=== PATIENT | male | born 1930 | race African-American/Black ===

== ENCOUNTER 2016-12-10 14:11 | Observation (INO) | payer MEDICARE, OTHER ==
[~2016-12-10] VITALS: Ht 172.7 cm; Wt 76.0 kg
[~2016-12-10 14:11] MED LIST: AMLO5TAB2 PO; APIX2.5T PO; CALC0.25 PO; CARV25TA PO; CLON0.1T PO; DIAL800T3 PO; LOSA50TA PO; NOVOINJ2 SQ; SIMV20TA PO; WALKER/ADULT/FO1 MIS
[2016-12-10 14:12] VITALS: BP 140/66; PULSE 70; RESP 18; TEMP 97.9; O2SAT 92
--- NOTE | 2016-12-10 15:03 | PD ---
HPI Chief Complaint: General Weakness Time Seen by Provider: 15:03 Travel History International Travel<30 days: No Contact w/Intl Traveler<30days: No Traveled to known affect area: No History of Present Illness HPI 86-year-old male with history of hypertension, diabetes, end-stage renal disease on peritoneal dialysis nightly presents to emergency department for evaluation of abdominal pain with associated chills and dizziness. Patient's accompanied by his grandson who reports the patient felt this way to days ago but felt better yesterday so they did not bring him to the emergency department. When patient began having symptoms again states he decided to bring him in. Patient denies any chest pain or tightness. He has not been recently ill with fever. Grandson reports that the patient is complaining of epigastric pain with associated dizziness. He also tells me that one week ago he had an episode of black tarry stool. He had had a colonoscopy a month and a half prior to then without anything concerning. Patient has not been nauseous or vomiting. No diarrhea. No other symptoms to report. PFSH Past Medical History Cardiovascular Problems: Yes (HTN) Diabetes: Yes Social History Alcohol Use: No Tobacco Use: No Substance Use: No Allergies-Medications (Allergen,Severity, Reaction): Coded Allergies: No Known Allergies (Unverified , 11/28/16) Reported Meds & Prescriptions Reported Meds & Active Scripts Active Walker/Adult/Folding (Device) 1 Mis Mis 1 Ea .ROUTE DIRECTED Novolog Mix 70-30 FlexPen Inj (Insulin Aspart Protam-Asp 70-30 Inj) 300 Unit/3 Ml Pen 10 Units SQ BIDPC Take within 15 minutes after eating meal twice a day. Preferably, eat two large meals a day. Losartan (Losartan Potassium) 50 Mg Tab 50 Mg PO DAILY Carvedilol 25 Mg Tab 25 Mg PO BID Simvastatin 20 Mg Tab 20 Mg PO DAILY Calcitriol 0.25 Mcg Cap 0.25 Mcg PO DAILY Clonidine (Clonidine HCl) 0.1 Mg Tab 0.1 Mg PO BID Reported Amlodipine (Amlodipine Besylate) 5 Mg Tab 5 Mg PO DAILY Eliquis (Apixaban) 2.5 Mg Tab 2.5 Mg PO BID Dialyvite 800 (B-Complex W/ C & Folic Acid) 1 Tab Review of Systems Except as stated in HPI: all other systems reviewed are Neg Physical Exam Narrative GENERAL: Well-nourished male patient, in no acute distress SKIN: Warm and dry. HEAD: Atraumatic. Normocephalic. EYES: Pupils equal and round. No scleral icterus. No injection or drainage. ENT: No nasal bleeding or discharge. Mucous membranes pink and moist. NECK: Trachea midline. No JVD. CARDIOVASCULAR: Regular rate and rhythm. No murmur appreciated. RESPIRATORY: No accessory muscle use. Clear to auscultation. Breath sounds equal bilaterally. GASTROINTESTINAL: Abdomen soft, non-tender, nondistended. No significant tenderness to palpation. No peritoneal signs. Lower quadrant peritoneal dialysis site. No erythema or edema. Hepatic and splenic margins not palpable. MUSCULOSKELETAL: No obvious deformities. No clubbing. No cyanosis. No edema. NEUROLOGICAL: Awake and alert. No obvious cranial nerve deficits. Motor grossly within normal limits. Normal speech. PSYCHIATRIC: Appropriate mood and affect; insight and judgment normal. Data Data Last Documented VS Vital Signs Date Time Temp Pulse Resp B/P Pulse Ox O2 Delivery O2 Flow Rate FiO2 12/10/16 17:29 63 99 Room Air 12/10/16 17:29 21 162/72 12/10/16 14:12 97.9 Orders Complete Blood Count With Diff (12/10/16 14:51) Comprehensive Metabolic Panel (12/10/16 14:51) Lipase (12/10/16 14:51) Prothrombin Time / Inr (Pt) (12/10/16 14:51) Act Partial Throm Time (Ptt) (12/10/16 14:51) Urinalysis - C+S If Indicated (12/10/16 14:51) Electrocardiogram (12/10/16 14:51) Chest, Single Ap (12/10/16 ) B-Type Natriuretic Peptide (12/10/16 14:52) Ckmb (Isoenzyme) Profile (12/10/16 14:52) Troponin I (12/10/16 14:52) CKMB (12/10/16 15:28) CKMB% (12/10/16 15:28) Blood Culture (12/10/16 17:20) Fluid Culture And Gram Stain (12/10/16 17:20) Lactic Acid (12/10/16 17:22) Vancomycin Inj (Vancomycin Inj) (12/10/16 17:30) Cefazolin Inj (Ancef Inj) (12/10/16 17:30) Labs Laboratory Tests Test 12/10/16 12/10/16 15:20 15:28 Urine Color YELLOW Urine Turbidity CLEAR Urine pH 6.5 Urine Specific [place] 1.013 Urine Protein 100 mg/dL Urine Glucose (UA) NEG mg/dL Urine Ketones NEG mg/dL Urine Occult Blood TRACE Urine Nitrite NEG Urine Bilirubin NEG Urine Urobilinogen LESS THAN 2.0 MG/DL Urine Leukocyte Esterase NEG Urine WBC LESS THAN 1 /hpf Microscopic Urinalysis Comment CULT NOT INDICATED White Blood Count 9.6 TH/MM3 Red Blood Count 2.90 MIL/MM3 Hemoglobin 9.5 GM/DL Hematocrit 28.0 % Mean Corpuscular Volume 96.8 FL Mean Corpuscular Hemoglobin 32.8 PG Mean Corpuscular Hemoglobin 33.8 % Concent Red Cell Distribution Width 15.3 % Platelet Count 208 TH/MM3 Mean Platelet Volume 8.4 FL Neutrophils (%) (Auto) 64.8 % Lymphocytes (%) (Auto) 23.2 % Monocytes (%) (Auto) 8.5 % Eosinophils (%) (Auto) 2.7 % Basophils (%) (Auto) 0.8 % Neutrophils # (Auto) 6.2 TH/MM3 Lymphocytes # (Auto) 2.2 TH/MM3 Monocytes # (Auto) 0.8 TH/MM3 Eosinophils # (Auto) 0.3 TH/MM3 Basophils # (Auto) 0.1 TH/MM3 CBC Comment AUTO DIFF Differential Total Cells 100 Counted Neutrophils % (Manual) 72 % Lymphocytes % 21 % Monocytes % 1 % Eosinophils % 2 % Basophils % 2 % Neutrophils # (Manual) 7.1 TH/MM3 Metamyelocytes 1 % Myelocytes 1 % Differential Comment FINAL DIFF MANUAL Platelet Estimate NORMAL Platelet Morphology Comment NORMAL Tear Drop Cells 1+ Prothrombin Time 12.1 SEC Prothromb Time International 1.1 RATIO Ratio Activated Partial 28.9 SEC Thromboplast Time Sodium Level 136 MEQ/L Potassium Level 5.5 MEQ/L Chloride Level 100 MEQ/L Carbon Dioxide Level 25.1 MEQ/L Anion Gap 11 MEQ/L Blood Urea Nitrogen 96 MG/DL Creatinine 10.59 MG/DL Estimat Glomerular Filtration 6 ML/MIN Rate Random Glucose 172 MG/DL Calcium Level 7.8 MG/DL Total Bilirubin 0.4 MG/DL Aspartate Amino Transf 13 U/L (AST/SGOT) Alanine Aminotransferase 12 U/L (ALT/SGPT) Alkaline Phosphatase 101 U/L Total Creatine Kinase 102 U/L Creatine Kinase MB 1.4 NG/ML Troponin I 0.03 NG/ML B-Type Natriuretic Peptide 351 PG/ML Total Protein 6.5 GM/DL Albumin 2.7 GM/DL Lipase 279 U/L MDM Medical Decision Making Medical Screen Exam Complete: Yes Emergency Medical Condition: Yes Medical Record Reviewed: Yes Differential Diagnosis Gastritis versus indigestion versus ACS versus Peritonitis versus sepsis Narrative Course 86-year-old male presents to emergency department. Workup was initiated in triage. Once a medical bed becomes available, patient will be transferred and care assumed by that provider. Condition: Stable Renetta Monahan Dec 10, 2016 15:03
--- NOTE | 2016-12-10 15:40 | RADRPT ---
EXAM DATE/TIME: 12/10/2016 15:28 [facility] COMPARISON: No previous studies available for comparison. INDICATIONS : Dizziness and short of breath. MEDICAL HISTORY : Hypertension. Diabetes. SURGICAL HISTORY : None. ENCOUNTER: Initial ACUITY: 2 days PAIN SCORE: 0/10 LOCATION: Bilateral chest FINDINGS: A single view of the chest demonstrates bibasilar atelectasis. Heart normal in size. Diminished lung volumes The cardiomediastinal contours are unremarkable. Osseous structures are intact. CONCLUSION: Bibasilar atelectasis. Benedicto José MD on December 10, 2016 at 15:38 Board Certified Radiologist. This report was verified electronically.
[2016-12-10 15:45] LABS: AUTOMATED NEUTROPHIL # 6.2 TH/MM3 (1.8-7.7); BASOPHIL # 0.1 TH/MM3 (0-0.2); BASOPHIL % 0.8 % (0.0-2.0); EOSINOPHIL # 0.3 TH/MM3 (0-0.4); EOSINOPHIL % 2.7 % (0.0-4.0); LYMPH % 23.2 % (9.0-44.0); LYMPHOCYTE # 2.2 TH/MM3 (1.0-4.8); MEAN CELL VOLUME 96.8 FL (80.0-100.0); MEAN CORPUSCULAR HEMOGLOBIN 32.8 PG (27.0-34.0); MEAN CORPUSCULAR HGB CONC 33.8 % (32.0-36.0); MONO % 8.5 % (0.0-8.0); NEUT % 64.8 % (16.0-70.0); PLATELET COUNT 208 TH/MM3 (150-450); RED CELL DISTRIBUTION WIDTH 15.3 % (11.6-17.2); WHITE BLOOD COUNT 9.6 TH/MM3 (4.0-11.0)
[2016-12-10 15:53] LABS: BLOOD, URINE TRACE (NEG); GLUCOSE,URINE NEG (NEG); KETONE, URINE NEG (NEG); NITRITE,URINE NEG (NEG); PH, URINE 6.5 (5.0-8.5); URINE COLOR YELLOW (YELLW/STRAW)
[2016-12-10 15:54] LABS: APTT (PATIENT) 28.9 SEC (24.3-30.1); INTERNATIONAL NORMALIZED RATIO 1.1 RATIO; PROTHROMBIN TIME - PATIENT 12.1 SEC (9.8-11.6)
[2016-12-10 15:55] LABS: HEMO FLAGS AUTO DIFF
[2016-12-10 16:06] LABS: COMMENT (UR) CULT NOT INDICATED; CULTURE IF INDICATED CULT NOT INDICATED
[2016-12-10 16:14] LABS: ANION GAP 11 MEQ/L (5-15); AST (GOT) 13 U/L (15-37); BICARBONATE 25.1 MEQ/L (21.0-32.0); BLOOD UREA NITROGEN 96 MG/DL (7-18); CHLORIDE 100 MEQ/L (98-107); GLOMERULAR FILTRATION RATE 6 ML/MIN (>89); POTASSIUM 5.5 MEQ/L (3.5-5.1); SODIUM (NA) 136 MEQ/L (136-145)
[2016-12-10 16:17] LABS: ALKALINE PHOSPHATASE 101 U/L (45-117); ALT (GPT) 12 U/L (12-78); TOTAL BILIRUBIN ADULT 0.4 MG/DL (0.2-1.0)
[2016-12-10 16:19] LABS: CREATINE KINASE 102 U/L (39-308)
[2016-12-10 16:31] LABS: CKMB 1.4 NG/ML (0.5-3.6)
[2016-12-10 16:33] LABS: BASOPHILS 2 % (0-2); EOSINOPHILS 2 % (0-4); METAMYELOCYTES 1 % (0-1); MYELOCYTES 1 % (0-0); NEUTROPHIL # MANUAL DIFF 7.1 TH/MM3 (1.8-7.7); POLYS (SEG NEUTROPHILS) 72 % (16-70); WBC DIFF SAMPLE 100
[2016-12-10 16:35] LABS: PLATELET ESTIMATE SMEAR NORMAL (NORMAL); PLATELET MORPHOLOGY NORMAL (NORMAL); SCAN/DIFF FINAL DIFF MANUAL; TEARDROP RBCS 1+ (NORMAL)
[2016-12-10 17:29] VITALS: BP 162/72; PULSE 59; RESP 21; O2SAT 99
[2016-12-10] MEDS ORDERED: VANCOMYCIN INJ 1,000 MG in SODIUM CHLOR 0.9% 250 ML INJ 250 ML IV ONE (17:30)
[2016-12-10 18:00] VITALS: BP 183/73; PULSE 59; RESP 17; O2SAT 100
--- NOTE | 2016-12-10 18:08 | PD ---
Physical Exam Date Seen by Provider: Dec 10, 2016 Time Seen by Provider: 17:15 Narrative This patient presented to the A pod from triage where he had been initially evaluated by one of the PAs. He is an end-stage renal disease patient on chronic ambulatory peritoneal dialysis who presented with pain associated with weakness and dizziness and poor appetite. Onset was about 4 days. No known fever. GENERAL: This is a speaking only patient who does not appear to be in any acute distress. His history was assisted by his grandson who speaks fluent Irish and Czech. SKIN: Warm and dry. HEAD: Atraumatic. Normocephalic. EYES: Pupils equal and round. Extraocular movements are intact. ENT: No nasal bleeding or discharge. Mucous membranes pink and moist. NECK: Trachea midline. Neck is supple. CARDIOVASCULAR: Regular rate and rhythm. Heart sounds are normal. RESPIRATORY: No accessory muscle use. Lungs sound clear with full air movement throughout. GASTROINTESTINAL: Abdomen soft, non-tender, nondistended. There is a peritoneal dialysis catheter in place. MUSCULOSKELETAL: No obvious deformities. No edema. NEUROLOGICAL: Awake and alert. No obvious cranial nerve deficits. Motor grossly within normal limits. Normal speech. PSYCHIATRIC: Appropriate mood and affect; insight and judgment normal. Data Data Last Documented VS Vital Signs Date Time Temp Pulse Resp B/P Pulse Ox O2 Delivery O2 Flow Rate FiO2 12/10/16 18:00 59 17 183/73 100 Room Air 12/10/16 14:12 97.9 Orders Complete Blood Count With Diff (12/10/16 14:51) Comprehensive Metabolic Panel (12/10/16 14:51) Lipase (12/10/16 14:51) Prothrombin Time / Inr (Pt) (12/10/16 14:51) Act Partial Throm Time (Ptt) (12/10/16 14:51) Urinalysis - C+S If Indicated (12/10/16 14:51) Electrocardiogram (12/10/16 14:51) Chest, Single Ap (12/10/16 ) B-Type Natriuretic Peptide (12/10/16 14:52) Ckmb (Isoenzyme) Profile (12/10/16 14:52) Troponin I (12/10/16 14:52) CKMB (12/10/16 15:28) CKMB% (12/10/16 15:28) Blood Culture (12/10/16 17:20) Fluid Culture And Gram Stain (12/10/16 17:20) Lactic Acid (12/10/16 17:22) Vancomycin Inj (Vancomycin Inj) (12/10/16 17:30) Cefazolin Inj (Ancef Inj) (12/10/16 17:30) Ct Abd/Pel W/O Iv Contrast (12/10/16 19:26) Admit Order (Ed Use Only) (12/10/16 19:26) Labs Laboratory Tests Test 12/10/16 12/10/16 12/10/16 15:20 15:28 17:50 Urine Color YELLOW Urine Turbidity CLEAR Urine pH 6.5 Urine Specific [place] 1.013 Urine Protein 100 mg/dL Urine Glucose (UA) NEG mg/dL Urine Ketones NEG mg/dL Urine Occult Blood TRACE Urine Nitrite NEG Urine Bilirubin NEG Urine Urobilinogen LESS THAN 2.0 MG/DL Urine Leukocyte Esterase NEG Urine WBC LESS THAN 1 /hpf Microscopic Urinalysis Comment CULT NOT INDICATED White Blood Count 9.6 TH/MM3 Red Blood Count 2.90 MIL/MM3 Hemoglobin 9.5 GM/DL Hematocrit 28.0 % Mean Corpuscular Volume 96.8 FL Mean Corpuscular Hemoglobin 32.8 PG Mean Corpuscular Hemoglobin 33.8 % Concent Red Cell Distribution Width 15.3 % Platelet Count 208 TH/MM3 Mean Platelet Volume 8.4 FL Neutrophils (%) (Auto) 64.8 % Lymphocytes (%) (Auto) 23.2 % Monocytes (%) (Auto) 8.5 % Eosinophils (%) (Auto) 2.7 % Basophils (%) (Auto) 0.8 % Neutrophils # (Auto) 6.2 TH/MM3 Lymphocytes # (Auto) 2.2 TH/MM3 Monocytes # (Auto) 0.8 TH/MM3 Eosinophils # (Auto) 0.3 TH/MM3 Basophils # (Auto) 0.1 TH/MM3 CBC Comment AUTO DIFF Differential Total Cells 100 Counted Neutrophils % (Manual) 72 % Lymphocytes % 21 % Monocytes % 1 % Eosinophils % 2 % Basophils % 2 % Neutrophils # (Manual) 7.1 TH/MM3 Metamyelocytes 1 % Myelocytes 1 % Differential Comment FINAL DIFF MANUAL Platelet Estimate NORMAL Platelet Morphology Comment NORMAL Tear Drop Cells 1+ Prothrombin Time 12.1 SEC Prothromb Time International 1.1 RATIO Ratio Activated Partial 28.9 SEC Thromboplast Time Sodium Level 136 MEQ/L Potassium Level 5.5 MEQ/L Chloride Level 100 MEQ/L Carbon Dioxide Level 25.1 MEQ/L Anion Gap 11 MEQ/L Blood Urea Nitrogen 96 MG/DL Creatinine 10.59 MG/DL Estimat Glomerular Filtration 6 ML/MIN Rate Random Glucose 172 MG/DL Calcium Level 7.8 MG/DL Total Bilirubin 0.4 MG/DL Aspartate Amino Transf 13 U/L (AST/SGOT) Alanine Aminotransferase 12 U/L (ALT/SGPT) Alkaline Phosphatase 101 U/L Total Creatine Kinase 102 U/L Creatine Kinase MB 1.4 NG/ML Troponin I 0.03 NG/ML B-Type Natriuretic Peptide 351 PG/ML Total Protein 6.5 GM/DL Albumin 2.7 GM/DL Lipase 279 U/L Lactic Acid Level 1.2 mmol/L MDM Supervised Visit with ANA: Yes Interpretation(s) EKG shows a sinus bradycardia with a rate of 58. No ST segment elevation or depression. He does have Q waves in the inferior leads. He has no old EKGs for comparison. Differential Diagnosis Differential diagnosis of abdominal pain includes but is not limited to gastritis, pancreatitis, hepatitis, gastroenteritis, gallbladder disease, constipation, urinary retention, UTI, peptic ulcer disease, diverticulitis or appendicitis. Peritonitis also needs to be included in this patient who uses CAPD. Narrative Course CBC & BMP Diagram 12/10/16 15:28 This patient will need to be admitted for rule out peritonitis associated with CAPD. I have queried up-to-date for recommendations for empiric antibiotic coverage. UpToDate recommended vancomycin and cefazolin. I have added blood cultures, a lactic acid and dialysate culture. The hospitalists' service will be consult for admission. Physician Communication Physician Communication Dr. West will admit to OBS pending cultures, etc. Diagnosis Primary Impression: Abdominal pain Qualified Code: R10.13 - Epigastric pain Additional Impression: Peritoneal dialysis status Admitting Information Admitting Physician Requests: Observation Condition: Stable Gemini Whyte MD Dec 10, 2016 18:08
[2016-12-10] MEDS ORDERED: CALC0.25 PO (18:55)
[2016-12-10] MEDS ORDERED: NOVOINJ2 SQ (18:55)
[2016-12-10] MEDS ORDERED: LOSA50TA PO (18:57)
[2016-12-10] MEDS ORDERED: SIMV20TA PO (18:57)
[2016-12-10] MEDS ORDERED: NALOXONE HCL 0.4 MG/ML AMP IV PRN (20:30)
[2016-12-10] MEDS ORDERED: SODIUM CHLORIDE 0.9% FLUSH 5 ML FLUSH FLUSH PRN ×2 (20:30→21:15)
--- NOTE | 2016-12-10 20:38 | RADRPT ---
EXAM DATE/TIME: 12/10/2016 19:48 [facility] COMPARISON: No previous studies available for comparison. INDICATIONS : Epigastric pain with rectal bleeding. ORAL CONTRAST: No oral contrast ingested. RADIATION DOSE: 9.96 CTDIvol (mGy) MEDICAL HISTORY : Cardiovascular disease. Hypertension. Inflammatory bowel disease.Dialysis SURGICAL HISTORY : None. ENCOUNTER: Initial ACUITY: 1 week PAIN SCALE: 6/10 LOCATION: upper abdomen TECHNIQUE: Volumetric scanning of the abdomen and pelvis was performed. Using automated exposure control and ad justment of the mA and/or kV according to patient size, radiation dose was kept as low as reasonably achievable to obtain optimal diagnostic quality images. FINDINGS: LOWER LUNGS: The visualized lower lungs are clear. LIVER: Homogeneous density without lesion. There is no dilation of the biliary tree. No calcified gallston es. SPLEEN: Normal size without lesion. PANCREAS: Within normal limits. KIDNEYS: Kidneys are atrophic. Peritoneal dialysis catheter noted in place. ADRENAL GLANDS: Within normal limits. VASCULAR: There is no aortic aneurysm. BOWEL/MESENTERY: The stomach, small bowel, and colon demonstrate no acute abnormality. There is no free intraperitone al air or fluid. ABDOMINAL WALL: Within normal limits. RETROPERITONEUM: There is no lymphadenopathy. BLADDER: No wall thickening or mass. REPRODUCTIVE: Within normal limits. INGUINAL: There is no lymphadenopathy or hernia. MUSCULOSKELETAL: No acute changes. CONCLUSION: No acute disease. Atrophic kidneys. Peritoneal dialysis catheter in place. Berhane Dalye MD on December 10, 2016 at 20:33 Board Certified Radiologist. This report was verified electronically.
[2016-12-10] MEDS ORDERED: SODIUM CHLORIDE 0.9% FLUSH 5 ML FLUSH FLUSH SCH (21:00)
[2016-12-10] MEDS ORDERED: ONDANSETRON HCL 4 MG/2 ML VIAL IVP PRN (21:15)
[2016-12-10] MEDS ORDERED: ACETAMINOPHEN 325 MG TAB PO PRN (21:15)
[2016-12-10 21:23] VITALS: BP 158/68; PULSE 60; RESP 18; O2SAT 98
[2016-12-10] MEDS: SODIUM CHLORIDE 0.9% FLUSH 5 ML FLUSH FLUSH SCH (22:12)
[2016-12-10] MEDS ORDERED: LOSARTAN 50 MG TAB PO SCH (23:45)
[2016-12-10] MEDS: cloNIDine HCL 0.1 MG TAB PO SCH (23:45)
[2016-12-10] MEDS: CARVEDILOL 12.5 MG TAB PO SCH (23:45)
[2016-12-10] MEDS: PRAVASTATIN SOD 20 MG TAB PO SCH (23:45)
[2016-12-10] MEDS: amLODIPine BESYLATE 5 MG TAB PO SCH (23:45)
[2016-12-11] VITALS (8 sets, daily range): BP systolic 123–173; BP diastolic 54–77; PULSE 60–68; RESP 18–20; TEMP 97.5–98; O2SAT 96–98
--- NOTE | 2016-12-11 05:05 | HHI.HP ---
HPI Service Family Medicine Primary Care Physician No Primary Care Physician Admission Diagnosis ABD PAIN, PERITONEAL DIALYSIS Diagnoses: International Travel<30 Days: No Contact w/Intl Traveler<30days: No Known Affected Area: No History of Present Illness 86 year-old male with ESRD and nightly peritoneal dialysis presents to ED with epigastric pain 3 days. Pt Citizen Of [place]-speaking only. Bilingual grandson in room helps provide history. Reports nonradiating epigastric pain that began Thursday evening and persisted until today. It is reproducible with palpation and worse with inspiration. Also experiencing intermittent blurred vision and feeling the room spin around him, which is worse with movement. Due to these symptoms, missed the last two nights of peritoneal dialysis (last dialysis Thursday evening). Denies fevers/chills, nausea/vomiting, chest pain/ shortness of breath, or hematuria/dysuria. Does report isolated episode of black stool two weeks ago while on Eliquis. Eliquis was stopped at that time and tarry stool has not recurred. Last colonoscopy 2016 within normal limits. Does not have PCP, melon packer, or director multimedia at present. Was seen by Dr. Caraballo in family practice clinic for establishment visit in November, but requested Citizen [place]-speaking doctor and has not yet established elsewhere. (Twila Potter MD R1) Review of Systems ROS Limitations: Language Barrier Constitutional: DENIES: Fever, Chills Eyes: COMPLAINS OF: Blurred vision, DENIES: Eye pain, Double Vision Ears, nose, mouth, throat: COMPLAINS OF: Vertigo (endorses "Room spinning"), DENIES: Running Nose, Odynophagia Respiratory: DENIES: Cough, Wheezing, Shortness of breath Cardiovascular: DENIES: Chest pain, Palpitations Gastrointestinal: COMPLAINS OF: Abdominal pain, Black stools (x1 two weeks prior), DENIES: Constipation, Diarrhea, Nausea, Vomiting Genitourinary: DENIES: Urinary frequency, Urgency, Hematuria, Dysuria Musculoskeletal: DENIES: Joint pain, Muscle aches Neurologic: COMPLAINS OF: Headache (intermittent), DENIES: Seizures (Twila Potter MD R1) Past Family Social History Past Medical History Hypertension Hyperlipidemia ESRD + peritoneal dialysis (Sep 2015) "Palpitations" Unfamiliar with term "afib" Diabetes mellitus type 2 on insulin Past Surgical History Peritoneal dialysis catheter (Sep 2015) Reported Medications Reported Meds & Active Scripts Active Carvedilol 25 Mg Tab 25 Mg PO BID Clonidine (Clonidine HCl) 0.1 Mg Tab 0.1 Mg PO BID Reported Simvastatin 20 Mg Tab 20 Mg PO HS Losartan (Losartan Potassium) 50 Mg Tab 50 Mg PO HS Novolog Mix 70-30 FlexPen Inj (Insulin Aspart Protam-Asp 70-30 Inj) 300 Unit/3 Ml Pen 5-10 Units SQ BID Calcitriol 0.25 Mcg Cap 0.25 Mcg PO MOWEFR Amlodipine (Amlodipine Besylate) 5 Mg Tab 5 Mg PO HS Dialyvite 800 (B-Complex W/ C & Folic Acid) 1 Tab 1 Tab PO HS (Twila Potter MD R1) Allergies: Coded Allergies: No Known Allergies (Unverified , 11/28/16) Family History Father: , healthy Mother: , cancer Social History Denies tobacco, alcohol, recreational drugs. Originally from [facility], has lived in [place], moved here one month ago (Twila Potter MD R1) Physical Exam Vital Signs Vital Signs Date Time Temp Pulse Resp B/P Pulse Ox O2 Delivery O2 Flow Rate FiO2 12/11/16 04:09 98.0 62 20 123/54 98 12/11/16 03:54 60 12/11/16 00:12 98.0 63 20 173/70 97 12/10/16 21:23 60 18 158/68 98 Room Air 12/10/16 18:00 59 17 183/73 100 Room Air 12/10/16 17:29 63 99 Room Air 12/10/16 17:29 59 21 162/72 99 Room Air 12/10/16 14:12 97.9 70 18 140/66 92 Room Air Physical Exam GENERAL: Adult male in no acute distress. Smiles during exam. SKIN: Warm and dry. No rashes or ecchymoses. HEENT: PERRL. EOMI. No nystagmus. No injection or scleral icterus. Oropharynx non-erythematous and without tonsillary exudate or hypertrophy. NECK: No lymphadenopathy. CV: RRR. No murmurs or rubs. RESP: Lungs clear to auscultation. Breath sounds equal bilaterally. No wheezes or rales. GI: Abdomen soft, distended. Peritoneal dialysis catheter in LLQ. No discharge or erythema at site. No HSM or guarding. +BS. MSK: Without peripheral edema NEURO: Awake and alert. Cranial nerves II through XII intact. Motor and sensory grossly within normal limits. Upper and lower extremities with sensation intact to light touch and 5/5 strength. Normal speech. Laboratory Laboratory Tests Test 12/10/16 12/10/16 12/10/16 15:20 15:28 17:50 Urine Color YELLOW Urine Turbidity CLEAR Urine pH 6.5 Urine Specific [place] 1.013 Urine Protein 100 Urine Glucose (UA) NEG Urine Ketones NEG Urine Occult Blood TRACE Urine Nitrite NEG Urine Bilirubin NEG Urine Urobilinogen LESS THAN 2.0 Urine Leukocyte Esterase NEG Urine WBC LESS THAN 1 Microscopic Urinalysis Comment CULT NOT INDICATED White Blood Count 9.6 Red Blood Count 2.90 Hemoglobin 9.5 Hematocrit 28.0 Mean Corpuscular Volume 96.8 Mean Corpuscular Hemoglobin 32.8 Mean Corpuscular Hemoglobin 33.8 Concent Red Cell Distribution Width 15.3 Platelet Count 208 Mean Platelet Volume 8.4 Neutrophils (%) (Auto) 64.8 Lymphocytes (%) (Auto) 23.2 Monocytes (%) (Auto) 8.5 Eosinophils (%) (Auto) 2.7 Basophils (%) (Auto) 0.8 Neutrophils # (Auto) 6.2 Lymphocytes # (Auto) 2.2 Monocytes # (Auto) 0.8 Eosinophils # (Auto) 0.3 Basophils # (Auto) 0.1 CBC Comment AUTO DIFF Differential Total Cells 100 Counted Neutrophils % (Manual) 72 Lymphocytes % 21 Monocytes % 1 Eosinophils % 2 Basophils % 2 Neutrophils # (Manual) 7.1 Metamyelocytes 1 Myelocytes 1 Differential Comment FINAL DIFF MANUAL Platelet Estimate NORMAL Platelet Morphology Comment NORMAL Tear Drop Cells 1+ Prothrombin Time 12.1 Prothromb Time International 1.1 Ratio Activated Partial 28.9 Thromboplast Time Sodium Level 136 Potassium Level 5.5 Chloride Level 100 Carbon Dioxide Level 25.1 Anion Gap 11 Blood Urea Nitrogen 96 Creatinine 10.59 Estimat Glomerular Filtration 6 Rate Random Glucose 172 Calcium Level 7.8 Total Bilirubin 0.4 Aspartate Amino Transf 13 (AST/SGOT) Alanine Aminotransferase 12 (ALT/SGPT) Alkaline Phosphatase 101 Total Creatine Kinase 102 Creatine Kinase MB 1.4 Troponin I 0.03 B-Type Natriuretic Peptide 351 Total Protein 6.5 Albumin 2.7 Lipase 279 Lactic Acid Level 1.2 Date/Time Procedure Status Source Growth 12/10/16 17:55 Aerobic Blood Culture Received Blood Peripheral Pending 12/10/16 17:55 Anaerobic Blood Culture Received Blood Peripheral Pending (Twila Potter MD R1) Result Diagram: 12/10/16 1528 12/10/16 1528 Imaging Last Impressions Abdomen/Pelvis CT 12/10/16 1926 Signed Impressions: Service Date/Time: Saturday, December 10, 2016 19:48 - CONCLUSION: No acute disease. Atrophic kidneys. Peritoneal dialysis catheter in place. Berhane Daley MD Chest X-Ray 12/10/16 0000 Signed Impressions: Service Date/Time: Saturday, December 10, 2016 15:28 - CONCLUSION: Bibasilar atelectasis. Benedicto José MD (Twila Potter MD R1) Assessment and Plan Assessment and Plan 86-year-old male with ESRD and peritoneal dialysis admitted to observation for epigastric pain and spontaneous bacterial peritonitis rule out. Code Status Full Discussed Condition With SDW: Dr. Escobedo (Twila Potter MD R1) Attending Attestation Patient seen and examined. Case reviewed and discussed with the resident team. Agree with plan of care as discussed with me and documented in the resident note. he was seen in the ED the day of admission. appreciate help of Nephrology. unclear that he has peritonitis but he cannot delay dialysis of some type indefinitely. will stop losartan as that is an arb not a statin (Tara Lira MD) Problem List: (1) Abdominal pain Status: Acute Plan: Epigastric pain reproducible on palpation and worse with inspiration suggestive of GERD vs costochondritis vs rib fracture. However, due to history of ESRD on peritoneal dialysis, want to rule out possibility of spontaneous bacterial peritonitis vs AAA vs hepatitis vs pancreatitis vs cholecystitis vs other PCP Dr. Caraballo Imaging: -CT abdomen/pelvis: No acute disease. Atrophic kidneys. Peritoneal dialysis catheter in place -CXR: No acute disease Plan -Admit to observation under Dr. Lira/FPTS team -BUN/Cr on admission 96/10.5- acceptable in context has missed last two peritoneal dialysis treatments -Consult Nephrology -Appreciate recommendations regarding etiology pain and any necessary further workup -Rule out infection --Conservative coverage for SPB at present, will continue to monitor need for antibiotics. S/p vancomycin and cefazolin x1 in ED -Continue Cefoxitin 2g IV q8h daily (12/11- ) -Blood culture x2 (12/10) pending -Reassuring that no leukocytosis, lactic acid within normal limits -U/A with proteinuria (100) but not suggestive UTI -Rule out hematochezia secondary to hx black stool x1 -Hemoccult performed- negative -Continue hold home Eliquis- recommend outpatient follow up with director multimedia as pt unsure why on this medication -Supportive care Vitals q4h, oxygen supplementation to maintain saturations 89%+, OOB ad yanick -Repeat CBC, CMP, Lactic acid in AM (2) ESRD on peritoneal dialysis Status: Acute Plan: -see plan for abdominal pain (3) Blurry vision Status: Acute Plan: Differential: electrolyte imbalance secondary to fluid shifting from peritoneal dialysis vs orthostatic hypotension vs vertigo vs hypotension vs hypoglycemia Of note, pt on four different hypertensive medications including clonidine Uses home insulin, A1C and compliance unknown -Continue to monitor in context of workup (4) Hypertension Status: Acute Plan: -continue amlodipine 5mg HS -continue carvedilol 25mg PO BID -continue clonidine 0.1mg BID -continue losartan 50mg PO HS (5) DM (diabetes mellitus) Status: Acute Plan: -Hold home insulin -Accuchecks achs + LSSI (6) Hyperlipemia Status: Acute Plan: -Continue statin, convert home simvastatin to formulary Losartan 50mg HS (7) Fluid, Electrolytes, Nutrition, Prophylaxis Status: Acute Plan: Fluids: Per PO Electrolytes: Monitor and replete as needed. Borderline hyperkalemic on admission, missed last two dialysis procedures, will continue to monitor Nutrition: Regular diet (Aware diabetic and with history of renal disease- chosen secondary to reduced functional reserve in elderly during illness) DVT prophylaxis: SCDs GI prophylaxis: not indicated at present (Twila Potter MD R1) Problem Qualifiers (1) Abdominal pain: Qualified Code: R10.13 - Epigastric pain (2) DM (diabetes mellitus): Qualified Code: E11.22 - Type 2 diabetes mellitus with chronic kidney disease on chronic dialysis, with long-term current use of insulin Twila Potter MD R1 Dec 11, 2016 05:04 Tara Lira MD Dec 11, 2016 11:25
[2016-12-11 06:28] LABS: BASOPHIL # 0.1 TH/MM3 (0-0.2); EOSINOPHIL # 0.3 TH/MM3 (0-0.4); EOSINOPHIL % 2.9 % (0.0-4.0); HEMATOCRIT 27.1 % (39.0-51.0); LYMPH % 22.5 % (9.0-44.0); LYMPHOCYTE # 2.4 TH/MM3 (1.0-4.8); MEAN CELL VOLUME 95.7 FL (80.0-100.0); MEAN CORPUSCULAR HEMOGLOBIN 33.2 PG (27.0-34.0); MEAN CORPUSCULAR HGB CONC 34.7 % (32.0-36.0); MONO % 9.2 % (0.0-8.0); NEUT % 64.4 % (16.0-70.0); PLATELET COUNT 203 TH/MM3 (150-450); RED BLOOD COUNT 2.83 MIL/MM3 (4.50-5.90); RED CELL DISTRIBUTION WIDTH 15.1 % (11.6-17.2); WHITE BLOOD COUNT 10.8 TH/MM3 (4.0-11.0)
[2016-12-11 06:37] LABS: HEMO FLAGS AUTO DIFF
[2016-12-11 07:02] LABS: ALT (GPT) 10 U/L (12-78); ANION GAP 11 MEQ/L (5-15); AST (GOT) 9 U/L (15-37); BICARBONATE 22.6 MEQ/L (21.0-32.0); BLOOD UREA NITROGEN 95 MG/DL (7-18); CHLORIDE 103 MEQ/L (98-107); GLOMERULAR FILTRATION RATE 6 ML/MIN (>89); POTASSIUM 5.3 MEQ/L (3.5-5.1); SODIUM (NA) 137 MEQ/L (136-145)
[2016-12-11 07:05] LABS: ALKALINE PHOSPHATASE 84 U/L (45-117); TOTAL BILIRUBIN ADULT 0.5 MG/DL (0.2-1.0)
[2016-12-11] MEDS: cloNIDine HCL 0.1 MG TAB PO SCH ×2 (08:14→20:15)
[2016-12-11] MEDS: ceFOXitin INJ 2 GM in SODIUM CHLORIDE 0.9% INJ 100 ML IV SCH ×3 (08:14)
[2016-12-11] MEDS: CARVEDILOL 12.5 MG TAB PO SCH ×2 (08:14→20:16)
[2016-12-11] MEDS: SODIUM CHLORIDE 0.9% FLUSH 5 ML FLUSH FLUSH SCH ×2 (08:15→20:15)
[2016-12-11 09:06] LABS: SCAN/DIFF AUTO DIFF CONFIRMED
[2016-12-11] MEDS ORDERED: HEPARIN SODIUM - IV 10,000 UNITS/10 ML VIAL XX PRN ×2 (11:15)
[2016-12-11] MEDS ORDERED: SODIUM CHLORIDE 0.9% FLUSH 5 ML FLUSH IVF PRN ×2 (11:15)
--- NOTE | 2016-12-11 11:16 | PD.CONS ---
HPI Service Nephrology Consult Requested By Reason for Consult ESRD on PD Primary Care Physician No Primary Care Physician History of Present Illness This is an 86 y/o ESRD pt on PD who recently moved from [place]. Originally from the [facility], he developed progressive renal failure requiring dialysis in 2014. He was never on HD. He has a hx of DM and HTN, unknown etiology of renal failure. Normally does PD nightly, he does have supplies. Over the past few days he developed abdominal pain without fever or vomiting. He did not feel well enough to do PD, Thursday was his last treatment. The grandson is in the room and able to act as personnel specialist, does not known the dialysis regimen although can tell me there is no last fill. The pt is lying in bed, not in distress. Abdomen is not tender, PD catheter exit site benign although no dressing is currently in place. He has not been febrile. There was an episode of peritonitis at the time of catheter placement in Sep 2015, since then has had no issues. He still makes urine. We were consulted for management. ( Tara Cheng) Review of Systems Gastrointestinal: COMPLAINS OF: Abdominal pain, DENIES: Black stools, Bloody stools, Nausea, Vomiting (Tara Cheng) Past Family Social History Allergies: Coded Allergies: No Known Allergies (Unverified , 11/28/16) Past Medical History ESRD on PD since 2014 HTN DM II Hyperlipidemia Secondary Hyperparathyroidism Metabolic Bone Disease Hx peritonitis Past Surgical History PD catheter placement Reported Medications Simvastatin 20 Mg Tab 20 Mg PO HS Losartan (Losartan Potassium) 50 Mg Tab 50 Mg PO HS Novolog Mix 70-30 FlexPen Inj (Insulin Aspart Protam-Asp 70-30 Inj) 300 Unit/3 Ml Pen 5-10 Units SQ BID Calcitriol 0.25 Mcg Cap 0.25 Mcg PO MOWEFR Amlodipine (Amlodipine Besylate) 5 Mg Tab 5 Mg PO HS Dialyvite 800 (B-Complex W/ C & Folic Acid) 1 Tab 1 Tab PO HS Active Ordered Medications Current Medications Medications (Trade) Dose Ordered Sig/Mahi Route Start Time Stop Time Status Last Admin (Narcan Inj) 0.4 mg UNSCH PRN IV 12/10/16 20:30 (NS Flush) 2 ml UNSCH PRN FLUSH 12/10/16 21:15 (NS Flush) 2 ml BID FLUSH 12/10/16 21:15 3/2/17 08:15 (Tylenol) 650 mg Q4H PRN PO 12/10/16 21:15 (Zofran Inj) 4 mg Q6H PRN IVP 12/10/16 21:15 (Norvasc) 5 mg HS PO 12/10/16 23:45 12/10/16 23:45 (Coreg) 25 mg BID PO 12/10/16 23:45 12/11/16 08:14 (Catapres) 0.1 mg BID PO 12/10/16 23:45 12/11/16 08:14 (Cozaar) 50 mg HS PO 12/10/16 23:45 12/10/16 23:45 (Pravachol) 40 mg HS PO 12/10/16 23:45 12/10/16 23:45 (Rocaltrol) 0.25 mcg MoWeFr PO 12/12/16 11:00 UNV Family History No hx of renal failure or disorders Social History no smoking or ETOH denies drug use 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, 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[facility], moved with sister who lives locally intends to stay local full code [place] speaking (Tara Cheng) Physical Exam Vital Signs Vital Signs Date Time Temp Pulse Resp B/P Pulse Ox O2 Delivery O2 Flow Rate FiO2 12/11/16 07:54 98.0 65 18 148/68 96 12/11/16 04:09 98.0 62 20 123/54 98 12/11/16 03:54 60 12/11/16 00:12 98.0 63 20 173/70 97 12/10/16 21:23 60 18 158/68 98 Room Air 12/10/16 18:00 59 17 183/73 100 Room Air 12/10/16 17:29 63 99 Room Air 12/10/16 17:29 59 21 162/72 99 Room Air 12/10/16 14:12 97.9 70 18 140/66 92 Room Air Physical Exam elderly male, awake, denies pain currently he is afebrile no neuro deficit S1/S2, RRR no murmurs Lungs: clear Abd; soft, nontender, PD catheter exit site without drainage Ext: no edema Laboratory Laboratory Tests Test 12/10/16 12/10/16 12/10/16 12/11/16 15:20 15:28 17:50 06:00 Urine Color YELLOW Urine Turbidity CLEAR Urine pH 6.5 Urine Specific [place] 1.013 Urine Protein 100 Urine Glucose (UA) NEG Urine Ketones NEG Urine Occult Blood TRACE Urine Nitrite NEG Urine Bilirubin NEG Urine Urobilinogen LESS THAN 2.0 Urine Leukocyte Esterase NEG Urine WBC LESS THAN 1 Microscopic Urinalysis Comment CULT NOT INDICATED White Blood Count 9.6 10.8 Red Blood Count 2.90 2.83 Hemoglobin 9.5 9.4 Hematocrit 28.0 27.1 Mean Corpuscular Volume 96.8 95.7 Mean Corpuscular Hemoglobin 32.8 33.2 Mean Corpuscular Hemoglobin 33.8 34.7 Concent Red Cell Distribution Width 15.3 15.1 Platelet Count 208 203 Mean Platelet Volume 8.4 8.3 Neutrophils (%) (Auto) 64.8 64.4 Lymphocytes (%) (Auto) 23.2 22.5 Monocytes (%) (Auto) 8.5 9.2 Eosinophils (%) (Auto) 2.7 2.9 Basophils (%) (Auto) 0.8 1.0 Neutrophils # (Auto) 6.2 7.0 Lymphocytes # (Auto) 2.2 2.4 Monocytes # (Auto) 0.8 1.0 Eosinophils # (Auto) 0.3 0.3 Basophils # (Auto) 0.1 0.1 CBC Comment AUTO DIFF AUTO DIFF Differential Total Cells 100 Counted Neutrophils % (Manual) 72 Lymphocytes % 21 Monocytes % 1 Eosinophils % 2 Basophils % 2 Neutrophils # (Manual) 7.1 Metamyelocytes 1 Myelocytes 1 Differential Comment FINAL DIFF AUTO DIFF MANUAL CONFIRMED Platelet Estimate NORMAL Platelet Morphology Comment NORMAL Tear Drop Cells 1+ Prothrombin Time 12.1 Prothromb Time International 1.1 Ratio Activated Partial 28.9 Thromboplast Time Sodium Level 136 137 Potassium Level 5.5 5.3 Chloride Level 100 103 Carbon Dioxide Level 25.1 22.6 Anion Gap 11 11 Blood Urea Nitrogen 96 95 Creatinine 10.59 10.47 Estimat Glomerular Filtration 6 6 Rate Random Glucose 172 123 Calcium Level 7.8 7.5 Total Bilirubin 0.4 0.5 Aspartate Amino Transf 13 9 (AST/SGOT) Alanine Aminotransferase 12 10 (ALT/SGPT) Alkaline Phosphatase 101 84 Total Creatine Kinase 102 Creatine Kinase MB 1.4 Troponin I 0.03 B-Type Natriuretic Peptide 351 Total Protein 6.5 6.2 Albumin 2.7 2.6 Lipase 279 Lactic Acid Level 1.2 1.3 Phosphorus Level 6.7 Date/Time Procedure Status Source Growth 12/10/16 17:55 Aerobic Blood Culture Received Blood Peripheral Pending 12/10/16 17:55 Anaerobic Blood Culture Received Blood Peripheral Pending (Tara Cheng) Result Diagram: 12/11/16 0600 12/11/16 0600 Imaging Last 72 hours Impressions Abdomen/Pelvis CT 12/10/16 1926 Signed Impressions: Service Date/Time: Saturday, December 10, 2016 19:48 - CONCLUSION: No acute disease. Atrophic kidneys. Peritoneal dialysis catheter in place. Berhane Daley MD Chest X-Ray 12/10/16 0000 Signed Impressions: Service Date/Time: Saturday, December 10, 2016 15:28 - CONCLUSION: Bibasilar atelectasis. Benedicto José MD (Tara Cheng) Assessment and Plan Problem List: (1) ESRD on peritoneal dialysis Plan: on PD since 2014, has missed 3 treatments we will resume PD tonight K 5.3, monitor for now not fluid overloaded recheck electrolyte panel in am avoid IVF, avoid nephrotoxins begin renvela for metabolic bone disorder (2) Abdominal pain Plan: CT negative for acute issues unlikely peritonitis, abdomen is not tender, no fever, WBC normal we will obtain fluid culture and cell ct given vancomycin, cefazolin, and cefoxitin (3) DM (diabetes mellitus) Plan: BG acceptable continue insulin as needed (4) Hypertension Plan: BP stable continue current medications (5) Anemia Plan: will give a dose of epogen monitor hemoglobin (Tara Cheng) Assessment and Plan patient was seen and examined. Discussed with patient and his grandson who provided translation. We will resume PD. Possible discharge in 1-2 days. We will arrange [facility] Agree with above assessment and plan. (Edson Billings MD) Problem Qualifiers (1) Abdominal pain: Qualified Code: R10.13 - Epigastric pain (2) DM (diabetes mellitus): Qualified Code: E11.22 - Type 2 diabetes mellitus with chronic kidney disease on chronic dialysis, with long-term current use of insulin Tara Cheng Dec 11, 2016 11:16 Edson Billings MD Dec 11, 2016 15:31
[2016-12-11] MEDS ORDERED: EPOETIN ALFA 20,000 UNITS/ML VIAL SQ ONE (11:30)
[2016-12-11] MEDS: SEVELAMER CARBONATE 800 MG TAB PO SCH ×2 (14:04→16:58)
[2016-12-11] MEDS ORDERED: GLUCAGON 1 MG/ML VIAL OTHER PRN (15:30)
[2016-12-11] MEDS ORDERED: DEXTROSE 50% IN WATER 50 ML VIAL(D50) IV PUSH PRN (15:30)
[2016-12-11] MEDS: INSULIN ASPART SUPPLEMENTAL SCALE SQ SCH ×2 (16:58→20:16)
[2016-12-11] MEDS: PRAVASTATIN SOD 20 MG TAB PO SCH (20:15)
[2016-12-11] MEDS: amLODIPine BESYLATE 5 MG TAB PO SCH (20:16)
--- NOTE | 2016-12-11 23:55 | EKG ---
Date Performed: 12/10/2016 Time Performed: 17:21:50 PTAGE: 86 years EKG: SINUS BRADYCARDIA INFERIOR MYOCARDIAL INFARCTION ABNORMAL ECG NO PREVIOUS TRACING DOCTOR: Bright Spencer Interpretating Date/Time 12/11/2016 23:54:03
[2016-12-12] VITALS (8 sets, daily range): BP systolic 135–180; BP diastolic 62–88; PULSE 65–74; RESP 18–19; TEMP 97.4–98.2; O2SAT 96–97
[2016-12-12] MEDS: INSULIN ASPART SUPPLEMENTAL SCALE SQ SCH ×4 (05:29→20:54)
[2016-12-12 07:39] LABS: AUTOMATED NEUTROPHIL # 6.8 TH/MM3 (1.8-7.7); BASOPHIL # 0.1 TH/MM3 (0-0.2); BASOPHIL % 0.9 % (0.0-2.0); EOSINOPHIL # 0.3 TH/MM3 (0-0.4); HEMATOCRIT 29.1 % (39.0-51.0); LYMPH % 21.4 % (9.0-44.0); LYMPHOCYTE # 2.3 TH/MM3 (1.0-4.8); MEAN CELL VOLUME 95.8 FL (80.0-100.0); MEAN CORPUSCULAR HEMOGLOBIN 32.7 PG (27.0-34.0); MEAN CORPUSCULAR HGB CONC 34.1 % (32.0-36.0); MONO % 10.2 % (0.0-8.0); NEUT % 64.5 % (16.0-70.0); PLATELET COUNT 211 TH/MM3 (150-450); RED BLOOD COUNT 3.04 MIL/MM3 (4.50-5.90); RED CELL DISTRIBUTION WIDTH 15.1 % (11.6-17.2); WHITE BLOOD COUNT 10.6 TH/MM3 (4.0-11.0)
[2016-12-12 07:42] LABS: HEMO FLAGS AUTO DIFF
[2016-12-12 08:00] LABS: ANION GAP 12 MEQ/L (5-15); BICARBONATE 23.8 MEQ/L (21.0-32.0); BLOOD UREA NITROGEN 87 MG/DL (7-18); CHLORIDE 101 MEQ/L (98-107); GLOMERULAR FILTRATION RATE 6 ML/MIN (>89); POTASSIUM 4.6 MEQ/L (3.5-5.1); SODIUM (NA) 137 MEQ/L (136-145)
[2016-12-12] MEDS: SODIUM CHLORIDE 0.9% FLUSH 5 ML FLUSH FLUSH SCH ×2 (08:36→20:53)
[2016-12-12] MEDS: cloNIDine HCL 0.1 MG TAB PO SCH ×2 (08:36→20:53)
[2016-12-12] MEDS: CARVEDILOL 12.5 MG TAB PO SCH ×2 (08:36→20:53)
[2016-12-12] MEDS: SEVELAMER CARBONATE 800 MG TAB PO SCH ×3 (08:36→18:14)
[2016-12-12 08:40] LABS: PERITONEAL HISTIOCYTES 52 %; PERITONEAL LYMPHS 20 %; PERITONEAL MESOTHELIAL 2 %; PERITONEAL MONOS 8 %; PERITONEAL POLYS(SEGS) 18 %; PERITONEAL WBC 25 /MM3 (0-10)
[2016-12-12 08:47] LABS: SCAN/DIFF AUTO DIFF CONFIRMED
--- NOTE | 2016-12-12 09:48 | HHI.HP ---
HPI Service Family Medicine Primary Care Physician No Primary Care Physician Admission Diagnosis ABD PAIN, PERITONEAL DIALYSIS Diagnoses: (1) Abdominal pain (2) ESRD on peritoneal dialysis (3) Blurry vision (4) Hypertension (5) DM (diabetes mellitus) (6) Hyperlipemia (7) Fluid, Electrolytes, Nutrition, Prophylaxis International Travel<30 Days: No Contact w/Intl Traveler<30days: No Known Affected Area: No History of Present Illness Mr Bailey is an 86 year-old male with ESRD and nightly peritoneal dialysis who presented to the ED with epigastric pain 3 days. Pt Libyan- speaking only. Bilingual grandson(s) in room helps provide history. Reports nonradiating epigastric pain that began Thursday evening and persisted until yesterday. It is reproducible with palpation and worse with inspiration. Also experiencing intermittent blurred vision and feeling the room spin around him, which is worse with movement though he's better today. Due to these symptoms, missed two nights of peritoneal dialysis (last dialysis Thursday evening prior to last night during this hospitalization). Denies fevers/chills, nausea/ vomiting, chest pain/shortness of breath, or hematuria/dysuria. Does report isolated episode of black stool two weeks ago while on Eliquis. Eliquis was stopped at that time and tarry stool has not recurred. Last colonoscopy 2016 within normal limits. Does not have PCP, elementary substitute teacher, or substance abuse technician at present as he was living in [place]. Was seen by Dr. Caraballo in family practice clinic for establishment visit in November, but requested Libyan-speaking doctor and has not yet established elsewhere. He is improved with his abdominal pain and wishes to go home when he can. His grandsons were asking about HHC as they live 4-5 hours away and Mr Bailey lives with a daughter who is sick and unable to help her father much at all. He was seen by Nephrology and the peritoneal fluid is being checked. Fortunately, the original problems he came in with are improved. He probably does not have a peritonitis but the final results are pending. Review of Systems Other ROS Limitations: Language Barrier, history mainly obtained through his grandsons Constitutional: DENIES: Fever, Chills Eyes: COMPLAINS OF: Blurred vision, DENIES: Eye pain, Double Vision Ears, nose, mouth, throat: COMPLAINS OF: Vertigo (endorses "Room spinning"), DENIES: Running Nose, Odynophagia Respiratory: DENIES: Cough, Wheezing, Shortness of breath Cardiovascular: DENIES: Chest pain, Palpitations Gastrointestinal: COMPLAINS OF: Abdominal pain, Black stools (x1 two weeks prior), DENIES: Constipation, Diarrhea, Nausea, Vomiting Genitourinary: DENIES: Urinary frequency, Urgency, Hematuria, Dysuria Musculoskeletal: DENIES: Joint pain, Muscle aches Neurologic: COMPLAINS OF: Headache (intermittent), DENIES: Seizures Past Family Social History Past Medical History Hypertension Hyperlipidemia ESRD + peritoneal dialysis (Sep 2015) "Palpitations" Unfamiliar with term "afib" Diabetes mellitus type 2 on insulin Past Surgical History Peritoneal dialysis catheter (Sep 2015) Allergies: Coded Allergies: No Known Allergies (Unverified , 11/28/16) Family History Father: , healthy prior to Mother: , cancer Social History Denies tobacco, alcohol, recreational drugs. Originally from [facility], has lived in [place], moved here one month ago living with his daughter who is disabled Physical Exam Vital Signs Vital Signs Date Time Temp Pulse Resp B/P Pulse Ox O2 Delivery O2 Flow Rate FiO2 12/12/16 07:51 98.0 74 18 163/67 96 12/12/16 04:16 98.2 69 19 135/62 97 12/12/16 01:00 98.0 65 19 157/77 97 12/11/16 23:17 65 12/11/16 19:23 98.0 68 19 166/77 97 12/11/16 16:49 97.7 64 18 157/71 96 12/11/16 12:00 97.5 61 18 136/63 97 Physical Exam GENERAL: Adult male in no acute distress. Smiles during exam. Two grandsons in the room this am SKIN: Warm and dry. No rashes or ecchymoses. HEENT: PERRL. EOMI. No nystagmus. No injection or scleral icterus. Oropharynx non-erythematous and without tonsillary exudate or hypertrophy. NECK: No lymphadenopathy. CV: RRR. No murmurs or rubs. RESP: Lungs clear to auscultation. Breath sounds equal bilaterally. No wheezes or rales. GI: Abdomen soft, distended. Peritoneal dialysis catheter in LLQ. No discharge or erythema at site. No HSM or guarding. +BS. MSK: Without peripheral edema NEURO: Awake and alert. Cranial nerves II through XII intact. Motor and sensory grossly within normal limits. Upper and lower extremities with sensation intact to light touch and 5/5 strength. Normal speech. Laboratory Laboratory Tests Test 12/12/16 12/12/16 06:10 07:00 White Blood Count 10.6 Red Blood Count 3.04 Hemoglobin 9.9 Hematocrit 29.1 Mean Corpuscular Volume 95.8 Mean Corpuscular Hemoglobin 32.7 Mean Corpuscular Hemoglobin 34.1 Concent Red Cell Distribution Width 15.1 Platelet Count 211 Mean Platelet Volume 8.9 Neutrophils (%) (Auto) 64.5 Lymphocytes (%) (Auto) 21.4 Monocytes (%) (Auto) 10.2 Eosinophils (%) (Auto) 3.0 Basophils (%) (Auto) 0.9 Neutrophils # (Auto) 6.8 Lymphocytes # (Auto) 2.3 Monocytes # (Auto) 1.1 Eosinophils # (Auto) 0.3 Basophils # (Auto) 0.1 CBC Comment AUTO DIFF Differential Comment AUTO DIFF CONFIRMED Sodium Level 137 Potassium Level 4.6 Chloride Level 101 Carbon Dioxide Level 23.8 Anion Gap 12 Blood Urea Nitrogen 87 Creatinine 10.83 Estimat Glomerular Filtration 6 Rate Random Glucose 145 Calcium Level 7.8 Phosphorus Level 6.1 Peritoneal Fluid WBC 25 Peritoneal Fluid RBC 0 Peritoneal Fluid Neutrophils 18 Peritoneal Fluid Lymphocytes 20 Peritoneal Fluid Monocytes 8 Peritoneal Fluid Mesothelial 2 Cells Peritoneal Fluid Histiocytes 52 Date/Time Procedure Status Source Growth 12/12/16 04:42 Gram Stain Received Fluid Peritoneal Fluid Pending 12/12/16 04:42 Body Fluid Culture Received Fluid Peritoneal Fluid Pending 12/10/16 17:55 Aerobic Blood Culture - Preliminary Resulted Blood Peripheral NO GROWTH IN 1 DAY 12/10/16 17:55 Anaerobic Blood Culture - Preliminary Resulted Blood Peripheral NO GROWTH IN 1 DAY Result Diagram: 12/12/16 0610 12/12/16 0610 Imaging Last Impressions Abdomen/Pelvis CT 12/10/16 1926 Signed Impressions: Service Date/Time: Saturday, December 10, 2016 19:48 - CONCLUSION: No acute disease. Atrophic kidneys. Peritoneal dialysis catheter in place. Berhane Daley MD Chest X-Ray 12/10/16 0000 Signed Impressions: Service Date/Time: Saturday, December 10, 2016 15:28 - CONCLUSION: Bibasilar atelectasis. Benedicto José MD Assessment and Plan Assessment and Plan 86-year-old male with ESRD and peritoneal dialysis admitted to observation for epigastric pain and spontaneous bacterial peritonitis rule out. he may be able to go home tomorrow depending on peritoneal fluid and cultures. WBC was a bit high in that fluid Problem List: (1) Abdominal pain Status: Acute Plan: Epigastric pain reproducible on palpation and worse with inspiration suggestive of GERD vs costochondritis vs rib fracture. However, due to history of ESRD on peritoneal dialysis, want to rule out possibility of spontaneous bacterial peritonitis vs AAA vs hepatitis vs pancreatitis vs cholecystitis vs other PCP Dr. Caraballo Imaging: -CT abdomen/pelvis: No acute disease. Atrophic kidneys. Peritoneal dialysis catheter in place -CXR: No acute disease Plan -Admitted to observation under Dr. Lira/ITS team -BUN/Cr on admission 96/10.5- acceptable in context has missed last two peritoneal dialysis treatments -Consult Nephrology -Appreciate recommendations regarding etiology pain and any necessary further workup -Rule out infection --Conservative coverage for SPB at present, will continue to monitor need for antibiotics. S/p vancomycin and cefazolin x1 in ED. should not need any more vancomycin for quite awhile with his renal fxn -Continue Cefoxitin 2g IV q8h daily (12/11- ). holding now awaiting culture results -Blood culture x2 (12/10) pending -Reassuring that no leukocytosis, lactic acid within normal limits -U/A with proteinuria (100) but not suggestive UTI -Rule out hematochezia secondary to hx black stool x1 -Hemoccult performed- negative -Continue hold home Eliquis- recommend outpatient follow up with substance abuse technician as pt unsure why on this medication -Supportive care Vitals q4h, oxygen supplementation to maintain saturations 89%+, OOB ad yanick -Repeated CBC, CMP, Lactic acid (2) ESRD on peritoneal dialysis Status: Acute Plan: -see plan for abdominal pain getting dialysis here and will have a center set up to help him as an outpt as needed (3) Hypertension Status: Acute Plan: -continue amlodipine 5mg HS -continue carvedilol 25mg PO BID -continue clonidine 0.1mg BID -continue losartan 50mg PO HS (4) DM (diabetes mellitus) Status: Acute Plan: -Hold home insulin -Accuchecks achs + LSSI (5) Hyperlipemia Status: Acute Plan: -Continue statin, convert home simvastatin to formulary statin (6) Fluid, Electrolytes, Nutrition, Prophylaxis Status: Acute Plan: Fluids: Per PO Electrolytes: Monitor and replete as needed. Borderline hyperkalemic on admission, missed last two dialysis procedures, will continue to monitor Nutrition: Regular diet (Aware diabetic and with history of renal disease- chosen secondary to reduced functional reserve in elderly during illness) DVT prophylaxis: SCDs GI prophylaxis: not indicated at present (7) Blurry vision Status: Acute Plan: Differential: electrolyte imbalance secondary to fluid shifting from peritoneal dialysis vs orthostatic hypotension vs vertigo vs hypotension vs hypoglycemia Of note, pt on four different hypertensive medications including clonidine Uses home insulin, A1C and compliance unknown -Continue to monitor in context of workup Physician Certification 2 Midnight Certification Type: Admission for Inpatient Services Order for Inpatient Services The services are ordered in accordance with Medicare regulations or non- Medicare payer requirements, as applicable. In the case of services not specified as inpatient-only, they are appropriately provided as inpatient services in accordance with the 2-midnight benchmark. Estimated LOS (days): 2 3 days is the estimated time the patient will need to remain in the hospital, assuming treatment plan goals are met and no additional complications. Post-Hospital Plan: Home Problem Qualifiers (1) Abdominal pain: Qualified Code: R10.13 - Epigastric pain (2) Hypertension: Qualified Code: I15.0 - Renovascular hypertension (3) DM (diabetes mellitus): Qualified Code: E11.22 - Type 2 diabetes mellitus with chronic kidney disease on chronic dialysis, with long-term current use of insulin Tara Lira MD Dec 12, 2016 09:48
[2016-12-12 10:30] LABS: HEMOGLOBIN A1a 1.3 %; HEMOGLOBIN A1b 1.4 %; HEMOGLOBIN Ao 79.1 %; HEMOGLOBIN F 1.9 %; HEMOGLOBIN LA1C 2.9 %
[2016-12-12] MEDS ORDERED: CALCITRIOL 0.25 MCG CAP PO SCH (11:00)
--- NOTE | 2016-12-12 11:56 | HHI.NPPN ---
Subjective General Problems: Anemia Renal Failure: Chronic, End Stage Renal Disease Interval History Good UF with PD. Fluid clear per dialysis nurses. Having some constipation. ( Tara Cheng) Review of Systems Gastrointestinal Gastrointestinal: Abdominal Pain (Tara Cheng) Objective Data Data 12/11/16 12/12/16 19:00 07:00 Intake Total 750 ml Balance 750 ml Intake Oral 750 ml Vital Signs Date Time Temp Pulse Resp B/P Pulse Ox O2 Delivery O2 Flow Rate FiO2 12/12/16 07:51 98.0 74 18 163/67 96 12/12/16 04:16 98.2 69 19 135/62 97 12/12/16 01:00 98.0 65 19 157/77 97 12/11/16 23:17 65 12/11/16 19:23 98.0 68 19 166/77 97 12/11/16 16:49 97.7 64 18 157/71 96 12/11/16 12:00 97.5 61 18 136/63 97 (Tara Cheng) -: 12/12/16 0610 12/12/16 0610 Microbiology 12/12/16 Gram Stain, Received Pending 12/12/16 Body Fluid Culture, Received Pending Tubes & Lines: Tenckhoff Catheter (Tara Cheng) Physical Exam General Appearance: Well Developed, Well Nourished, No Acute Distress (Tara Cheng) Neck Neck Exam: Neck Supple (Tara Cheng) Pulmonary Resp Exam: Clear Bilaterally, Breath Sounds Equal (Tara Cheng) Cardiology CV Exam: Regular, Good Perfusion (Tara Cheng) Gastrointestinal/Abdomen GI Exam: Soft, Bowel Sounds Present GI Remarks slightly tender (Tara Cheng) Musculoskeletal MS Exam: Joints Intact, Good Strength (Tara Cheng) Integumentary Skin Exam: Warm, Dry (Tara Cheng) Extremeties Extremities Exam: No Edema, Pedal Pulses Palpable (Tara Cheng) Neurologic Neuro Exam: Alert, Awake, Oriented, Speech Clear, Moving All Extremities ( Tara Cheng) Psychiatric Psych Exam: Appropriate Responses (Tara Cheng) Assessment/Plan Discussed Condition With: Patient Problem List: (1) ESRD on peritoneal dialysis Plan: on PD since 2014, missed a few treatments but it was resumed overnight K has normalized not fluid overloaded follow electrolytes avoid IVF, avoid nephrotoxins on Renvela for metabolic bone disorder he does still make some urine he will be transferred to [facility] PD clinic; they are aware (2) Abdominal pain Plan: CT negative for acute issues WBC in PD fluid, culture in process given vancomycin, cefazolin, and cefoxitin x 1 (3) DM (diabetes mellitus) Plan: BG acceptable continue insulin as needed (4) Hypertension Plan: BP stable continue current medications (5) Anemia Plan: given epogen monitor hemoglobin (Tara Cheng) Plan patient was seen and examined. He does not have peritonitis. He does not need antibiotics. He can be discharged from renal standpoint. (Edson Billings MD) Problem Qualifiers (1) Abdominal pain: Qualified Code: R10.13 - Epigastric pain (2) DM (diabetes mellitus): Qualified Code: E11.22 - Type 2 diabetes mellitus with chronic kidney disease on chronic dialysis, with long-term current use of insulin (3) Hypertension: Qualified Code: I15.0 - Renovascular hypertension Traa Cheng Dec 12, 2016 11:55 Edson Billings MD Dec 12, 2016 15:03
--- NOTE | 2016-12-12 14:27 | HHI.FF ---
Face to Face Verification Diagnosis: (1) End stage renal disease (2) Hypertension (3) DM (diabetes mellitus) (4) Weakness (5) Anemia Physical Therapy Order: Evaluate and Treat, Improve ambulation, Strength and gait training Home Health Nursing Order: Signs/symptoms of disease process Nursing assessment with vital signs I have seen patient Rohan Bailey on 12/12/16. My clinical findings support the need for the requested home health care services because: Deconditioned w/ increased weakness High risk of falls I certify that my clinical findings support that this patient is homebound because: Unsteady gait/balance Cynthia Huffman MD Dec 12, 2016 14:27
[2016-12-12] MEDS: PRAVASTATIN SOD 20 MG TAB PO SCH (20:53)
[2016-12-12] MEDS: amLODIPine BESYLATE 5 MG TAB PO SCH (20:53)
[2016-12-13] VITALS (8 sets, daily range): BP systolic 135–179; BP diastolic 58–81; PULSE 68–78; RESP 18–20; TEMP 97.3–98.2; O2SAT 94–97
[2016-12-13 07:19] LABS: AUTOMATED NEUTROPHIL # 6.6 TH/MM3 (1.8-7.7); BASOPHIL # 0.1 TH/MM3 (0-0.2); BASOPHIL % 0.9 % (0.0-2.0); EOSINOPHIL # 0.3 TH/MM3 (0-0.4); LYMPH % 21.1 % (9.0-44.0); LYMPHOCYTE # 2.2 TH/MM3 (1.0-4.8); MEAN CELL VOLUME 95.7 FL (80.0-100.0); MEAN CORPUSCULAR HGB CONC 34.5 % (32.0-36.0); PLATELET COUNT 223 TH/MM3 (150-450); RED BLOOD COUNT 3.24 MIL/MM3 (4.50-5.90); RED CELL DISTRIBUTION WIDTH 15.3 % (11.6-17.2); WHITE BLOOD COUNT 10.3 TH/MM3 (4.0-11.0)
[2016-12-13] MEDS: INSULIN ASPART SUPPLEMENTAL SCALE SQ SCH ×4 (07:28→21:33)
[2016-12-13 07:30] LABS: HEMO FLAGS AUTO DIFF
--- NOTE | 2016-12-13 07:30 | HHI.FPPN ---
Subjective Remarks Pt seen and examined this morning. AFVSS. No acute events overnight. Two Japanese -speaking grandsons in the room. No complaints this morning. Denies CP, SOB, or abdominal pain. Endorses decreased appetite. If cleared by nephrology feels ready to go home. (Cynthia Huffman MD) Objective Vitals Vital Signs Date Time Temp Pulse Resp B/P Pulse Ox O2 Delivery O2 Flow Rate FiO2 12/13/16 04:38 78 18 135/79 97 12/13/16 00:54 70 12/13/16 00:51 78 18 138/58 97 12/12/16 19:28 97.4 72 18 180/88 96 12/12/16 16:17 97.6 74 18 163/72 96 12/12/16 13:21 97.6 72 18 137/65 97 12/12/16 13:20 97.6 72 12/12/16 08:20 71 12/12/16 07:51 98.0 74 18 163/67 96 I/O 12/12/16 12/12/16 12/12/16 12/13/16 12/13/16 12/13/16 07:00 15:00 23:00 07:00 15:00 23:00 Intake Total 480 ml Output Total 861 ml Balance -861 ml 480 ml Intake Oral 480 ml Peritoneal Fluid 861 ml (Cynthia Huffman MD) Result Diagram: 12/12/16 0610 12/12/16 0610 Objective Remarks GENERAL: WN, WD male laying comfortably in bed in no acute distress, smiling and pleasant. SKIN: Warm and dry. HEENT: Pupils equal and round. No scleral icterus. No nasal drainage. MMM. HEART: RRR no m/r/g. LUNGS: CTAB without wheezes or crackles. ABDOMEN: Soft, NT, ND. Peritoneal dialysis catheter in LLQ with dressing place. EXTREMITIES: No LE edema. NEURO: Awake and alert. (Cynthia Huffman MD) A/P Assessment and Plan 86-year-old male with ESRD and peritoneal dialysis admitted to observation on 12/10/16 for epigastric pain and having missed a few nights of home PD. Nephrology consulted; patient resumed PD in the hospital. Because of abdominal pain, peritonitis is being ruled out. Peritoneal fluid with elevated WBCs but patient without fever or leukocytosis and abdominal pain has resolved. Peritoneal fluid cultures pending. Discharge Planning Possibly D/C today if cleared by nephrology. Case management assisting with home health care needs. (Cynthia Huffman MD) Attending Attestation Patient seen and examined. Case reviewed and discussed with the resident team. Agree with plan of care as discussed with me and documented in the resident note. (Tara Lira MD) Problem List: (1) ESRD on peritoneal dialysis Status: Chronic Plan: Patient had skipped a few nights of peritoneal dialysis. Creatinine >10. Nephrology assisting with case; appreciate their expertise. - Outpatient arrangements with [facility] - Potassium within normal limits - Calcium low, phosphorous elevated - Started on Sevelamer (2) Abdominal pain Status: Resolved Plan: Patient initially presented with epigastric abdominal pain. Has had peritonitis in the past. Received vancomycin and cefazolin in the ED. - Afebrile, no leukocytosis - Abdominal pain has resolved - CT with no acute findings - Peritoneal fluid showing 25 WBC. Awaiting fluid cultures (3) Hypertension Status: Chronic Plan: BP fluctuates. - Continue home meds: * Amlodipine 5 mg PO daily * Carvedilol 25 mg PO BID * Clonidine 0.1 mg PO BID * Losartan 50 mg PO daily (4) DM (diabetes mellitus) Status: Chronic Plan: A1c elevated to 7.5. On 70/30 at home which is held in the hospital while patient is on sliding scale insulin per protocol. (5) Fluid, Electrolytes, Nutrition, Prophylaxis Status: Acute Plan: - Fluids: Tolerating PO. Avoid IVF - Electrolytes: Monitor - Nutrition: Renal diet - DVT prophylaxis: Heparin [address] Lira (Cynthia Huffman MD) Problem Qualifiers (1) Abdominal pain: Qualified Code: R10.13 - Epigastric pain (2) Hypertension: Qualified Code: I15.0 - Renovascular hypertension (3) DM (diabetes mellitus): Qualified Code: E11.22 - Type 2 diabetes mellitus with chronic kidney disease on chronic dialysis, with long-term current use of insulin Cynthia Huffman MD Dec 13, 2016 07:30 Tara Lira MD Dec 18, 2016 16:28 - Electrolytes: Monitor - Nutrition: Renal diet - DVT prophylaxis: Heparin [address] Lira Problem Qualifiers (1) Abdominal pain: Qualified Code: R10.13 - Epigastric pain (2) Hypertension: Qualified Code: I15.0 - Renovascular hypertension (3) DM (diabetes mellitus): Qualified Code: E11.22 - Type 2 diabetes mellitus with chronic kidney disease on chronic dialysis, with long-term current use of insulin Cynthia Huffman MD Dec 13, 2016 07:30
[2016-12-13 07:33] LABS: POTASSIUM 4.3 MEQ/L (3.5-5.1)
[2016-12-13] MEDS: SEVELAMER CARBONATE 800 MG TAB PO SCH ×3 (08:29→18:06)
[2016-12-13] MEDS: CARVEDILOL 12.5 MG TAB PO SCH ×2 (08:30→21:33)
[2016-12-13] MEDS: cloNIDine HCL 0.1 MG TAB PO SCH ×2 (08:30→21:33)
[2016-12-13] MEDS: SODIUM CHLORIDE 0.9% FLUSH 5 ML FLUSH FLUSH SCH ×2 (08:30→21:32)
[2016-12-13] MEDS: HEPARIN SODIUM - SQ 10,000 UNITS/ML VIAL SQ SCH ×2 (08:31→18:05)
[2016-12-13 09:19] LABS: BANDS 2 % (0-6); BASOPHILS 1 % (0-2); EOSINOPHILS 2 % (0-4); METAMYELOCYTES 1 % (0-1); MYELOCYTES 1 % (0-0); NEUTROPHIL # MANUAL DIFF 7.9 TH/MM3 (1.8-7.7); POLYS (SEG NEUTROPHILS) 73 % (16-70); WBC DIFF SAMPLE 100
[2016-12-13 09:20] LABS: PLATELET ESTIMATE SMEAR NORMAL (NORMAL); PLATELET MORPHOLOGY ENLARGED (NORMAL); SCAN/DIFF FINAL DIFF MANUAL
[2016-12-13] MEDS ORDERED: SEVEL800 PO (10:16)
--- NOTE | 2016-12-13 18:38 | HHI.NPPN ---
Subjective General Problems: Anemia Renal Failure: Chronic, End Stage Renal Disease Review of Systems Gastrointestinal Gastrointestinal: Abdominal Pain Objective Data Data 12/12/16 12/13/16 19:00 07:00 Intake Total 480 ml Output Total 861 ml Balance -861 ml 480 ml Intake Oral 480 ml Peritoneal Fluid 861 ml Vital Signs Date Time Temp Pulse Resp B/P Pulse Ox O2 Delivery O2 Flow Rate FiO2 12/13/16 15:51 70 158/73 12/13/16 09:27 75 140/66 12/13/16 07:31 97.3 68 20 179/81 97 12/13/16 04:38 78 18 135/79 97 12/13/16 00:54 70 12/13/16 00:51 78 18 138/58 97 12/12/16 19:28 97.4 72 18 180/88 96 -: 12/13/16 0603 12/13/16 0603 Tubes & Lines: Tenckhoff Catheter Physical Exam General Appearance: Well Developed, Well Nourished, No Acute Distress Neck Neck Exam: Neck Supple Pulmonary Resp Exam: Clear Bilaterally, Breath Sounds Equal Cardiology CV Exam: Regular, Good Perfusion Gastrointestinal/Abdomen GI Exam: Soft, Bowel Sounds Present Musculoskeletal MS Exam: Joints Intact, Good Strength Integumentary Skin Exam: Warm, Dry Extremeties Extremities Exam: No Edema, Pedal Pulses Palpable Neurologic Neuro Exam: Alert, Awake, Oriented, Speech Clear, Moving All Extremities Psychiatric Psych Exam: Appropriate Responses Assessment/Plan Discussed Condition With: Patient Problem List: (1) ESRD on peritoneal dialysis Plan: on PD since 2014, K has normalized PD 861 ML UF he will be transferred to [facility] PD clinic; they are aware (2) Abdominal pain Plan: CT negative for acute issues WBC in PD fluid, culture NEGATIVE given vancomycin, cefazolin, and cefoxitin x 1 (3) DM (diabetes mellitus) Plan: BG acceptable continue insulin as needed (4) Hypertension Plan: BP stable continue current medications (5) Anemia Plan: given epogen monitor hemoglobin Plan patient was seen and examined. He does not have peritonitis. He does not need antibiotics. He can be discharged from renal standpoint. Problem Qualifiers (1) Abdominal pain: Qualified Code: R10.13 - Epigastric pain Diana Bartlett MD Dec 13, 2016 18:38
[2016-12-13] MEDS: amLODIPine BESYLATE 5 MG TAB PO SCH (21:33)
[2016-12-13] MEDS: PRAVASTATIN SOD 20 MG TAB PO SCH (21:33)
[2016-12-14] MEDS: HEPARIN SODIUM - SQ 10,000 UNITS/ML VIAL SQ SCH ×2 (00:45→08:00)
[2016-12-14 01:54] VITALS: PULSE 69
[2016-12-14 03:31] VITALS: BP 150/67; PULSE 77; RESP 19; TEMP 98.2; O2SAT 98
[2016-12-14] MEDS: INSULIN ASPART SUPPLEMENTAL SCALE SQ SCH (06:35)
[2016-12-14 08:00] VITALS: PULSE 69
--- NOTE | 2016-12-14 08:03 | HHI.FPPN ---
Subjective Remarks Pt seen and examined this morning. AFVSS. No acute events overnight. Denies any complaints. No abdominal pain, CP, SOB, N/V. Was clear for D/C yesterday evening but was already hooked up to PD; this AM feeling ready to go. (Cynthia Huffman MD) Objective Vitals Vital Signs Date Time Temp Pulse Resp B/P Pulse Ox O2 Delivery O2 Flow Rate FiO2 12/14/16 03:31 98.2 77 19 150/67 98 12/14/16 01:54 69 12/13/16 20:41 98.2 73 19 160/76 94 12/13/16 15:51 70 158/73 12/13/16 09:27 75 140/66 12/13/16 08:19 69 (Cynthia Huffman MD) Result Diagram: 12/13/16 0603 12/13/16 0603 Objective Remarks GENERAL: WN, WD male laying comfortably in bed in no acute distress. SKIN: Warm and dry. HEENT: Pupils equal and round. No scleral icterus. No nasal drainage. MMM. HEART: RRR no m/r/g. LUNGS: CTAB without wheezes or crackles. ABDOMEN: Soft, NT, ND. Peritoneal dialysis catheter in LLQ with dressing place. EXTREMITIES: No LE edema. NEURO: Awake and alert. (Cynthia Huffman MD) A/P Assessment and Plan 86-year-old male with ESRD and peritoneal dialysis admitted to observation on 12/10/16 for epigastric pain and having missed a few nights of home PD. Nephrology consulted; patient resumed PD in the hospital. Because of abdominal pain, peritonitis was ruled out. Even though the peritoneal fluid had elevated WBCs there was no growth on culture, and the patient was without fever or leukocytosis. His abdominal pain had completely resolved. He has been cleared by nephrology for discharge with arrangements to follow-up at [facility]. Discharge Planning D/C home. Case management assisting with home health care needs. (Cynthia Huffman MD) Attending Attestation Patient seen and examined. Case reviewed and discussed with the resident team. Agree with plan of care as discussed with me and documented in the resident note. (Tara Lira MD) Problem List: (1) ESRD on peritoneal dialysis Status: Chronic Plan: Patient had skipped a few nights of peritoneal dialysis secondary to abdominal discomfort. Creatinine >10. Nephrology consulted and patient was resumed on PD. Arrangements were made for follow-up in [facility] PD Clinic. - Potassium within normal limits - Calcium low, phosphorous elevated - Started on Sevelamer (2) Abdominal pain Status: Resolved Plan: Patient initially presented with epigastric abdominal pain. Has had peritonitis in the past. Received vancomycin and cefazolin in the ED. - Afebrile, no leukocytosis - Abdominal pain has resolved - CT with no acute findings - Peritoneal fluid showing 25 WBC with negative cultures (3) Hypertension Status: Chronic Plan: BP fluctuates. - Continue home meds: * Amlodipine 5 mg PO daily * Carvedilol 25 mg PO BID * Clonidine 0.1 mg PO BID * Losartan 50 mg PO daily (4) DM (diabetes mellitus) Status: Chronic Plan: A1c elevated to 7.5. On 70/30 at home which is held in the hospital while patient is on sliding scale insulin per protocol. (5) Fluid, Electrolytes, Nutrition, Prophylaxis Status: Acute Plan: - Fluids: Tolerating PO. Avoid IVF - Electrolytes: Monitor - Nutrition: Renal diet dw Dr. Lira (Cynthia Huffman MD) Problem Qualifiers (1) Abdominal pain: Qualified Code: R10.13 - Epigastric pain Cynthia Huffman MD Dec 14, 2016 08:03 Tara Lira MD Dec 18, 2016 16:29
[2016-12-14] MEDS: CARVEDILOL 12.5 MG TAB PO SCH (09:27)
[2016-12-14] MEDS: cloNIDine HCL 0.1 MG TAB PO SCH (09:27)
[2016-12-14] MEDS: SEVELAMER CARBONATE 800 MG TAB PO SCH (09:28)
[2016-12-14] MEDS: SODIUM CHLORIDE 0.9% FLUSH 5 ML FLUSH FLUSH SCH (09:29)
--- NOTE | 2016-12-15 10:31 | HHI.DS ---
Discharge Summary Admission Date Dec 10, 2016 at 19:28 Discharge Date: Dec 14, 2016 Admitting Diagnosis ABD PAIN, PERITONEAL DIALYSIS (1) ESRD on peritoneal dialysis Plan: Patient had skipped a few nights of peritoneal dialysis secondary to abdominal discomfort. Creatinine >10. Nephrology consulted and patient was resumed on PD. Arrangements were made for follow-up in [facility]. - Potassium within normal limits - Calcium low, phosphorous elevated - Started on Sevelamer (2) Abdominal pain Plan: Patient initially presented with epigastric abdominal pain. Has had peritonitis in the past. Received vancomycin and cefazolin in the ED. - Afebrile, no leukocytosis - Abdominal pain has resolved - CT with no acute findings - Peritoneal fluid showing 25 WBC with negative cultures (3) Hypertension Plan: BP fluctuates. - Continue home meds: * Amlodipine 5 mg PO daily * Carvedilol 25 mg PO BID * Clonidine 0.1 mg PO BID * Losartan 50 mg PO daily (4) DM (diabetes mellitus) Plan: A1c elevated to 7.5. On 70/30 at home which is held in the hospital while patient is on sliding scale insulin per protocol. Consultants Nephrology Brief History Mr Bailey is an 86 year-old male with ESRD and nightly peritoneal dialysis who presented to the ED with epigastric pain 3 days. Pt South African- speaking only. Bilingual grandson(s) in room helps provide history. Reports nonradiating epigastric pain that began Thursday evening and persisted until yesterday. It is reproducible with palpation and worse with inspiration. Also experiencing intermittent blurred vision and feeling the room spin around him, which is worse with movement though he's better today. Due to these symptoms, missed two nights of peritoneal dialysis (last dialysis Thursday evening prior to last night during this hospitalization). Denies fevers/chills, nausea/ vomiting, chest pain/shortness of breath, or hematuria/dysuria. Does report isolated episode of black stool two weeks ago while on Eliquis. Eliquis was stopped at that time and tarry stool has not recurred. Last colonoscopy 2016 within normal limits. Does not have PCP, supervisor lime, or internal control analyst at present as he was living in [place]. Was seen by Dr. Caraballo in family practice clinic for establishment visit in November, but requested South African-speaking doctor and has not yet established elsewhere. He is improved with his abdominal pain and wishes to go home when he can. His grandsons were asking about HHC as they live 4-5 hours away and Mr Leo lives with a daughter who is sick and unable to help her father much at all. He was seen by Nephrology and the peritoneal fluid is being checked. Fortunately, the original problems he came in with are improved. He probably does not have a peritonitis but the final results are pending. CBC/BMP: 12/13/16 0603 12/13/16 0603 Significant Findings Laboratory Tests Test 12/13/16 06:03 Red Blood Count 3.24 MIL/MM3 (4.50-5.90) Hemoglobin 10.7 GM/DL (13.0-17.0) Hematocrit 31.0 % (39.0-51.0) Monocytes (%) (Auto) 11.0 % (0.0-8.0) Monocytes # (Auto) 1.1 TH/MM3 (0-0.9) Neutrophils % (Manual) 73 % (16-70) Neutrophils # (Manual) 7.9 TH/MM3 (1.8-7.7) Myelocytes 1 % (0-0) Platelet Morphology Comment ENLARGED (NORMAL) Blood Urea Nitrogen 73 MG/DL (7-18) Creatinine 10.25 MG/DL (0.60-1.30) Estimat Glomerular Filtration 6 ML/MIN (>89) Rate Random Glucose 171 MG/DL (74-106) Calcium Level 7.6 MG/DL (8.5-10.1) Phosphorus Level 6.4 MG/DL (2.5-4.9) PE at Discharge GENERAL: WN, WD male laying comfortably in bed in no acute distress. SKIN: Warm and dry. HEENT: Pupils equal and round. No scleral icterus. No nasal drainage. MMM. HEART: RRR no m/r/g. LUNGS: CTAB without wheezes or crackles. ABDOMEN: Soft, NT, ND. Peritoneal dialysis catheter in LLQ with dressing place. EXTREMITIES: No LE edema. NEURO: Awake and alert. Hospital Course 86-year-old male with ESRD and peritoneal dialysis admitted to observation on 12/10/16 for epigastric pain and having missed a few nights of home PD. Nephrology consulted; patient resumed PD in the hospital. Because of abdominal pain, peritonitis was ruled out. Even though the peritoneal fluid had elevated WBCs there was no growth on culture, and the patient was without fever or leukocytosis. His abdominal pain completely resolved, and he was discharged in stable condition on 12/14 with arrangements to follow-up at [facility]. Pt Condition on Discharge: Stable Discharge Disposition: Disch w/ Home Health Serv Discharge Instructions DIET: Follow Instructions for: Renal Failure Diet Activities you can perform: Regular-No Restrictions Follow up Referrals: Nephrology - 1 Week with Edson Billings MD Physician - 1 Week New Medications: Sevelamer Carbonate (Renvela) 800 Mg Tab 1600 MG PO TIDAC #90 Ref 0 TAB Continued Medications: Amlodipine (Amlodipine) 5 Mg Tab 5 MG PO HS Blood Pressure Management #93 Ref 1 TAB B-Complex W/ C & Folic Acid (Dialyvite 800) 1 Tab 1 TAB PO HS Calcitriol (Calcitriol) 0.25 Mcg Cap 0.25 MCG PO MoWeFr Calcium Supplement #30 Ref 0 CAP Carvedilol (Carvedilol) 25 Mg Tab 25 MG PO BID #180 Ref 3 TAB Clonidine (Clonidine) 0.1 Mg Tab 0.1 MG PO BID Blood Pressure Management #60 Ref 3 TAB Insulin Aspart Protam-Asp 70-30 Inj (Novolog Mix 70-30 FlexPen Inj) 300 Unit/3 Ml Pen 5-10 UNITS SQ BID Blood Sugar Management #1 Ref 0 PEN Losartan (Losartan) 50 Mg Tab 50 MG PO HS Blood Pressure Management #30 Ref 0 TAB Simvastatin (Simvastatin) 20 Mg Tab 20 MG PO HS Cholesterol Management #30 Ref 0 TAB Cynthia Huffman MD Dec 15, 2016 10:31
[2016-12-18] MEDS ORDERED: APIX2.5T PO (17:16)
[2016-12-18] MEDS ORDERED: MIRTA15 PO (17:16)
[2016-12-25] MEDS ORDERED: WALKER/ADULT/FO1 MIS (10:31)
[2016-12-25] MEDS ORDERED: SERT25TA83 PO (10:31)
[2017-02-19] MEDS ORDERED: WALKER/ADULT/FO1 MIS (14:25)
== END 2016-12-14 11:02 | disposition home or self-care (01) ==
LOC: NETRI 14:11 → NEDA 19:28 → NEPGCP 23:59
PROVIDERS: ADMIT Family Medicine; ATTEND Family Medicine
DX: I12.0 Hypertensive chronic kidney disease with stage 5 chronic kidney disease or end stage renal disease (principal); N18.6 End stage renal disease; R10.13 Epigastric pain; E11.22 Type 2 diabetes mellitus with diabetic chronic kidney disease; H53.8 Other visual disturbances; E78.5 Hyperlipidemia, unspecified; D64.9 Anemia, unspecified; Z99.2 Dependence on renal dialysis
CPT/HCPCS: 71010; 74176; 80048; 80053; 81001; 82550; 82552; 82948; 83036; 83605; 83690; 83880; 84100; 84484; 85007; 85025; 85027; 85610; 85730; 87040; 87070; 87205; 89051; 90935; 93005; 96365; 96368; 97163; 99285; G0378; G8987; G8988; J0690; J0694; J1644; J1815; J3370; J7050; Q4081; 90945; G0257

== ENCOUNTER 2017-02-03 11:33 | Observation (INO) | payer MEDICARE, OTHER ==
[~2017-02-03 11:33] MED LIST changes: -AMLO5TAB2 PO; +SERT25TA83 PO; +SEVEL800 PO
[2017-02-03 11:36] VITALS: BP 162/76; PULSE 82; RESP 18; TEMP 97.6; O2SAT 96
--- NOTE | 2017-02-03 11:44 | PD ---
Physical Exam Date Seen by Provider: Feb 03, 2017 Time Seen by Provider: 11:37 Narrative Pt is an 86 year old male presenting to the ED for evaluation of abdominal pain and pain at peritoneal dialysis catheter site. He's had a 25 lb weight gain in less than 6 weeks, his abdomen gets bloated. He was sent by Dr. Leland Lutz for evaluation of PD catheter placement. Family states he fainted last night, BP was elevated, and he was hyperglycemic. Pt is Nigerian speaking, family requests formal interpretation. Family reports sweats, uncertain if fevers as they have no thermometer. Pt is somewhat depressed per family. Dr. Lutz would like report faxed to [phone] when work-up is completed. VSS, awaiting bed placement. Data Data Last Documented VS Vital Signs Date Time Temp Pulse Resp B/P Pulse Ox O2 Delivery O2 Flow Rate FiO2 02/03/17 11:36 97.6 82 18 162/76 96 MDM Supervised Visit with ANA: Shahrzad Snyder Feb 03, 2017 11:44
[2017-02-03] MEDS ORDERED: SODIUM CHLORIDE 0.9% FLUSH 10 ML FLUSH IV FLUSH PRN ×3 (12:15→17:30)
--- NOTE | 2017-02-03 12:15 | PD ---
HPI Chief Complaint: Abdominal Pain Time Seen by Provider: 12:08 Travel History International Travel<30 days: No Contact w/Intl Traveler<30days: No Traveled to known affect area: No History of Present Illness HPI 86-year-old male presents to the emergency department for evaluation of multiple complaints. Patient states that he had a syncopal episode last night around 9 PM. He states that he got up from sleeping and felt very dizzy, nauseous, diaphoretic and had a syncopal episode. He states he had a left- sided headache at the time, but the headache has resolved. He also reports feeling fatigued and had a 25 pound weight gain recently. He has history of hypertension, diabetes, end-stage renal disease on peritoneal dialysis. He has a prescription from Dr. Billings for evaluation of peritoneal catheter for position of tip to determine placement. He denies any fevers. He denies any chest pain, but states he feels like it is hard to breathe. He states he has diffuse abdominal pain. He states he does peritoneal dialysis every night and did perform it last night. [place]. His primary care physician is Dr. Ruiz. Patient is [place]-speaking and translation was done through official land developer. Caregiver does state that fluid from peritoneal catheter is brown and discolored. PFSH Past Medical History Cardiovascular Problems: Yes (AFIB) Diabetes: Yes Hypertension: Yes Past Surgical History Abdominal Surgery: Yes (PERITONEAL DIALYSIS PORT PLACEMENT AB) Social History Alcohol Use: No Tobacco Use: No Substance Use: No Allergies-Medications (Allergen,Severity, Reaction): Coded Allergies: No Known Allergies (Unverified , 12/25/16) Reported Meds & Prescriptions Reported Meds & Active Scripts Active Sertraline (Sertraline HCl) 25 Mg Tab 25 Mg PO DAILY Renvela (Sevelamer Carbonate) 800 Mg Tab 1,600 Mg PO TIDAC Carvedilol 25 Mg Tab 25 Mg PO BID Reported Amlodipine (Amlodipine Besylate) 5 Mg Tab 5 Mg PO DAILY IN THE PM PRN Eliquis (Apixaban) 2.5 Mg Tab 2.5 Mg PO BID Simvastatin 20 Mg Tab 20 Mg PO HS Losartan (Losartan Potassium) 50 Mg Tab 50 Mg PO HS Novolog Mix 70-30 FlexPen Inj (Insulin Aspart Protam-Asp 70-30 Inj) 300 Unit/3 Ml Pen 5-10 Units SQ BID Calcitriol 0.25 Mcg Cap 0.25 Mcg PO MOWEFR Take 1 tablet (0.25mcg) on Thursday,Thursday and Thursday Dialyvite 800 (B-Complex W/ C & Folic Acid) 1 Tab 1 Tab PO HS Review of Systems Except as stated in HPI: all other systems reviewed are Neg Physical Exam Narrative GENERAL: Well-nourished, well-developed elderly male patient, afebrile. SKIN: Focused skin assessment warm/dry. HEAD: Normocephalic. Atraumatic. EYES: No scleral icterus. No injection or drainage. NECK: Supple, trachea midline. No JVD or lymphadenopathy. CARDIOVASCULAR: Regular rate and rhythm without murmurs, gallops, or rubs. RESPIRATORY: Breath sounds equal bilaterally. No accessory muscle use. Lungs sounds diminished throughout. GASTROINTESTINAL: Abdomen soft, diffuse tenderness. MUSCULOSKELETAL: No cyanosis, or edema. BACK: Nontender without obvious deformity. No CVA tenderness. Data Data Last Documented VS Vital Signs Date Time Temp Pulse Resp B/P Pulse Ox O2 Delivery O2 Flow Rate FiO2 02/03/17 12:31 97 Room Air 02/03/17 11:36 97.6 82 18 162/76 Orders Complete Blood Count With Diff (02/03/17 12:03) Comprehensive Metabolic Panel (02/03/17 12:03) Lipase (02/03/17 12:03) Prothrombin Time / Inr (Pt) (02/03/17 12:03) Act Partial Throm Time (Ptt) (02/03/17 12:03) Iv Access Insert/Monitor (02/03/17 12:03) Ecg Monitoring (02/03/17 12:03) Oximetry (02/03/17 12:03) Sodium Chloride 0.9% Flush (Ns Flush) (02/03/17 12:15) Electrocardiogram (02/03/17 12:03) Blood Culture (02/03/17 12:03) Lactic Acid Sepsis Protocol (02/03/17 12:03) Chest, Single Ap (02/03/17 ) Creatine Kinase (Cpk) (02/03/17 12:03) Troponin I (02/03/17 12:03) Ct Abd/Pel W/O Iv Contrast (02/03/17 ) Ct Brain W/O Iv Contrast(Rout) (02/03/17 ) Labs Laboratory Tests Test 02/03/17 02/03/17 12:00 12:08 Lactic Acid Level 1.7 mmol/L White Blood Count 10.1 TH/MM3 Red Blood Count 3.54 MIL/MM3 Hemoglobin 12.0 GM/DL Hematocrit 36.0 % Mean Corpuscular Volume 101.8 FL Mean Corpuscular Hemoglobin 34.0 PG Mean Corpuscular Hemoglobin 33.4 % Concent Red Cell Distribution Width 17.9 % Platelet Count 295 TH/MM3 Mean Platelet Volume 9.1 FL Neutrophils (%) (Auto) 71.6 % Lymphocytes (%) (Auto) 16.9 % Monocytes (%) (Auto) 8.3 % Eosinophils (%) (Auto) 2.0 % Basophils (%) (Auto) 1.2 % Neutrophils # (Auto) 7.3 TH/MM3 Lymphocytes # (Auto) 1.7 TH/MM3 Monocytes # (Auto) 0.8 TH/MM3 Eosinophils # (Auto) 0.2 TH/MM3 Basophils # (Auto) 0.1 TH/MM3 CBC Comment DIFF FINAL Differential Comment Prothrombin Time 13.2 SEC Prothromb Time International 1.2 RATIO Ratio Activated Partial 31.9 SEC Thromboplast Time Sodium Level 137 MEQ/L Potassium Level 4.9 MEQ/L Chloride Level 102 MEQ/L Carbon Dioxide Level 22.7 MEQ/L Anion Gap 12 MEQ/L Blood Urea Nitrogen 83 MG/DL Creatinine 10.34 MG/DL Estimat Glomerular Filtration 6 ML/MIN Rate Random Glucose 223 MG/DL Calcium Level 8.4 MG/DL Total Bilirubin 0.5 MG/DL Aspartate Amino Transf 23 U/L (AST/SGOT) Alanine Aminotransferase 25 U/L (ALT/SGPT) Alkaline Phosphatase 73 U/L Total Creatine Kinase 116 U/L Troponin I 0.06 NG/ML Total Protein 7.0 GM/DL Albumin 2.6 GM/DL Lipase 277 U/L [facility] Medical Decision Making Medical Screen Exam Complete: Yes Emergency Medical Condition: Yes Medical Record Reviewed: Yes Interpretation(s) chest x-ray - CONCLUSION: Mild hazy opacity now noted in the right midlung. This could represent early infiltrate or pneumonia. CT brain - CONCLUSION: Mild atrophy and chronic small vessel ischemic change. CT abdomen/pelvis - CONCLUSION: 1. The peritoneal dialysis catheter is unremarkable in appearance with no abnormal fluid collection or definite surrounding inflammatory change. 2. Small amount of ascitic fluid upper abdomen. 3. Small amount of pericardial fluid present. 4. Minimal pleural effusions. Differential Diagnosis Peritoneal catheter displacement versus peritonitis versus fluid overload versus electrolyte abnormality versus ACS Narrative Course 86-year-old male presents to the emergency department for evaluation of syncopal episode, dizziness, vomiting, shortness of breath, diffuse abdominal pain. EKG, CBC, CMP, Lipase, PTT, PT/INR, blood cultures x2, lactic acid, CK, troponin , chest x-ray are ordered and pending. Dr. Leland Lutz is paged. Dr. Billings is resource conservationist who states abdominal x-ray or ct is adequate for placement. CT of the abdomen/pelvis and Ct of the brain (due to syncope) are ordered and pending. EKG shows SR, no acute ST changes. CBC shows normal WBC of 10.1, hemoglobin 12.0, hematocrit 36.0. CMP shows BUNs 83, creatinine 10.34, glucose 223. Lipase is 277. PTT is 31.9, PT 13.2, INR 1.2. Lactic acid is 1.7. CK is 116. Troponin is 0.06. Troponin slightly elevated, most likely due to kidney disease. Chest x-ray shows mild hazy opacity now noted in the right midlung. This could represent early infiltrate or pneumonia. CT of the brain shows mild atrophy and chronic small vessel ischemic change. CT abdomen/pelvis shows the peritoneal dialysis catheter is unremarkable in appearance with no abnormal fluid collection or definite surrounding inflammatory change, small amount of ascitic fluid upper abdomen; small amount of pericardial fluid present; minimal pleural effusions. I discussed CT results with tieing machine operator, Dr. Billings, who recommends observation in the dialysis unit and peritoneal fluid can be obtained in the dialysis unit to rule out peritonitis. Dr. Luna accepted admission. Family practice residents are paged for admission. Diagnosis Primary Impression: Abdominal pain Qualified Code: R10.84 - Generalized abdominal pain Additional Impressions: Syncope Qualified Code: R55 - Syncope, unspecified syncope type ESRD on peritoneal dialysis Admitting Information Admitting Physician Requests: Observation Paula Mason Feb 03, 2017 12:15
[2017-02-03 12:31] VITALS: O2SAT 97
[2017-02-03 12:36] LABS: AUTOMATED NEUTROPHIL # 7.3 TH/MM3 (1.8-7.7); BASOPHIL # 0.1 TH/MM3 (0-0.2); BASOPHIL % 1.2 % (0.0-2.0); EOSINOPHIL # 0.2 TH/MM3 (0-0.4); HEMO FLAGS DIFF FINAL; LYMPH % 16.9 % (9.0-44.0); LYMPHOCYTE # 1.7 TH/MM3 (1.0-4.8); MEAN CELL VOLUME 101.8 FL (80.0-100.0); MEAN CORPUSCULAR HGB CONC 33.4 % (32.0-36.0); MONO % 8.3 % (0.0-8.0); NEUT % 71.6 % (16.0-70.0); PLATELET COUNT 295 TH/MM3 (150-450); RED BLOOD COUNT 3.54 MIL/MM3 (4.50-5.90); RED CELL DISTRIBUTION WIDTH 17.9 % (11.6-17.2); WHITE BLOOD COUNT 10.1 TH/MM3 (4.0-11.0)
--- NOTE | 2017-02-03 12:39 | RADRPT ---
EXAM DATE/TIME: 02/03/2017 12:05 [facility] COMPARISON: CHEST SINGLE AP, December 10, 2016, 15:28. INDICATIONS : Shortness of breath. MEDICAL HISTORY : Hypertension. SURGICAL HISTORY : None. ENCOUNTER: Initial ACUITY: 1 day PAIN SCORE: 0/10 LOCATION: Bilateral chest FINDINGS: A single view of the chest demonstrates the lungs to be symmetrically aerated without evidence of mas s, confluent infiltrate or effusion. There is mild hazy opacity now noted in the right midlung. There are electrocardiogram leads. Mild atherosclerotic calcifications are present in the aorta. The cardi omediastinal contours are unremarkable. Osseous structures are intact. CONCLUSION: Mild hazy opacity now noted in the right midlung. This could represent early infiltrate or pneumonia. Donald Singleton MD on February 03, 2017 at 12:36 Board Certified Radiologist. This report was verified electronically.
[2017-02-03 12:49] LABS: APTT (PATIENT) 31.9 SEC (24.3-30.1); INTERNATIONAL NORMALIZED RATIO 1.2 RATIO; PROTHROMBIN TIME - PATIENT 13.2 SEC (9.8-11.6)
[2017-02-03 12:52] LABS: ANION GAP 12 MEQ/L (5-15)
[2017-02-03 12:57] LABS: ALKALINE PHOSPHATASE 73 U/L (45-117); ALT (GPT) 25 U/L (12-78); AST (GOT) 23 U/L (15-37); BICARBONATE 22.7 MEQ/L (21.0-32.0); BLOOD UREA NITROGEN 83 MG/DL (7-18); CHLORIDE 102 MEQ/L (98-107); CREATINE KINASE 116 U/L (39-308); GLOMERULAR FILTRATION RATE 6 ML/MIN (>89); POTASSIUM 4.9 MEQ/L (3.5-5.1); SODIUM (NA) 137 MEQ/L (136-145); TOTAL BILIRUBIN ADULT 0.5 MG/DL (0.2-1.0)
--- NOTE | 2017-02-03 13:26 | RADRPT ---
EXAM DATE/TIME: 02/03/2017 13:05 1 [facility] COMPARISON: No previous studies available for comparison. INDICATIONS : Patient states he had a syncope episode last night with nausea. RADIATION DOSE: 66.71 CTDIvol (mGy) MEDICAL HISTORY : Cardiovascular disease. Hypertension. Diabetes mellitus type 1. SURGICAL HISTORY : None. ENCOUNTER: Initial ACUITY: 1 day PAIN SCALE: 0/10 LOCATION: TECHNIQUE: Multiple contiguous axial images were obtained of the head. Using automated exposure control and adj ustment of the mA and/or kV according to patient size, radiation dose was kept as low as reasonably a chievable to obtain optimal diagnostic quality images. FINDINGS: CEREBRUM: There is mild atrophic change with sulcal and ventricular prominence. Periventricular white matter bull cencies are noted consistent with chronic small vessel ischemic change. There is mild motion artifact . No evidence of midline shift, mass lesion, hemorrhage or acute infarction. No extra-axial fluid co llections are seen. POSTERIOR FOSSA: The cerebellum and brainstem are intact. The 4th ventricle is midline. The cerebellopontine angle i s unremarkable. EXTRACRANIAL: The visualized portion of the orbits is intact. SKULL: The calvaria is intact. No evidence of skull fracture. CONCLUSION: Mild atrophy and chronic small vessel ischemic change. Donald Singleton MD on February 03, 2017 at 13:24 Board Certified Radiologist. This report was verified electronically.
--- NOTE | 2017-02-03 13:51 | RADRPT ---
EXAM DATE/TIME: 02/03/2017 13:10 [facility] COMPARISON: CT ABDOMEN & PELVIS W/O CONTRAST, December 10, 2016, 19:48. INDICATIONS : Patient complains of pain around site of peritoneal dialysis catheter. ORAL CONTRAST: No oral contrast ingested. RADIATION DOSE: 7.36 CTDIvol (mGy) MEDICAL HISTORY : Cardiovascular disease. Hypertension. Diabetes mellitus type 1. SURGICAL HISTORY : None. ENCOUNTER: Initial ACUITY: 1 day PAIN SCALE: 5/10 LOCATION: Bilateral lower quadrant TECHNIQUE: Volumetric scanning of the abdomen and pelvis was performed. Using automated exposure control and ad justment of the mA and/or kV according to patient size, radiation dose was kept as low as reasonably achievable to obtain optimal diagnostic quality images. FINDINGS: LOWER LUNGS: The visualized lower lungs are clear. There are minimal bilateral effusions. A small amount of perica rdial fluid is present. LIVER: Homogeneous density without lesion. There is a small amount of ascitic fluid now noted along the uppe r lateral anterior liver. There is no dilation of the biliary tree. No calcified gallstones. SPLEEN: Normal size without lesion. PANCREAS: Within normal limits. KIDNEYS: Normal in size and shape. There is no mass, stone, or hydronephrosis. ADRENAL GLANDS: Within normal limits. VASCULAR: There is no aortic aneurysm. BOWEL/MESENTERY: There is a peritoneal dialysis catheter in place extending through the anterior abdominal wall just t o the left of midline. This is unremarkable in appearance with no definite inflammatory change or flu id collection. The tip of the catheter is in the pelvis. The stomach, small bowel, and colon demonstr ate no acute abnormality. There is no free intraperitoneal air or fluid. ABDOM bilateral pleural effusions. INAL WALL: Within normal limits. RETROPERITONEUM: There is no lymphadenopathy. BLADDER: No wall thickening or mass. REPRODUCTIVE: Within normal limits. INGUINAL: There is no lymphadenopathy or hernia. MUSCULOSKELETAL: Within normal limits for patient age. CONCLUSION: 1. The peritoneal dialysis catheter is unremarkable in appearance with no abnormal fluid collection o r definite surrounding inflammatory change. 2. Small amount of ascitic fluid upper abdomen. 3. Small amount of pericardial fluid present. 4. Minimal pleural effusions. Donald Singleton MD on February 03, 2017 at 13:44 Board Certified Radiologist. This report was verified electronically.
[2017-02-03] MEDS ORDERED: AMLO5TAB2 PO (13:54)
[2017-02-03 14:41] VITALS: BP 195/91; PULSE 81; RESP 16; TEMP 97.9; O2SAT 97
--- NOTE | 2017-02-03 15:45 | HHI.HP ---
HPI Service Family Medicine Primary Care Physician Non-Staff Admission Diagnosis abdominal pain,ESRD on peritoneal dialysis, r/o peritonitis Diagnoses: International Travel<30 Days: No Contact w/Intl Traveler<30days: No Known Affected Area: No History of Present Illness Mr. Longo is a 86 yo M patient of Dr. Ruiz with PMH ESRD, T2DM, HTN, HLD , (AFib?) who presents in the company of his daughter and a neighbor for recent vomiting, abdominal pain, and syncopal episode last night. Per EMR in documentation in ED, patient sent for evaluation by his aquatics group fitness instructor Dr. Lutz due to concerns regarding peritoneal dialysis catheter and recent abdominal pain/drainage/weight gain. Per notes provided by patient's daughter, patient is had significant increasing left abdominal pain near catheter, 25 pound weight gain in less than 6 weeks, "pain on side of head radiating to eye," unstable blood pressure, unstable blood glucose levels, and "deteriorating fast." Per interview with patient using video librarian head services, patient states that he had significant diaphoresis, vomiting, chest pain, dizziness, and heart palpitations last night in association with syncopal episode. Patient denies sustaining any injuries from his fall and specifically denies injury to head or body. Patient states she he has had prior dizziness but has never lost consciousness. Patient states that the symptoms resolved overnight, and that he currently does not have significant complaints today. Patient denies abdominal pain, chest pain, shortness of breath, or dysuria. Patient reports receiving nightly peritoneal dialysis for approximately 9 PM8 AM. Patient's daughter, also present when using video librarian head, supplemented the patient has recently been coughing and has increased chest congestion for unspecified duration. No known fevers. (Armando Luna MD R2) Review of Systems Constitutional: DENIES: Fever, Chills Eyes: DENIES: Blurred vision Respiratory: DENIES: Cough, Shortness of breath Cardiovascular: DENIES: Chest pain Gastrointestinal: DENIES: Abdominal pain Genitourinary: DENIES: Urgency, Dysuria Neurologic: DENIES: Headache Psychiatric: DENIES: Anxiety (Armando Luna MD R2) Past Family Social History Past Medical History Per patient Diabetes Hypertension Need for Dialysis Per EMR HTN -HLD -DM2 -ESRD on HD -Hx of LE DVT Past Surgical History Peritoneal dialysis catheter placement Lasix in bilateral eyes Reported Medications Per records provided by daughter, patient takes Omeprazole and does not take Renvela Reported Meds & Active Scripts Active Sertraline (Sertraline HCl) 25 Mg Tab 25 Mg PO DAILY Renvela (Sevelamer Carbonate) 800 Mg Tab 1,600 Mg PO TIDAC Carvedilol 25 Mg Tab 25 Mg PO BID Reported Amlodipine (Amlodipine Besylate) 5 Mg Tab 5 Mg PO DAILY IN THE PM PRN Eliquis (Apixaban) 2.5 Mg Tab 2.5 Mg PO BID Simvastatin 20 Mg Tab 20 Mg PO HS Losartan (Losartan Potassium) 50 Mg Tab 50 Mg PO HS Novolog Mix 70-30 FlexPen Inj (Insulin Aspart Protam-Asp 70-30 Inj) 300 Unit/3 Ml Pen 5-10 Units SQ BID Calcitriol 0.25 Mcg Cap 0.25 Mcg PO MOWEFR Take 1 tablet (0.25mcg) on Thursday,Thursday and Thursday Dialyvite 800 (B-Complex W/ C & Folic Acid) 1 Tab 1 Tab PO HS (Armando Luna MD R2) Allergies: Coded Allergies: No Known Allergies (Unverified , 12/25/16) Family History Per Patient: unspecified cancer Per EMR Father: Old age Mother: Cancer Social History No tobacco, alcohol, or illicit drug use Patient lives with his daughter and (Armando Luna MD R2) Physical Exam Vital Signs Vital Signs Date Time Temp Pulse Resp B/P Pulse Ox O2 Delivery O2 Flow Rate FiO2 02/03/17 14:41 97.9 81 16 195/91 97 Room Air 02/03/17 12:31 97 Room Air 02/03/17 11:36 97.6 82 18 162/76 96 Physical Exam GENERAL: Patient appears comfortable, in no acute distress. SKIN: Warm and dry, no rashes appreciated. Peritoneal catheter present, otherwise normal EYES: No scleral icterus, injection, or drainage. HENT: Head: Normocephalic. Mouth: No lesions appreciated. Pharynx: Benign exam without erythema or exudate. NECK: No appreciated lymphadenopathy CARDIOVASCULAR: Regular rate and rhythm without murmurs. Normal peripheral perfusion in lower extremities. RESPIRATORY: Normal respiratory rate. Lungs clear to auscultation bilaterally vs mild R congestion. Decreased breath sounds GASTROINTESTINAL: Abdomen soft, mild distension, no tenderness to palpation. Bowel sounds normal. Peritoneal catheter present. MUSCULOSKELETAL: No lower extremity swelling. No appreciated calf asymmetry. Bilateral 4/5 strength in upper and lower extremities NEURO/PSYCH: Awake, alert, and oriented. Cranial nerves intact. Grossly normal motor and sensory function with exception of symmetric extremity weakness which seems to be MSK rather than neurological in nature. Laboratory Laboratory Tests Test 02/03/17 02/03/17 12:00 12:08 Lactic Acid Level 1.7 White Blood Count 10.1 Red Blood Count 3.54 Hemoglobin 12.0 Hematocrit 36.0 Mean Corpuscular Volume 101.8 Mean Corpuscular Hemoglobin 34.0 Mean Corpuscular Hemoglobin 33.4 Concent Red Cell Distribution Width 17.9 Platelet Count 295 Mean Platelet Volume 9.1 Neutrophils (%) (Auto) 71.6 Lymphocytes (%) (Auto) 16.9 Monocytes (%) (Auto) 8.3 Eosinophils (%) (Auto) 2.0 Basophils (%) (Auto) 1.2 Neutrophils # (Auto) 7.3 Lymphocytes # (Auto) 1.7 Monocytes # (Auto) 0.8 Eosinophils # (Auto) 0.2 Basophils # (Auto) 0.1 CBC Comment DIFF FINAL Differential Comment Prothrombin Time 13.2 Prothromb Time International 1.2 Ratio Activated Partial 31.9 Thromboplast Time Sodium Level 137 Potassium Level 4.9 Chloride Level 102 Carbon Dioxide Level 22.7 Anion Gap 12 Blood Urea Nitrogen 83 Creatinine 10.34 Estimat Glomerular Filtration 6 Rate Random Glucose 223 Calcium Level 8.4 Total Bilirubin 0.5 Aspartate Amino Transf 23 (AST/SGOT) Alanine Aminotransferase 25 (ALT/SGPT) Alkaline Phosphatase 73 Total Creatine Kinase 116 Troponin I 0.06 Total Protein 7.0 Albumin 2.6 Lipase 277 Date/Time Procedure Status Source Growth 02/03/17 12:15 Aerobic Blood Culture Received Blood Peripheral Pending 02/03/17 12:15 Anaerobic Blood Culture Received Blood Peripheral Pending (Armando Luna MD R2) Result Diagram: 02/03/17 1208 02/03/17 1208 Imaging Last Impressions Head CT 02/03/17 0000 Signed Impressions: Service Date/Time: Friday, February 03, 2017 13:05 - CONCLUSION: Mild atrophy and chronic small vessel ischemic change. Donald Singleton MD Chest X-Ray 02/03/17 0000 Signed Impressions: Service Date/Time: Friday, February 03, 2017 12:05 - CONCLUSION: Mild hazy opacity now noted in the right midlung. This could represent early infiltrate or pneumonia. Donald Singleton MD Abdomen/Pelvis CT 02/03/17 0000 Signed Impressions: Service Date/Time: Friday, February 03, 2017 13:10 - CONCLUSION: 1. The peritoneal dialysis catheter is unremarkable in appearance with no abnormal fluid collection or definite surrounding inflammatory change. 2. Small amount of ascitic fluid upper abdomen. 3. Small amount of pericardial fluid present. 4. Minimal pleural effusions. Donald Singleton MD (Armando Luna MD R2) Assessment and Plan Assessment and Plan Mr. Longo is an 86 yo M with: Code Status Full code (Armando Luna MD R2) Problem List: (1) ESRD on peritoneal dialysis Status: Chronic Plan: Impression: Patient with chronic renal failure; receiving nightly peritoneal dialysis. Concern reported regarding functioning of peritoneal catheter, however physical exam reassuring Cr 10.34, electrolytes wnl CT abdomen/pelvis: Peritoneal dialysis catheter unremarkable without abnormal fluid collection or inflammatory changes. Small amount of ascites. Small amount of pericardial fluid present. Minimal pleural effusions Nephrology consulted Will order peritoneal culture and lab studies to assess for bacterial peritonitis, although suspicion low (2) DM (diabetes mellitus) Status: Chronic Plan: Impression: Patient with recently labile blood sugars per patient's daughter; on chronic Levemir 10 mg twice a day per EMR. A1c 7.5 as of 12/2016 -Placed patient on low-dose sliding scale NovoLog while inpatient -We'll plan to add basal insulin based on blood sugars during hospitalization (3) Hypertension Status: Chronic Plan: Impression: Patient hypertensive on admission; SBP [id number]. Per EMR, patient recently hypotensive at home in 12/2016 so Amlodipine discontinued -Continue home Carvedilol 25mg BID -Continue home Losartan 50mg daily -Will restart Amlodipine 5mg daily as PRN for SBP >180 (4) Syncope Status: Acute Plan: Impression: Syncopal episode reported last night per patient and daughter. History of event somewhat in question, however patient reported palpitations, chest pain, diaphoresis in association with syncope. Patient with ESRD, HTN, and DM, increasing possibility of cardiogenic cause EKG on admission in sinus rhythm, LAF block, T wave abnormalities in anterolateral leads which appear largely unchanged from prior in 12/2016 Troponin x1 0.06 -Will trend EKG and cardiac enzymes -Continue Telemetry -Will check echocardiogram (5) Anemia Status: Chronic Plan: Impression: Hgb 12 on admission; prior anemia per EMR. MCV 101.8. Suspect renal disease is component (6) Pulmonary infiltrate on chest x-ray Status: Acute Plan: Impression: Increased cough and audible congestion per patient's daughter. Vomiting overnight in association with syncope CXRmild hazy opacity in right midlung; could represent early infiltrate or pneumonia -Will empirically treat for pneumonia: -Ceftriaxone 1 gm daily -Azithromycin 500mg daily -Will add Flagyl 500mg q8hrs (no dosage adjustment on peritoneal dialysis) -blood cultures pending -Will add sputum cultures -Will add urinary Legionella and Strep pneumo testing (7) Weakness Status: Acute Plan: Impression: Bilateral upper and lower extremity weakness on exam. Increased ability per patient's daughter We'll consult physical therapy We'll check vitamin D level for possible augmentation/reduction of fall risk (8) Chronic anticoagulation Status: Chronic Plan: Impression: Patient on chronic Eliquis 2.5 mg twice a day. Her EMR, indication for this unclear what suspected to possibly secondary to remote DVT. Per patient's daughter's documentation, atrial fibrillation seems likely possibility. -Continue Eliquis 2.5mg BID while inpatient (9) Fluid, Electrolytes, Nutrition, Prophylaxis Status: Acute Plan: Fluids: Initially placed on 100ml/hr; will discontinue Diet: Diabetic diet Electrolytes: wnl, LFT's wnl -Will continue to monitor (10) Prophylaxis Status: Acute Plan: DVT PPX- Continue Eliquis 2.5mg BID -Continue SCD's GI PPX- patient on chronic Omeprazole 40mg daily, will continue (Armando Luna MD R2) Physician Certification 2 Midnight Certification Type: Admission for Inpatient Services Order for Inpatient Services The services are ordered in accordance with Medicare regulations or non- Medicare payer requirements, as applicable. In the case of services not specified as inpatient-only, they are appropriately provided as inpatient services in accordance with the 2-midnight benchmark. Estimated LOS (days): 3 days is the estimated time the patient will need to remain in the hospital, assuming treatment plan goals are met and no additional complications. Post-Hospital Plan: Home (Armando Luna MD R2) Problem Qualifiers (1) DM (diabetes mellitus): Qualified Code: E11.22 - Type 2 diabetes mellitus with chronic kidney disease on chronic dialysis, unspecified ocean transportation intermediary insulin use status (2) Syncope: Qualified Code: R55 - Syncope, unspecified syncope type (3) Anemia: Armando Luna MD R2 Feb 03, 2017 15:45 Gemini Kellogg MD Feb 04, 2017 21:53
[2017-02-03] MEDS ORDERED: SODIUM CHLOR 0.9% 1000 ML INJ 1,000 ML IV SCH (15:51)
[2017-02-03] MEDS ORDERED: NALOXONE HCL 0.4 MG/ML AMP IV PRN (16:00)
[2017-02-03] MEDS ORDERED: ACETAMINOPHEN 325 MG TAB PO PRN (16:00)
[2017-02-03] MEDS ORDERED: ONDANSETRON HCL 4 MG/2 ML VIAL IVP PRN (16:00)
[2017-02-03] MEDS ORDERED: CARVEDILOL 12.5 MG TAB PO ONE (16:00)
[2017-02-03] MEDS ORDERED: PILL SPLITTER OTHER PRN (16:15)
[2017-02-03] MEDS ORDERED: amLODIPine BESYLATE 5 MG TAB PO PRN (16:15)
[2017-02-03] MEDS ORDERED: GLUCAGON 1 MG/ML VIAL OTHER PRN (16:30)
[2017-02-03] MEDS ORDERED: DEXTROSE 50% IN WATER 50 ML VIAL(D50) IV PUSH PRN (16:30)
[2017-02-03] MEDS: cefTRIAXone INJ 1,000 MG in SODIUM CHLORIDE 0.9% INJ 100 ML IV SCH (17:00)
--- NOTE | 2017-02-03 17:26 | PD.CONS ---
HPI Service Nephrology Consult Requested By Reason for Consult ESRD Primary Care Physician Non-Staff History of Present Illness Mr. Longo is an 86 year old Luxembourger speaking male who presented to the ER with complaints of fainting spell yesterday, high blood sugar and hypertension. He also complained of abdominal pain initially, but to me he denied pain. Apparently, ultrafiltration with PD has been low, and so, he had been advised to get abdominal CXR to verify the correct positioning of PD catheter. Instead of going to radiology, he presented to the ER. He was subsequently admitted. Currently, his BP appears to be high. He denies any pain. Review of Systems Constitutional: COMPLAINS OF: Fatigue, Dizziness, DENIES: Fever, Weight gain, Weight loss, Chills Ears, nose, mouth, throat: COMPLAINS OF: Vertigo, DENIES: Hearing loss Cardiovascular: DENIES: Chest pain, Palpitations Gastrointestinal: COMPLAINS OF: Abdominal pain, DENIES: Bloody stools, Diarrhea, Nausea, Vomiting Psychiatric: DENIES: Confusion, Mood changes, Depression Past Family Social History Allergies: Coded Allergies: No Known Allergies (Unverified , 12/25/16) Past Medical History hypertension Type 2 diabetes mellitus ESRD Anemia History of DVT Secondary hyperparathyroidism. Reported Medications Per records provided by daughter, patient takes Omeprazole and does not take Renvela Reported Meds & Active Scripts Active Sertraline (Sertraline HCl) 25 Mg Tab 25 Mg PO DAILY Renvela (Sevelamer Carbonate) 800 Mg Tab 1,600 Mg PO TIDAC Carvedilol 25 Mg Tab 25 Mg PO BID Reported Amlodipine (Amlodipine Besylate) 5 Mg Tab 5 Mg PO DAILY IN THE PM PRN Eliquis (Apixaban) 2.5 Mg Tab 2.5 Mg PO BID Simvastatin 20 Mg Tab 20 Mg PO HS Losartan (Losartan Potassium) 50 Mg Tab 50 Mg PO HS Novolog Mix 70-30 FlexPen Inj (Insulin Aspart Protam-Asp 70-30 Inj) 300 Unit/3 Ml Pen 5-10 Units SQ BID Calcitriol 0.25 Mcg Cap 0.25 Mcg PO MOWEFR Take 1 tablet (0.25mcg) on Thursday,Thursday and Thursday Dialyvite 800 (B-Complex W/ C & Folic Acid) 1 Tab 1 Tab PO HS Allergies: Active Ordered Medications Current Medications Medications (Trade) Dose Ordered Sig/Mahi Route Start Time Stop Time Status Last Admin (NS 1000 ml Inj) 1,000 ml @ 100 mls/hr Q10H IV 02/03/17 15:51 02/03/17 16:13 (NS Flush) 2 ml UNSCH PRN IV FLUSH 02/03/17 16:00 (NS Flush) 2 ml BID IV FLUSH 02/03/17 21:00 (Tylenol) 650 mg Q4H PRN PO 02/03/17 16:00 (Zofran Inj) 4 mg Q6H PRN IVP 02/03/17 16:00 (Narcan Inj) 0.4 mg UNSCH PRN IV 02/03/17 16:00 (Eliquis) 2.5 mg BID PO 02/03/17 21:00 (Rocaltrol) 0.25 mcg MoWeFr@09 PO 02/04/17 09:00 (Cozaar) 50 mg HS PO 02/03/17 21:00 (Renvela) 1,600 mg TIDAC PO 02/03/17 17:00 (Zoloft) 25 mg DAILY PO 02/04/17 09:00 (Pravachol) 40 mg HS PO 02/03/17 21:00 (Coreg) 25 mg BID PO 02/04/17 09:00 (Norvasc) 5 mg DAILY PRN PO 02/03/17 16:15 Miscellaneous 1 ea 1 ea UNSCH PRN OTHER 02/03/17 16:15 Azithromycin 500 mg/Sodium Chloride 250 ml @ 250 mls/hr Q24H IV 02/03/17 18:00 (Rocephin Inj/NS Inj) 100 ml @ 200 mls/hr Q24H IV 02/03/17 17:00 (Miralax) 17 gm DAILY PRN PO 02/03/17 16:30 (D50w (Vial) Inj) 25 ml UNSCH PRN IV PUSH 02/03/17 16:30 (Glucagon Inj) 1 mg UNSCH PRN OTHER 02/03/17 16:30 (Protonix Inj) 40 mg DAILY IV PUSH 02/04/17 09:00 Family History non contributory, reviewed. Mother had cancer. Social History no tobacco or ETOH Physical Exam Vital Signs Vital Signs Date Time Temp Pulse Resp B/P Pulse Ox O2 Delivery O2 Flow Rate FiO2 02/03/17 14:41 97.9 81 16 195/91 97 Room Air 02/03/17 12:31 97 Room Air 02/03/17 11:36 97.6 82 18 162/76 96 Physical Exam GENERAL: he is awake, alert. No distress. SKIN: Warm and dry. HEAD: Normocephalic. EYES: No scleral icterus. No injection or drainage. NECK: Supple, trachea midline. No JVD or lymphadenopathy. CARDIOVASCULAR: Regular rate and rhythm without murmurs, gallops, or rubs. RESPIRATORY: Breath sounds equal bilaterally. No accessory muscle use. GASTROINTESTINAL: Abdomen soft, non-tender, nondistended. PD catheter is in place. MUSCULOSKELETAL: No cyanosis, or edema. BACK: Nontender without obvious deformity. No CVA tenderness. Laboratory Laboratory Tests Test 02/03/17 02/03/17 12:00 12:08 Lactic Acid Level 1.7 White Blood Count 10.1 Red Blood Count 3.54 Hemoglobin 12.0 Hematocrit 36.0 Mean Corpuscular Volume 101.8 Mean Corpuscular Hemoglobin 34.0 Mean Corpuscular Hemoglobin 33.4 Concent Red Cell Distribution Width 17.9 Platelet Count 295 Mean Platelet Volume 9.1 Neutrophils (%) (Auto) 71.6 Lymphocytes (%) (Auto) 16.9 Monocytes (%) (Auto) 8.3 Eosinophils (%) (Auto) 2.0 Basophils (%) (Auto) 1.2 Neutrophils # (Auto) 7.3 Lymphocytes # (Auto) 1.7 Monocytes # (Auto) 0.8 Eosinophils # (Auto) 0.2 Basophils # (Auto) 0.1 CBC Comment DIFF FINAL Differential Comment Prothrombin Time 13.2 Prothromb Time International 1.2 Ratio Activated Partial 31.9 Thromboplast Time Sodium Level 137 Potassium Level 4.9 Chloride Level 102 Carbon Dioxide Level 22.7 Anion Gap 12 Blood Urea Nitrogen 83 Creatinine 10.34 Estimat Glomerular Filtration 6 Rate Random Glucose 223 Calcium Level 8.4 Total Bilirubin 0.5 Aspartate Amino Transf 23 (AST/SGOT) Alanine Aminotransferase 25 (ALT/SGPT) Alkaline Phosphatase 73 Total Creatine Kinase 116 Troponin I 0.06 Total Protein 7.0 Albumin 2.6 Lipase 277 Date/Time Procedure Status Source Growth 02/03/17 12:15 Aerobic Blood Culture Received Blood Peripheral Pending 02/03/17 12:15 Anaerobic Blood Culture Received Blood Peripheral Pending Result Diagram: 02/03/17 1208 02/03/17 1208 Assessment and Plan Problem List: (1) ESRD on peritoneal dialysis Plan: PD to be continued. 2200ml fill volume, 4 cycles, 10 hours. Dialysis orders given. Monitor fluid and electrolytes. (2) Abdominal pain Plan: CT is unremarkable. Obtain dialysate fluid for cell count, gram stain and culture. (3) DM (diabetes mellitus) Plan: continue insulin coverage. His regimen needs to be adjusted. (4) Hypertension Plan: Restart Losartan and Amlodipine. Monitor. (5) Anemia Plan: hemoglobin is acceptable, no need for Epogen. Assessment and Plan Thanks for the consult. I will follow. Problem Qualifiers (1) Abdominal pain: Qualified Code: R10.84 - Generalized abdominal pain Edson Billings MD Feb 03, 2017 17:26
[2017-02-03] MEDS ORDERED: HEPARIN SODIUM - IV 10,000 UNITS/10 ML VIAL XX PRN (17:30)
--- NOTE | 2017-02-03 17:31 | RADRPT ---
EXAM DATE/TIME: 02/03/2017 16:44 [facility] COMPARISON: CT ABDOMEN & PELVIS W/O CONTRAST, February 03, 2017, 13:10. INDICATIONS : Ascties. MEDICAL HISTORY : Hypertension. Renal disease, end stage. Peritoneal dialysis. Diabetes. Syncope. SURGICAL HISTORY : Peritoneal dialysis port placement. ENCOUNTER: Initial ACUITY: 1 day PAIN SCORE: 1/10 LOCATION: Abdomen. AREA EVALUATED: Abdominal quadrants. FINDINGS: Imaging of the abdomen and pelvis was performed to evaluate for ascites for possible paracentesis. Th ere is trace ascitic fluid present with no moderate or large collections. CONCLUSION: Only trace ascitic fluid present. Donald Singleton MD on February 03, 2017 at 17:28 Board Certified Radiologist. This report was verified electronically.
--- NOTE | 2017-02-03 19:00 | EC ---
Study Study Date:02/03/2017 STUDY CONCLUSIONS SUMMARY - Left ventricle: The cavity size was normal. Wall thickness was increased in a pattern of moderate LVH. Systolic function was normal. The estimated ejection fraction was in the range of 60% to 65%. Wall motion was normal; there were no regional wall motion abnormalities. - Aortic valve: Valve area: 2.06cm^2 (Vmax). - Mitral valve: Mildly calcified annulus. - Pericardium, extracardiac: A small pericardial effusion was identified. There was no evidence of hemodynamic compromise. There was no chamber collapse. If LV function is below 40, please consider prescribing an ACEI or ARB or document rationale for non-use. PROCEDURE DATA STUDY STATUS: Elective. Procedure: Transthoracic echocardiography. Image quality was good. Scanning was performed from the parasternal, apical, and subcostal acoustic windows. Study completion: The patient tolerated the procedure well. Transthoracic echocardiography. M-mode, complete 2D, complete spectral Doppler, and color Doppler. Height: Height: 69in. Weight: Weight: 186.6lb. Body mass index: BMI: 27.6kg/m^2. Body surface area: BSA: 2.01m^2. Patient status: Inpatient. CARDIAC ANATOMY LEFT VENTRICLE: The cavity size was normal. Wall thickness was increased in a pattern of moderate LVH. Systolic function was normal. The estimated ejection fraction was in the range of 60% to 65%. Wall motion was normal; there were no regional wall motion abnormalities. AORTIC VALVE: Trileaflet; normal thickness leaflets. Doppler: Transvalvular velocity was within the normal range. There was no stenosis. Trace to mild regurgitation. Valve area: 2.06cm^2 (Vmax). Indexed valve area: 1.02cm^2/m^2 (Vmax). AORTA: Aortic root: The aortic root was normal in size. MITRAL VALVE: Mildly calcified annulus. Doppler: Transvalvular velocity was within the normal range. There was no evidence for stenosis. Trace to mild regurgitation. Valve area by pressure half-time: 4.78cm^2. Indexed valve area by pressure half-time: 2.38cm^2/m^2. LEFT ATRIUM: The atrium was at the upper limits of normal in size. RIGHT VENTRICLE: The cavity size was normal. Wall thickness was normal. PULMONIC VALVE: Doppler: Transvalvular velocity was within the normal range. There was no evidence for stenosis. No regurgitation. TRICUSPID VALVE: Structurally normal valve. Doppler: Transvalvular velocity was within the normal range. No regurgitation. Peak gradient: 7mm Hg (D). PULMONARY ARTERY: The main pulmonary artery was normal-sized. Systolic pressure was within the normal range. RIGHT ATRIUM: The atrium was normal in size. PERICARDIUM: A small pericardial effusion was identified. There was no evidence of hemodynamic compromise. Doppler: There was no chamber collapse. SYSTEMIC VEINS: Inferior vena cava: The vessel was normal in size. Patient weight: 186.6lb _Ejection fraction:_ 65-75% _Fractional shortening:_ 32% up to 5Kg 5-11.5Kg 11.6-22.9Kg 23-45Kg 45-57Kg Aortic Root 7-13 <17 13-22 17-27 17-27 LA diam 6-13 <23 24-38 33-47 37-40 RVID 10-17 7-15 7-15 7-18 8-17 LVIDd 12-22 <32 24-38 33-47 37-40 LVPW 2-4 3-6 5-7 6-8 7-8 IVS 2-4 3-6 5-7 6-8 7-8 BASIC MEASUREMENTS ADULT NORMAL Left ventricle LV internal dimension, ED, chordal *42.3 mm 43-52 level, PLAX LV internal dimension, ES, chordal 25.8 mm 23-38 level, PLAX Fractional shortening, chordal level, 39 % >29 PLAX LV posterior wall thickness, ED 15.4 mm IVS/LVPW ratio, ED 1.01 <1.3 Ventricular septum Septal thickness, ED 15.5 mm Aortic valve Leaflet separation 16 mm 15-26 Left atrium Anterior-posterior dimension 40 mm Anterior-posterior dimension index 1.99 cm/m^2 <2.2 Right ventricle RV internal dimension, ED, PLAX 26.1 mm 19-38 BASIC MEASUREMENTS ADULT NORMAL Aortic valve Leaflet separation 16 mm 15-26 Aorta Root diameter, ED 27 mm 20-37 DOPPLER MEASUREMENTS ADULT NORMAL Aortic valve Peak velocity, S 127 cm/s Valve area, Vmax 2.06 cm^2 Valve area index, Vmax 1.02 cm^2/m^2 Regurgitant velocity, ED 314 cm/s Regurgitant deceleration 1090 cm/s^2 Regurgitant pressure half-time 845 ms Regurgitant gradient, ED 39 mm Hg Mitral valve Peak E-wave velocity 50.8 cm/s Peak A-wave velocity 107 cm/s Pressure half-time 46 ms Peak E/A ratio 0.5 Valve area, pressure half-time 4.78 cm^2 Valve area index, pressure half-time 2.38 cm^2/m^2 Tricuspid valve Peak gradient, D 7 mm Hg Maximal inflow velocity 129 cm/s Pulmonic valve Peak velocity, S 133 cm/s LEGEND: Mean values are shown as u=mean value. Asterisk (*) alvarez values outside specified normal range. Prepared and signed by Deneen Gruber [id number]
[2017-02-03 19:45] VITALS: BP 179/94; PULSE 89; RESP 16; O2SAT 97
[2017-02-03 19:45] LABS: PERITONEAL WBC 25 /MM3 (0-10)
[2017-02-03 19:46] LABS: PERITONEAL HISTIOCYTES 15 %; PERITONEAL LYMPHS 72 %; PERITONEAL MESOTHELIAL 5 %; PERITONEAL POLYS(SEGS) 8 %
[2017-02-03] MEDS ORDERED: LOSARTAN 50 MG TAB PO SCH (21:00)
[2017-02-03] MEDS ORDERED: hydrALAZINE HCL 10 MG TAB PO PRN (21:00)
[2017-02-03] MEDS ORDERED: CARVEDILOL 12.5 MG TAB PO SCH (21:00)
[2017-02-03 21:11] VITALS: BP 194/89; PULSE 70; RESP 18; TEMP 98.6; O2SAT 96
[2017-02-03 21:41] VITALS: PULSE 66
[2017-02-03] MEDS: SEVELAMER CARBONATE 800 MG TAB PO SCH (21:59)
[2017-02-03] MEDS: AZITHROMYCIN INJ 500 MG in SODIUM CHLOR 0.9% 250 ML INJ 250 ML IV SCH (22:00)
[2017-02-03] MEDS: SODIUM CHLORIDE 0.9% FLUSH 10 ML FLUSH IV FLUSH SCH (22:00)
[2017-02-03] MEDS: metroNIDAZOLE 500 MG INJ 100 ML IV SCH (22:00)
[2017-02-03] MEDS: PRAVASTATIN SOD 40 MG TAB PO SCH (22:01)
[2017-02-03] MEDS: APIXABAN 2.5 MG TABLET PO SCH (22:01)
[2017-02-03] MEDS: INSULIN ASPART SUPPLEMENTAL SCALE SQ SCH (22:18)
[2017-02-04 00:14] VITALS: BP 188/82; PULSE 71; RESP 20; TEMP 98.2; O2SAT 97
[2017-02-04 04:08] LABS: AUTOMATED NEUTROPHIL # 6.3 TH/MM3 (1.8-7.7); BASOPHIL # 0.1 TH/MM3 (0-0.2); BASOPHIL % 1.4 % (0.0-2.0); EOSINOPHIL # 0.2 TH/MM3 (0-0.4); EOSINOPHIL % 1.9 % (0.0-4.0); HEMATOCRIT 34.2 % (39.0-51.0); HEMO FLAGS DIFF FINAL; LYMPH % 22.5 % (9.0-44.0); LYMPHOCYTE # 2.2 TH/MM3 (1.0-4.8); MEAN CELL VOLUME 100.7 FL (80.0-100.0); MEAN CORPUSCULAR HEMOGLOBIN 34.9 PG (27.0-34.0); MEAN CORPUSCULAR HGB CONC 34.7 % (32.0-36.0); MONO % 8.5 % (0.0-8.0); NEUT % 65.7 % (16.0-70.0); PLATELET COUNT 267 TH/MM3 (150-450); WHITE BLOOD COUNT 9.6 TH/MM3 (4.0-11.0)
[2017-02-04 04:29] VITALS: BP 201/91; PULSE 74; RESP 20; O2SAT 95
[2017-02-04] MEDS: metroNIDAZOLE 500 MG INJ 100 ML IV SCH ×3 (04:38→20:29)
[2017-02-04 05:05] LABS: ALKALINE PHOSPHATASE 68 U/L (45-117); ALT (GPT) 21 U/L (12-78); ANION GAP 12 MEQ/L (5-15); AST (GOT) 22 U/L (15-37); BICARBONATE 26.3 MEQ/L (21.0-32.0); BLOOD UREA NITROGEN 80 MG/DL (7-18); CHLORIDE 103 MEQ/L (98-107); GLOMERULAR FILTRATION RATE 6 ML/MIN (>89); POTASSIUM 4.8 MEQ/L (3.5-5.1); SODIUM (NA) 141 MEQ/L (136-145); TOTAL BILIRUBIN ADULT 0.4 MG/DL (0.2-1.0)
[2017-02-04 05:09] LABS: CREATINE KINASE 100 U/L (39-308)
[2017-02-04 05:25] VITALS: BP 193/86; PULSE 73; RESP 16
[2017-02-04] MEDS: INSULIN ASPART SUPPLEMENTAL SCALE SQ SCH ×4 (07:00→20:30)
[2017-02-04] MEDS: SEVELAMER CARBONATE 800 MG TAB PO SCH ×3 (08:34→17:00)
[2017-02-04] MEDS: CALCITRIOL 0.25 MCG CAP PO SCH (08:34)
[2017-02-04] MEDS: PANTOPRAZOLE SODIUM 40 MG VIAL IV PUSH SCH (08:34)
[2017-02-04] MEDS: APIXABAN 2.5 MG TABLET PO SCH ×2 (08:34→20:30)
[2017-02-04] MEDS: SERTRALINE HCL 50 MG TAB PO SCH (08:35)
[2017-02-04] MEDS: CARVEDILOL 12.5 MG TAB PO SCH ×2 (08:35→20:30)
--- NOTE | 2017-02-04 09:00 | RADRPT ---
EXAM DATE/TIME: 02/04/2017 07:39 [facility] COMPARISON: CHEST SINGLE AP, February 03, 2017, 12:05. INDICATIONS : Follow up opacity. Pt. c/o abdominal bloating. MEDICAL HISTORY : Cardiovascular disease. Hypertension. Diabetes mellitus type 1. SURGICAL HISTORY : None. ENCOUNTER: Subsequent ACUITY: 2 days PAIN SCORE: 0/10 LOCATION: Bilateral chest FINDINGS: Linear area of parenchymal opacity seen laterally in the right lung. There are increasing parenchyma l changes in the left base. Heart and pulmonary vascularity are normal. Portion of bony skeleton vi sualized unremarkable. CONCLUSION: 1. Parenchymal changes left base. Stable changes on the right. Dudley Caceres MD FACR on February 04, 2017 at 8:54 Board Certified Radiologist. This report was verified electronically.
--- NOTE | 2017-02-04 11:02 | EKG ---
Date Performed: 02/03/2017 Time Performed: 12:25:59 PTAGE: 86 years EKG: Sinus rhythm PATTERN CONSISTENT WITH PULMONARY DISEASE LEFT ANTERIOR FASCICULAR BLOCK MODERATE T-WAVE ABNORMALITY , CONSIDER LATERAL ISCHEMIA ABNORMAL ECG Compared to prior tracing no significant change DOCTOR: Deneen Gruber Interpretating Date/Time 02/04/2017 11:00:42
[2017-02-04] MEDS: LOSARTAN 50 MG TAB PO SCH ×2 (11:30→20:30)
[2017-02-04] MEDS: SODIUM CHLORIDE 0.9% FLUSH 10 ML FLUSH IV FLUSH SCH ×2 (11:31→20:29)
[2017-02-04 12:22] VITALS: BP 197/88; PULSE 77; RESP 20; TEMP 97.4; O2SAT 97
--- NOTE | 2017-02-04 13:00 | HHI.NPPN ---
Subjective Complaints: Obesity General Problems: Anemia Renal Failure: Chronic, End Stage Renal Disease Interval History Pt was seen this morning. Family was at the bedside at the time. They report the pt feels bad, some generalized discomfort, has not been eating. We had him go to IR for catheterogram. We later got a call that he was vomiting, was unable to tolerate the procedure. A vascath was placed in the interim. ( Tara Cheng) Review of Systems General Constitutional: Fatigue (Tara Cheng) Musculoskeletal MS: Pain/Stiffness MS Remarks generalized discomfort (Tara Cheng) Objective Data Data 02/03/17 02/04/17 19:00 07:00 Intake Total 300 ml Balance 300 ml Intake Oral 50 ml IV Total 250 ml Vital Signs Date Time Temp Pulse Resp B/P Pulse Ox O2 Delivery O2 Flow Rate FiO2 02/04/17 12:22 97.4 77 20 197/88 97 02/04/17 05:25 73 16 193/86 02/04/17 04:29 74 20 201/91 95 02/04/17 00:14 98.2 71 20 188/82 97 02/03/17 21:41 66 02/03/17 21:11 98.6 70 18 194/89 96 02/03/17 19:45 89 16 179/94 97 Room Air 02/03/17 14:41 97.9 81 16 195/91 97 Room Air (Tara Cheng) -: 02/04/17 0328 02/04/17 0328 Microbiology 02/03/17 Gram Stain - Final, Resulted 02/03/17 Body Fluid Culture, Resulted Pending Imaging Last [address] 02/03/17 0000 Signed Impressions: Service Date/Time: Friday, February 03, 2017 13:05 - CONCLUSION: Mild atrophy and chronic small vessel ischemic change. Donald Singleton MD Chest X-Ray 02/03/17 0000 Signed Impressions: Service Date/Time: Friday, February 03, 2017 12:05 - CONCLUSION: Mild hazy opacity now noted in the right midlung. This could represent early infiltrate or pneumonia. Donald Singleton MD Abdomen/Pelvis CT 02/03/17 0000 Signed Impressions: Service Date/Time: Friday, February 03, 2017 13:10 - CONCLUSION: 1. The peritoneal dialysis catheter is unremarkable in appearance with no abnormal fluid collection or definite surrounding inflammatory change. 2. Small amount of ascitic fluid upper abdomen. 3. Small amount of pericardial fluid present. 4. Minimal pleural effusions. Donald Singleton MD Abdomen Ultrasound 02/03/17 0000 Signed Impressions: Service Date/Time: Friday, February 03, 2017 16:44 - CONCLUSION: Only trace ascitic fluid present. Donald Singleton MD Tubes & Lines: Vas-Cath, Tenckhoff Catheter (Tara Cheng) Physical Exam General Appearance: Well Developed, Well Nourished, No Acute Distress (Tara Cheng SLOT MACHINE MECHANIC) Throat Throat Exam: Oral Mucosa Matheson & Moist (Tara Cheng B. SLOT MACHINE MECHANIC) Neck Neck Exam: Neck Supple (Tara Cheng B. SLOT MACHINE MECHANIC) Pulmonary Resp Exam: Clear Bilaterally, Breath Sounds Equal (Tara Cheng SLOT MACHINE MECHANIC) Cardiology CV Exam: Regular, Normal Sinus Rhythm, Good Perfusion (Tara Cheng BLara SLOT MACHINE MECHANIC) Gastrointestinal/Abdomen GI Exam: Soft, Non-Tender GI Remarks PD catheter site benign, abdomen non tender, (Tara Cheng BLara SLOT MACHINE MECHANIC) Musculoskeletal MS Exam: Joints Intact, Normal Tone (Tara Cheng B. SLOT MACHINE MECHANIC) Integumentary Skin Exam: Clear, Warm, Dry, Intact (Tara Cheng B. SLOT MACHINE MECHANIC) Extremeties Extremities Exam: No Edema, Pedal Pulses Palpable (Tara Cheng B. SLOT MACHINE MECHANIC) Neurologic Neuro Exam: Alert, Awake, Oriented, Speech Clear, Moving All Extremities Neuro Remarks bulgarian speaking (Tara Cheng BLara SLOT MACHINE MECHANIC) Psychiatric Psych Exam: Appropriate Responses (Tara ChengP) Assessment/Plan Discussed Condition With: Patient Assessment Summary: Anemia of CKD, Diabetes Mellitus, End Stage Renal Disease Problem List: (1) ESRD on peritoneal dialysis Plan: his regimen consists of 2200ml fill volume, 4 cycles, 10 hours. he has no electrolyte disorder; the nurses report that the effluent this morning was clear The pt would not tolerate catheterogram earlier in IR; procedure is postponed until later date, possibly tomorrow in the interim, a vascath was placed and he was transitioned to hemodialysis seen during dialysis on a 2K, 350 BFR, goal 2500 await PD catheter manipulation and transition back to PD as soon as possible HD thursday if catheter still not functioning continue Renvela for metabolic bone disorder avoid IVF renal panel in am (2) Abdominal pain Plan: may be related to catheter malfunction and PD fluid retention CT reviewed AST and ALT are normal dialysate fluid not infected, fluid culture is in progress (3) DM (diabetes mellitus) Plan: continue insulin coverage. blood sugar has improved (4) Hypertension Plan: BP elevated this morning increase losartan to BID, 50 mg continue amlodipine 10 mg daily, I stopped the PRN amlodipine order also on coreg monitor vital signs and titrate as needed (5) Anemia Plan: hemoglobin is acceptable, no need for Epogen. (6) Vitamin D deficiency Plan: continue calcitriol (7) Pulmonary infiltrate on chest x-ray Plan: he is on flagyl, zithromax and rocephin monitor clinically, he is afebrile without leukocytosis (Tara Cheng) Plan patient was seen and examined. He had nausea, GI symptoms, PD catheter was not studied. Had a VasCath placed, HD performed today. If he is more cooperative plan is to investigate the cause of PD catheter malfunction. 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
[2017-02-04] MEDS ORDERED: MIRA33504 PO (14:53)
[2017-02-04] MEDS ORDERED: SODIUM CHLOR 0.9% 1000 ML INJ 1,000 ML IV PRN ×3 (16:12)
[2017-02-04] MEDS ORDERED: ONDANSETRON HCL 4 MG/2 ML VIAL IV PRN (16:15)
[2017-02-04] MEDS ORDERED: ACETAMINOPHEN 325 MG TAB PO PRN (16:15)
[2017-02-04] MEDS ORDERED: NITROGLYCERIN 0.4 MG SL 25 TABS/BTL SL PRN (16:15)
[2017-02-04] MEDS ORDERED: MANNITOL 12.5 GM/50 ML VIAL IV PRN (16:15)
[2017-02-04] MEDS ORDERED: diphenhydrAMINE HCL 25 MG CAP PO PRN (16:15)
[2017-02-04] MEDS ORDERED: cloNIDine HCL 0.1 MG TAB PO PRN (16:15)
[2017-02-04] MEDS ORDERED: ALBUMIN HUMAN 25% 25 GM/100 ML BAGP IV PRN (16:15)
[2017-02-04] MEDS ORDERED: SODIUM CHLORIDE 0.9% FLUSH 10 ML FLUSH IV FLUSH PRN (16:15)
[2017-02-04] MEDS ORDERED: GENTAMICIN SULFATE (DIALYSIS USE ONLY) 20 MG/2 ML VIAL IV PRN (16:15)
[2017-02-04] MEDS ORDERED: HEPARIN SODIUM - IV 10,000 UNITS/10 ML VIAL PRN (16:15)
[2017-02-04] MEDS ORDERED: HEPARIN SODIUM - IV 10,000 UNITS/10 ML VIAL IVF PRN (16:15)
[2017-02-04] MEDS ORDERED: GELATIN 12 MM/7 MM FOAM TOP PRN (16:15)
--- NOTE | 2017-02-04 16:22 | RADRPT ---
EXAM DATE/TIME: 02/04/2017 14:33 [facility] COMPARISON: No previous studies available for comparison. INDICATIONS : Patient with end stage renal disease in need of dialysis catheter placement. MEDICAL HISTORY : HTN, A-Fib, Diabetes, Dialysis, Anemia, DVT SURGICAL HISTORY : PD dialysis catheter placement ENCOUNTER: Initial ACUITY: 1 day PAIN SCORE: 0/10 FLUORO TIME: 0.3 minutes IMAGE SERIES: 1 ACCESS: Right internal jugular vein DEVICE(S): 1.) 14 Palestinian dual lumen 15 cm Schon catheter PROCEDURE : 1. Ultrasound guided venipuncture. 2. Fluoroscopic guidance. 3. Central line placement. The risks, benefits and alternatives to the procedure were explained and verbal and written consent w as obtained. The site was prepped in sterile fashion. Full sterile technique was used, including ca p, mask, sterile gloves and gown and a large sterile sheet. Hand hygiene and 2% chlorhexidine prep w as utilized per protocol for cutaneous antisepsis with appropriate dry time for site. The skin and subcutaneous tissues were infiltrated with local anesthetic solution. A suitable site a bird the vein was selected with ultrasound and fluoroscopic guidance. A small incision was made. Th e vein was accessed under direct ultrasound visualization using the micropuncture technique. The harriett ropuncture set was exchanged for a 0.035 wire. The tract was dilated. The catheter was advanced int o position under direct fluoroscopic visualization. The catheter was fixed in place with suture and a sterile dressing was applied. The patient tolerated the procedure well and there were no complications. CONCLUSION: Uncomplicated line placement as above. Augusto Madison MD on February 04, 2017 at 16:20 Board Certified Radiologist. This report was verified electronically.
--- NOTE | 2017-02-04 16:36 | PD.RAD ---
Post Procedure Progress Note Pre Procedure Diagnosis: (1) End stage renal disease Post Procedure Diagnosis: (1) End stage renal disease Procedure Date: Feb 04, 2017 Supervising Radiologist: Augusto Madison Proceduralist/Assist: RT Fransico(R) Anesthesia: Local Plan of Activity Patient to Unit: Nursing Unit Patient Condition: Fair See PACS Report for procedural detail/treatment Central Venous Access Device Procedure 1 Right Internal Jugular Hemodialysis Catheter Non-Tunneled Placement dual lumen Augusto Madison MD Feb 04, 2017 16:36
[2017-02-04] MEDS ORDERED: HEPARIN SODIUM - IV 2,000 UNITS/2 ML VIAL IV FLUSH PRN (16:45)
[2017-02-04] MEDS ORDERED: SODIUM CHLORIDE 0.9% FLUSH 10 ML FLUSH IVF PRN (16:45)
[2017-02-04] MEDS: cefTRIAXone INJ 1,000 MG in SODIUM CHLORIDE 0.9% INJ 100 ML IV SCH (17:00)
[2017-02-04] MEDS: AZITHROMYCIN INJ 500 MG in SODIUM CHLOR 0.9% 250 ML INJ 250 ML IV SCH (18:00)
--- NOTE | 2017-02-04 18:27 | HHI.FPPN ---
Subjective Remarks Patient seen and examined this am. Family at the bedside and patient visit assisted with use of geographic information scientist via computer. Patient informs medical team of somewhat improved appetite this morning. He still complains of fatigue. Abd pain persists, mostly on LLQ to L lower back No fevers Objective Vitals Vital Signs Date Time Temp Pulse Resp B/P Pulse Ox O2 Delivery O2 Flow Rate FiO2 02/04/17 12:22 97.4 77 20 197/88 97 02/04/17 05:25 73 16 193/86 02/04/17 04:29 74 20 201/91 95 02/04/17 00:14 98.2 71 20 188/82 97 02/03/17 21:41 66 02/03/17 21:11 98.6 70 18 194/89 96 02/03/17 19:45 89 16 179/94 97 Room Air I/O 02/03/17 02/03/17 02/03/17 02/04/17 02/04/17 02/04/17 07:00 15:00 23:00 07:00 15:00 23:00 Intake Total 300 ml Balance 300 ml Intake Oral 50 ml IV Total 250 ml Result Diagram: 02/04/17 0328 02/04/17 0328 Imaging Last Impressions Chest X-Ray 02/04/17 0600 Signed Impressions: Service Date/Time: Saturday, February 04, 2017 07:39 - CONCLUSION: 1. Parenchymal changes left base. Stable changes on the right. Dudley Caceres MD FACR Catheter Placement X-Ray 02/04/17 0000 Signed Impressions: Service Date/Time: Saturday, February 04, 2017 14:33 - CONCLUSION: Uncomplicated line placement as above. Augusto Madison MD Head CT 02/03/17 0000 Signed Impressions: Service Date/Time: Friday, February 03, 2017 13:05 - CONCLUSION: Mild atrophy and chronic small vessel ischemic change. Donald Singleton MD Abdomen/Pelvis CT 02/03/17 0000 Signed Impressions: Service Date/Time: Friday, February 03, 2017 13:10 - CONCLUSION: 1. The peritoneal dialysis catheter is unremarkable in appearance with no abnormal fluid collection or definite surrounding inflammatory change. 2. Small amount of ascitic fluid upper abdomen. 3. Small amount of pericardial fluid present. 4. Minimal pleural effusions. Donald Singleton MD Abdomen Ultrasound 02/03/17 0000 Signed Impressions: Service Date/Time: Friday, February 03, 2017 16:44 - CONCLUSION: Only trace ascitic fluid present. Donald Singleton MD Objective Remarks GENERAL: Patient appears comfortable, in no acute distress. SKIN: Warm and dry, no rashes appreciated. Peritoneal catheter present, no tenderness, erythema or drainage. EYES: No scleral icterus, injection, or drainage. HENT: Head: Normocephalic. Mouth: No lesions appreciated. Pharynx: Benign exam without erythema or exudate. MM slightly dry NECK: No appreciated lymphadenopathy CARDIOVASCULAR: Regular rate and rhythm without audible murmurs. Normal peripheral perfusion in lower extremities. No LE edema. Minimal hair growth LE. RESPIRATORY: Normal respiratory rate. Lungs clear to auscultation bilaterally except scant intermittent crackles R mid and lung base. Decreased breath sounds GASTROINTESTINAL: Abdomen soft, mild distension with minimal fluid wave, mild tenderness to deep palpation. Bowel sounds normal. Peritoneal catheter present as noted above. MUSCULOSKELETAL: No lower extremity swelling. No appreciated calf asymmetry. Bilateral 4/5 strength in upper and lower extremities NEURO/PSYCH: Awake, alert, and oriented. Cranial nerves intact. Grossly normal motor and sensory function with exception of symmetric extremity weakness which seems to be MSK rather than neurological in nature. A/P Assessment and Plan Mr. Longo is an 86 yo M with: Problem List: (1) ESRD on peritoneal dialysis Status: Chronic Plan: ESRD receiving nightly peritoneal dialysis. IR to evaluate PD catheter today. Appreciate neprhology, IR. Cr 10.34, electrolytes wnl CT abdomen/pelvis: Peritoneal dialysis catheter unremarkable without abnormal fluid collection or inflammatory changes. Small amount of ascites. Small amount of pericardial fluid present. Minimal pleural effusions Nephrology consulted Peritoneal culture pending, gram stain neg to assess for bacterial peritonitis , although suspicion low -- Empiric treatment with Rocephin, Flagyl -- Blood cultures pending. (2) DM (diabetes mellitus) Status: Chronic Plan: Patient with recently labile blood sugars per patient's daughter; on chronic Levemir 10 mg twice a day per EMR. A1c 7.5 as of 12/2016 -Placed patient on low-dose sliding scale NovoLog while inpatient -Consider basal insulin based on blood sugars during hospitalization pending PO intake (3) Hypertension Status: Chronic Plan: Uncontrolled -Continue Carvedilol 25mg BID, Losartan 50mg BID, Amlodipine 10mg daily Clonidine prn (4) Syncope Status: Acute Plan: Possible syncopal episode reported prior to hospitalization. History of event somewhat in question, however patient reported palpitations, chest pain, diaphoresis in association with syncope. Patient with ESRD, HTN, and DM, increasing possibility of cardiogenic cause EKG on admission in sinus rhythm, LAF block, T wave abnormalities in anterolateral leads which appear largely unchanged from prior in 12/2016 Troponin x1 0.06 -Will trend EKG and cardiac enzymes plateaued and likely minimal elevation 2/2 renal dysfunction.No active chest pain. -Continue Telemetry -Echocardiogram pending (5) Anemia Status: Chronic Plan: Impression: Hgb 12 on admission; prior anemia per EMR. MCV 101.8. Suspect renal disease is component, s/p epo injection with nephrology prior to admission (6) Pulmonary infiltrate on chest x-ray Status: Acute Plan: Impression: Increased cough and audible congestion per patient's daughter. Vomiting overnight in association with syncope CXRmild hazy opacity in right midlung; could represent early infiltrate or pneumonia -Will empirically treat for pneumonia, CAP + aspiration: -Ceftriaxone 1 gm daily -Azithromycin 500mg daily -Will add Flagyl 500mg q8hrs (no dosage adjustment on peritoneal dialysis) -blood cultures pending -sputum cultures -urinary Legionella and Strep pneumo testing (7) Weakness Status: Acute Plan: We'll consult physical therapy We'll check vitamin D level for possible augmentation/reduction of fall risk (8) Chronic anticoagulation Status: Chronic Plan: Impression: Patient on chronic Eliquis 2.5 mg twice a day. Her EMR, indication for this unclear what suspected to possibly secondary to remote DVT. Per patient's daughter's documentation, atrial fibrillation seems likely possibility. 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
[2017-02-04 19:44] VITALS: BP 161/77; PULSE 85; RESP 20; TEMP 98; O2SAT 95
--- NOTE | 2017-02-04 20:19 | EKG ---
Date Performed: 02/04/2017 Time Performed: 00:09:23 PTAGE: 86 years EKG: Sinus rhythm PATTERN CONSISTENT WITH PULMONARY DISEASE INFERIOR MYOCARDIAL INFARCTION MODERATE T-WAVE ABNORMALITY , CONSIDER LATERAL ISCHEMIA ABNORMAL ECG Since PREVIOUS TRACING , no significant change noted PREVIOUS TRACIN02/03/2017 12.25 DOCTOR: Deneen Gruber Interpretating Date/Time 02/04/2017 20:18:37
[2017-02-04] MEDS: PRAVASTATIN SOD 40 MG TAB PO SCH (20:30)
[2017-02-05] VITALS (8 sets, daily range): BP systolic 125–160; BP diastolic 56–80; PULSE 72–81; RESP 19–21; TEMP 97.9–98.8; O2SAT 95–98
[2017-02-05] MEDS: metroNIDAZOLE 500 MG INJ 100 ML IV SCH ×3 (05:40→19:58)
[2017-02-05] MEDS: INSULIN ASPART SUPPLEMENTAL SCALE SQ SCH ×4 (05:42→19:59)
[2017-02-05] MEDS: SERTRALINE HCL 50 MG TAB PO SCH (08:26)
[2017-02-05] MEDS: SEVELAMER CARBONATE 800 MG TAB PO SCH ×3 (08:26→18:03)
[2017-02-05] MEDS: PANTOPRAZOLE SODIUM 40 MG VIAL IV PUSH SCH (08:27)
[2017-02-05] MEDS: LOSARTAN 50 MG TAB PO SCH ×2 (08:27→19:59)
[2017-02-05] MEDS: CARVEDILOL 12.5 MG TAB PO SCH ×2 (08:27→19:59)
[2017-02-05] MEDS: SODIUM CHLORIDE 0.9% FLUSH 10 ML FLUSH IV FLUSH SCH ×2 (08:27→20:00)
[2017-02-05] MEDS: APIXABAN 2.5 MG TABLET PO SCH ×2 (08:27→19:58)
[2017-02-05] MEDS: POLYETHYLENE GLYCOL 17 GM PKG PO PRN (08:33)
[2017-02-05 09:14] LABS: BICARBONATE 29.5 MEQ/L (21.0-32.0); POTASSIUM 4.6 MEQ/L (3.5-5.1)
--- NOTE | 2017-02-05 10:32 | HHI.FPPN ---
Subjective Remarks The patient has been seen and examined this morning. His vitals are stable with intermittent hypertension. Objective Vitals Vital Signs Date Time Temp Pulse Resp B/P Pulse Ox O2 Delivery O2 Flow Rate FiO2 02/05/17 08:37 97.9 77 20 160/77 96 02/05/17 03:44 75 02/05/17 03:39 98.0 72 20 153/80 98 02/05/17 00:01 98.8 78 20 125/63 97 02/04/17 19:44 98.0 85 20 161/77 95 02/04/17 12:22 97.4 77 20 197/88 97 Result Diagram: 02/04/17 0328 02/05/17 0707 Imaging Last Impressions Chest X-Ray 02/04/17 0600 Signed Impressions: Service Date/Time: Saturday, February 04, 2017 07:39 - CONCLUSION: 1. Parenchymal changes left base. Stable changes on the right. Dudley Caceres MD FACR Catheter Placement X-Ray 02/04/17 0000 Signed Impressions: Service Date/Time: Saturday, February 04, 2017 14:33 - CONCLUSION: Uncomplicated line placement as above. Augusto Madison MD Head CT 02/03/17 0000 Signed Impressions: Service Date/Time: Friday, February 03, 2017 13:05 - CONCLUSION: Mild atrophy and chronic small vessel ischemic change. Donald Singleton MD Abdomen/Pelvis CT 02/03/17 0000 Signed Impressions: Service Date/Time: Friday, February 03, 2017 13:10 - CONCLUSION: 1. The peritoneal dialysis catheter is unremarkable in appearance with no abnormal fluid collection or definite surrounding inflammatory change. 2. Small amount of ascitic fluid upper abdomen. 3. Small amount of pericardial fluid present. 4. Minimal pleural effusions. Donald Singleton MD Abdomen Ultrasound 02/03/17 0000 Signed Impressions: Service Date/Time: Friday, February 03, 2017 16:44 - CONCLUSION: Only trace ascitic fluid present. Donald Singleton MD Objective Remarks GENERAL: Patient appears comfortable, in no acute distress. SKIN: Warm and dry, no rashes appreciated. Peritoneal catheter present, no tenderness, erythema or drainage. EYES: No scleral icterus, injection, or drainage. HENT: Head: Normocephalic. Mouth: No lesions appreciated. Pharynx: Benign exam without erythema or exudate. MM slightly dry NECK: No appreciated lymphadenopathy CARDIOVASCULAR: Regular rate and rhythm without audible murmurs. Normal peripheral perfusion in lower extremities. No LE edema. Minimal hair growth LE. RESPIRATORY: Normal respiratory rate. Lungs clear to auscultation bilaterally except scant intermittent crackles R mid and lung base. Decreased breath sounds GASTROINTESTINAL: Abdomen soft, mild distension with minimal fluid wave, mild tenderness to deep palpation. Bowel sounds normal. Peritoneal catheter present as noted above. MUSCULOSKELETAL: No lower extremity swelling. No appreciated calf asymmetry. Bilateral 4/5 strength in upper and lower extremities NEURO/PSYCH: Awake, alert, and oriented. Cranial nerves intact. Grossly normal motor and sensory function with exception of symmetric extremity weakness which seems to be MSK rather than neurological in nature. A/P Assessment and Plan Mr. Longo is an 86 yo M with: Problem List: (1) ESRD on peritoneal dialysis Status: Chronic Plan: CT abdomen/pelvis: Peritoneal dialysis catheter unremarkable without abnormal fluid collection or inflammatory changes. Small amount of ascites. Small amount of pericardial fluid present. Minimal pleural effusions Nephrology following: Patient would not tolerate catherogram earlier in IR, procedure postpone possibly today, currently has vas catheter introduced into hemodialysis. Avoid IV fluids. Abdominal pain may be related to catheter malfunction and PD fluid retention. Peritoneal culture negative 48 hours --Empirically treated for SBP with Rocephin, Flagyl (02/03- ). Suspicion for SBP is low given cultures and clinical exam. The patient is without leukocytosis and is afebrile. His antibodies are continued but not for this reason. See problem infiltrate below. - Creatinine improving, continue to monitor. (2) DM (diabetes mellitus) Status: Chronic Plan: Blood sugars improving. Fasting 100 today. Has not required supplemental scale. We'll hold on adding basal insulin. A1c 7.5 as of 12/2016 -Placed patient on low-dose sliding scale NovoLog while inpatient e (3) Hypertension Status: Chronic Plan: Still uncontrolled although better control since day of admission. I deal blood pressure for this patient would be 150s systolic given his age. -Continue Carvedilol 25mg BID, Losartan 50mg BID, Amlodipine 10mg daily Clonidine prn (4) Syncope Status: Resolved Plan: EKG on admission in sinus rhythm, LAF block, T wave abnormalities in anterolateral leads which appear largely unchanged from prior in 12/2016 - Troponin x 3, EKG is unchanged, patient without chest pain -Continue Telemetry -Echocardiogram: Moderate LVH, EF 60-65%, History: Possible syncopal episode reported prior to hospitalization. History of event somewhat in question, however patient reported palpitations, chest pain, diaphoresis in association with syncope. Patient with ESRD, HTN, and DM, increasing possibility of cardiogenic cause (5) Anemia Status: Chronic Plan: Hemoglobin of 12 on admission, which appears unchanged from baseline. Likely anemia due to kidney disease. We'll continue to monitor. (6) Pulmonary infiltrate on chest x-ray Status: Acute Plan: CXRmild hazy opacity in right midlung; could represent early infiltrate or pneumonia -Will empirically treat for pneumonia, CAP + aspiration: -Ceftriaxone 1 gm daily 02/03 -Azithromycin 500mg daily 02/03 -Flagyl 500mg q8hrs (no dosage adjustment on peritoneal dialysis) 01/14 -blood cultures: No growth 1 day -sputum cultures not resulted -urinary Legionella and Strep and able to be obtained as patient does not make urine (7) Weakness Status: Acute Plan: We'll consult physical therapy We'll check vitamin D level for possible augmentation/reduction of fall risk (8) Chronic anticoagulation Status: Chronic Plan: Impression: Patient on chronic Eliquis 2.5 mg twice a day. Her EMR, indication for this unclear what suspected to possibly secondary to remote DVT. Per patient's daughter's documentation, atrial fibrillation seems likely possibility. -Continue Eliquis 2.5mg BID while inpatient (9) Fluid, Electrolytes, Nutrition, Prophylaxis Status: Acute Plan: Fluids: HLIV, PO fluids Diet: Diabetic, renal diet Electrolytes: wnl, LFT's wnl -Will continue to monitor (10) Prophylaxis Status: Acute Plan: DVT PPX- Continue Eliquis 2.5mg BID -Continue SCD's GI PPX- patient on chronic Omeprazole 40mg daily, will continue This case was discussed with Dr. Franklin and Dr. 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
[2017-02-05] MEDS: CHOLECALCIFEROL (VIT D3) 1000 UNIT TAB PO SCH (11:20)
--- NOTE | 2017-02-05 11:21 | HHI.NPPN ---
Subjective Complaints: Obesity General Problems: Anemia Renal Failure: Chronic, End Stage Renal Disease Interval History He was dialyzed yesterday after catheter trouble shooting in IR was unable to be completed. No acute overnight events. Denies abdominal pain or nausea/ vomiting. Although not eating much. (Tara Cheng) Review of Systems General Constitutional: Fatigue (Tara Cheng) Musculoskeletal MS: Pain/Stiffness MS Remarks generalized discomfort (Tara Cheng) Objective Data Data 02/04/17 02/05/17 19:00 07:00 Output Total 2600 ml Balance -2600 ml Output Hemodialysis 2600 ml Vital Signs Date Time Temp Pulse Resp B/P Pulse Ox O2 Delivery O2 Flow Rate FiO2 02/05/17 08:37 97.9 77 20 160/77 96 02/05/17 03:44 75 02/05/17 03:39 98.0 72 20 153/80 98 02/05/17 00:01 98.8 78 20 125/63 97 02/04/17 19:44 98.0 85 20 161/77 95 02/04/17 12:22 97.4 77 20 197/88 97 (Tara Cheng) -: 02/04/17 0328 02/05/17 0707 Imaging Last 72 hours Impressions Chest X-Ray 02/04/17 0600 Signed Impressions: Service Date/Time: Saturday, February 04, 2017 07:39 - CONCLUSION: 1. Parenchymal changes left base. Stable changes on the right. Dudley Caceres MD FACR Catheter Placement X-Ray 02/04/17 0000 Signed Impressions: Service Date/Time: Saturday, February 04, 2017 14:33 - CONCLUSION: Uncomplicated line placement as above. Augusto Madison MD Head CT 02/03/17 0000 Signed Impressions: Service Date/Time: Friday, February 03, 2017 13:05 - CONCLUSION: Mild atrophy and chronic small vessel ischemic change. Donald Singleton MD Chest X-Ray 02/03/17 0000 Signed Impressions: Service Date/Time: Friday, February 03, 2017 12:05 - CONCLUSION: Mild hazy opacity now noted in the right midlung. This could represent early infiltrate or pneumonia. Donald Singleton MD Abdomen/Pelvis CT 02/03/17 0000 Signed Impressions: Service Date/Time: Friday, February 03, 2017 13:10 - CONCLUSION: 1. The peritoneal dialysis catheter is unremarkable in appearance with no abnormal fluid collection or definite surrounding inflammatory change. 2. Small amount of ascitic fluid upper abdomen. 3. Small amount of pericardial fluid present. 4. Minimal pleural effusions. Donald Singleton MD Abdomen Ultrasound 02/03/17 0000 Signed Impressions: Service Date/Time: Friday, February 03, 2017 16:44 - CONCLUSION: Only trace ascitic fluid present. Donald Singleton MD Tubes & Lines: Vas-Cath, Tenckhoff Catheter (Tara Cheng) Physical Exam General Appearance: Well Developed, Well Nourished, No Acute Distress, Comfortable ( Tara Cheng) Throat Throat Exam: Oral Mucosa [place] & Moist (Tara Cheng) Neck Neck Exam: Neck Supple (Tara Cheng) Pulmonary Resp Exam: Breath Sounds Equal, Crackles Resp Remarks in bases (Tara Cheng) Cardiology CV Exam: Regular, Normal Sinus Rhythm, Good Perfusion (Tara Cheng) Gastrointestinal/Abdomen GI Exam: Soft, Non-Tender GI Remarks PD catheter site benign, abdomen non tender, (Tara Cheng) Musculoskeletal MS Exam: Joints Intact, Normal Tone, Unable to Ambulate (Tara Cheng) Integumentary Skin Exam: Clear, Warm, Dry, Intact (Tara Cheng) Extremeties Extremities Exam: No Edema, Pedal Pulses Palpable (Tara Cheng) Neurologic Neuro Exam: Alert, Awake, Oriented, Speech Clear, Moving All Extremities Neuro Remarks finnish speaking (Tara Cheng) Psychiatric Psych Exam: Appropriate Responses (Tara Cheng) Assessment/Plan Discussed Condition With: Patient Assessment Summary: Anemia of CKD, Diabetes Mellitus, End Stage Renal Disease Problem List: (1) ESRD on peritoneal dialysis Plan: his regimen consists of 2200ml fill volume, 4 cycles, 10 hours. catheter has been malfunctioning, has not had complete and therapeutic PD in several days vascath placed 02/04, had HD yesterday with 2.6 L UF as he could not tolerate procedure I spoke to IR, he will be going for repeat attempt at catheterogram today await PD catheter manipulation and transition back to PD as soon as possible HD thursday if catheter still not functioning continue Renvela for metabolic bone disorder avoid IVF renal panel in am (2) Abdominal pain Plan: improving, initially attributed to catheter malfunction and PD fluid retention AST and ALT are normal dialysate fluid not infected, culture negative he has been reporting constipation, bowel regimen appropriate begin appetite stimulant (3) DM (diabetes mellitus) Plan: continue insulin coverage. blood sugar has improved (4) Hypertension Plan: BP improved continue losartan at 50 mg BID continue amlodipine 10 mg daily coreg 25 BID po also has PRN clonidine available but has not required monitor vital signs and titrate as needed (5) Anemia Plan: hemoglobin is acceptable, no need for Epogen. (6) Vitamin D deficiency Plan: continue calcitriol also on vitamin D (7) Pulmonary infiltrate on chest x-ray Plan: he is on flagyl, zithromax and rocephin monitor clinically, he is afebrile without leukocytosis (Tara Chneg) Problem List: (1) ESRD on peritoneal dialysis Plan: his regimen consists of 2200ml fill volume, 4 cycles, 10 hours. catheter has been malfunctioning, has not had complete and therapeutic PD in several days vascath placed 02/04, had HD yesterday with 2.6 L UF as he could not tolerate procedure I spoke to IR, he will be going for repeat attempt at catheterogram today await PD catheter manipulation and transition back to PD as soon as possible HD thursday if catheter still not functioning continue Renvela for metabolic bone disorder avoid IVF renal panel in am (2) Abdominal pain Plan: improving, initially attributed to catheter malfunction and PD fluid retention AST and ALT are normal dialysate fluid not infected, culture negative he has been reporting constipation, bowel regimen appropriate begin appetite stimulant (3) DM (diabetes mellitus) Plan: continue insulin coverage. blood sugar has improved (4) Hypertension Plan: BP improved continue losartan at 50 mg BID continue amlodipine 10 mg daily coreg 25 BID po also has PRN clonidine available but has not required monitor vital signs and titrate as needed (5) Anemia Plan: hemoglobin is acceptable, no need for Epogen. (6) Vitamin D deficiency Plan: continue calcitriol also on vitamin D (7) Pulmonary infiltrate on chest x-ray Plan: he is on flagyl, zithromax and rocephin monitor clinically, he is afebrile without leukocytosis Plan patient was seen and examined. Agree with above assessment and plan. 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
[2017-02-05] MEDS: MEGESTROL ACETATE 40 MG TAB PO SCH ×2 (11:29→19:59)
--- NOTE | 2017-02-05 12:44 | HHI.FPPN ---
Subjective Remarks Patient seen and examined this am. Had HD last night after failed attempts/patient intolerance to perform PD catheterogram. BP control improved Patient more awake and states he feels completely back to his baseline. Eating better, has breakfast bar at the bedside. Abdominal pain resolved. Objective Vitals Vital Signs Date Time Temp Pulse Resp B/P Pulse Ox O2 Delivery O2 Flow Rate FiO2 02/05/17 12:18 75 20 126/56 96 02/05/17 08:37 97.9 77 20 160/77 96 02/05/17 03:44 75 02/05/17 03:39 98.0 72 20 153/80 98 02/05/17 00:01 98.8 78 20 125/63 97 02/04/17 19:44 98.0 85 20 161/77 95 I/O 02/04/17 02/04/17 02/04/17 02/05/17 02/05/17 02/05/17 07:00 15:00 23:00 07:00 15:00 23:00 Output Total 2600 ml Balance -2600 ml Output Hemodialysis 2600 ml Result Diagram: 02/04/17 0328 02/05/17 0707 Imaging Last Impressions Chest X-Ray 02/04/17 0600 Signed Impressions: Service Date/Time: Saturday, February 04, 2017 07:39 - CONCLUSION: 1. Parenchymal changes left base. Stable changes on the right. Dudley Caceres MD FACR Catheter Placement X-Ray 02/04/17 0000 Signed Impressions: Service Date/Time: Saturday, February 04, 2017 14:33 - CONCLUSION: Uncomplicated line placement as above. Augusto Madison MD Head CT 02/03/17 0000 Signed Impressions: Service Date/Time: Friday, February 03, 2017 13:05 - CONCLUSION: Mild atrophy and chronic small vessel ischemic change. Donald Singleton MD Abdomen/Pelvis CT 02/03/17 0000 Signed Impressions: Service Date/Time: Friday, February 03, 2017 13:10 - CONCLUSION: 1. The peritoneal dialysis catheter is unremarkable in appearance with no abnormal fluid collection or definite surrounding inflammatory change. 2. Small amount of ascitic fluid upper abdomen. 3. Small amount of pericardial fluid present. 4. Minimal pleural effusions. Donald Singleton MD Abdomen Ultrasound 02/03/17 0000 Signed Impressions: Service Date/Time: Friday, February 03, 2017 16:44 - CONCLUSION: Only trace ascitic fluid present. Donald Singleton MD Objective Remarks GENERAL: Patient appears comfortable, in no acute distress. More awake, interactive, communicative. SKIN: Warm and dry, no rashes appreciated. Peritoneal catheter present, no tenderness, erythema or drainage. EYES: No scleral icterus, injection, or drainage. HENT: Head: Normocephalic. Mouth: No lesions appreciated. Pharynx: Benign exam without erythema or exudate. MM slightly dry NECK: No appreciated lymphadenopathy CARDIOVASCULAR: Regular rate and rhythm without audible murmurs. Normal peripheral perfusion in lower extremities. No LE edema. Minimal hair growth LE. VasCath R anterior chest without erythema, drainage. RESPIRATORY: Normal respiratory rate. Lungs clear to auscultation bilaterally, interval resolution of crackles R mid and lung base. Decreased breath sounds GASTROINTESTINAL: Abdomen soft, mild distension though improved, no tenderness to deep palpation. Bowel sounds normal. Peritoneal catheter present as noted above. MUSCULOSKELETAL: No lower extremity swelling. No appreciated calf asymmetry. Bilateral 4/5 strength in upper and lower extremities NEURO/PSYCH: Awake, alert, and oriented. Cranial nerves intact. Grossly normal motor and sensory function with exception of symmetric extremity weakness which seems to be MSK rather than neurological in nature. A/P Assessment and Plan Mr. Longo is an 86 yo M with: Problem List: (1) ESRD on peritoneal dialysis Status: Chronic Plan: CT abdomen/pelvis: Peritoneal dialysis catheter unremarkable without abnormal fluid collection or inflammatory changes. Small amount of ascites. Small amount of pericardial fluid present. Minimal pleural effusions Nephrology following: Patient would not tolerate catherogram earlier in IR, procedure postponed to today, currently has vas catheter introduced for hemodialysis. Avoid IV fluids. Abdominal pain likely related to catheter malfunction and PD fluid retention. Peritoneal culture negative 48 hours Empirically treated for SBP with Rocephin, Flagyl (02/03- ). Suspicion for SBP is low given cultures and clinical exam. The patient is without leukocytosis and is afebrile. Antibiotics continued for PNA. See problem infiltrate below. - Creatinine/electrolytes stable, continue to monitor. (2) DM (diabetes mellitus) Status: Chronic Plan: Blood sugars improved. Fasting 100 today. Has not required supplemental scale. We'll hold on adding basal insulin. A1c 7.5 as of 12/2016 (3) Hypertension Status: Chronic Plan: Better control after HD. Continue Carvedilol 25mg BID, Losartan 50mg BID, Amlodipine 10mg daily Clonidine prn (4) Syncope Status: Resolved Plan: EKG on admission in sinus rhythm, LAF block, T wave abnormalities in anterolateral leads which appear largely unchanged from prior in 12/2016 - Troponin x 3, EKG is unchanged, patient without chest pain -Continue Telemetry -Echocardiogram: Moderate LVH, EF 60-65%, History: Possible syncopal episode reported prior to hospitalization. History of event somewhat in question, however patient reported palpitations, chest pain, diaphoresis in association with syncope. Patient with ESRD, HTN, and DM, increasing possibility of cardiogenic cause (5) Anemia Status: Chronic Plan: Hemoglobin of 12 on admission, which appears unchanged from baseline. Likely anemia due to kidney disease. We'll continue to monitor. s/p Epo injection with foreign exchange clerk prior to admission. (6) Pulmonary infiltrate on chest x-ray Status: Acute Plan: CXRmild hazy opacity in right midlung; could represent early infiltrate or pneumonia -Will empirically treat for pneumonia, CAP + aspiration: -Ceftriaxone 1 gm daily 02/03 -Azithromycin 500mg daily 02/03 -Flagyl 500mg q8hrs (no dosage adjustment on peritoneal dialysis) 02/03 -blood cultures: No growth 1 day -sputum cultures not resulted, patient not actively producing sputum -urinary Legionella and Strep pending- lab called today and will add tests to urine present in lab from admission (7) Weakness Status: Acute Plan: Physical therapy Vitamin D level low, supplementation initiated (8) Chronic anticoagulation Status: Chronic Plan: Patient on chronic Eliquis 2.5 mg twice a day due to possible history of DVT vs afib Prior medical records will need to be obtained for clarification regarding whether or not this needs to be continued. 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
[2017-02-05] MEDS ORDERED: fentaNYL CITRATE 250 MCG/5 ML AMP ONE (14:22)
[2017-02-05] MEDS ORDERED: LORazepam 2 MG/ML VIAL ONE (14:23)
[2017-02-05] MEDS ORDERED: IOHEXOL 350 MG/ML 50 ML BTL (for RAD DIAG) ONE (15:06)
--- NOTE | 2017-02-05 15:13 | PD.RAD ---
Post Procedure Progress Note Pre Procedure Diagnosis: (1) Peritoneal dialysis status Post Procedure Diagnosis: (1) Peritoneal dialysis status Procedure Date: Feb 05, 2017 Supervising Radiologist: Augusto Madison Proceduralist/Assist: Carole Zarco, RT(R), Jaqui Jackson RT(R)() Anesthesia: Analgesia Plan of Activity Patient to Unit: Nursing Unit Patient Condition: Fair See PACS Report for procedural detail/treatment Drainage Procedure Procedure 1 Procedure Type: Peritoneal Catheter Non-Tunneled Procedure: Reposition, Evaluation Fluid Description: Clear, Yellow Augusto Madison MD Feb 05, 2017 15:13
--- NOTE | 2017-02-05 15:55 | RADRPT ---
EXAM DATE/TIME: 02/05/2017 15:19 [facility] COMPARISON: No previous studies available for comparison. INDICATIONS : Patient is in need of a peritoneogram to evaluate exisiting PD catheter. MEDICAL HISTORY : History of ESRD, PMH, HTN, DM, HLD. SURGICAL HISTORY : History of peritoneal dialsysis catheter placeemnt , bilateral Lasix surgery. ENCOUNTER: Initial ACUITY: 3 weeks PAIN SCORE: 0/10 FLUORO TIME: 1.1 minutes IMAGE SERIES: 3 CONTRAST: 10 cc Omnipaque (iohexol) 350 MEDICATION(S): 1.) 2 mg lorazepam (Ativan) IV 2.) 250 mcg fentanyl (Sublimaze) IV PROCEDURE : 1. peritoneal catheter injection 2. Repositioning of peritoneal catheter The risks, benefits and alternatives to the procedure were explained and verbal and written consent w as obtained. The site was prepped in sterile fashion. Full sterile technique was used, including ca p, mask, sterile gloves and gown and a large sterile sheet. Hand hygiene and 2% chlorhexidine and/or betadine/alcohol prep was utilized per protocol for cutaneous antisepsis. The skin and subcutaneous tissues were infiltrated with local anesthetic solution. Injection of contrast demonstrates the catheter within the left side of pelvis. There is flow of cont rast around bowel loops and into the cul-de-sac. A guidewire was advanced through the catheter to rep osition the tip. Reinjection of contrast demonstrates good flow through the catheter without evidence of loculation CONCLUSION: 1. Uncomplicated repositioning of catheter Augusto Madison MD on February 05, 2017 at 15:52 Board Certified Radiologist. This report was verified electronically.
[2017-02-05] MEDS: cefTRIAXone INJ 1,000 MG in SODIUM CHLORIDE 0.9% INJ 100 ML IV SCH (18:03)
[2017-02-05] MEDS: PRAVASTATIN SOD 40 MG TAB PO SCH (19:59)
[2017-02-05] MEDS: AZITHROMYCIN INJ 500 MG in SODIUM CHLOR 0.9% 250 ML INJ 250 ML IV SCH (20:00)
[2017-02-06] MEDS: metroNIDAZOLE 500 MG INJ 100 ML IV SCH ×3 (04:39→20:55)
[2017-02-06 04:45] VITALS: BP 122/65; PULSE 73; RESP 20; TEMP 98.1; O2SAT 96
[2017-02-06 06:01] LABS: AUTOMATED NEUTROPHIL # 5.9 TH/MM3 (1.8-7.7); BASOPHIL # 0.1 TH/MM3 (0-0.2); BASOPHIL % 0.9 % (0.0-2.0); EOSINOPHIL # 0.2 TH/MM3 (0-0.4); EOSINOPHIL % 2.5 % (0.0-4.0); HEMATOCRIT 33.2 % (39.0-51.0); HEMO FLAGS DIFF FINAL; LYMPH % 22.1 % (9.0-44.0); LYMPHOCYTE # 2.1 TH/MM3 (1.0-4.8); MEAN CELL VOLUME 102.5 FL (80.0-100.0); MEAN CORPUSCULAR HEMOGLOBIN 33.5 PG (27.0-34.0); MEAN CORPUSCULAR HGB CONC 32.7 % (32.0-36.0); MONO % 11.4 % (0.0-8.0); NEUT % 63.1 % (16.0-70.0); PLATELET COUNT 241 TH/MM3 (150-450); RED BLOOD COUNT 3.24 MIL/MM3 (4.50-5.90); RED CELL DISTRIBUTION WIDTH 18.4 % (11.6-17.2); WHITE BLOOD COUNT 9.3 TH/MM3 (4.0-11.0)
[2017-02-06 06:07] LABS: BICARBONATE 28.6 MEQ/L (21.0-32.0); POTASSIUM 4.2 MEQ/L (3.5-5.1)
[2017-02-06] MEDS: INSULIN ASPART SUPPLEMENTAL SCALE SQ SCH ×4 (06:13→20:58)
[2017-02-06 07:44] VITALS: BP 136/62; PULSE 85; RESP 18; TEMP 97.8; O2SAT 95
[2017-02-06] MEDS: POLYETHYLENE GLYCOL 17 GM PKG PO PRN (07:49)
[2017-02-06] MEDS: CARVEDILOL 12.5 MG TAB PO SCH ×2 (07:49→20:56)
[2017-02-06] MEDS: PANTOPRAZOLE SODIUM 40 MG VIAL IV PUSH SCH (07:49)
[2017-02-06] MEDS: LOSARTAN 50 MG TAB PO SCH ×2 (07:50→20:56)
[2017-02-06] MEDS: SERTRALINE HCL 50 MG TAB PO SCH (07:50)
[2017-02-06] MEDS: APIXABAN 2.5 MG TABLET PO SCH ×2 (07:50→20:56)
[2017-02-06] MEDS: SEVELAMER CARBONATE 800 MG TAB PO SCH ×3 (07:50→18:14)
[2017-02-06] MEDS: CHOLECALCIFEROL (VIT D3) 1000 UNIT TAB PO SCH (07:50)
[2017-02-06] MEDS: SODIUM CHLORIDE 0.9% FLUSH 10 ML FLUSH IV FLUSH SCH ×2 (07:51→20:56)
[2017-02-06] MEDS: MEGESTROL ACETATE 40 MG TAB PO SCH ×2 (07:51→20:56)
[2017-02-06] MEDS: CALCITRIOL 0.25 MCG CAP PO SCH (07:51)
--- NOTE | 2017-02-06 07:58 | HHI.FPPN ---
Subjective Remarks Patient seen and examined this morning. His vitals are stable and the patient is afebrile. He is sleeping well and is comfortable. He denies abdominal pain , chest pain, or difficulty breathing. Objective Vitals Vital Signs Date Time Temp Pulse Resp B/P Pulse Ox O2 Delivery O2 Flow Rate FiO2 02/06/17 07:44 97.8 85 18 136/62 95 02/06/17 04:45 98.1 73 20 122/65 96 02/05/17 23:31 98.0 80 20 135/75 95 02/05/17 19:40 97.9 81 19 140/66 96 02/05/17 18:08 74 21 134/65 95 02/05/17 12:18 75 20 126/56 96 02/05/17 08:37 97.9 77 20 160/77 96 I/O 02/05/17 02/05/17 02/05/17 02/06/17 02/06/17 02/06/17 07:00 15:00 23:00 07:00 15:00 23:00 Intake Total 180 ml Output Total 100 ml Balance 80 ml Intake Oral 180 ml Output Urine Total 100 ml Result Diagram: 02/06/17 0510 02/06/17 0510 Imaging Last Impressions Peritoneogram w/Contrast 02/05/17 1120 Signed Impressions: Service Date/Time: January 15:19 - CONCLUSION: 1. Uncomplicated repositioning of catheter Augusto Madison MD Chest X-Ray 02/04/17 0600 Signed Impressions: Service Date/Time: Saturday, February 04, 2017 07:39 - CONCLUSION: 1. Parenchymal changes left base. Stable changes on the right. Dudley Caceres MD FACR Catheter Placement X-Ray 02/04/17 0000 Signed Impressions: Service Date/Time: Saturday, February 04, 2017 14:33 - CONCLUSION: Uncomplicated line placement as above. Augusto Madison MD Head CT 02/03/17 0000 Signed Impressions: Service Date/Time: Friday, February 03, 2017 13:05 - CONCLUSION: Mild atrophy and chronic small vessel ischemic change. Donald Singleton MD Abdomen/Pelvis CT 02/03/17 0000 Signed Impressions: Service Date/Time: Friday, February 03, 2017 13:10 - CONCLUSION: 1. The peritoneal dialysis catheter is unremarkable in appearance with no abnormal fluid collection or definite surrounding inflammatory change. 2. Small amount of ascitic fluid upper abdomen. 3. Small amount of pericardial fluid present. 4. Minimal pleural effusions. Donald Singleton MD Abdomen Ultrasound 02/03/17 0000 Signed Impressions: Service Date/Time: Friday, February 03, 2017 16:44 - CONCLUSION: Only trace ascitic fluid present. Donald Singleton MD Objective Remarks GENERAL: Patient appears comfortable, in no acute distress. SKIN: Warm and dry, no rashes appreciated. Peritoneal catheter present, no tenderness, erythema or drainage. HD catheter present right IJ without tenderness, erythema, or drainage. EYES: No scleral icterus, injection, or drainage. HENT: Head: Normocephalic. Mouth: No lesions appreciated. Pharynx: Benign exam without erythema or exudate. MM slightly dry NECK: No appreciated lymphadenopathy CARDIOVASCULAR: Regular rate and rhythm without audible murmurs. Normal peripheral perfusion in lower extremities. No LE edema. Minimal hair growth LE. VasCath R anterior chest without erythema, drainage. RESPIRATORY: Normal respiratory rate. Lungs clear to auscultation bilaterally, interval resolution of crackles R mid and lung base. Decreased breath sounds GASTROINTESTINAL: Abdomen soft, mild distension though improved, no tenderness to deep palpation. Bowel sounds normal. Peritoneal catheter present as noted above. MUSCULOSKELETAL: No lower extremity swelling. No appreciated calf asymmetry. Bilateral 4/5 strength in upper and lower extremities NEURO/PSYCH: Awake, alert, and oriented. Cranial nerves intact. Grossly normal motor and sensory function with exception of symmetric extremity weakness which seems to be MSK rather than neurological in nature. A/P Assessment and Plan Mr. Longo is an 86 yo M with: Discharge Planning Discharge pending clearance by nephrology. Problem List: (1) ESRD on peritoneal dialysis Status: Chronic Plan: CT abdomen/pelvis: Peritoneal dialysis catheter unremarkable without abnormal fluid collection or inflammatory changes. Small amount of ascites. Small amount of pericardial fluid present. Minimal pleural effusions Nephrology following: Patient had peritoneal catheter placed 427 by IR. Avoid IV fluids. - Abdominal pain on admission likely related to catheter malfunction and PD fluid retention. - Peritoneal culture negative 48 hours, no evidence of fluid infection - Empirically treated for SBP with Rocephin, Flagyl (02/03- ). Suspicion for SBP is low given cultures and clinical exam. The patient is without leukocytosis and is afebrile. Antibiotics continued for PNA. See problem infiltrate below. - Creatinine/electrolytes stable, continue to monitor. (2) DM (diabetes mellitus) Status: Chronic Plan: Blood sugars improved and overall well controlled. Has required 1 unit of supplemental scale overt the past 24 hrs. We'll hold on adding basal insulin. Plan to d/c on home insulin. A1c 7.5 as of 12/2016 (3) Hypertension Status: Chronic Plan: Better control after HD. Continue Carvedilol 25mg BID, Losartan 50mg BID, Amlodipine 10mg daily Clonidine prn (4) Syncope Status: Resolved Plan: EKG on admission in sinus rhythm, LAF block, T wave abnormalities in anterolateral leads which appear largely unchanged from prior in 12/2016 - Troponin x 3, EKG is unchanged, patient without chest pain -Continue Telemetry -Echocardiogram: Moderate LVH, EF 60-65%, History: Possible syncopal episode reported prior to hospitalization. History of event somewhat in question, however patient reported palpitations, chest pain, diaphoresis in association with syncope. Patient with ESRD, HTN, and DM, increasing possibility of cardiogenic cause (5) Anemia Status: Chronic Plan: Hemoglobin of 12 on admission, which appears unchanged from baseline. Likely anemia due to kidney disease. We'll continue to monitor. 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 (6) Pulmonary infiltrate on chest x-ray Status: Acute Plan: CXRmild hazy opacity in right midlung; could represent early infiltrate or pneumonia -Will empirically treat for pneumonia, CAP + aspiration: -Ceftriaxone 1 gm daily 02/03 -Azithromycin 500mg daily 02/03 -Flagyl 500mg q8hrs (no dosage adjustment on peritoneal dialysis) 02/03 -blood cultures: No growth 1 day -sputum cultures not resulted, patient not actively producing sputum -urinary Legionella and Strep pending- lab called today and will add tests to urine present in lab from admission (7) Weakness Status: Acute Plan: Physical therapy Vitamin D level low, supplementation initiated (8) Chronic anticoagulation Status: Chronic Plan: Patient on chronic Eliquis 2.5 mg twice a day due to possible history of DVT vs afib Prior medical records will need to be obtained for clarification regarding whether or not this needs to be continued. 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
--- NOTE | 2017-02-06 11:00 | HHI.NPPN ---
Subjective Complaints: Obesity General Problems: Anemia Renal Failure: Chronic, End Stage Renal Disease Interval History Catheterogram unremarkable. Had PD lastnight, 221 ml UF. No acute complaints today. (Tara Cheng) Review of Systems General Constitutional: Fatigue (Tara Cheng) Musculoskeletal MS: Pain/Stiffness MS Remarks generalized discomfort (Tara Cheng) Objective Data Data 02/05/17 02/06/17 19:00 07:00 Intake Total 180 ml Output Total 100 ml Balance 80 ml Intake Oral 180 ml Output Urine Total 100 ml Vital Signs Date Time Temp Pulse Resp B/P Pulse Ox O2 Delivery O2 Flow Rate FiO2 02/06/17 07:44 97.8 85 18 136/62 95 02/06/17 04:45 98.1 73 20 122/65 96 02/05/17 23:31 98.0 80 20 135/75 95 02/05/17 19:40 97.9 81 19 140/66 96 02/05/17 18:08 74 21 134/65 95 02/05/17 12:18 75 20 126/56 96 (Tara Cheng) -: 02/06/17 0510 02/06/17 0510 Tubes & Lines: Vas-Cath, Tenckhoff Catheter (Tara Cheng) Physical Exam General Appearance: Well Developed, Well Nourished, No Acute Distress, Comfortable ( Tara Cheng) Throat Throat Exam: Oral Mucosa [place] & Moist (Tara Cheng) Neck Neck Exam: Neck Supple (Tara Cheng) Pulmonary Resp Exam: Breath Sounds Equal, Crackles Resp Remarks in bases (Tara Cheng) Cardiology CV Exam: Regular, Normal Sinus Rhythm, Good Perfusion (Tara Cheng) Gastrointestinal/Abdomen GI Exam: Soft, Non-Tender GI Remarks PD catheter site benign, abdomen non tender, (Tara Cheng) Musculoskeletal MS Exam: Joints Intact, Normal Tone, Unable to Ambulate (Tara Cheng) Integumentary Skin Exam: Clear, Warm, Dry, Intact (Tara Cheng) Extremeties Extremities Exam: No Edema, Pedal Pulses Palpable (Tara Cheng) Neurologic Neuro Exam: Alert, Awake, Oriented, Speech Clear, Moving All Extremities Neuro Remarks danish speaking (Tara Cheng) Psychiatric Psych Exam: Appropriate Responses (Tara Cheng) Assessment/Plan Discussed Condition With: Patient Assessment Summary: Anemia of CKD, Diabetes Mellitus, End Stage Renal Disease Problem List: (1) ESRD on peritoneal dialysis Plan: his regimen consists of 2200ml fill volume, 4 cycles, 10 hours. vascath placed 02/04, had HD Thursday he had PD, 221 ml UF which is borderline we will do HD today, remove Vascath, then he is stable for discharge can resume PD tomorrow D/W pt and family, they are in understanding continue Renvela for metabolic bone disorder avoid IVF (2) Abdominal pain Plan: improving, eating well, continue appetite stimulant (3) DM (diabetes mellitus) Plan: continue insulin coverage. blood sugar has improved (4) Hypertension Plan: BP stable continue losartan at 50 mg BID continue amlodipine 10 mg daily coreg 25 BID po also has PRN clonidine available but has not required monitor vital signs and titrate as needed (5) Anemia Plan: hemoglobin is acceptable, no need for Epogen. (6) Vitamin D deficiency Plan: continue calcitriol also on vitamin D (7) Pulmonary infiltrate on chest x-ray Plan: he is on flagyl, zithromax and rocephin monitor clinically, he is afebrile without leukocytosis (Tara Cheng) Plan patient was seen and examined. Will perform HD today before discharge. Agree with above assessment and plan. 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
--- NOTE | 2017-02-06 13:00 | HHI.DCPOC ---
Discharge Care Plan Diagnosis: (1) End stage renal disease (2) Pulmonary infiltrate on chest x-ray Goals to Promote Your Health * To prevent worsening of your condition and complications * To maintain your health at the optimal level Directions to Meet Your Goals Take your medications as prescribed Follow your dietary instruction Follow activity as directed Keep your appointments as scheduled Take your immunizations and boosters as scheduled If your symptoms worsen call your PCP, if no PCP go to Urgent Care Center or Emergency Room Smoking is Dangerous to Your Health. Avoid second hand smoke Call the 24-hour hour crisis hotline for domestic abuse at Jaqui Anand MD R3 Feb 06, 2017 13:00
--- NOTE | 2017-02-06 14:49 | HHI.FF ---
Face to Face Verification Diagnosis: (1) Pulmonary infiltrate on chest x-ray (2) ESRD on peritoneal dialysis (3) Peritoneal dialysis status Physical Therapy Order: Evaluate and Treat, Improve ambulation, Strength and gait training Occupational Therapy Order: Evaluate and Treat, Gross motor coordination, Fine motor coordination Home Health Nursing Order: Medical education Signs/symptoms of disease process Nursing assessment with vital signs Vincent catheter maintenance I have seen patient Rohan Longo on 02/06/17. My clinical findings support the need for the requested home health care services because: Ltd mobility - disease progression Deconditioned w/ increased weakness High risk of falls I certify that my clinical findings support that this patient is homebound because: Unsteady gait/balance Jaqui Anand MD R3 Feb 06, 2017 14:49
[2017-02-06 17:53] VITALS: BP 110/62; PULSE 78; RESP 18; TEMP 98; O2SAT 97
[2017-02-06] MEDS: AZITHROMYCIN INJ 500 MG in SODIUM CHLOR 0.9% 250 ML INJ 250 ML IV SCH (18:00)
[2017-02-06] MEDS: cefTRIAXone INJ 1,000 MG in SODIUM CHLORIDE 0.9% INJ 100 ML IV SCH (18:16)
[2017-02-06 20:42] VITALS: BP 122/68; PULSE 82; RESP 19; TEMP 98; O2SAT 96
[2017-02-06] MEDS: PRAVASTATIN SOD 40 MG TAB PO SCH (20:56)
[2017-02-06 23:26] VITALS: PULSE 80
[2017-02-07 00:16] VITALS: BP 126/62; PULSE 79; RESP 18; TEMP 98.2; O2SAT 95
[2017-02-07] MEDS: metroNIDAZOLE 500 MG INJ 100 ML IV SCH (05:00)
--- NOTE | 2017-02-07 06:25 | HHI.FPPN ---
Subjective Remarks The patient was seen and examined this morning. His vitals are stable and he is afebrile. The patient had hemodialysis yesterday. Accu checks acceptable. Family at bedside. Sleeping comfortably. States he feels well. IJ removed yesterday. Objective Vitals Vital Signs Date Time Temp Pulse Resp B/P Pulse Ox O2 Delivery O2 Flow Rate FiO2 02/07/17 00:16 98.2 79 18 126/62 95 02/06/17 23:26 80 02/06/17 20:42 98.0 82 19 122/68 96 02/06/17 17:53 98.0 78 18 110/62 97 02/06/17 15:54 21 02/06/17 07:44 97.8 85 18 136/62 95 I/O 02/06/17 02/06/17 02/06/17 02/07/17 02/07/17 02/07/17 07:00 15:00 23:00 07:00 15:00 23:00 Intake Total 180 ml 200 ml Output Total 100 ml 0 ml 2000 ml Balance 80 ml 0 ml -2000 ml 200 ml Intake Oral 180 ml 200 ml Output Urine Total 100 ml Peritoneal Fluid 0 ml Hemodialysis 2000 ml Result Diagram: 02/06/17 0510 02/06/17 0510 Imaging Last Impressions Peritoneogram w/Contrast 02/05/17 1120 Signed Impressions: Service Date/Time: January 15:19 - CONCLUSION: 1. Uncomplicated repositioning of catheter Augusto Madison MD Chest X-Ray 02/04/17 0600 Signed Impressions: Service Date/Time: Saturday, February 04, 2017 07:39 - CONCLUSION: 1. Parenchymal changes left base. Stable changes on the right. Dudley Caceres MD FACR Catheter Placement X-Ray 02/04/17 0000 Signed Impressions: Service Date/Time: Saturday, February 04, 2017 14:33 - CONCLUSION: Uncomplicated line placement as above. Augusto Madison MD Head CT 02/03/17 0000 Signed Impressions: Service Date/Time: Friday, February 03, 2017 13:05 - CONCLUSION: Mild atrophy and chronic small vessel ischemic change. Donald Singleton MD Abdomen/Pelvis CT 02/03/17 0000 Signed Impressions: Service Date/Time: Friday, February 03, 2017 13:10 - CONCLUSION: 1. The peritoneal dialysis catheter is unremarkable in appearance with no abnormal fluid collection or definite surrounding inflammatory change. 2. Small amount of ascitic fluid upper abdomen. 3. Small amount of pericardial fluid present. 4. Minimal pleural effusions. Donald Singleton MD Abdomen Ultrasound 02/03/17 0000 Signed Impressions: Service Date/Time: Friday, February 03, 2017 16:44 - CONCLUSION: Only trace ascitic fluid present. Donald Singleton MD Objective Remarks GENERAL: Patient appears comfortable, in no acute distress. SKIN: Warm and dry, no rashes appreciated. Peritoneal catheter present, no tenderness, erythema or drainage. . EYES: No scleral icterus, injection, or drainage. HENT: Head: Normocephalic. Mouth: No lesions appreciated. Pharynx: Benign exam without erythema or exudate. NECK: No appreciated lymphadenopathy CARDIOVASCULAR: Regular rate and rhythm without audible murmurs. Normal peripheral perfusion in lower extremities. No LE edema. Minimal hair growth LE. RESPIRATORY: Normal respiratory rate. Lungs clear to auscultation bilaterally, interval resolution of crackles R mid and lung base. Decreased breath sounds GASTROINTESTINAL: Abdomen soft, mild distension though improved, no tenderness to deep palpation. Bowel sounds normal. Peritoneal catheter present with overlying dressing that is c/d/i. MUSCULOSKELETAL: No lower extremity swelling. No appreciated calf asymmetry. Bilateral 4/5 strength in upper and lower extremities NEURO/PSYCH: Awake, alert, and oriented. Cranial nerves intact. Grossly normal motor and sensory function with exception of symmetric extremity weakness which seems to be MSK rather than neurological in nature. A/P Assessment and Plan Mr. Longo is an 86 yo M with: Discharge Planning Cleared by nephrology. Home with home health. Plan has been discussed with daughter. Discussed with nurse this am. Discussed with Drs. Franklin and Armida Problem List: (1) ESRD on peritoneal dialysis Status: Chronic Plan: CT abdomen/pelvis: Peritoneal dialysis catheter unremarkable without abnormal fluid collection or inflammatory changes. Small amount of ascites. Small amount of pericardial fluid present. Minimal pleural effusions Nephrology following: Patient had peritoneal catheter placed 427 by IR. Avoid IV fluids. - Abdominal pain on admission likely related to catheter malfunction and PD fluid retention. - Peritoneal culture negative to date, no evidence of fluid infection - Empirically treated for SBP with Rocephin, Flagyl (02/03- 02/06). Suspicion for SBP is low given cultures and clinical exam. The patient is without leukocytosis and is afebrile. Antibiotics continued for PNA. See problem infiltrate below. - Creatinine/electrolytes stable, continue to monitor. (2) DM (diabetes mellitus) Status: Chronic Plan: Blood sugars improved and overall well controlled. Has required 1 unit of supplemental scale overt the past 24 hrs. We'll hold on adding basal insulin. Plan to d/c on home insulin. A1c 7.5 as of 12/2016 (3) Hypertension Status: Chronic Plan: Better control after HD. Continue Carvedilol 25mg BID, Losartan 50mg BID, Amlodipine 10mg daily Clonidine prn (4) Syncope Status: Resolved Plan: EKG on admission in sinus rhythm, LAF block, T wave abnormalities in anterolateral leads which appear largely unchanged from prior in 12/2016 - Troponin x 3, EKG is unchanged, patient without chest pain -Continue Telemetry -Echocardiogram: Moderate LVH, EF 60-65%, History: Possible syncopal episode reported prior to hospitalization. History of event somewhat in question, however patient reported palpitations, chest pain, diaphoresis in association with syncope. Patient with ESRD, HTN, and DM, increasing possibility of cardiogenic cause (5) Anemia Status: Chronic Plan: Hemoglobin of 12 on admission, which appears unchanged from baseline. Likely anemia due to kidney disease. We'll continue to monitor. s/p Epo injection with is manager prior to admission, epogen not indicated during current admission. (6) Pulmonary infiltrate on chest x-ray Status: Acute Plan: CXRmild hazy opacity in right midlung; could represent early infiltrate or pneumonia -Will empirically treat for pneumonia, CAP + aspiration: -Ceftriaxone 1 gm daily 02/03-02/06 -Azithromycin 500mg daily 02/03-02/06 -Flagyl 500mg q8hrs (no dosage adjustment on peritoneal dialysis) 02/03 -blood cultures: No growth to date -sputum cultures not resulted, patient not actively producing sputum (7) Weakness Status: Acute Plan: Physical therapy Vitamin D level low, supplementation initiated (8) Chronic anticoagulation Status: Chronic Plan: Patient on chronic Eliquis 2.5 mg twice a day due to possible history of DVT vs afib Prior medical records will need to be obtained for clarification regarding whether or not this needs to be continued. 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
[2017-02-07] MEDS: INSULIN ASPART SUPPLEMENTAL SCALE SQ SCH ×4 (07:00→20:27)
[2017-02-07 08:00] VITALS: BP 136/67; PULSE 76; PULSE 79; RESP 20; TEMP 99.1; O2SAT 100
[2017-02-07] MEDS: SEVELAMER CARBONATE 800 MG TAB PO SCH ×3 (09:26→17:47)
[2017-02-07] MEDS: SODIUM CHLORIDE 0.9% FLUSH 10 ML FLUSH IV FLUSH SCH ×2 (09:26→20:26)
[2017-02-07] MEDS: MEGESTROL ACETATE 40 MG TAB PO SCH ×2 (09:27→20:27)
[2017-02-07] MEDS: CHOLECALCIFEROL (VIT D3) 1000 UNIT TAB PO SCH (09:27)
[2017-02-07] MEDS: PANTOPRAZOLE SODIUM 40 MG VIAL IV PUSH SCH (09:27)
[2017-02-07] MEDS: CARVEDILOL 12.5 MG TAB PO SCH ×2 (09:27→20:26)
[2017-02-07] MEDS: LOSARTAN 50 MG TAB PO SCH ×2 (09:28→20:27)
[2017-02-07] MEDS: APIXABAN 2.5 MG TABLET PO SCH ×2 (09:28→20:27)
[2017-02-07] MEDS: SERTRALINE HCL 50 MG TAB PO SCH (09:28)
[2017-02-07 12:00] VITALS: BP 130/62; PULSE 76; RESP 20; TEMP 98.2; O2SAT 96
[2017-02-07 16:00] VITALS: BP 124/56; PULSE 77; RESP 20; TEMP 98.5; O2SAT 94
[2017-02-07 20:00] VITALS: BP 140/65; PULSE 82; RESP 20; TEMP 96.4; O2SAT 96; O2SAT 97
[2017-02-07] MEDS: PRAVASTATIN SOD 40 MG TAB PO SCH (20:26)
[2017-02-08] VITALS: BP 138/60; PULSE 75; RESP 21; TEMP 98.3; O2SAT 95
[2017-02-08 04:00] VITALS: BP 131/63; PULSE 75; RESP 20; TEMP 98.5; O2SAT 97
[2017-02-08] MEDS: INSULIN ASPART SUPPLEMENTAL SCALE SQ SCH ×2 (07:00→11:00)
[2017-02-08] MEDS: MEGESTROL ACETATE 40 MG TAB PO SCH (08:10)
[2017-02-08] MEDS: CHOLECALCIFEROL (VIT D3) 1000 UNIT TAB PO SCH (08:10)
[2017-02-08] MEDS: SEVELAMER CARBONATE 800 MG TAB PO SCH ×2 (08:10→13:06)
[2017-02-08] MEDS: APIXABAN 2.5 MG TABLET PO SCH (08:10)
[2017-02-08] MEDS: PANTOPRAZOLE SODIUM 40 MG VIAL IV PUSH SCH ×2 (08:10→09:00)
[2017-02-08] MEDS: CARVEDILOL 12.5 MG TAB PO SCH (08:10)
[2017-02-08] MEDS: SERTRALINE HCL 50 MG TAB PO SCH (08:11)
[2017-02-08] MEDS: LOSARTAN 50 MG TAB PO SCH (08:11)
[2017-02-08] MEDS: SODIUM CHLORIDE 0.9% FLUSH 10 ML FLUSH IV FLUSH SCH (08:11)
[2017-02-08 08:43] VITALS: BP 149/65; PULSE 80; RESP 20; TEMP 98.2; O2SAT 96
[2017-02-08 10:48] VITALS: PULSE 76
[2017-02-08 12:13] VITALS: BP 128/60; PULSE 76; RESP 18; TEMP 98; O2SAT 95
--- NOTE | 2017-02-08 12:15 | HHI.FPPN ---
Subjective Remarks Patient states he feels fine and go home today. Denies chest pain, nausea, vomiting, shortness of breath. Family is at the bedside and has questions about home health care/peritoneal dialysis. Discussed with nursing family's concerns. Objective Vitals Vital Signs Date Time Temp Pulse Resp B/P Pulse Ox O2 Delivery O2 Flow Rate FiO2 02/08/17 10:48 76 02/08/17 08:43 98.2 80 20 149/65 96 02/08/17 04:00 98.5 75 20 131/63 97 02/08/17 00:00 98.3 75 21 138/60 95 02/07/17 20:00 97 02/07/17 20:00 96.4 82 20 140/65 96 02/07/17 16:00 98.5 77 20 124/56 94 I/O 02/07/17 02/07/17 02/07/17 02/08/17 02/08/17 02/08/17 07:00 15:00 23:00 07:00 15:00 23:00 Intake Total 200 ml 960 ml Output Total 100 ml 300 ml Balance 200 ml 860 ml -300 ml Intake Oral 200 ml 960 ml Output Urine Total 100 ml 300 ml # Bowel Movements 0 0 Result Diagram: 02/06/1750902/06/17 05 Objective Remarks GENERAL: Patient appears comfortable, in no acute distress. SKIN: Warm and dry, no rashes appreciated. Peritoneal catheter present, no tenderness, erythema or drainage. . EYES: No scleral icterus, injection, or drainage. HENT: Head: Normocephalic. Mouth: No lesions appreciated. Pharynx: Benign exam without erythema or exudate. NECK: No appreciated lymphadenopathy CARDIOVASCULAR: Regular rate and rhythm without audible murmurs. Normal peripheral perfusion in lower extremities. No LE edema. Minimal hair growth LE. RESPIRATORY: Normal respiratory rate. Lungs clear to auscultation bilaterally, interval resolution of crackles R mid and lung base. Decreased breath sounds GASTROINTESTINAL: Abdomen soft, mild distension though improved, no tenderness to deep palpation. Bowel sounds normal. Peritoneal catheter present with overlying dressing that is c/d/i. MUSCULOSKELETAL: No lower extremity swelling. No appreciated calf asymmetry. Bilateral 4/5 strength in upper and lower extremities NEURO/PSYCH: Awake, alert, and oriented. Cranial nerves intact. Grossly normal motor and sensory function with exception of symmetric extremity weakness which seems to be MSK rather than neurological in nature. A/P Assessment and Plan Mr. Longo is an 86 yo M with: Discharge Planning Cleared by nephrology. Home with home health. Plan has been discussed with daughter. Discussed with nurse this am. Problem List: (1) ESRD on peritoneal dialysis Status: Chronic Plan: CT abdomen/pelvis: Peritoneal dialysis catheter unremarkable without abnormal fluid collection or inflammatory changes. Small amount of ascites. Small amount of pericardial fluid present. Minimal pleural effusions Nephrology following: Patient had peritoneal catheter placed 427 by IR. Avoid IV fluids. - Abdominal pain on admission likely related to catheter malfunction and PD fluid retention. - Peritoneal culture negative to date, no evidence of fluid infection - Empirically treated for SBP with Rocephin, Flagyl (02/03- 02/06). Suspicion for SBP is low given cultures and clinical exam. The patient is without leukocytosis and is afebrile. Antibiotics continued for PNA. See problem infiltrate below. - Creatinine/electrolytes stable, continue to monitor. (2) DM (diabetes mellitus) Status: Chronic Plan: Blood sugars improved and overall well controlled. Has required 1 unit of supplemental scale overt the past 24 hrs. We'll hold on adding basal insulin. Plan to d/c on home insulin. A1c 7.5 as of 12/2016 (3) Hypertension Status: Chronic Plan: Better control after HD. Continue Carvedilol 25mg BID, Losartan 50mg BID, Amlodipine 10mg daily Clonidine prn (4) Syncope Status: Resolved Plan: EKG on admission in sinus rhythm, LAF block, T wave abnormalities in anterolateral leads which appear largely unchanged from prior in 12/2016 - Troponin x 3, EKG is unchanged, patient without chest pain -Continue Telemetry -Echocardiogram: Moderate LVH, EF 60-65%, History: Possible syncopal episode reported prior to hospitalization. History of event somewhat in question, however patient reported palpitations, chest pain, diaphoresis in association with syncope. Patient with ESRD, HTN, and DM, increasing possibility of cardiogenic cause (5) Anemia Status: Chronic Plan: Hemoglobin of 12 on admission, which appears unchanged from baseline. Likely anemia due to kidney disease. We'll continue to monitor. s/p Epo injection with electronic drafter prior to admission, epogen not indicated during current admission. (6) Pulmonary infiltrate on chest x-ray Status: Acute Plan: CXRmild hazy opacity in right midlung; could represent early infiltrate or pneumonia -Will empirically treat for pneumonia, CAP + aspiration: -Ceftriaxone 1 gm daily 02/03-02/06 -Azithromycin 500mg daily 02/03-02/06 -Flagyl 500mg q8hrs (no dosage adjustment on peritoneal dialysis) 02/03 -blood cultures: No growth to date -sputum cultures not resulted, patient not actively producing sputum (7) Weakness Status: Acute Plan: Physical therapy Vitamin D level low, supplementation initiated (8) Chronic anticoagulation Status: Chronic Plan: Patient on chronic Eliquis 2.5 mg twice a day due to possible history of DVT vs afib Prior medical records will need to be obtained for clarification regarding whether or not this needs to be continued. 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
--- NOTE | 2017-02-08 13:43 | HHI.NPPN ---
Subjective Complaints: Obesity General Problems: Anemia Renal Failure: Chronic, End Stage Renal Disease Interval History Had PD last night. UF of about 500 ml. Will use 2.5 % dextrose PD solution today Review of Systems General Constitutional: Fatigue Musculoskeletal MS: Pain/Stiffness MS Remarks generalized discomfort Objective Data Data 02/07/17 02/08/17 19:00 07:00 Intake Total 960 ml Output Total 400 ml Balance 560 ml Intake Oral 960 ml Output Urine Total 400 ml # Bowel Movements 0 Vital Signs Date Time Temp Pulse Resp B/P Pulse Ox O2 Delivery O2 Flow Rate FiO2 02/08/17 12:13 98.0 76 18 128/60 95 02/08/17 10:48 76 02/08/17 08:43 98.2 80 20 149/65 96 02/08/17 04:00 98.5 75 20 131/63 97 02/08/17 00:00 98.3 75 21 138/60 95 02/07/17 20:00 97 02/07/17 20:00 96.4 82 20 140/65 96 02/07/17 16:00 98.5 77 20 124/56 94 -: 02/06/17 0510 02/06/17 0510 Tubes & Lines: Vas-Cath, Tenckhoff Catheter Physical Exam General Appearance: Well Developed, Well Nourished, No Acute Distress, Comfortable Throat Throat Exam: Oral Mucosa [place] & Moist Neck Neck Exam: Neck Supple Pulmonary Resp Exam: Breath Sounds Equal, Crackles Cardiology CV Exam: Regular, Normal Sinus Rhythm, Good Perfusion Gastrointestinal/Abdomen GI Exam: Soft, Non-Tender Musculoskeletal MS Exam: Joints Intact, Normal Tone, Unable to Ambulate Integumentary Skin Exam: Clear, Warm, Dry, Intact Extremeties Extremities Exam: No Edema, Pedal Pulses Palpable Neurologic Neuro Exam: Alert, Awake, Oriented, Speech Clear, Moving All Extremities Psychiatric Psych Exam: Appropriate Responses Assessment/Plan Discussed Condition With: Patient Assessment Summary: Anemia of CKD, Diabetes Mellitus, End Stage Renal Disease Problem List: (1) ESRD on peritoneal dialysis Plan: his regimen consists of 2200ml fill volume, 4 cycles, 10 hours. Received 2 sessions of HD during this hospital admission. Back on PD. He can be discharged from renal standpoint. (2) Abdominal pain Plan: improving, eating well, continue appetite stimulant . Patient does not have peritonitis. (3) DM (diabetes mellitus) Plan: continue insulin coverage. blood sugar has improved (4) Hypertension Plan: BP stable continue losartan at 50 mg BID continue amlodipine 10 mg daily coreg 25 BID po also has PRN clonidine available but has not required monitor vital signs and titrate as needed (5) Anemia Plan: hemoglobin is acceptable, I will give him a dose of Epogen. (6) Vitamin D deficiency Plan: continue calcitriol also on vitamin D (7) Pulmonary infiltrate on chest x-ray Plan: he is on flagyl, zithromax and rocephin monitor clinically, he is afebrile without leukocytosis Plan patient was seen and examined. Will perform HD today before discharge. Agree with above assessment and plan. 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
[2017-02-08] MEDS ORDERED: EPOETIN ALFA 10,000 UNITS/ML VIAL SQ ONE (14:00)
[2017-02-19] MEDS ORDERED: WALKER/ADULT/FO1 MIS (14:25)
--- NOTE | 2017-03-12 09:19 | HHI.DS ---
Discharge Summary Admission Date Feb 03, 2017 at 14:42 Discharge Date: Feb 08, 2017 Admitting Diagnosis abdominal pain,ESRD on peritoneal dialysis, r/o peritonitis (1) ESRD on peritoneal dialysis Plan: CT abdomen/pelvis: Peritoneal dialysis catheter unremarkable without abnormal fluid collection or inflammatory changes. Small amount of ascites. Small amount of pericardial fluid present. Minimal pleural effusions Nephrology following: Patient had peritoneal catheter placed 427 by IR. Avoid IV fluids. - Abdominal pain on admission likely related to catheter malfunction and PD fluid retention. - Peritoneal culture negative to date, no evidence of fluid infection - Empirically treated for SBP with Rocephin, Flagyl (02/03- 02/06). Suspicion for SBP is low given cultures and clinical exam. The patient is without leukocytosis and is afebrile. Antibiotics continued for PNA. See problem infiltrate below. - Creatinine/electrolytes stable, continue to monitor. (2) DM (diabetes mellitus) Diagnosis: Secondary Plan: Blood sugars improved and overall well controlled. Has required 1 unit of supplemental scale overt the past 24 hrs. We'll hold on adding basal insulin. Plan to d/c on home insulin. A1c 7.5 as of 12/2016 (3) Hypertension Diagnosis: Secondary Plan: Better control after HD. Continue Carvedilol 25mg BID, Losartan 50mg BID, Amlodipine 10mg daily Clonidine prn (4) Syncope Diagnosis: Principal Plan: EKG on admission in sinus rhythm, LAF block, T wave abnormalities in anterolateral leads which appear largely unchanged from prior in 12/2016 - Troponin x 3, EKG is unchanged, patient without chest pain -Continue Telemetry -Echocardiogram: Moderate LVH, EF 60-65%, History: Possible syncopal episode reported prior to hospitalization. History of event somewhat in question, however patient reported palpitations, chest pain, diaphoresis in association with syncope. Patient with ESRD, HTN, and DM, increasing possibility of cardiogenic cause (5) Anemia Diagnosis: Secondary Plan: Hemoglobin of 12 on admission, which appears unchanged from baseline. Likely anemia due to kidney disease. We'll continue to monitor. s/p Epo injection with rough rice tender prior to admission, epogen not indicated during current admission. (6) Pulmonary infiltrate on chest x-ray Diagnosis: Secondary Plan: CXRmild hazy opacity in right midlung; could represent early infiltrate or pneumonia -Will empirically treat for pneumonia, CAP + aspiration: -Ceftriaxone 1 gm daily 02/03-02/06 -Azithromycin 500mg daily 02/03-02/06 -Flagyl 500mg q8hrs (no dosage adjustment on peritoneal dialysis) 02/03 -blood cultures: No growth to date -sputum cultures not resulted, patient not actively producing sputum (7) Weakness Plan: Physical therapy Vitamin D level low, supplementation initiated (8) Chronic anticoagulation Diagnosis: Secondary Plan: Patient on chronic Eliquis 2.5 mg twice a day due to possible history of DVT vs afib Prior medical records will need to be obtained for clarification regarding whether or not this needs to be continued. (9) Fluid, Electrolytes, Nutrition, Prophylaxis Diagnosis: Secondary Plan: Fluids: HLIV, PO fluids Diet: Diabetic, renal diet Electrolytes: wnl, LFT's wnl -Will continue to monitor (10) Prophylaxis Diagnosis: Secondary Plan: DVT PPX- Continue Eliquis 2.5mg BID, Continue SCDs GI PPX- patient on chronic Omeprazole 40mg daily, will continue [facility] Interventional radiology Procedures Peritoneal catheter placed on 02/05 by interventional radiology Brief History Mr. Longo is a 86 yo M patient of Dr. Ruiz with PMH ESRD, T2DM, HTN, HLD , (AFib?) who presents in the company of his daughter and a neighbor for recent vomiting, abdominal pain, and syncopal episode last night. Per EMR in documentation in ED, patient sent for evaluation by his rough rice tender Dr. Lutz due to concerns regarding peritoneal dialysis catheter and recent abdominal pain/drainage/weight gain. Per notes provided by patient's daughter, patient is had significant increasing left abdominal pain near catheter, 25 pound weight gain in less than 6 weeks, "pain on side of head radiating to eye," unstable blood pressure, unstable blood glucose levels, and "deteriorating fast." Per interview with patient using video dairy lab technician services, patient states that he had significant diaphoresis, vomiting, chest pain, dizziness, and heart palpitations last night in association with syncopal episode. Patient denies sustaining any injuries from his fall and specifically denies injury to head or body. Patient states she he has had prior dizziness but has never lost consciousness. Patient states that the symptoms resolved overnight, and that he currently does not have significant complaints today. Patient denies abdominal pain, chest pain, shortness of breath, or dysuria. Patient reports receiving nightly peritoneal dialysis for approximately 9 PM8 AM. Patient's daughter, also present when using video dairy lab technician, supplemented the patient has recently been coughing and has increased chest congestion for unspecified duration. No known fevers. Imaging Last Impressions Peritoneogram w/Contrast 02/05/17 1120 Signed Impressions: Service Date/Time: January 15:19 - CONCLUSION: 1. Uncomplicated repositioning of catheter Augusto Madison MD Chest X-Ray 02/04/17 0600 Signed Impressions: Service Date/Time: Saturday, February 04, 2017 07:39 - CONCLUSION: 1. Parenchymal changes left base. Stable changes on the right. Dudley Caceres MD FACR Catheter Placement X-Ray 02/04/17 0000 Signed Impressions: Service Date/Time: Saturday, February 04, 2017 14:33 - CONCLUSION: Uncomplicated line placement as above. Augusto Madison MD Head CT 02/03/17 0000 Signed Impressions: Service Date/Time: Friday, February 03, 2017 13:05 - CONCLUSION: Mild atrophy and chronic small vessel ischemic change. Donald Singleton MD Abdomen/Pelvis CT 02/03/17 0000 Signed Impressions: Service Date/Time: Friday, February 03, 2017 13:10 - CONCLUSION: 1. The peritoneal dialysis catheter is unremarkable in appearance with no abnormal fluid collection or definite surrounding inflammatory change. 2. Small amount of ascitic fluid upper abdomen. 3. Small amount of pericardial fluid present. 4. Minimal pleural effusions. Donald Singleton MD Abdomen Ultrasound 02/03/17 0000 Signed Impressions: Service Date/Time: Friday, February 03, 2017 16:44 - CONCLUSION: Only trace ascitic fluid present. Donald Singleton MD PE at Discharge GENERAL: Patient appears comfortable, in no acute distress. SKIN: Warm and dry, no rashes appreciated. Peritoneal catheter present, no tenderness, erythema or drainage. . EYES: No scleral icterus, injection, or drainage. HENT: Head: Normocephalic. Mouth: No lesions appreciated. Pharynx: Benign exam without erythema or exudate. NECK: No appreciated lymphadenopathy CARDIOVASCULAR: Regular rate and rhythm without audible murmurs. Normal peripheral perfusion in lower extremities. No LE edema. Minimal hair growth LE. RESPIRATORY: Normal respiratory rate. Lungs clear to auscultation bilaterally, interval resolution of crackles R mid and lung base. Decreased breath sounds GASTROINTESTINAL: Abdomen soft, mild distension though improved, no tenderness to deep palpation. Bowel sounds normal. Peritoneal catheter present with overlying dressing that is c/d/i. MUSCULOSKELETAL: No lower extremity swelling. No appreciated calf asymmetry. Bilateral 4/5 strength in upper and lower extremities NEURO/PSYCH: Awake, alert, and oriented. Cranial nerves intact. Grossly normal motor and sensory function with exception of symmetric extremity weakness which seems to be MSK rather than neurological in nature. Hospital Course Nephrology and interventional radiology was consulted for peritoneal catheter placement and dialysis. The patient was treated empirically for SBP for 4 days , however the suspicion for SBP was low. On discharge he was without fever or leukocytosis. The patient was discharged after his peritoneal dialysis was set up with nephrology. He was sent home with home health care to help with peritoneal dialysis therapy. All questions were answered. Pt Condition on Discharge: Fair Discharge Disposition: Disch w/ Home Health Serv Discharge Instructions DIET: Follow Instructions for: Renal Failure Diet Activities you can perform: Regular-No Restrictions Follow up Referrals: Nephrology - 1 Week PCP Follow-up - 1 Week Continued Medications: Amlodipine (Amlodipine) 5 Mg Tab 5 MG PO DAILY IN THE PM PRN HIGH BLOOD PRESSURE #30 Ref 0 TAB Apixaban (Eliquis) 2.5 Mg Tab 2.5 MG PO BID Blood Clot Prevention #180 Ref 1 TAB B-Complex W/ C & Folic Acid (Dialyvite 800) 1 Tab 1 TAB PO HS Calcitriol (Calcitriol) 0.25 Mcg Cap 0.25 MCG PO DAILY Take 1 tablet (0.25mcg) on Thursday,Thursday and Thursday Calcium Supplement #30 Ref 0 CAP Carvedilol (Carvedilol) 25 Mg Tab 25 MG PO BID #180 Ref 3 TAB Insulin Aspart Protam-Asp 70-30 Inj (Novolog Mix 70-30 FlexPen Inj) 300 Unit/3 Ml Pen 5-10 UNITS SQ BID Blood Sugar Management #1 Ref 0 PEN Losartan (Losartan) 50 Mg Tab 50 MG PO HS Blood Pressure Management #30 Ref 0 TAB Polyethylene Glycol 3350 Powder (Miralax Powder) 17 Gm Powd 17 GM PO BID Mix and dissolve one measuring cap-ful (17 grams) in water or juice. Constipation #1 Ref 0 BOTTLE Sertraline (Sertraline) 25 Mg Tab 25 MG PO DAILY #30 Ref 0 TAB Sevelamer Carbonate (Renvela) 800 Mg Tab 1600 MG PO TIDAC #90 Ref 0 TAB Simvastatin (Simvastatin) 20 Mg Tab 20 MG PO HS Cholesterol Management #30 Ref 0 TAB Caleb Wolfe MD R2 Mar 12, 2017 09:19
== END 2017-02-08 13:59 | disposition home or self-care (01) ==
LOC: NEPE 11:33 → NEDA 14:42 → NEPHCDU 19:54
PROVIDERS: ADMIT Family Medicine; ATTEND Family Medicine
DX: R10.84 Generalized abdominal pain (principal); T85.611A Breakdown (mechanical) of intraperitoneal dialysis catheter, initial encounter; I12.0 Hypertensive chronic kidney disease with stage 5 chronic kidney disease or end stage renal disease; E11.22 Type 2 diabetes mellitus with diabetic chronic kidney disease; N18.6 End stage renal disease; R55 Syncope and collapse; E78.5 Hyperlipidemia, unspecified; D63.1 Anemia in chronic kidney disease; R91.8 Other nonspecific abnormal finding of lung field; I48.91 Unspecified atrial fibrillation; N25.0 Renal osteodystrophy; K59.00 Constipation, unspecified; E55.9 Vitamin D deficiency, unspecified; N25.81 Secondary hyperparathyroidism of renal origin; Z79.01 Long term (current) use of anticoagulants; Z79.4 Long term (current) use of insulin; Z99.2 Dependence on renal dialysis; Z86.718 Personal history of other venous thrombosis and embolism; Y83.1 Surgical operation with implant of artificial internal device as the cause of abnormal reaction of the patient, or of later complication, without mention of misadventure at the time of the procedure
CPT/HCPCS: 36556; 70450; 71010; 74176; 76705; 76937; 77001; 80053; 80069; 80074; 82042; 82306; 82550; 82948; 83605; 83690; 84157; 84484; 85025; 85610; 85730; 87040; 87070; 87205; 89051; 93005; 93306; 94150; 96374; 97110; 97116; 97162; 99285; C1752; C1769; C9113; G0257; G0378; G8987; G8988; J0456; J0696; J1580; J1644; J1815; J2060; J2405; J3010; J7030; J7050; Q9967; 49400; 49999; 74190; 90935; 90945

== ENCOUNTER 2017-02-26 12:43 | Inpatient (IN) | payer MEDICARE, OTHER ==
[2017-02-26] VITALS (8 sets, daily range): BP systolic 123–198; BP diastolic 61–90; PULSE 68–83; RESP 16–20; TEMP 97.8–98.7; O2SAT 68–100
[~2017-02-26] VITALS: Ht 175.3 cm; Wt 94.7 kg
[~2017-02-26 12:43] MED LIST changes: +AMLO5TAB2 PO; -CLON0.1T PO; +MIRA33504 PO
--- NOTE | 2017-02-26 12:59 | PD ---
HPI Chief Complaint: General Weakness Time Seen by Provider: 12:59 Travel History International Travel<30 days: No Contact w/Intl Traveler<30days: No Traveled to known affect area: No History of Present Illness HPI 86-year-old [place] the emergency department with increasing weakness and fatigue. Patient is here with his daughter from home. Patient has no pain , fever, nausea, vomiting, or diarrhea. Patient has been more confused and weak and is sleeping most of the time according to the daughter. Patient does have end-stage renal disease, for which she has been doing peritoneal dialysis. Patient was recently hospitalized for reports of pneumonia. Patient is currently being evaluated for port placement for dialysis versus AV fistula placement. The daughter's concern is the patient is much more lethargic, weak, and hypersomnolent in the last week. Patient does still make some urine. He is moving his bowels normally. He has no other constitutional complaints. He has no known drug allergies. PFSH Past Medical History Cardiovascular Problems: Yes Cerebrovascular Accident: Yes Diabetes: Yes (type2) Hypertension: Yes Respiratory: Yes (pna) Past Surgical History Abdominal Surgery: Yes (PERITONEAL DIALYSIS PORT PLACEMENT AB) Social History Alcohol Use: No Tobacco Use: No Substance Use: No Allergies-Medications (Allergen,Severity, Reaction): Coded Allergies: No Known Allergies (Unverified , 02/26/17) Reported Meds & Prescriptions Reported Meds & Active Scripts Active Sertraline (Sertraline HCl) 25 Mg Tab 25 Mg PO DAILY Renvela (Sevelamer Carbonate) 800 Mg Tab 1,600 Mg PO TIDAC Carvedilol 25 Mg Tab 25 Mg PO BID Reported Miralax Powder (Polyethylene Glycol 3350 Powder) 17 Gm Powd 17 Gm PO BID Mix and dissolve one measuring cap-ful (17 grams) in water or juice. Amlodipine (Amlodipine Besylate) 5 Mg Tab 5 Mg PO DAILY IN THE PM PRN Eliquis (Apixaban) 2.5 Mg Tab 2.5 Mg PO BID Simvastatin 20 Mg Tab 20 Mg PO HS Losartan (Losartan Potassium) 50 Mg Tab 50 Mg PO HS Novolog Mix 70-30 FlexPen Inj (Insulin Aspart Protam-Asp 70-30 Inj) 300 Unit/3 Ml Pen 5-10 Units SQ BID Calcitriol 0.25 Mcg Cap 0.25 Mcg PO DAILY Take 1 tablet (0.25mcg) on Thursday,Thursday and Thursday Dialyvite 800 (B-Complex W/ C & Folic Acid) 1 Tab 1 Tab PO HS Review of Systems ROS Limitations: Altered Mental Status, Poor Historian Except as stated in HPI: all other systems reviewed are Neg General / Constitutional: No: Fever Eyes: No: Visual changes HENT: No: Headaches Cardiovascular: No: Chest Pain or Discomfort Respiratory: No: Shortness of Breath Gastrointestinal: No: Abdominal Pain Genitourinary: No: Dysuria Musculoskeletal: No: Pain Skin: No Rash Neurologic: Positive: Weakness (generalized.) Psychiatric: No: Depression Endocrine: No: Polydipsia Hematologic/Lymphatic: No: Easy Bruising Physical Exam Exam Limitations: Poor Historian Narrative GENERAL: Patient appears in no acute distress. Patient appears fatigued and yawning. He is arousable, and answers questions appropriately. SKIN: Warm and dry. Normal color. Poor turgor. Tenting is present. HEAD: Atraumatic. Normocephalic. EYES: Pupils equal and round. No scleral icterus. No injection or drainage. ENT: No nasal bleeding or discharge. Mucous membranes pink and moist. Pharynx is clear. Airway is patent. NECK: Trachea midline. No JVD. Supple and nontender. CARDIOVASCULAR: Regular rate and rhythm. No murmurs gallops or rubs appreciated. RESPIRATORY: No accessory muscle use. Clear to auscultation. Breath sounds equal bilaterally. GASTROINTESTINAL: Abdomen soft, non-tender, somewhat distended. Normal bowel sounds in all quadrants. Hepatic and splenic margins not palpable. No CVA tenderness. MUSCULOSKELETAL: Extremities without clubbing, cyanosis, or edema. No obvious deformities. NEUROLOGICAL: Awake and alert. No obvious cranial nerve deficits. Motor grossly within normal limits. Five out of 5 muscle strength in the arms and legs. Normal speech. PSYCHIATRIC: Appropriate mood and affect; insight and judgment normal. Data Data Last Documented VS Vital Signs Date Time Temp Pulse Resp B/P Pulse Ox O2 Delivery O2 Flow Rate FiO2 02/26/17 13:20 71 18 176/81 71 18 174/82 68 18 123/61 02/26/17 13:12 Room Air 02/26/17 13:09 98.7 100 Orders Electrocardiogram (02/26/17 13:06) Complete Blood Count With Diff (02/26/17 13:06) Comprehensive Metabolic Panel (02/26/17 13:06) Magnesium (Mg) (02/26/17 13:06) B-Type Natriuretic Peptide (02/26/17 13:06) Ckmb (Isoenzyme) Profile (02/26/17 13:06) Troponin I (02/26/17 13:06) Act Partial Throm Time (Ptt) (02/26/17 13:06) Prothrombin Time / Inr (Pt) (02/26/17 13:06) Urinalysis - C+S If Indicated (02/26/17 13:06) Chest, Single Ap (02/26/17 13:06) Ecg Monitoring (02/26/17 13:06) Iv Access Insert/Monitor (02/26/17 13:06) Oximetry (02/26/17 13:06) Orthostatic Vital Signs (02/26/17 13:06) Ammonia (02/26/17 13:06) Labs Laboratory Tests Test 02/26/17 02/26/17 13:45 13:51 White Blood Count 11.6 TH/MM3 Red Blood Count 3.83 MIL/MM3 Hemoglobin 12.8 GM/DL Hematocrit 39.4 % Mean Corpuscular Volume 102.8 FL Mean Corpuscular Hemoglobin 33.4 PG Mean Corpuscular Hemoglobin 32.5 % Concent Red Cell Distribution Width 19.8 % Platelet Count 209 TH/MM3 Mean Platelet Volume 9.1 FL Neutrophils (%) (Auto) 79.0 % Lymphocytes (%) (Auto) 13.3 % Monocytes (%) (Auto) 7.4 % Eosinophils (%) (Auto) 0.1 % Basophils (%) (Auto) 0.2 % Neutrophils # (Auto) 9.2 TH/MM3 Lymphocytes # (Auto) 1.5 TH/MM3 Monocytes # (Auto) 0.9 TH/MM3 Eosinophils # (Auto) 0.0 TH/MM3 Basophils # (Auto) 0.0 TH/MM3 CBC Comment DIFF FINAL Differential Comment Prothrombin Time 12.6 SEC Prothromb Time International 1.1 RATIO Ratio Activated Partial 28.2 SEC Thromboplast Time Sodium Level 138 MEQ/L Potassium Level 5.6 MEQ/L Chloride Level 102 MEQ/L Carbon Dioxide Level 26.8 MEQ/L Anion Gap 9 MEQ/L Blood Urea Nitrogen 114 MG/DL Creatinine 10.12 MG/DL Estimat Glomerular Filtration 6 ML/MIN Rate Random Glucose 222 MG/DL Calcium Level 8.7 MG/DL Magnesium Level 2.3 MG/DL Total Bilirubin 0.5 MG/DL Aspartate Amino Transf 52 U/L (AST/SGOT) Alanine Aminotransferase 63 U/L (ALT/SGPT) Alkaline Phosphatase 83 U/L Total Creatine Kinase 51 U/L Troponin I 0.09 NG/ML Total Protein 6.1 GM/DL Albumin 2.7 GM/DL Ammonia 26 MCMOL/L [facility] Medical Decision Making Medical Screen Exam Complete: Yes Emergency Medical Condition: Yes Medical Record Reviewed: Yes Differential Diagnosis Generalized weakness. Fatigue. CHF. Acute renal disease. Electrolyte imbalance. Elevated ammonia level. CO2 retention. Narrative Course Patient is medically stable at time of exam. Labs ordered including CBC, CMP, proBNP, magnesium, phosphorus, ammonia level, PT PTT and INR, cardiac panel, and urinalysis. EKG and chest x-ray ordered. Orthostatics are ordered. IV access is obtained patient is given 500 L normal saline bolus. EKG shows no significant changes from previous. Chest x-ray shows no acute findings per radiologist. CBC shows mild leukocytosis of 11.6, and chronic anemia which is unchanged from previous. Electrolytes show sodium 138, potassium 5.6, BUN is 114, creatinine of 10.12 which is elevated up from 8.13 on 02/06/17. Troponin is elevated at 0.09. Call was placed to the [facility] for admission. Diagnosis Primary Impression: Renal failure (ARF), acute on chronic Qualified Code: N17.9 - Acute renal failure superimposed on chronic kidney disease, on chronic dialysis, unspecified acute renal failure type Additional Impressions: ESRD on peritoneal dialysis Weakness DM (diabetes mellitus) Qualified Code: E11.22 - Type 2 diabetes mellitus with chronic kidney disease on chronic dialysis, unspecified [facility] insulin use status Anemia Qualified Code: D64.9 - Anemia, unspecified type Admitting Information Admitting Physician Requests: Admit Condition: Stable Seth Ennis February 26, 2017 12:59
--- NOTE | 2017-02-26 13:51 | RADRPT ---
EXAM DATE/TIME: 02/26/2017 13:13 [facility] COMPARISON: CHEST SINGLE AP, February 04, 2017, 7:39. INDICATIONS : Syncope, weakness, lethargic MEDICAL HISTORY : History of ESRD, PMH, HTN, DM, HLD. SURGICAL HISTORY : Dyalsis catheter ENCOUNTER: Initial ACUITY: 1 day PAIN SCORE: Non-responsive. LOCATION: Bilateral chest FINDINGS: The cardiac silhouette is normal in transverse diameter. The lungs are free of acute parenchymal opac ity. No effusions are identified. There is prominence of the aortic knob is with calcification charac teristic of atherosclerotic vascular disease. CONCLUSION: 1. No acute cardiopulmonary disease. Augusto Madison MD on February 26, 2017 at 13:42 Board Certified Radiologist. This report was verified electronically.
[2017-02-26 13:58] LABS: AUTOMATED NEUTROPHIL # 9.2 TH/MM3 (1.8-7.7); BASOPHIL % 0.2 % (0.0-2.0); EOSINOPHIL % 0.1 % (0.0-4.0); HEMATOCRIT 39.4 % (39.0-51.0); HEMO FLAGS DIFF FINAL; LYMPH % 13.3 % (9.0-44.0); LYMPHOCYTE # 1.5 TH/MM3 (1.0-4.8); MEAN CELL VOLUME 102.8 FL (80.0-100.0); MEAN CORPUSCULAR HEMOGLOBIN 33.4 PG (27.0-34.0); MEAN CORPUSCULAR HGB CONC 32.5 % (32.0-36.0); MONO % 7.4 % (0.0-8.0); PLATELET COUNT 209 TH/MM3 (150-450); RED BLOOD COUNT 3.83 MIL/MM3 (4.50-5.90); RED CELL DISTRIBUTION WIDTH 19.8 % (11.6-17.2); WHITE BLOOD COUNT 11.6 TH/MM3 (4.0-11.0)
[2017-02-26 14:10] LABS: APTT (PATIENT) 28.2 SEC (24.3-30.1); INTERNATIONAL NORMALIZED RATIO 1.1 RATIO; PROTHROMBIN TIME - PATIENT 12.6 SEC (9.8-11.6)
[2017-02-26 14:13] LABS: ALT (GPT) 63 U/L (12-78); ANION GAP 9 MEQ/L (5-15); AST (GOT) 52 U/L (15-37); BICARBONATE 26.8 MEQ/L (21.0-32.0); BLOOD UREA NITROGEN 114 MG/DL (7-18); CHLORIDE 102 MEQ/L (98-107); GLOMERULAR FILTRATION RATE 6 ML/MIN (>89); MAGNESIUM 2.3 MG/DL (1.5-2.5); POTASSIUM 5.6 MEQ/L (3.5-5.1); SODIUM (NA) 138 MEQ/L (136-145)
[2017-02-26 14:17] LABS: ALKALINE PHOSPHATASE 83 U/L (45-117); TOTAL BILIRUBIN ADULT 0.5 MG/DL (0.2-1.0)
[2017-02-26 14:18] LABS: CREATINE KINASE 51 U/L (39-308)
--- NOTE | 2017-02-26 15:31 | HHI.HP ---
HPI Service Family Medicine Primary Care Physician Diagnoses: International Travel<30 Days: No Contact w/Intl Traveler<30days: No Known Affected Area: No History of Present Illness 86-year-old male who presented to the emergency department with increasing weakness and fatigue over the last few days. Patient speaks only Vietnamese. Here with his daughter, who speaks Hungarian. According to the daughter, patient has been more confused and weak and is sleeping most of the time over the last week, but especially over last 2 days. The daughter's concern is the patient is much more lethargic, weak, and hypersomnolent in the last week. Patient does have end-stage renal disease, for which she has been doing peritoneal dialysis at home, but she does not think it is working. Reports patient does still make some urine and is moving his bowels normally. Patient was recently hospitalized here for pneumonia at the end of January. No report of pain, fever, nausea, vomiting, or diarrhea. Currently being evaluated for port placement for dialysis versus AV fistula placement. Physical Biochemist is Dr. Billings. (Amada Sanchez MD) Review of Systems ROS Limitations: Clinical Condition, Language Barrier, Poor Historian Constitutional: DENIES: Fever Endocrine: DENIES: Polydipsia Eyes: DENIES: Vision loss Respiratory: DENIES: Shortness of breath Cardiovascular: DENIES: Chest pain Gastrointestinal: DENIES: Abdominal pain, Black stools, Bloody stools, Diarrhea , Nausea, Vomiting Genitourinary: DENIES: Urinary frequency, Dysuria Integumentary: DENIES: Rash Other Generalized Weakness (Amada Sanchez MD) Past Family Social History Past Medical History Past Medical History: HTN HLD DM2 ESRD on HD Hx of LE DVT Past Surgical Peritoneal dialysis catheter Family History: Father: old age Mother: cancer Social History: Tobacco: denies Alcohol: none Illicit drug use: none Reported Medications Reported Meds & Active Scripts Active Sertraline (Sertraline HCl) 25 Mg Tab 25 Mg PO DAILY Renvela (Sevelamer Carbonate) 800 Mg Tab 1,600 Mg PO TIDAC Carvedilol 25 Mg Tab 25 Mg PO BID Reported Miralax Powder (Polyethylene Glycol 3350 Powder) 17 Gm Powd 17 Gm PO BID Mix and dissolve one measuring cap-ful (17 grams) in water or juice. Amlodipine (Amlodipine Besylate) 5 Mg Tab 5 Mg PO DAILY IN THE PM PRN Eliquis (Apixaban) 2.5 Mg Tab 2.5 Mg PO BID Simvastatin 20 Mg Tab 20 Mg PO HS Losartan (Losartan Potassium) 50 Mg Tab 50 Mg PO HS Novolog Mix 70-30 FlexPen Inj (Insulin Aspart Protam-Asp 70-30 Inj) 300 Unit/3 Ml Pen 5-10 Units SQ BID Calcitriol 0.25 Mcg Cap 0.25 Mcg PO DAILY Take 1 tablet (0.25mcg) on Thursday,Thursday and Thursday Dialyvite 800 (B-Complex W/ C & Folic Acid) 1 Tab 1 Tab PO HS (Amada Sanchez MD) Allergies: Coded Allergies: No Known Allergies (Unverified , 02/26/17) Physical Exam Vital Signs Vital Signs Date Time Temp Pulse Resp B/P Pulse Ox O2 Delivery O2 Flow Rate FiO2 02/26/17 15:00 98.0 69 18 169/88 99 Room Air 02/26/17 13:20 71 18 176/81 71 18 174/82 68 18 123/61 02/26/17 13:12 Room Air 02/26/17 13:09 98.7 68 20 137/61 100 Room Air 02/26/17 12:45 98.6 75 18 165/77 98 Physical Exam GENERAL: Sitting up in bed, no acute distress. Answers questions appropriately. SKIN: Warm and dry. HEAD: Atraumatic. Normocephalic. EYES: Pupils equal and round. No scleral icterus. No injection or drainage. ENT: No nasal bleeding or discharge. Mucous membranes pink and moist. Pharynx is clear. Airway is patent. NECK: Trachea midline. CARDIOVASCULAR: Regular rate and rhythm. No murmurs gallops or rubs appreciated. RESPIRATORY: No accessory muscle use. Clear to auscultation without wheezing rhonchi or crackles. Breath sounds equal bilaterally. GASTROINTESTINAL: Positive bowel sounds. Abdomen soft, non-tender, nondistended. MUSCULOSKELETAL: Extremities without clubbing, cyanosis, or edema. No obvious deformities. NEUROLOGICAL: Awake and alert. No obvious cranial nerve deficits. Motor grossly within normal limits. Normal speech. PSYCHIATRIC: Appropriate mood and affect; insight and judgment normal. Laboratory Laboratory Tests Test 02/26/17 02/26/17 13:45 13:51 White Blood Count 11.6 Red Blood Count 3.83 Hemoglobin 12.8 Hematocrit 39.4 Mean Corpuscular Volume 102.8 Mean Corpuscular Hemoglobin 33.4 Mean Corpuscular Hemoglobin 32.5 Concent Red Cell Distribution Width 19.8 Platelet Count 209 Mean Platelet Volume 9.1 Neutrophils (%) (Auto) 79.0 Lymphocytes (%) (Auto) 13.3 Monocytes (%) (Auto) 7.4 Eosinophils (%) (Auto) 0.1 Basophils (%) (Auto) 0.2 Neutrophils # (Auto) 9.2 Lymphocytes # (Auto) 1.5 Monocytes # (Auto) 0.9 Eosinophils # (Auto) 0.0 Basophils # (Auto) 0.0 CBC Comment DIFF FINAL Differential Comment Prothrombin Time 12.6 Prothromb Time International 1.1 Ratio Activated Partial 28.2 Thromboplast Time Sodium Level 138 Potassium Level 5.6 Chloride Level 102 Carbon Dioxide Level 26.8 Anion Gap 9 Blood Urea Nitrogen 114 Creatinine 10.12 Estimat Glomerular Filtration 6 Rate Random Glucose 222 Calcium Level 8.7 Magnesium Level 2.3 Total Bilirubin 0.5 Aspartate Amino Transf 52 (AST/SGOT) Alanine Aminotransferase 63 (ALT/SGPT) Alkaline Phosphatase 83 Total Creatine Kinase 51 Troponin I 0.09 B-Type Natriuretic Peptide 326 Total Protein 6.1 Albumin 2.7 Ammonia 26 (Amada Sanchez MD) Result Diagram: 02/26/17 1345 02/26/17 1345 Imaging Last Impressions Chest X-Ray 02/26/17 1306 Signed Impressions: Service Date/Time: February 13:13 - CONCLUSION: 1. No acute cardiopulmonary disease. Augusto Madison MD (Amada Sanchez MD) Assessment and Plan Assessment and Plan 86-year-old male who has been on outpatient home peritoneal dialysis presents to the ED with complaints of generalized weakness and fatigue over the last week, especially over the last 2 days, found to have elevated creatinine of 10.12. Code Status Full, discussed with patient and daughter Discussed Condition With [facility] Dr. Rebecca Moeller and Dr. Mckeon (Amada Sanchez MD) Attending Attestation THIS CASE WAS DISCUSSED WITH THE RESIDENT PHYSICIANS. I HAVE REVIEWED THE RECORD AND AGREE WITH THE ABOVE NOTE AND PLAN OF CARE WAS DISCUSSED. I HAVE AUTHORIZED THE ORDER FOR ADMISSION TO AN IN-PATIENT STATUS. (Jenaro Fernandez MD) Problem List: (1) Renal failure (ARF), acute on chronic Status: Acute Plan: Creatinine of 10.12 which is elevated up from 8.13 on 02/06/17. Has been doing peritoneal dialysis at home, but her daughter she does not think that this has been working, and does not think it is is a good long-term option. She and the patient would like to do dialysis at the dialysis center. *Potassium 5.6, phosphorus 5.6. Received 500 cc bolus in ED Plan: * Consulted nephrology, patient know to Dr. Billings. Has been nephrology on the phone. Plan is for her to hemodialysis this evening, and for hemodialysis starting tomorrow. Requested that I place an order for interventional radiology to place permacath for tomorrow. * IR consult for permacath placed for tomorrow morning * Continue home calcitriol 0.25 mcg daily * Continue home Renvela 1600 mg by mouth 3 times a day before meals (2) Weakness generalized Status: Acute Plan: Likely secondary to acute on chronic renal failure as above, as well as orthostatic hypotension. CBC: leukocytosis of 11.6. Afebrile. CXR shows no acute findings Chronic anemia at 12.8, unchanged from previous. BNP mildly elevated at 326. Ammonia 26. EKG: Sinus rhythm, left axis deviation, no significant changes from previous. Troponin is mildly elevated at 0.09. Plan: * Trending troponins and EKG's 3 * UA ordered * See above under acute renal failure (3) Hypertension Status: Chronic Plan: BPs are labile. Orthostatics Positive, blood pressure 176/81 sitting and supine, standing blood pressure 123/60 Plan: * Continue home Amlodipine 5 mg daily * Continue home losartan 50 mg by mouth daily at bedtime * Clonidine and hydralazine when necessary * Continue home carvedilol 25 mg by mouth twice a day * Continue IV fluids (4) ESRD on peritoneal dialysis Status: Chronic Plan: Plan is to transition to hemodialysis, see above under acute renal failure (5) DM (diabetes mellitus) Status: Chronic Plan: Last A1C 7.5% on 12/12/16. Random glucose 222 in ED today Plan: * Levemir 5 units twice a day * Low dose sliding (6) Hyperlipemia Status: Chronic Plan: Continue home pravastatin 40 mg at bedtime (7) Nutrition, metabolism, and development symptoms Status: Chronic Plan: Fluids: NS at 75cc/hr Electrolytes: Potassium elevated 5.6, phosphorus elevated at 5.6. Continue to monitor Nutrition: Renal diet, sodium restriction to 2 g for heart healthy, and 2000- calorie ADA for diabetic diet Continued home Remeron 15 mg by mouth daily at bedtime (8) Deep vein thrombosis (DVT) prophylaxis prescribed at discharge Status: Chronic Plan: SCDs On Eliquis 2.5 mg daily for history of left DVT (Amada Sanchez MD) Physician Certification 2 Midnight Certification Type: Admission for Inpatient Services Order for Inpatient Services The services are ordered in accordance with Medicare regulations or non- Medicare payer requirements, as applicable. In the case of services not specified as inpatient-only, they are appropriately provided as inpatient services in accordance with the 2-midnight benchmark. Estimated LOS (days): 2 2 days is the estimated time the patient will need to remain in the hospital, assuming treatment plan goals are met and no additional complications. Post-Hospital Plan: Not yet determined (Amada Sanchez MD) Problem Qualifiers (1) Renal failure (ARF), acute on chronic: Qualified Code: N17.9 - Acute renal failure superimposed on chronic kidney disease, on chronic dialysis, unspecified acute renal failure type (2) DM (diabetes mellitus): Qualified Code: E11.22 - Type 2 diabetes mellitus with chronic kidney disease on chronic dialysis, unspecified retirement insulin use status Amada Sanchez MD February 26, 2017 15:31 Jenaro Fernandez MD February 27, 2017 13:15
[2017-02-26] MEDS ORDERED: GLUCAGON 1 MG/ML VIAL OTHER PRN (15:45)
[2017-02-26] MEDS ORDERED: NALOXONE HCL 0.4 MG/ML AMP IV PRN (15:45)
[2017-02-26] MEDS ORDERED: ONDANSETRON HCL 4 MG/2 ML VIAL IVP PRN (15:45)
[2017-02-26] MEDS ORDERED: DEXTROSE 50% IN WATER 50 ML VIAL(D50) IV PRN (15:45)
[2017-02-26] MEDS ORDERED: SENNOSIDES 8.6 MG TAB PO PRN (15:45)
[2017-02-26] MEDS ORDERED: SODIUM CHLORIDE 0.9% FLUSH 10 ML FLUSH IV FLUSH PRN ×2 (15:45→22:15)
[2017-02-26] MEDS ORDERED: amLODIPine BESYLATE 5 MG TAB PO PRN (15:45)
[2017-02-26] MEDS ORDERED: cloNIDine HCL 0.1 MG TAB PO PRN (15:45)
[2017-02-26] MEDS ORDERED: SODIUM CHLOR 0.45% 1000 ML INJ 1,000 ML IV SCH (16:00)
[2017-02-26] MEDS: INSULIN ASPART SUPPLEMENTAL SCALE SQ SCH ×2 (16:23→21:52)
[2017-02-26] MEDS: SEVELAMER CARBONATE 800 MG TAB PO SCH (17:23)
[2017-02-26] MEDS: SODIUM CHLORIDE 0.9% FLUSH 10 ML FLUSH IV FLUSH SCH (21:00)
[2017-02-26] MEDS: MIRTAZAPINE 15 MG TAB PO SCH (21:46)
[2017-02-26] MEDS: LOSARTAN 50 MG TAB PO SCH (21:47)
[2017-02-26] MEDS: APIXABAN 2.5 MG TABLET PO SCH (21:47)
[2017-02-26] MEDS: CARVEDILOL 12.5 MG TAB PO SCH (21:47)
[2017-02-26] MEDS: VITAMIN B CMPLX/VITC/FOLIC AC CAP PO SCH (21:48)
[2017-02-26] MEDS: PRAVASTATIN SOD 40 MG TAB PO SCH (21:48)
[2017-02-26] MEDS: INSULIN DETEMIR 100 UNITS/ML VIAL SQ SCH (21:50)
[2017-02-26] MEDS ORDERED: HEPARIN SODIUM - IV 10,000 UNITS/10 ML VIAL XX PRN (22:15)
[2017-02-26] MEDS: TEMAZEPAM 15 MG CAP PO PRN (22:36)
[2017-02-27] VITALS (9 sets, daily range): BP systolic 144–227; BP diastolic 70–127; PULSE 65–84; RESP 18; TEMP 97.2–98.6; O2SAT 92–99
[2017-02-27 02:27] LABS: AUTOMATED NEUTROPHIL # 8.5 TH/MM3 (1.8-7.7); BASOPHIL % 0.3 % (0.0-2.0); EOSINOPHIL % 0.1 % (0.0-4.0); HEMATOCRIT 35.3 % (39.0-51.0); HEMO FLAGS DIFF FINAL; LYMPH % 14.5 % (9.0-44.0); LYMPHOCYTE # 1.6 TH/MM3 (1.0-4.8); MEAN CELL VOLUME 102.2 FL (80.0-100.0); MEAN CORPUSCULAR HEMOGLOBIN 34.5 PG (27.0-34.0); MEAN CORPUSCULAR HGB CONC 33.7 % (32.0-36.0); MONO % 8.7 % (0.0-8.0); NEUT % 76.4 % (16.0-70.0); PLATELET COUNT 212 TH/MM3 (150-450); RED BLOOD COUNT 3.45 MIL/MM3 (4.50-5.90); RED CELL DISTRIBUTION WIDTH 19.5 % (11.6-17.2); WHITE BLOOD COUNT 11.1 TH/MM3 (4.0-11.0)
[2017-02-27 02:29] LABS: BICARBONATE 23.9 MEQ/L (21.0-32.0); POTASSIUM 5.1 MEQ/L (3.5-5.1)
[2017-02-27] MEDS: INSULIN ASPART SUPPLEMENTAL SCALE SQ SCH ×4 (06:12→20:53)
[2017-02-27] MEDS: SEVELAMER CARBONATE 800 MG TAB PO SCH ×3 (08:00→17:00)
[2017-02-27] MEDS: amLODIPine BESYLATE 5 MG TAB PO SCH (08:32)
[2017-02-27] MEDS: CARVEDILOL 12.5 MG TAB PO SCH ×2 (08:32→20:13)
[2017-02-27] MEDS: CALCITRIOL 0.25 MCG CAP PO SCH (08:32)
[2017-02-27] MEDS: SERTRALINE HCL 50 MG TAB PO SCH (08:32)
[2017-02-27] MEDS: APIXABAN 2.5 MG TABLET PO SCH (08:32)
[2017-02-27] MEDS: SODIUM CHLORIDE 0.9% FLUSH 10 ML FLUSH IV FLUSH SCH ×2 (08:33→18:56)
[2017-02-27] MEDS: INSULIN DETEMIR 100 UNITS/ML VIAL SQ SCH ×2 (08:41→20:52)
[2017-02-27] MEDS ORDERED: PILL SPLITTER OTHER PRN (09:00)
[2017-02-27] MEDS ORDERED: SODIUM CHLOR 0.9% 1000 ML INJ 1,000 ML IV PRN ×3 (09:10)
[2017-02-27] MEDS ORDERED: ONDANSETRON HCL 4 MG/2 ML VIAL IV PRN (09:15)
[2017-02-27] MEDS ORDERED: MANNITOL 12.5 GM/50 ML VIAL IV PRN (09:15)
[2017-02-27] MEDS ORDERED: HEPARIN SODIUM - IV 10,000 UNITS/10 ML VIAL IVF PRN (09:15)
[2017-02-27] MEDS ORDERED: cloNIDine HCL 0.1 MG TAB PO PRN (09:15)
[2017-02-27] MEDS ORDERED: ACETAMINOPHEN 325 MG TAB PO PRN (09:15)
[2017-02-27] MEDS ORDERED: SODIUM CHLORIDE 0.9% FLUSH 10 ML FLUSH IV FLUSH PRN (09:15)
[2017-02-27] MEDS ORDERED: ALBUMIN HUMAN 25% 25 GM/100 ML BAGP IV PRN (09:15)
[2017-02-27] MEDS ORDERED: diphenhydrAMINE HCL 25 MG CAP PO PRN (09:15)
[2017-02-27] MEDS ORDERED: GELATIN 12 MM/7 MM FOAM TOP PRN (09:15)
[2017-02-27] MEDS ORDERED: NITROGLYCERIN 0.4 MG SL 25 TABS/BTL SL PRN (09:15)
--- NOTE | 2017-02-27 09:17 | HHI.FPPN ---
Subjective Remarks FM Attending Note: Patient seen and examined. S: Chart and all resident physician notes reviewed. In summary this is a 86 year old male who was admitted with an admission diagnosis of Weakness, Elevated Creatinine, Renal Failure. This patient has type 2 diabetes with associated end-stage renal disease for which he is on peritoneal dialysis. He is brought to the emergency room by his family due to increased lethargy and concerns that the home peritoneal dialysis is not controlling his renal failure. No pain or fever or noted. The patient had a recent hospitalization for pneumonia but the symptoms appear to have resolved. He is chronically taking Eliquis; initially this was thought to be for DVT's, but on contacting his sister in [place] (vinny) she reports that he has atrial fibrillation. This patient is scheduled to have a Vas-Cath placed today so that he may undergo hemodialysis with plans to place a permacath next week once he has been off the Eliquis over the weekend. The patient denies pain or SOB at this time. Objective Vitals Vital Signs Date Time Temp Pulse Resp B/P Pulse Ox O2 Delivery O2 Flow Rate FiO2 02/27/17 08:00 97.9 82 18 171/80 95 02/27/17 06:00 97.2 70 18 146/71 97 02/26/17 20:30 Room Air 02/26/17 19:00 97.9 83 19 166/77 96 02/26/17 18:00 97.8 76 16 198/90 98 02/26/17 17:40 98.0 89 17 158/89 02/26/17 15:00 98.0 69 18 169/88 99 Room Air 02/26/17 13:20 71 18 176/81 71 18 174/82 68 18 123/61 02/26/17 13:12 Room Air 02/26/17 13:09 98.7 68 20 137/61 100 Room Air 02/26/17 12:45 98.6 75 18 165/77 98 I/O 02/26/17 02/26/17 02/26/17 02/27/17 02/27/17 02/27/17 07:00 15:00 23:00 07:00 15:00 23:00 Intake Total 400 ml 200 ml Output Total 200 ml 0 ml Balance 400 ml 0 ml 0 ml Intake Oral 400 ml 200 ml Output Urine Total 200 ml Peritoneal Fluid 0 ml # Voids 0 1 # Bowel Movements 0 0 Result Diagram: 02/27/17 0145 02/27/17 0145 Imaging Last 48 hours Impressions Chest X-Ray 02/26/17 1306 Signed Impressions: Service Date/Time: February 13:13 - CONCLUSION: 1. No acute cardiopulmonary disease. Augusto Madison MD Objective Remarks O. CONSTITUTIONAL/GEN: normally nourished, in NAD. EYES: conjunctiva normal, PERRLA, EOMI. ENT: Mouth and pharynx normal. NECK: thyroid midline, carotids symmetrical. LUNGS: clear A-P, respiratory effort is normal. CARDIOVASCULAR: RR without murmur or gallop. No significant edema. GI/ABD: soft without masses, without organomegaly. NEURO: No focal deficits. SKIN: color normal, no rashes noted. HEME/LYMPH: no bruising, petechia or significant adenopathy MUSC: back is normal in appearance. Extremities are normal in appearance. A/P Assessment and Plan 86-year-old male who has been on outpatient home peritoneal dialysis presents to the ED with complaints of generalized weakness and fatigue over the last week, especially over the last 2 days, found to have elevated creatinine of 10.12. Problem List: (1) Renal failure (ARF), acute on chronic Status: Acute Plan: Creatinine of 10.12 which is elevated up from 8.13 on 02/06/17. Has been doing peritoneal dialysis at home, but her daughter she does not think that this has been working, and does not think it is is a good long-term option. She and the patient would like to do dialysis at the dialysis center. *Potassium 5.6, phosphorus 5.6. Received 500 cc bolus in ED Plan: * Consulted nephrology, patient know to Dr. Billings. Has been nephrology on the phone. Plan is for her to hemodialysis this evening, and for hemodialysis starting tomorrow. Requested that I place an order for interventional radiology to place permacath for tomorrow. * IR consult for permacath placed for tomorrow morning * Continue home calcitriol 0.25 mcg daily * Continue home Renvela 1600 mg by mouth 3 times a day before meals 02/27/17 A Vas-Cath is to be placed today so that he may start hemodialysis. Jessica has been held for possible PermaCath placement next week. (2) Weakness generalized Status: Acute Plan: Likely secondary to acute on chronic renal failure as above, as well as orthostatic hypotension. CBC: leukocytosis of 11.6. Afebrile. CXR shows no acute findings Chronic anemia at 12.8, unchanged from previous. BNP mildly elevated at 326. Ammonia 26. EKG: Sinus rhythm, left axis deviation, no significant changes from previous. Troponin is mildly elevated at 0.09. Plan: * Trending troponins and EKG's 3 * UA ordered * See above under acute renal failure (3) Hypertension Status: Chronic Plan: BPs are labile. Orthostatics Positive, blood pressure 176/81 sitting and supine, standing blood pressure 123/60 Plan: * Continue home Amlodipine 5 mg daily * Continue home losartan 50 mg by mouth daily at bedtime * Clonidine and hydralazine when necessary * Continue home carvedilol 25 mg by mouth twice a day * Continue IV fluids (4) ESRD on peritoneal dialysis Status: Chronic Plan: Plan is to transition to hemodialysis, see above under acute renal failure (5) DM (diabetes mellitus) Status: Chronic Plan: Last A1C 7.5% on 12/12/16. Random glucose 222 in ED today Plan: * Levemir 5 units twice a day * Low dose sliding scale coverage. (6) Hyperlipemia Status: Chronic Plan: Continue home pravastatin 40 mg at bedtime (7) Nutrition, metabolism, and development symptoms Status: Chronic Plan: Fluids: NS at 75cc/hr Electrolytes: Potassium elevated 5.6, phosphorus elevated at 5.6. Continue to monitor Nutrition: Renal diet, sodium restriction to 2 g for heart healthy, and 2000- calorie ADA for diabetic diet Continued home Remeron 15 mg by mouth daily at bedtime (8) Deep vein thrombosis (DVT) prophylaxis prescribed at discharge Status: Chronic Plan: SCDs On Eliquis 2.5 mg daily for history of left DVT Problem Qualifiers (1) Renal failure (ARF), acute on chronic: Qualified Code: N17.9 - Acute renal failure superimposed on chronic kidney disease, on chronic dialysis, unspecified acute renal failure type (2) DM (diabetes mellitus): Qualified Code: E11.22 - Type 2 diabetes mellitus with chronic kidney disease on chronic dialysis, 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
--- NOTE | 2017-02-27 09:50 | PD.CONS ---
HPI Service Nephrology Consult Requested By Reason for Consult ESRD Primary Care Physician Lexa Ruiz MD History of Present Illness This is an 86 y/o Kazakh speaking patient with ESRD. He was on PD but has had issues with the catheter not draining, was in hospital a few weeks ago for the same. We saw him in the PD clinic yesterday, he was weak, interacting less per family. It was decided we should convert to hemodialysis and an order was given for outpatient Permcath placement. However he was too weak to get in the car therefore the family brought him in for evaluation. PMH listed below includes HTN, metabolic bone disease, anemia, and secondary hyperparathyroidism. He also has had a DVT and is on Apixaban, received last dose today. Per the dialysis nurses, they were not able to remove any fluid last night using PD. Today he is sleeping, appears weak. Family is at bedside. Appetite is minimal. Electrolytes are unremarkable. (Tara Cheng) Review of Systems ROS Limitations: Clinical Condition, Altered Mental Status Constitutional: COMPLAINS OF: Fatigue, DENIES: Weight gain Cardiovascular: DENIES: Chest pain Gastrointestinal: DENIES: Abdominal pain Neurologic: COMPLAINS OF: Poor Balance, DENIES: Abnormal gait, Localized weakness (Tara Cheng) Past Family Social History Allergies: Coded Allergies: No Known Allergies (Unverified , 02/26/17) Past Medical History ESRD previously on PD hypertension DM II Anemia History of DVT on Apixaban Secondary hyperparathyroidism. Past Surgical History PD catheter placement eye surgery Reported Medications Sertraline (Sertraline HCl) 25 Mg Tab 25 Mg PO DAILY Renvela (Sevelamer Carbonate) 800 Mg Tab 1,600 Mg PO TIDAC Carvedilol 25 Mg Tab 25 Mg PO BID Miralax Powder (Polyethylene Glycol 3350 Powder) 17 Gm Powd 17 Gm PO BID Mix and dissolve one measuring cap-ful (17 grams) in water or juice. Amlodipine (Amlodipine Besylate) 5 Mg Tab 5 Mg PO DAILY IN THE PM PRN Eliquis (Apixaban) 2.5 Mg Tab 2.5 Mg PO BID Simvastatin 20 Mg Tab 20 Mg PO HS Losartan (Losartan Potassium) 50 Mg Tab 50 Mg PO HS Novolog Mix 70-30 FlexPen Inj (Insulin Aspart Protam-Asp 70-30 Inj) 300 Unit/3 Ml Pen 5-10 Units SQ BID Calcitriol 0.25 Mcg Cap 0.25 Mcg PO DAILY Take 1 tablet (0.25mcg) on Thursday,Thursday and Thursday Dialyvite 800 (B-Complex W/ C & Folic Acid) 1 Tab 1 Tab PO HS Active Ordered Medications Current Medications Medications (Trade) Dose Ordered Sig/Mahi Route Start Time Stop Time Status Last Admin (NS Flush) 2 ml UNSCH PRN IV FLUSH 02/26/17 15:45 (NS Flush) 2 ml BID IV FLUSH 02/26/17 21:00 02/27/17 08:33 (Tylenol) 650 mg Q4H PRN PO 02/26/17 15:45 (Zofran Inj) 4 mg Q6H PRN IVP 02/26/17 15:45 (Senokot) 17.2 mg Q12H PRN PO 02/26/17 15:45 (Restoril) 15 mg HS PRN PO 02/26/17 15:45 02/26/17 22:36 (Narcan Inj) 0.4 mg UNSCH PRN IV 02/26/17 15:45 (Catapres) 0.1 mg Q4H PRN PO 02/26/17 15:45 02/26/17 18:16 (Apresoline) 10 mg Q4H PRN PO 02/26/17 15:45 (Eliquis) 2.5 mg BID PO 02/26/17 21:00 Hold 02/27/17 08:32 (Rocaltrol) 0.25 mcg DAILY PO 02/27/17 09:00 02/27/17 08:32 (Coreg) 25 mg BID PO 02/26/17 21:00 02/27/17 08:32 (Cozaar) 50 mg HS PO 02/26/17 21:00 02/26/17 21:47 (Renvela) 1,600 mg TIDAC PO 02/26/17 17:00 02/26/17 17:23 (Nephrocaps) 1 cap HS PO 02/26/17 21:00 02/26/17 21:48 (Zoloft) 25 mg DAILY PO 02/27/17 09:00 02/27/17 08:32 (Pravachol) 40 mg HS PO 02/26/17 21:00 02/26/17 21:48 (D50w (Vial) Inj) 50 ml UNSCH PRN IV 02/26/17 15:45 (Glucagon Inj) 1 mg UNSCH PRN OTHER 02/26/17 15:45 (Levemir Inj) 5 units Q12HR SQ 02/26/17 21:00 02/26/17 21:50 (Pill Splitter) 1 ea UNSCH PRN OTHER 02/27/17 09:00 (Norvasc) 5 mg DAILY PO 02/27/17 09:00 02/27/17 08:32 (Remeron) 15 mg HS PO 02/26/17 21:00 02/26/17 21:46 Sodium Chloride 10 ml 10 ml UNSCH PRN IV FLUSH 02/26/17 22:15 (NS 1000 ml Inj) 1,000 ml @ 0 mls/hr Q0M PRN IV 02/27/17 09:10 Heparin Sodium (Porcine) 8000 units 8,000 units UNSCH PRN IVF 02/27/17 09:15 Sodium Chloride 1,000 ml @ 200 mls/hr Q5H PRN IV 02/27/17 09:10 (NS 1000 ml Inj) 1,000 ml @ 0 mls/hr Q0M PRN IV 02/27/17 09:10 (Mannitol Inj) 12.5 gm UNSCH PRN IV 02/27/17 09:15 (Albumin 25% Inj) 25 gm UNSCH PRN IV 02/27/17 09:15 (NS Flush) 5 ml UNSCH PRN IV FLUSH 02/27/17 09:15 (Heparin Inj) UNSCH PRN .XX 02/27/17 09:15 (Gentamicin (Dialysis) Inj) 20 mg UNSCH PRN IV 02/27/17 09:15 (Zofran Inj) 4 mg UNSCH PRN IV 02/27/17 09:15 (Tylenol) 650 mg UNSCH PRN PO 02/27/17 09:15 (Benadryl) 25 mg UNSCH PRN PO 02/27/17 09:15 (Nitrostat Sl) 0.4 mg UNSCH PRN SL 02/27/17 09:15 (Catapres) 0.1 mg UNSCH PRN PO 02/27/17 09:15 (Gelfoam 12 Mm/7 Mm Top) 1 foam UNSCH PRN TOP 02/27/17 09:15 Family History no hx of renal disorders Social History uzbek speaking, came from [place] previously from the [place] lives with daughter uses walker retired no smoking or ETOH full code (Tara Cheng) Physical Exam Vital Signs Vital Signs Date Time Temp Pulse Resp B/P Pulse Ox O2 Delivery O2 Flow Rate FiO2 02/27/17 08:00 97.9 82 18 171/80 95 02/27/17 06:00 97.2 70 18 146/71 97 02/26/17 20:30 Room Air 02/26/17 19:00 97.9 83 19 166/77 96 02/26/17 18:00 97.8 76 16 198/90 98 02/26/17 17:40 98.0 89 17 158/89 02/26/17 15:00 98.0 69 18 169/88 99 Room Air 02/26/17 13:20 71 18 176/81 71 18 174/82 68 18 123/61 02/26/17 13:12 Room Air 02/26/17 13:09 98.7 68 20 137/61 100 Room Air 02/26/17 12:45 98.6 75 18 165/77 98 Physical Exam Physical Exam GENERAL: he sitting up in bed, eyes closed/sleeping but awakens to name SKIN: Warm and dry. HEAD: Normocephalic. EYES: No scleral icterus. No injection or drainage. NECK: Supple, trachea midline. No JVD or lymphadenopathy. CARDIOVASCULAR: Regular rate and rhythm without murmurs, gallops, or rubs. RESPIRATORY: Breath sounds equal bilaterally. No accessory muscle use. GASTROINTESTINAL: Abdomen soft, non-tender, slightly distended. PD catheter is in place. MUSCULOSKELETAL: No cyanosis, or edema. BACK: Nontender without obvious deformity. No CVA tenderness. EXT: no edema Laboratory Laboratory Tests Test 02/26/17 02/26/17 02/26/17 02/27/17 13:45 13:51 20:19 01:45 White Blood Count 11.6 11.1 Red Blood Count 3.83 3.45 Hemoglobin 12.8 11.9 Hematocrit 39.4 35.3 Mean Corpuscular Volume 102.8 102.2 Mean Corpuscular Hemoglobin 33.4 34.5 Mean Corpuscular Hemoglobin 32.5 33.7 Concent Red Cell Distribution Width 19.8 19.5 Platelet Count 209 212 Mean Platelet Volume 9.1 9.3 Neutrophils (%) (Auto) 79.0 76.4 Lymphocytes (%) (Auto) 13.3 14.5 Monocytes (%) (Auto) 7.4 8.7 Eosinophils (%) (Auto) 0.1 0.1 Basophils (%) (Auto) 0.2 0.3 Neutrophils # (Auto) 9.2 8.5 Lymphocytes # (Auto) 1.5 1.6 Monocytes # (Auto) 0.9 1.0 Eosinophils # (Auto) 0.0 0.0 Basophils # (Auto) 0.0 0.0 CBC Comment DIFF FINAL DIFF FINAL Differential Comment Prothrombin Time 12.6 Prothromb Time International 1.1 Ratio Activated Partial 28.2 Thromboplast Time Sodium Level 138 138 Potassium Level 5.6 5.1 Chloride Level 102 102 Carbon Dioxide Level 26.8 23.9 Anion Gap 9 12 Blood Urea Nitrogen 114 118 Creatinine 10.12 9.66 Estimat Glomerular Filtration 6 6 Rate Random Glucose 222 238 Calcium Level 8.7 8.3 Phosphorus Level 5.6 Magnesium Level 2.3 Total Bilirubin 0.5 Aspartate Amino Transf 52 (AST/SGOT) Alanine Aminotransferase 63 (ALT/SGPT) Alkaline Phosphatase 83 Total Creatine Kinase 51 Troponin I 0.09 0.09 0.09 B-Type Natriuretic Peptide 326 Total Protein 6.1 Albumin 2.7 Ammonia 26 (Tara Cheng) Result Diagram: 02/27/17 0145 02/27/17 0145 Imaging Last Impressions Chest X-Ray 02/26/17 1306 Signed Impressions: Service Date/Time: February 13:13 - CONCLUSION: 1. No acute cardiopulmonary disease. Augusto Madison MD (Tara Cheng) Assessment and Plan Problem List: (1) ESRD (end stage renal disease) Plan: previous PD but it is not working well for him, plan to convert to hemodialysis, pt and family in agreement due to receiving Apixaban this morning, Permcath placement postponed until Thursday (Apixaban on hold currently) vascath to be placed today, initiate hemodialysis today and tomorrow monitor electrolytes fluid removal as tolerated will consult vascular for AV fistula placement, will order vein mapping likely convert to TTS HD, plan to go to [facility] at discharge, they are aware he does make some urine at baseline continue calcitriol for secondary hyperparathyroidism (2) DM (diabetes mellitus) Plan: continue insulin therapy, monitor glucose (3) Hypertension Plan: continue home medications (4) Anemia Plan: given epogen yesterday, follow Hb (5) Metabolic bone disease Plan: continue Renvela, intermittent phos level (Tara Cheng) Assessment and Plan patient was seen and examined. Patient is currently not meeting adequate dialysis requirements. He is unable to perform PD and family members are overwhelmed with the process. In addition, it appears that PD catheter itself is not functioning, no UF obtained this morning after CCPD last night. In view of this it is necessary for the patient to initiate HD. He needs CVC catheter placement. Vascath today in view of the fact that he was on Apixaban. Radiologist is unable to reach the family. I hereby certify that is medically necessary to place a CVC dialysis catheter on emergent basis so that hemodialysis can be performed today. Not conducting hemodialysis today will result in life threatening complications of progressive uremia, hyperkalemia and other electrolyte derangements, eventually resulting in patient's demise. (Edson Billings MD) Problem Qualifiers (1) DM (diabetes mellitus): Qualified Code: E11.22 - Type 2 diabetes mellitus with chronic kidney disease on chronic dialysis, unspecified longterm insulin use status (2) Anemia: Qualified Code: D64.9 - Anemia, unspecified type Tara Cheng February 27, 2017 09:50 Edson Billings MD February 27, 2017 14:25
--- NOTE | 2017-02-27 13:34 | PD.CAR.PN ---
CVT Progress Note Subjective/Hospital Course: Referral received Will evaluate the patient and mapping ultrasound of both arms and then decide on the location of the AV fistula site Full consult to follow Stephanie Casey Objective: Vital Signs Date Time Temp Pulse Resp B/P Pulse Ox O2 Delivery O2 Flow Rate FiO2 02/27/17 12:00 98.3 70 18 144/70 95 02/27/17 11:43 98 21 02/27/17 08:20 Room Air 02/27/17 08:20 81 02/27/17 08:00 97.9 82 18 171/80 95 02/27/17 06:00 97.2 70 18 146/71 97 02/26/17 20:30 Room Air 02/26/17 19:00 97.9 83 19 166/77 96 02/26/17 18:00 97.8 76 16 198/90 98 02/26/17 17:40 98.0 89 17 158/89 02/26/17 15:00 98.0 69 18 169/88 99 Room Air Labs: Laboratory Tests Test 02/27/17 01:45 White Blood Count 11.1 TH/MM3 (4.0-11.0) Red Blood Count 3.45 MIL/MM3 (4.50-5.90) Hemoglobin 11.9 GM/DL (13.0-17.0) Hematocrit 35.3 % (39.0-51.0) Mean Corpuscular Volume 102.2 FL (80.0-100.0) Mean Corpuscular Hemoglobin 34.5 PG (27.0-34.0) Mean Corpuscular Hemoglobin 33.7 % Concent (32.0-36.0) Red Cell Distribution Width 19.5 % (11.6-17.2) Platelet Count 212 TH/MM3 (150-450) Mean Platelet Volume 9.3 FL (7.0-11.0) Neutrophils (%) (Auto) 76.4 % (16.0-70.0) Lymphocytes (%) (Auto) 14.5 % (9.0-44.0) Monocytes (%) (Auto) 8.7 % (0.0-8.0) Eosinophils (%) (Auto) 0.1 % (0.0-4.0) Basophils (%) (Auto) 0.3 % (0.0-2.0) Neutrophils # (Auto) 8.5 TH/MM3 (1.8-7.7) Lymphocytes # (Auto) 1.6 TH/MM3 (1.0-4.8) Monocytes # (Auto) 1.0 TH/MM3 (0-0.9) Eosinophils # (Auto) 0.0 TH/MM3 (0-0.4) Basophils # (Auto) 0.0 TH/MM3 (0-0.2) CBC Comment DIFF FINAL Differential Comment Sodium Level 138 MEQ/L (136-145) Potassium Level 5.1 MEQ/L (3.5-5.1) Chloride Level 102 MEQ/L (98-107) Carbon Dioxide Level 23.9 MEQ/L (21.0-32.0) Anion Gap 12 MEQ/L (5-15) Blood Urea Nitrogen 118 MG/DL (7-18) Creatinine 9.66 MG/DL (0.60-1.30) Estimat Glomerular Filtration 6 ML/MIN (>89) Rate Random Glucose 238 MG/DL (74-106) Calcium Level 8.3 MG/DL (8.5-10.1) Troponin I 0.09 NG/ML (0.02-0.05) Vitamin B12 Level 463 PG/ML (193-986) Result Diagram: 02/27/17 0145 02/27/17 0145 Jamila Chapa MD February 27, 2017 13:34
--- NOTE | 2017-02-27 15:03 | HHI.FPPN ---
Addendum to progress note ADDENDUM Reason for addendum: Additonal documentation Additional information Mr. Longo is being managed by the family medicine team with Dr. Dangelo as attending. He needs placement of an CVC dialysis catheter today on an emergent basis so that hemodialysis can be performed to prevent life-threatening complications such as uremia, hyperkalemia with possible dysrhythmic cardiovascular events, and other electrolyte abnormalities that could result in . Doreen Mckeon MD R1 February 27, 2017 15:03
--- NOTE | 2017-02-27 16:20 | RADRPT ---
EXAM DATE/TIME: 02/27/2017 14:47 [facility] COMPARISON: No previous studies available for comparison. INDICATIONS : AVF placement. Post graft. MEDICAL HISTORY : CVA. Hypertension. Diabetes. End stage renal disease. SURGICAL HISTORY : Eye surgery. Peritoneal dialysis port placement AB. Kidney surgery. ENCOUNTER: Initial ACUITY: 1 day PAIN SCORE: 3/10 LOCATION: Bilateral arms. TECHNOLOGIST IMPRESSION: CEPHALIC: ORIGIN: Right 2 mm Left 2 mm MID-ARM: Right 3 mm Left 2 mm ELBOW: Right 4 mm Left 3 mm FOREARM: Right 4 mm Left 3 mm WRIST: Right 3 mm Left 3 mm BASILIC: ORIGIN: Right 5 mm Left 4 mm MID-ARM: Right 5 mm Left 4 mm ELBOW: Right 6 mm Left 3 mm ARTERIES: BRACHIAL: Right 7 mm Left 6 mm ULNAR: Right 2 mm Left 3 mm RADIAL: Right 4 mm Left 2 mm VEINS: RADIAL: Right 2 mm Left 3 mm ULNAR: Right 2 mm Left 2 mm FINDINGS: The venous system of the upper extremities are patent by color Doppler imaging. Measurements of the arm veins (in mm) are listed above. CONCLUSION: Venous mapping as described above. Dudley Caceres MD FACR on February 27, 2017 at 16:18 Board Certified Radiologist. This report was verified electronically.
--- NOTE | 2017-02-27 16:46 | RADRPT ---
EXAM DATE/TIME: 02/27/2017 14:40 [facility] COMPARISON: No previous studies available for comparison. INDICATIONS : Pre AV fistula. MEDICAL HISTORY : Stroke. Hypertension. Diabetes. SURGICAL HISTORY : Port placement. ENCOUNTER: Initial ACUITY: 1 day PAIN SCORE: 2/10 LOCATION: Bilateral arms. FINDINGS: RIGHT UPPER EXTREMITY: There is spontaneous flow documented in the brachial, basilic, cephalic, axillary, and subclavian vei ns. The vessels are compressible and augmentation response is documented. No filling defects are se en. The flow is phasic with respiration. Direction of flow in the jugular vein is caudal. LEFT UPPER EXTREMITY: There is spontaneous flow documented in the brachial, basilic, cephalic, axillary, and subclavian vei ns. The vessels are compressible and augmentation response is documented. No filling defects are se en. The flow is phasic with respiration. Direction of flow in the jugular vein is caudal. CONCLUSION: 1. No evidence of deep venous thrombosis. Augusto Madison MD on February 27, 2017 at 16:44 Board Certified Radiologist. This report was verified electronically.
--- NOTE | 2017-02-27 16:49 | PD.RAD ---
Post Procedure Progress Note Pre Procedure Diagnosis: (1) End stage renal disease (2) Peritoneal dialysis status (3) ESRD on peritoneal dialysis Post Procedure Diagnosis: (1) ESRD on peritoneal dialysis (2) Peritoneal dialysis status Procedure Date: February 27, 2017 Supervising Radiologist: Nikko Aviles Proceduralist/Assist: Lois Villalobos RT(R), RT Denise(R)() Anesthesia: Local Plan of Activity Patient to Unit: Nursing Unit Patient Condition: Good See PACS Report for procedural detail/treatment Central Venous Access Device Procedure 1 Right Internal Jugular Hemodialysis Catheter Non-Tunneled Placement dual lumen [place]: 14 PICC Line Length (cm): 15 Nikko Aviles MD February 27, 2017 16:49
[2017-02-27] MEDS ORDERED: SODIUM CHLORIDE 0.9% FLUSH 10 ML FLUSH IVF PRN (17:00)
[2017-02-27] MEDS ORDERED: HEPARIN SODIUM - IV 2,000 UNITS/2 ML VIAL IV FLUSH PRN (17:00)
--- NOTE | 2017-02-27 17:14 | RADRPT ---
EXAM DATE/TIME: 02/27/2017 17:08 [facility] COMPARISON: TEMP DIALYSIS CATHETER [facility] W/US, RIGHT, February 04, 2017, 14:33. INDICATIONS : Patient with history of end stage renal disease in need of catheter placement for dialysis. MEDICAL HISTORY : HTN HLD DM2 ESRD on HD Hx of LE DVT SURGICAL HISTORY : Peritoneal dialysis catheter ENCOUNTER: Initial ACUITY: > 1 year PAIN SCORE: 0/10 FLUORO TIME: 0.3 minutes IMAGE SERIES: ACCESS: Right internal jugular vein MEDICATION(S): 1.) 2200 units Heparin IV DEVICE(S): 1.) 14 [place] dual lumen 15 cm Schon catheter PROCEDURE : 1. Ultrasound guided venipuncture. 2. Fluoroscopic guidance. 3. Central line placement. The risks, benefits and alternatives to the procedure were explained and verbal and written consent w as obtained. The site was prepped in sterile fashion. Full sterile technique was used, including ca p, mask, sterile gloves and gown and a large sterile sheet. Hand hygiene and 2% chlorhexidine prep w as utilized per protocol for cutaneous antisepsis with appropriate dry time for site. The skin and subcutaneous tissues were infiltrated with local anesthetic solution. A suitable site a bird the vein was selected with ultrasound and fluoroscopic guidance. A small incision was made. Th e vein was accessed under direct ultrasound visualization using the micropuncture technique. The harriett ropuncture set was exchanged for a 0.035 wire. The tract was dilated. The catheter was advanced int o position under direct fluoroscopic visualization. The catheter was fixed in place with suture and a sterile dressing was applied. The patient tolerated the procedure well and there were no complications. CONCLUSION: Uncomplicated line placement as above. Nikko Aviles MD on February 27, 2017 at 17:12 Board Certified Radiologist. This report was verified electronically.
[2017-02-27] MEDS: HEPARIN SODIUM - IV 10,000 UNITS/10 ML VIAL PRN (18:58)
[2017-02-27] MEDS: GENTAMICIN SULFATE (DIALYSIS USE ONLY) 20 MG/2 ML VIAL IV PRN (18:58)
[2017-02-27] MEDS: VITAMIN B CMPLX/VITC/FOLIC AC CAP PO SCH (20:12)
[2017-02-27] MEDS: PRAVASTATIN SOD 40 MG TAB PO SCH (20:12)
[2017-02-27] MEDS: MIRTAZAPINE 15 MG TAB PO SCH (20:12)
[2017-02-27] MEDS: LOSARTAN 50 MG TAB PO SCH (20:13)
--- NOTE | 2017-02-27 20:45 | PD.CAR.PN ---
CVT Progress Note Subjective/Hospital Course: Referral received Will evaluate the patient and mapping ultrasound of both arms and then decide on the location of the AV fistula site Full consult to follow Stephanie Casey Evaluated the vascular ultrasound and mapping Patient has poor veins however possibly the left basilic and cephalic vein might be adequate to construct an AV fistula. 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 was unable to relay the issues considering that he is not in medical profession I'll have one of our Guatemalan-speaking doctors discussed this with the patient in my presence Objective: Vital Signs Date Time Temp Pulse Resp B/P Pulse Ox O2 Delivery O2 Flow Rate FiO2 02/27/17 20:00 97.8 84 18 227/127 99 168/80 02/27/17 17:36 97 21 02/27/17 16:00 98.6 65 18 189/89 97 02/27/17 12:00 98.3 70 18 144/70 95 02/27/17 11:43 98 21 02/27/17 08:20 Room Air 02/27/17 08:20 81 02/27/17 08:00 97.9 82 18 171/80 95 02/27/17 06:00 97.2 70 18 146/71 97 Result Diagram: 02/27/17 0145 02/27/17 0145 Jamila Chapa MD February 27, 2017 20:45
--- NOTE | 2017-02-27 21:08 | EKG ---
Date Performed: 02/27/2017 Time Performed: 02:17:06 PTAGE: 86 years EKG: Sinus arrhythmia Left axis deviation Poor R wave progression - probable normal variant Late ral ST-T changes may be due to myocardial ischemia Abnormal ECG PREVIOUS TRACING : 02/26/2017 19.16 Compared to prior tracing no significant change DOCTOR: Bright Spencer Interpretating Date/Time 02/27/2017 21:06:57
--- NOTE | 2017-02-27 21:31 | EKG ---
Date Performed: 02/26/2017 Time Performed: 19:16:18 PTAGE: 86 years EKG: Sinus rhythm PATTERN CONSISTENT WITH PULMONARY DISEASE LEFT ANTERIOR FASCICULAR BLOCK ABNORMAL QRS-T ANGLE ABNORM AL ECG PREVIOUS TRACING : 02/26/2017 13.47 Compared to prior tracing no significant change DOCTOR: Bright Spencer Interpretating Date/Time 02/27/2017 21:30:25
--- NOTE | 2017-02-27 21:48 | EKG ---
Date Performed: 02/26/2017 Time Performed: 13:47:19 PTAGE: 86 years EKG: Sinus rhythm MARKED LEFT AXIS DEVIATION NONSPECIFIC ST & T-WAVE ABNORMALITY ABNORMAL ECG PREVIOUS TRACING : 02/04/2017 00.09 Compared to prior tracing no significant change DOCTOR: Bright Spencer Interpretating Date/Time 02/27/2017 21:47:56
[2017-02-28] VITALS (8 sets, daily range): BP systolic 118–179; BP diastolic 67–85; PULSE 63–86; RESP 18–20; TEMP 97.3–98.6; O2SAT 93–98
--- NOTE | 2017-02-28 06:32 | HHI.FPPN ---
Subjective Remarks Patient is Grenadian-speaking only. A video endoscopy rn was used. No acute events overnight. Vital signs remained stable. Patient is accompanied by his this morning was also Grenadian-speaking only. Patient denied any pain of any kind or shortness of breath. He is does produce urine and recently had a bowel movement. Both patient and denied any questions at this time. Overall plan discussed with patient. Both patient and endorsed understanding and agreement with plan for dialysis, placement of permcath, and investigation into AV fistula placement. (South Caraballo MD R3) Objective Vitals Vital Signs Date Time Temp Pulse Resp B/P Pulse Ox O2 Delivery O2 Flow Rate FiO2 02/28/17 04:42 97.5 86 18 149/77 96 02/27/17 23:15 97.8 77 18 171/79 92 02/27/17 21:30 Room Air 02/27/17 20:00 77 02/27/17 20:00 97.8 84 18 227/127 99 168/80 02/27/17 17:36 97 21 02/27/17 16:00 98.6 65 18 189/89 97 02/27/17 12:00 98.3 70 18 144/70 95 02/27/17 11:43 98 21 02/27/17 08:20 Room Air 02/27/17 08:20 81 02/27/17 08:00 97.9 82 18 171/80 95 I/O 02/27/17 02/27/17 02/27/17 02/28/17 02/28/17 02/28/17 06:59 14:59 22:59 06:59 14:59 22:59 Intake Total 200 ml 240 ml 240 ml Output Total 200 ml 250 ml 1600 ml 200 ml Balance 0 ml -10 ml -1600 ml 40 ml Intake Oral 200 ml 240 ml 240 ml Output Urine Total 200 ml 250 ml 200 ml Peritoneal Fluid 0 ml Hemodialysis 1600 ml # Voids 1 # Bowel Movements 0 0 0 (South Caraballo MD R3) Result Diagram: 02/27/1714402/27/17144 Objective Remarks GEN: normally nourished, in NAD. EYES: conjunctiva normal, PERRLA, EOMI. ENT: MMM. OP benign. Airway patent. LUNGS: clear A-P, respiratory effort is normal. CARDIOVASCULAR: RR without murmur or gallop. No significant edema. GI/ABD: soft without masses, without organomegaly. NEURO: Alert, no gross deficits. SKIN: warm, dry, no rashes. Vas cath in right neck. CDI. HEME/LYMPH: no bruising, petechia or significant adenopathy MUSC: back is normal in appearance. Extremities are normal in appearance. ( South Caraballo MD R3) A/P Assessment and Plan 86-year-old male w/ pmh of ESRD on home peritoneal dialysis who initially presented with concerns of worsening generalized weakness and fatigue over x1 week, found to have elevated creatinine of 10.12. Discharge Planning Pending clearance by nephrology, likely next week following perm-cath placement and possible AV-fistula (South Caraballo MD R3) Attending Attestation Patient seen and examined. Case reviewed and discussed with the resident team. Agree with plan of care as discussed with me and documented in the resident note. (Tara Lira MD) Problem List: (1) Renal failure (ARF), acute on chronic Status: Acute Plan: Cr: 10.1, K: 5.6, Ph: 5.6. Had been doing peritoneal dialysis at home, but her daughter she does not think that this has been working, and does not think it is is a good long-term option. Patient and daughter agree dialysis at the dialysis center is most appropriate. Now s/p Vas-cath 02/27. Plan: Nephrology following, pt known to Dr. Billings. Plan for permcath next week, Eliquis is being held Dialysis planned again today Vascular surgery consulted, Dr. Casey following - Venous mapping for AV fistula planning Continue home calcitriol 0.25 mcg daily Continue home Renvela 1600 mg by mouth 3 times a day before meals (2) Weakness generalized Status: Acute Plan: Likely secondary to acute on chronic renal failure as above, as well as orthostatic hypotension. CBC: leukocytosis of 11.6. Afebrile. CXR shows no acute findings Chronic anemia at 12.8, unchanged from previous. BNP mildly elevated at 326. Ammonia 26. EKG: Sinus rhythm, left axis deviation, no significant changes from previous. Troponin is mildly elevated at 0.09. Trended x3 w/ no change. Plan: UA pending Electrolytes corrected, will continue to monitor See above under acute renal failure (3) Hypertension Status: Chronic Plan: BPs are labile, improved today 149/77 Orthostatics positive on admission and again yesterday, due to this will avoid increasing amlodipine at this time. Plan: Continue home Amlodipine 5 mg daily Continue home losartan 50 mg by mouth daily at bedtime Clonidine and hydralazine when necessary Continue home carvedilol 25 mg by mouth twice a day (4) ESRD on peritoneal dialysis Status: Chronic Plan: Plan is to transition to hemodialysis, see above under acute renal failure (5) DM (diabetes mellitus) Status: Chronic Plan: Last A1C 7.5% on 12/12/16. Glucose 102-166 yesterday. Plan: * Levemir 5 units twice a day * Low dose sliding scale coverage. (6) Hyperlipemia Status: Chronic Plan: Continue home pravastatin 40 mg at bedtime (7) Nutrition, metabolism, and development symptoms Status: Chronic Plan: Fluids: HLIV Electrolytes: Continue to monitor Nutrition: Renal diet, sodium restriction to 2 g for heart healthy, and 2000- calorie ADA for diabetic diet Continued home Remeron 15 mg by mouth daily at bedtime (8) Deep vein thrombosis (DVT) prophylaxis prescribed at discharge Status: Chronic Plan: SCDs Holding Eliquis 2.5 mg daily (Was not this due to hx of afib per daughter) (South Caraballo MD R3) Problem Qualifiers (1) Renal failure (ARF), acute on chronic: Qualified Code: N17.9 - Acute renal failure superimposed on chronic kidney disease, on chronic dialysis, unspecified acute renal failure type (2) DM (diabetes mellitus): Qualified Code: 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
[2017-02-28] MEDS: INSULIN ASPART SUPPLEMENTAL SCALE SQ SCH ×4 (06:33→21:00)
[2017-02-28 07:21] LABS: AUTOMATED NEUTROPHIL # 8.9 TH/MM3 (1.8-7.7); BASOPHIL % 0.3 % (0.0-2.0); EOSINOPHIL % 0.2 % (0.0-4.0); HEMATOCRIT 36.6 % (39.0-51.0); HEMO FLAGS DIFF FINAL; LYMPH % 15.8 % (9.0-44.0); LYMPHOCYTE # 1.9 TH/MM3 (1.0-4.8); MEAN CELL VOLUME 103.1 FL (80.0-100.0); MEAN CORPUSCULAR HEMOGLOBIN 33.6 PG (27.0-34.0); MEAN CORPUSCULAR HGB CONC 32.6 % (32.0-36.0); MONO % 8.1 % (0.0-8.0); NEUT % 75.6 % (16.0-70.0); PLATELET COUNT 192 TH/MM3 (150-450); RED BLOOD COUNT 3.55 MIL/MM3 (4.50-5.90); WHITE BLOOD COUNT 11.8 TH/MM3 (4.0-11.0)
[2017-02-28 07:40] LABS: BICARBONATE 23.4 MEQ/L (21.0-32.0); POTASSIUM 5.1 MEQ/L (3.5-5.1)
[2017-02-28] MEDS: SODIUM CHLORIDE 0.9% FLUSH 10 ML FLUSH IV FLUSH SCH ×2 (09:00→21:00)
[2017-02-28] MEDS: amLODIPine BESYLATE 5 MG TAB PO SCH (10:02)
[2017-02-28] MEDS: INSULIN DETEMIR 100 UNITS/ML VIAL SQ SCH ×2 (10:02→22:11)
[2017-02-28] MEDS: CARVEDILOL 12.5 MG TAB PO SCH ×2 (10:02→22:09)
[2017-02-28] MEDS: CALCITRIOL 0.25 MCG CAP PO SCH (10:02)
[2017-02-28] MEDS: SEVELAMER CARBONATE 800 MG TAB PO SCH ×3 (10:02→18:15)
[2017-02-28] MEDS: SERTRALINE HCL 50 MG TAB PO SCH (10:02)
--- NOTE | 2017-02-28 12:58 | PD.CAR.PN ---
CVT Progress Note Subjective/Hospital Course: Referral received Will evaluate the patient and mapping ultrasound of both arms and then decide on the location of the AV fistula site Full consult to follow Stephanie Casey Evaluated the vascular ultrasound and mapping Patient has poor veins however possibly the left basilic and cephalic vein might be adequate to construct an AV fistula. 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 Will need permanent access for dialysis in the form of fistula. I reviewed the mapping and probably it would be okay to do fistula off left upper arm using basilic or cephalic vein Have discussed this with the patient and the it was all translated by takotna Wallisian-speaking physician At this point patient appears to be short of breath very weak and barely able to talk Physically he's not fifth 2 undergo any surgery at this time and perhaps after few dialysis treatments he'll get a little better I'll plan AV fistula for next week Objective: Vital Signs Date Time Temp Pulse Resp B/P Pulse Ox O2 Delivery O2 Flow Rate FiO2 02/28/17 12:00 98.6 80 20 118/75 96 02/28/17 08:00 97.3 67 18 167/85 97 02/28/17 04:42 97.5 86 18 149/77 96 02/27/17 23:15 97.8 77 18 171/79 92 02/27/17 21:30 Room Air 02/27/17 20:00 77 02/27/17 20:00 97.8 84 18 227/127 99 168/80 02/27/17 17:36 97 21 02/27/17 16:00 98.6 65 18 189/89 97 Labs: Laboratory Tests Test 02/28/17 06:10 White Blood Count 11.8 TH/MM3 (4.0-11.0) Red Blood Count 3.55 MIL/MM3 (4.50-5.90) Hemoglobin 11.9 GM/DL (13.0-17.0) Hematocrit 36.6 % (39.0-51.0) Mean Corpuscular Volume 103.1 FL (80.0-100.0) Mean Corpuscular Hemoglobin 33.6 PG (27.0-34.0) Mean Corpuscular Hemoglobin 32.6 % Concent (32.0-36.0) Red Cell Distribution Width 19.0 % (11.6-17.2) Platelet Count 192 TH/MM3 (150-450) Mean Platelet Volume 9.4 FL (7.0-11.0) Neutrophils (%) (Auto) 75.6 % (16.0-70.0) Lymphocytes (%) (Auto) 15.8 % (9.0-44.0) Monocytes (%) (Auto) 8.1 % (0.0-8.0) Eosinophils (%) (Auto) 0.2 % (0.0-4.0) Basophils (%) (Auto) 0.3 % (0.0-2.0) Neutrophils # (Auto) 8.9 TH/MM3 (1.8-7.7) Lymphocytes # (Auto) 1.9 TH/MM3 (1.0-4.8) Monocytes # (Auto) 1.0 TH/MM3 (0-0.9) Eosinophils # (Auto) 0.0 TH/MM3 (0-0.4) Basophils # (Auto) 0.0 TH/MM3 (0-0.2) CBC Comment DIFF FINAL Differential Comment Sodium Level 138 MEQ/L (136-145) Potassium Level 5.1 MEQ/L (3.5-5.1) Chloride Level 102 MEQ/L (98-107) Carbon Dioxide Level 23.4 MEQ/L (21.0-32.0) Anion Gap 13 MEQ/L (5-15) Blood Urea Nitrogen 97 MG/DL (7-18) Creatinine 8.02 MG/DL (0.60-1.30) Estimat Glomerular Filtration 8 ML/MIN (>89) Rate Random Glucose 130 MG/DL (74-106) Calcium Level 8.3 MG/DL (8.5-10.1) Result Diagram: 02/28/17 0610 02/28/17 0610 Jamila Chapa MD February 28, 2017 12:57
--- NOTE | 2017-02-28 15:20 | HHI.NPPN ---
Subjective Additional Remarks Patient seen during HD, no abd. pain. Objective Data Data 02/27/17 02/28/17 19:00 07:00 Intake Total 240 ml 240 ml Output Total 250 ml 1800 ml Balance -10 ml -1560 ml Intake Oral 240 ml 240 ml Output Urine Total 250 ml 200 ml Peritoneal Fluid 0 ml Hemodialysis 1600 ml # Bowel Movements 0 0 Vital Signs Date Time Temp Pulse Resp B/P Pulse Ox O2 Delivery O2 Flow Rate FiO2 02/28/17 14:22 93 21 02/28/17 12:00 98.6 80 20 118/75 96 02/28/17 08:00 97.3 67 18 167/85 97 02/28/17 04:42 97.5 86 18 149/77 96 02/27/17 23:15 97.8 77 18 171/79 92 02/27/17 21:30 Room Air 02/27/17 20:00 77 02/27/17 20:00 97.8 84 18 227/127 99 168/80 02/27/17 17:36 97 21 02/27/17 16:00 98.6 65 18 189/89 97 -: 02/28/17 0610 02/28/17 0610 Physical Exam General Appearance: No Acute Distress, Comfortable Eyes Eye Exam: Pupils Equal Throat Throat Exam: Oral Mucosa [place] & Moist Neck Neck Exam: Neck Supple Pulmonary Resp Exam: No Distress, Rhonchi, Decreased Bases, Diminished Breath Sounds Gastrointestinal/Abdomen GI Exam: Soft, Non-Tender, Bowel Sounds Present, Distended Extremeties Extremities Exam: Trace Edema Neurologic Neuro Exam: Alert, Awake Psychiatric Psych Exam: Appropriate Responses Assessment/Plan Problem List: (1) ESRD (end stage renal disease) Plan: previous PD but it is not working well for him, plan to convert to hemodialysis, pt and family in agreement due to receiving Apixaban this morning, Permcath placement postponed until Thursday (Apixaban on hold currently) vascath to be placed today, initiate hemodialysis today and tomorrow monitor electrolytes fluid removal as tolerated will consult vascular for AV fistula placement, will order vein mapping likely convert to TTS HD, plan to go to [facility] discharge, they are aware HD now, will need AVF. Vascath has poor flow, to get permCath next week. 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
[2017-02-28] MEDS: VITAMIN B CMPLX/VITC/FOLIC AC CAP PO SCH (22:09)
[2017-02-28] MEDS: LOSARTAN 50 MG TAB PO SCH (22:09)
[2017-02-28] MEDS: TEMAZEPAM 15 MG CAP PO PRN (22:10)
[2017-02-28] MEDS: MIRTAZAPINE 15 MG TAB PO SCH (22:10)
[2017-02-28] MEDS: PRAVASTATIN SOD 40 MG TAB PO SCH (22:10)
[2017-03-01] VITALS (7 sets, daily range): BP systolic 131–178; BP diastolic 62–83; PULSE 60–80; RESP 18; TEMP 97.2–98.6; O2SAT 92–96
[2017-03-01] MEDS: INSULIN ASPART SUPPLEMENTAL SCALE SQ SCH ×4 (06:06→20:24)
--- NOTE | 2017-03-01 09:16 | HHI.FPPN ---
Subjective Remarks No acute events overnight. Patient denies any pain or questions at this time. Daughter who lives in [place] is at bedside. Appears to be family dynamics as another daughter in [place] would like patient to live there for medical care. Discussed short term plan with both daughters to include placement of permcath. Both daughters endorse understanding and agreement with plan. (South Caraballo MD R3) Objective Vitals Vital Signs Date Time Temp Pulse Resp B/P Pulse Ox O2 Delivery O2 Flow Rate FiO2 03/01/17 04:00 97.2 65 18 178/62 94 03/01/17 00:00 97.4 68 18 148/80 92 02/28/17 22:15 Room Air 02/28/17 20:52 98 02/28/17 20:00 97.5 69 18 155/67 95 02/28/17 16:00 97.8 79 18 179/81 95 02/28/17 14:22 93 21 02/28/17 12:00 98.6 80 20 118/75 96 I/O 02/28/17 02/28/17 02/28/17 03/01/17 03/01/17 03/01/17 07:00 15:00 23:00 07:00 15:00 23:00 Intake Total 240 ml 240 ml 240 ml 100 ml Output Total 200 ml 0 ml 2000 ml 150 ml Balance 40 ml 240 ml -1760 ml -50 ml Intake Oral 240 ml 240 ml 240 ml 100 ml Output Urine Total 200 ml 0 ml 0 ml 150 ml Hemodialysis 2000 ml # Bowel Movements 0 0 0 0 (South Caraballo MD R3) Result Diagram: 02/28/17 0610 02/28/17 0610 Objective Remarks GEN: normally nourished, in NAD. Resting in hospital bed. EYES: conjunctiva normal, PERRLA, EOMI. ENT: MMM. OP benign. Airway patent. LUNGS: clear A-P, respiratory effort is normal. CARDIOVASCULAR: RR without murmur or gallop. No significant edema. GI/ABD: soft without masses, non-tender NEURO: Alert, no gross deficits. SKIN: warm, dry, no rashes. Vas cath in right neck, CDI. HEME/LYMPH: no bruising, petechia or significant adenopathy MUSC: back is normal in appearance. Extremities are normal in appearance. ( South Caraballo MD R3) A/P Assessment and Plan 86-year-old male w/ pmh of ESRD on home peritoneal dialysis who initially presented with concerns of worsening generalized weakness and fatigue over x1 week, found to have elevated creatinine of 10.12. Discharge Planning Pending clearance by nephrology, likely next week following perm-cath placement and possible AV-fistula (South Caraballo MD R3) Attending Attestation Patient seen and examined. Case reviewed and discussed with the resident team. Agree with plan of care as discussed with me and documented in the resident note. (Tara Lira MD) Problem List: (1) Renal failure (ARF), acute on chronic Status: Acute Plan: Cr: 10.1, K: 5.6, Ph: 5.6. Had been doing peritoneal dialysis at home. Now s/p Vas-cath 02/27. Of note, there appears to be contradictory medical goals between two daughters. One daughter in [place] recommends transition to dialysis center, the other daughter in [place] desires a second opinion on continuing peritoneal dialysis with them in [place]. Patient expressed agreement to proceed with current plan for permcath and AV fistula if able. Case management following. Plan: Nephrology following, pt known to Dr. Billings. Plan for permcath Thursday, is being held Dialysis planned again today Vascular surgery consulted, Dr. Casey following - Venous mapping for AV fistula, potential candidate for LUE fistula - Pt not currently candidate for surgery due to weakness Continue home calcitriol 0.25 mcg daily Continue home Renvela 1600 mg by mouth 3 times a day before meals (2) Weakness generalized Status: Acute Plan: Likely secondary to acute on chronic renal failure as above, as well as orthostatic hypotension. CBC: leukocytosis of 11.6. Afebrile. CXR shows no acute findings Chronic anemia at 12.8, unchanged from previous. BNP mildly elevated at 326. Ammonia 26. EKG: Sinus rhythm, left axis deviation, no significant changes from previous. Troponin is mildly elevated at 0.09. Trended x3 w/ no change. Plan: UA pending Electrolytes corrected, will continue to monitor See above under acute renal failure (3) Hypertension Status: Chronic Plan: BPs are labile Orthostatics positive on admission and again yesterday, due to this will avoid increasing amlodipine at this time. Plan: Continue home Amlodipine 5 mg daily Continue home losartan 50 mg by mouth daily at bedtime Clonidine and hydralazine when necessary Continue home carvedilol 25 mg by mouth twice a day (4) ESRD on peritoneal dialysis Status: Chronic Plan: Plan is to transition to hemodialysis, see above under acute renal failure (5) DM (diabetes mellitus) Status: Chronic Plan: Last A1C 7.5% on 12/12/16. Glucose currently adequately controlled Plan: * Levemir 5 units twice a day * Low dose sliding scale coverage. (6) Hyperlipemia Status: Chronic Plan: Continue home pravastatin 40 mg at bedtime (7) Nutrition, metabolism, and development symptoms Status: Chronic Plan: Fluids: HLIV Electrolytes: Continue to monitor Nutrition: Renal diet, sodium restriction to 2 g for heart healthy, and 2000- calorie ADA for diabetic diet Continued home Remeron 15 mg by mouth daily at bedtime (8) Deep vein thrombosis (DVT) prophylaxis prescribed at discharge Status: Chronic Plan: SCDs Holding Eliquis 2.5 mg daily (Was not this due to hx of afib per daughter) (South Caraballo MD R3) Problem List: (1) Renal failure (ARF), acute on chronic Status: Acute Plan: Cr: 10.1, K: 5.6, Ph: 5.6. Had been doing peritoneal dialysis at home. Now s/p Vas-cath 02/27. Of note, there appears to be contradictory medical goals between two daughters. One daughter in [place] recommends transition to dialysis center, the other daughter in [place] desires a second opinion on continuing peritoneal dialysis with them in [place]. Patient expressed agreement to proceed with current plan for permcath and AV fistula if able. Case management following. Plan: Nephrology following, pt known to Dr. Billings. Plan for permcath Thursday, Eliquis is being held Dialysis planned again today Vascular surgery consulted, Dr. Casey following - Venous mapping for AV fistula, potential candidate for LUE fistula - Pt not currently candidate for surgery due to weakness Continue home calcitriol 0.25 mcg daily Continue home Renvela 1600 mg by mouth 3 times a day before meals (2) Weakness generalized Status: Acute Plan: Likely secondary to acute on chronic renal failure as above, as well as orthostatic hypotension. CBC: leukocytosis of 11.6. Afebrile. CXR shows no acute findings Chronic anemia at 12.8, unchanged from previous. BNP mildly elevated at 326. Ammonia 26. EKG: Sinus rhythm, left axis deviation, no significant changes from previous. Troponin is mildly elevated at 0.09. Trended x3 w/ no change. Plan: UA pending Electrolytes corrected, will continue to monitor See above under acute renal failure (3) Hypertension Status: Chronic Plan: BPs are labile Orthostatics positive on admission and again yesterday, due to this will avoid increasing amlodipine at this time. Plan: Continue home Amlodipine 5 mg daily Continue home losartan 50 mg by mouth daily at bedtime Clonidine and hydralazine when necessary Continue home carvedilol 25 mg by mouth twice a day (4) ESRD on peritoneal dialysis Status: Chronic Plan: Plan is to transition to hemodialysis, see above under acute renal failure (5) DM (diabetes mellitus) Status: Chronic Plan: Last A1C 7.5% on 12/12/16. Glucose currently adequately controlled Plan: * Levemir 5 units twice a day * Low dose sliding scale coverage. (6) Hyperlipemia Status: Chronic Plan: Continue home pravastatin 40 mg at bedtime (7) Nutrition, metabolism, and development symptoms Status: Chronic Plan: Fluids: HLIV Electrolytes: Continue to monitor Nutrition: Renal diet, sodium restriction to 2 g for heart healthy, and 2000- calorie ADA for diabetic diet Continued home Remeron 15 mg by mouth daily at bedtime (8) Deep vein thrombosis (DVT) prophylaxis prescribed at discharge Status: Chronic Plan: SCDs Holding Eliquis 2.5 mg daily (Was not this due to hx of afib per daughter) (Tara Lira MD) Problem Qualifiers (1) Renal failure (ARF), acute on chronic: Qualified Code: N17.9 - Acute renal failure superimposed on chronic kidney disease, on chronic dialysis, unspecified acute renal failure type (2) Hypertension: Qualified Code: I10 - Essential hypertension (3) DM (diabetes mellitus): Qualified Code: 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
[2017-03-01] MEDS: CALCITRIOL 0.25 MCG CAP PO SCH (09:34)
[2017-03-01] MEDS: CARVEDILOL 12.5 MG TAB PO SCH ×2 (09:34→20:14)
[2017-03-01] MEDS: amLODIPine BESYLATE 5 MG TAB PO SCH (09:35)
[2017-03-01] MEDS: SEVELAMER CARBONATE 800 MG TAB PO SCH ×3 (09:35→17:06)
[2017-03-01] MEDS: SERTRALINE HCL 50 MG TAB PO SCH (09:35)
[2017-03-01] MEDS: SODIUM CHLORIDE 0.9% FLUSH 10 ML FLUSH IV FLUSH SCH ×2 (09:36→20:15)
[2017-03-01] MEDS: INSULIN DETEMIR 100 UNITS/ML VIAL SQ SCH ×2 (09:44→20:24)
--- NOTE | 2017-03-01 11:41 | PD.CAR.PN ---
CVT Progress Note Subjective/Hospital Course: Referral received Will evaluate the patient and mapping ultrasound of both arms and then decide on the location of the AV fistula site Full consult to follow Stephanie Casey Evaluated the vascular ultrasound and mapping Patient has poor veins however possibly the left basilic and cephalic vein might be adequate to construct an AV fistula. Patient's cardiac output of this age may not be great and his ability to develop a functioning AV fistula might be limited Unfortunately family doesn't speak any Danish and seed cleaning manager that was reached over the phone was unable to relay the issues considering that he is not in medical profession I'll have one of our Burmese-speaking doctors discussed this with the patient in my presence 02/28/17 Patient to the with previous peritoneal dialysis now on hemodialysis through Vas -Cath. Will need permanent access for dialysis in the form of fistula. I reviewed the mapping and probably it would be okay to do fistula off left upper arm using basilic or cephalic vein Have discussed this with the patient and the it was all translated by elem Burmese-speaking physician At this point patient appears to be short of breath very weak and barely able to talk Physically he's not fifth 2 undergo any surgery at this time and perhaps after few dialysis treatments he'll get a little better I'll plan AV fistula for next week 03/01/17 Patient doing okay at this time. I read through the medical notes referring to family dynamics Patient was on factor X a inhibitor and 2 more is undergoing a Vas-Cath placement Once this wears of and patient gets few dialysis treatments I'll taken to the operating room for elective AV fistula of the left arm somewhere middle of this week Objective: Vital Signs Date Time Temp Pulse Resp B/P Pulse Ox O2 Delivery O2 Flow Rate FiO2 03/01/17 08:00 Room Air 03/01/17 08:00 97.9 60 18 169/83 95 03/01/17 04:00 97.2 65 18 178/62 94 03/01/17 00:00 97.4 68 18 148/80 92 02/28/17 22:15 Room Air 02/28/17 20:52 98 02/28/17 20:00 97.5 69 18 155/67 95 02/28/17 16:00 97.8 79 18 179/81 95 02/28/17 14:22 93 21 02/28/17 12:00 98.6 80 20 118/75 96 Result Diagram: 02/28/17 0610 02/28/17 0610 Jamila Chapa MD March 01, 2017 11:41
--- NOTE | 2017-03-01 12:16 | HHI.NPPN ---
Subjective Additional Remarks Patient is alert, not in distress, no abd. pain, no SOB. Objective Data Data 02/28/17 03/01/17 19:00 07:00 Intake Total 240 ml 340 ml Output Total 2000 ml 150 ml Balance -1760 ml 190 ml Intake Oral 240 ml 340 ml Output Urine Total 0 ml 150 ml Hemodialysis 2000 ml # Bowel Movements 0 0 Vital Signs Date Time Temp Pulse Resp B/P Pulse Ox O2 Delivery O2 Flow Rate FiO2 03/01/17 08:00 Room Air 03/01/17 08:00 97.9 60 18 169/83 95 03/01/17 04:00 97.2 65 18 178/62 94 03/01/17 00:00 97.4 68 18 148/80 92 02/28/17 22:15 Room Air 02/28/17 20:52 98 02/28/17 20:00 97.5 69 18 155/67 95 02/28/17 16:00 97.8 79 18 179/81 95 02/28/17 14:22 93 21 -: 02/28/17 0610 02/28/17 0610 Physical Exam General Appearance: No Acute Distress, Comfortable Eyes Eye Exam: Pupils Equal Throat Throat Exam: Oral Mucosa [place] & Moist Neck Neck Exam: Neck Supple Pulmonary Resp Exam: No Distress, Rhonchi, Decreased Bases, Diminished Breath Sounds Gastrointestinal/Abdomen GI Exam: Soft, Non-Tender, Bowel Sounds Present, Distended Extremeties Extremities Exam: Trace Edema Neurologic Neuro Exam: Alert, Awake Psychiatric Psych Exam: Appropriate Responses Assessment/Plan Problem List: (1) ESRD (end stage renal disease) Plan: previous PD but it is not working well for him, plan to convert to hemodialysis, pt and family in agreement due to receiving Apixaban this morning, Permcath placement postponed until Thursday (Apixaban on hold currently) vascath to be placed today, initiate hemodialysis today and tomorrow monitor electrolytes fluid removal as tolerated will consult vascular for AV fistula placement, will order vein mapping likely convert to TTS HD, plan to go to [facility] at discharge, they are aware HD now, will need AVF. To get permCath next week. HD as scheduled. Dr. Billings will follow from AM. 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
[2017-03-01] MEDS: PRAVASTATIN SOD 40 MG TAB PO SCH (20:14)
[2017-03-01] MEDS: MIRTAZAPINE 15 MG TAB PO SCH (20:14)
[2017-03-01] MEDS: VITAMIN B CMPLX/VITC/FOLIC AC CAP PO SCH (20:14)
[2017-03-01] MEDS: TEMAZEPAM 15 MG CAP PO PRN (20:14)
[2017-03-01] MEDS: LOSARTAN 50 MG TAB PO SCH (20:15)
[2017-03-02] VITALS (8 sets, daily range): BP systolic 135–203; BP diastolic 65–94; PULSE 61–76; RESP 12–20; TEMP 97–98.3; O2SAT 94–99
[2017-03-02] MEDS: INSULIN ASPART SUPPLEMENTAL SCALE SQ SCH ×4 (06:07→21:00)
[2017-03-02] MEDS: SEVELAMER CARBONATE 800 MG TAB PO SCH ×3 (08:29→17:00)
[2017-03-02] MEDS: CARVEDILOL 12.5 MG TAB PO SCH ×2 (08:29→21:06)
[2017-03-02] MEDS: SERTRALINE HCL 50 MG TAB PO SCH (08:29)
[2017-03-02] MEDS: CALCITRIOL 0.25 MCG CAP PO SCH (08:29)
[2017-03-02] MEDS: amLODIPine BESYLATE 5 MG TAB PO SCH (08:30)
[2017-03-02] MEDS: SODIUM CHLORIDE 0.9% FLUSH 10 ML FLUSH IV FLUSH SCH ×2 (08:30→21:05)
[2017-03-02] MEDS: INSULIN DETEMIR 100 UNITS/ML VIAL SQ SCH ×2 (08:34→21:51)
[2017-03-02] MEDS ORDERED: VANCOMYCIN INJ 1,000 MG in SODIUM CHLOR 0.9% 250 ML INJ 250 ML IV SCH (08:45)
[2017-03-02] MEDS ORDERED: ceFAZolin 2 GM PREMIX 50 ML IV SCH (08:45)
--- NOTE | 2017-03-02 09:06 | HHI.FPPN ---
Subjective Remarks Video director business used: No acute events overnight. Patient denies any pain of any kind at this time. Discussed overall plan of care for perm-cath and AV fistula. Patient endorses understanding and agreement with plan. He will be receiving perm-cath this AM. (South Caraballo MD R3) Objective Vitals Vital Signs Date Time Temp Pulse Resp B/P Pulse Ox O2 Delivery O2 Flow Rate FiO2 03/02/17 08:00 97.8 76 16 203/93 96 198/89 03/02/17 07:57 99 21 03/02/17 04:00 98.1 68 20 158/72 99 03/02/17 00:00 98.3 70 18 135/65 96 03/01/17 20:27 Room Air 03/01/17 20:00 98.6 71 18 135/71 96 03/01/17 19:50 71 03/01/17 16:00 98.1 80 18 142/65 96 03/01/17 12:00 98.2 76 18 131/63 95 I/O 03/01/17 03/01/17 03/01/17 03/02/17 03/02/17 03/02/17 07:00 15:00 23:00 07:00 15:00 23:00 Intake Total 100 ml 720 ml 480 ml 120 ml Output Total 150 ml 0 ml 100 ml Balance -50 ml 720 ml 380 ml 120 ml Intake Oral 100 ml 720 ml 480 ml 120 ml Output Urine Total 150 ml 0 ml 100 ml # Voids 0 # Bowel Movements 0 1 0 (South Caraballo MD R3) Result Diagram: 02/28/17 0610 02/28/17 0610 Objective Remarks GEN: normally nourished, in NAD. Sitting up in chair. EYES: conjunctiva normal, PERRLA, EOMI. ENT: MMM. OP benign. Airway patent. LUNGS: clear A-P, respiratory effort is normal. CARDIOVASCULAR: RR without murmur or gallop. No significant edema. GI/ABD: soft without masses, non-tender NEURO: Alert, no gross deficits. SKIN: warm, dry, no rashes. Vas cath in right neck, CDI. MUSC: back is normal in appearance. Extremities are normal in appearance. ( South Caraballo MD R3) A/P Assessment and Plan 86-year-old male w/ pmh of ESRD on home peritoneal dialysis who initially presented with concerns of worsening generalized weakness and fatigue over x1 week, found to have elevated creatinine of 10.12. Discharge Planning Pending clearance by nephrology following perm-cath placement and AV-fistula, likely discharge late this week. (South Caraballo MD R3) Attending Attestation Patient seen and examined. Case reviewed and discussed with the resident team. Agree with plan of care as discussed with me and documented in the resident note. (Tara Lira MD) Problem List: (1) Renal failure (ARF), acute on chronic Status: Acute Plan: Cr: 10.1, K: 5.6, Ph: 5.6. Had been doing peritoneal dialysis at home. Now s/p Vas-cath 02/27. Plan: Nephrology following, pt known to Dr. Billings. - Plan for permcath this AM, Jessica is being held Vascular surgery consulted, Dr. Casey following - Venous mapping for AV fistula, potential candidate for LUE fistula - Anticipate surgery in 1-2 days Continue home calcitriol 0.25 mcg daily Continue home Renvela 1600 mg by mouth 3 times a day before meals (2) Weakness generalized Status: Acute Plan: Likely secondary to acute on chronic renal failure as above, as well as orthostatic hypotension. CBC: leukocytosis of 11.6. Afebrile. CXR shows no acute findings Chronic anemia at 12.8, unchanged from previous. BNP mildly elevated at 326. Ammonia 26. EKG: Sinus rhythm, left axis deviation, no significant changes from previous. Troponin is mildly elevated at 0.09. Trended x3 w/ no change. Plan: UA pending Electrolytes corrected, will continue to monitor Reconsult PT See above under acute renal failure (3) Hypertension Status: Chronic Plan: BPs are labile Orthostatics positive on admission and again yesterday, due to this will avoid increasing amlodipine at this time. Plan: Continue home Amlodipine 5 mg daily Continue home losartan 50 mg by mouth daily at bedtime Clonidine and hydralazine when necessary Continue home carvedilol 25 mg by mouth twice a day (4) ESRD on peritoneal dialysis Status: Chronic Plan: Plan is to transition to hemodialysis, see above under acute renal failure (5) DM (diabetes mellitus) Status: Chronic Plan: Last A1C 7.5% on 12/12/16. Glucose currently adequately controlled Plan: * Levemir 5 units twice a day * Low dose sliding scale coverage. (6) Hyperlipemia Status: Chronic Plan: Continue home pravastatin 40 mg at bedtime (7) Nutrition, metabolism, and development symptoms Status: Chronic Plan: Fluids: HLIV Electrolytes: Continue to monitor Nutrition: Renal diet, sodium restriction to 2 g for heart healthy, and 2000- calorie ADA for diabetic diet Continued home Remeron 15 mg by mouth daily at bedtime (8) Deep vein thrombosis (DVT) prophylaxis prescribed at discharge Status: Chronic Plan: SCDs Holding Eliquis 2.5 mg daily (Was due to hx of afib per daughter) (South Caraballo MD R3) Problem Qualifiers (1) Renal failure (ARF), acute on chronic: Qualified Code: N17.9 - Acute renal failure superimposed on chronic kidney disease, on chronic dialysis, unspecified acute renal failure type (2) Hypertension: Qualified Code: I10 - Essential hypertension (3) DM (diabetes mellitus): Qualified Code: 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
--- NOTE | 2017-03-02 09:44 | HHI.NPPN ---
Subjective Renal Failure: Chronic, End Stage Renal Disease Interval History Sitting up in chair. No distress noted. He is NPO for Permcath placement today. (Tara Cheng) Objective Data Data 03/01/17 03/02/17 19:00 07:00 Intake Total 720 ml 600 ml Output Total 0 ml 100 ml Balance 720 ml 500 ml Intake Oral 720 ml 600 ml Output Urine Total 0 ml 100 ml # Voids 0 # Bowel Movements 1 0 Vital Signs Date Time Temp Pulse Resp B/P Pulse Ox O2 Delivery O2 Flow Rate FiO2 03/02/17 08:00 97.8 76 16 203/93 96 198/89 03/02/17 07:57 99 21 03/02/17 04:00 98.1 68 20 158/72 99 03/02/17 00:00 98.3 70 18 135/65 96 03/01/17 20:27 Room Air 03/01/17 20:00 98.6 71 18 135/71 96 03/01/17 19:50 71 03/01/17 16:00 98.1 80 18 142/65 96 03/01/17 12:00 98.2 76 18 131/63 95 (Tara Cheng) -: 02/28/17 0610 02/28/17 0610 Physical Exam General Appearance: Well Developed, Well Nourished, Comfortable Appearance Remarks sleepy (Tara Cheng) Eyes Eye Exam: Pupils Equal (Tara Cheng) Throat Throat Exam: Oral Mucosa [place] & Moist (Tara Cheng) Neck Neck Exam: Neck Supple (Tara Cheng) Pulmonary Resp Exam: Clear Bilaterally, No Distress, Decreased Bases (Tara Cheng) Cardiology CV Exam: Regular, Good Perfusion (Tara Cheng) Gastrointestinal/Abdomen GI Exam: Soft, Non-Tender, Bowel Sounds Present, Distended GI Remarks PD catheter in place (Tara Cheng) Musculoskeletal MS Exam: Joints Intact, Normal Tone (Tara Cheng) Integumentary Skin Exam: Clear, Warm, Dry, Intact (Tara Cheng) Extremeties Extremities Exam: Pedal Pulses Palpable, Trace Edema (Tara Cheng) Neurologic Neuro Exam: Alert, Awake, Oriented, Speech Clear, Moving All Extremities ( Tara Cheng) Psychiatric Psych Exam: Appropriate Responses (Tara Cheng) Assessment/Plan Discussed Condition With: Patient, Relative Assessment Summary: Anemia of CKD, Hypertension, Diabetes Mellitus, End Stage Renal Disease Problem List: (1) ESRD (end stage renal disease) Plan: previous PD but it was not working well for him, converting to HD exchange vascath for Permcath today, called to confirm and he will be taken down shortly Apixaban on hold he had HD Thu and Thursday repeat metabolic profile likely proceed with TTS HD, plan to go to [facility] when discharged vascular following, due for AVF this week, spoke with Dr. Chapa, he will proceed with AVF placement and PD catheter removal Thursday after dialysis, around 1pm monitor electrolytes avoid IVF, gadolinium renal diet with no protein restriction (2) DM (diabetes mellitus) Plan: continue insulin therapy, monitor glucose (3) Hypertension Plan: continue home medications (4) Anemia Plan: given epogen yesterday, follow Hb (5) Metabolic bone disease Plan: continue Renvela, intermittent phos level (Tara Cheng) Plan patient was seen and examined. PermCath placed. Continue HD. PD catheter to be removed, along with AVF placement. 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
--- NOTE | 2017-03-02 09:46 | PD.CAR.PN ---
CVT Progress Note Subjective/Hospital Course: Referral received Will evaluate the patient and mapping ultrasound of both arms and then decide on the location of the AV fistula site Full consult to follow Stephanie Casey Evaluated the vascular ultrasound and mapping Patient has poor veins however possibly the left basilic and cephalic vein might be adequate to construct an AV fistula. Patient's cardiac output of this age may not be great and his ability to develop a functioning AV fistula might be limited Unfortunately family doesn't speak any Mongolian and admissions director that was reached over the phone was unable to relay the issues considering that he is not in medical profession I'll have one of our Omani-speaking doctors discussed this with the patient in my presence 02/28/17 Patient to the with previous peritoneal dialysis now on hemodialysis through Vas -Cath. Will need permanent access for dialysis in the form of fistula. I reviewed the mapping and probably it would be okay to do fistula off left upper arm using basilic or cephalic vein Have discussed this with the patient and the it was all translated by [employer] O[place]i-speaking physician At this point patient appears to be short of breath very weak and barely able to talk Physically he's not fifth 2 undergo any surgery at this time and perhaps after few dialysis treatments he'll get a little better I'll plan AV fistula for next week 03/01/17 Patient doing okay at this time. I read through the medical notes referring to family dynamics Patient was on factor X a inhibitor and 2 more is undergoing a Vas-Cath placement Once this wears of and patient gets few dialysis treatments I'll taken to the operating room for elective AV fistula of the left arm somewhere middle of this week 03/02/17 Will take for AV fistula placement left arm tomorrow after the patient has been dialyzed through his permacath Patient is a high risk candidate for any type of surgery explained that to him and his family through the layer out plate glass Objective: Vital Signs Date Time Temp Pulse Resp B/P Pulse Ox O2 Delivery O2 Flow Rate FiO2 03/02/17 08:00 97.8 76 16 203/93 96 198/89 03/02/17 07:57 99 21 03/02/17 04:00 98.1 68 20 158/72 99 03/02/17 00:00 98.3 70 18 135/65 96 03/01/17 20:27 Room Air 03/01/17 20:00 98.6 71 18 135/71 96 03/01/17 19:50 71 03/01/17 16:00 98.1 80 18 142/65 96 03/01/17 12:00 98.2 76 18 131/63 95 Result Diagram: 02/28/17 0610 02/28/17 0610 Jamila Chapa MD March 02, 2017 09:46
[2017-03-02 09:55] LABS: AUTOMATED NEUTROPHIL # 10.4 TH/MM3 (1.8-7.7); BASOPHIL # 0.1 TH/MM3 (0-0.2); BASOPHIL % 0.4 % (0.0-2.0); EOSINOPHIL # 0.1 TH/MM3 (0-0.4); EOSINOPHIL % 0.9 % (0.0-4.0); HEMATOCRIT 39.7 % (39.0-51.0); HEMO FLAGS DIFF FINAL; LYMPH % 15.3 % (9.0-44.0); LYMPHOCYTE # 2.1 TH/MM3 (1.0-4.8); MEAN CELL VOLUME 103.7 FL (80.0-100.0); MEAN CORPUSCULAR HEMOGLOBIN 33.6 PG (27.0-34.0); MEAN CORPUSCULAR HGB CONC 32.5 % (32.0-36.0); MONO % 6.3 % (0.0-8.0); NEUT % 77.1 % (16.0-70.0); PLATELET COUNT 170 TH/MM3 (150-450); RED BLOOD COUNT 3.83 MIL/MM3 (4.50-5.90); RED CELL DISTRIBUTION WIDTH 18.8 % (11.6-17.2); WHITE BLOOD COUNT 13.5 TH/MM3 (4.0-11.0)
[2017-03-02] MEDS ORDERED: LIDOCAINE 1%/EPINEPHrine 1:100,000 SOLN 20 ML VIAL ONE (10:23)
[2017-03-02 10:35] LABS: ALKALINE PHOSPHATASE 81 U/L (45-117); ALT (GPT) 43 U/L (12-78); ANION GAP 15 MEQ/L (5-15); AST (GOT) 32 U/L (15-37); BICARBONATE 24.9 MEQ/L (21.0-32.0); BLOOD UREA NITROGEN 125 MG/DL (7-18); CHLORIDE 98 MEQ/L (98-107); GLOMERULAR FILTRATION RATE 6 ML/MIN (>89); POTASSIUM 5.5 MEQ/L (3.5-5.1); SODIUM (NA) 138 MEQ/L (136-145); TOTAL BILIRUBIN ADULT 0.5 MG/DL (0.2-1.0)
[2017-03-02] MEDS ORDERED: MIDAZOLAM HCL 2 MG/2 ML VIAL ONE (11:09)
[2017-03-02] MEDS ORDERED: SODIUM CHLORIDE 0.9% FLUSH 10 ML FLUSH IVF PRN (11:45)
[2017-03-02] MEDS ORDERED: HEPARIN SODIUM - IV 2,000 UNITS/2 ML VIAL IV FLUSH PRN (11:45)
--- NOTE | 2017-03-02 11:45 | PD.RAD ---
Post Procedure Progress Note Pre Procedure Diagnosis: (1) ESRD on peritoneal dialysis (2) Peritoneal dialysis status Post Procedure Diagnosis: (1) ESRD (end stage renal disease) Procedure Date: March 02, 2017 Supervising Radiologist: Nikko Aviles Proceduralist/Assist: Priscilla Johnson, RT(R)(CV), Jaqui Jackson RT(R)() Anesthesia: Local, Analgesia Plan of Activity Patient to Unit: Nursing Unit Patient Condition: Good See PACS Report for procedural detail/treatment Central Venous Access Device Procedure 1 Right Internal Jugular Hemodialysis Catheter Non-Tunneled Conversion (Had vascath) dual lumen [place]: 16 PICC Line Length (cm): 23 Nikko Aviles MD March 02, 2017 11:45
[2017-03-02] MEDS: hydrALAZINE HCL 10 MG TAB PO PRN (12:23)
--- NOTE | 2017-03-02 12:45 | RADRPT ---
EXAM DATE/TIME: 03/02/2017 10:33 [facility] COMPARISON: No previous studies available for comparison. INDICATIONS : Patient is in need of placement of a permanent dialysis catheter due to end stage renal disease and n on function of exisitng peritoneal dialysis catheter. MEDICAL HISTORY : History of HTN, DM, DVT, pneumonia. SURGICAL HISTORY : History of peritoneal dialysis catheter placement. ENCOUNTER: Subsequent ACUITY: 4-6 days PAIN SCORE: 0/10 FLUORO TIME: 0.3 minutes IMAGE SERIES: 1 MEDICATION(S): 1.) 50 mcg fentanyl (Sublimaze) IV Vancomycin within 2 hours of procedure, Ancef (or alternative) within 1 hour of procedure. DEVICE(S): 1.) 15Fr/23cm Fields II Plus hemodialysis catheter PROCEDURE : The existing Vas-Cath catheter was used to determine the length of the PermCath catheter. A 23 cm cuf f to tip device was selected. An appropriate area in the chest wall was anesthetized with approximate ly 4 cc 1% Xylocaine and a dermatotomy made with a blade scalpel. The subcutaneous tissues were blunt ly dissected. The existing cervical dermatotomy was anesthetized with an additional 3 cc 1% Xylocaine . No dissection is performed laterally. Subcutaneous tunnel was then developed from the chest wall to the cervical dermatotomy with metallic tunneler. The tract was dilated with the plastic dilator. Existing Vas-Cath catheter was removed over a wire. The new tunneled catheter was then weaved over th e wire and into the central venous system. The hub was then pulled through the subcutaneous tunnel wi th the metallic tunneler. The hub was then assembled. Each port was aspirated and flushed and locked in appropriate volume and concentration of heparin. CONCLUSION: Successful exchange of right IJ Vas-Cath catheter for a PermCath catheter as detailed above. Nikko Aviles MD on March 02, 2017 12:40 Board Certified Radiologist. This report was verified electronically.
[2017-03-02] MEDS: MIRTAZAPINE 15 MG TAB PO SCH (21:06)
[2017-03-02] MEDS: VITAMIN B CMPLX/VITC/FOLIC AC CAP PO SCH (21:06)
[2017-03-02] MEDS: LOSARTAN 50 MG TAB PO SCH (21:10)
[2017-03-02] MEDS: PRAVASTATIN SOD 40 MG TAB PO SCH (21:11)
[2017-03-03] VITALS (9 sets, daily range): BP systolic 101–179; BP diastolic 51–80; PULSE 64–76; RESP 18–20; TEMP 97.5–98; O2SAT 96–99
[2017-03-03] MEDS: hydrALAZINE HCL 10 MG TAB PO PRN (05:58)
[2017-03-03] MEDS: INSULIN ASPART SUPPLEMENTAL SCALE SQ SCH ×4 (06:00→21:57)
[2017-03-03] MEDS: SEVELAMER CARBONATE 800 MG TAB PO SCH ×3 (08:00→16:28)
[2017-03-03] MEDS: CALCITRIOL 0.25 MCG CAP PO SCH (09:00)
[2017-03-03] MEDS: INSULIN DETEMIR 100 UNITS/ML VIAL SQ SCH ×2 (09:00→21:58)
[2017-03-03] MEDS: amLODIPine BESYLATE 5 MG TAB PO SCH (09:00)
[2017-03-03] MEDS: CARVEDILOL 12.5 MG TAB PO SCH ×2 (09:00→21:56)
[2017-03-03] MEDS: SODIUM CHLORIDE 0.9% FLUSH 10 ML FLUSH IV FLUSH SCH ×2 (09:00→21:55)
[2017-03-03] MEDS: SERTRALINE HCL 50 MG TAB PO SCH (09:00)
--- NOTE | 2017-03-03 09:13 | HHI.FPPN ---
Subjective Remarks No acute events overnight. Patient is currently receiving dialysis. Denies any pain or questions at this time. Plan is to undergo vascular surgery for A- V fistula today. (South Caraballo MD R3) Objective Vitals Vital Signs Date Time Temp Pulse Resp B/P Pulse Ox O2 Delivery O2 Flow Rate FiO2 03/03/17 07:49 98.0 72 20 170/80 96 03/03/17 04:00 97.7 76 20 171/77 96 03/03/17 00:00 97.7 69 18 163/72 96 03/02/17 20:00 74 03/02/17 20:00 97.2 72 20 173/79 98 03/02/17 16:00 97.3 66 12 147/70 95 03/02/17 12:00 97.0 61 12 181/94 94 I/O 03/02/17 03/02/17 03/02/17 03/03/17 03/03/17 03/03/17 07:00 15:00 23:00 07:00 15:00 23:00 Intake Total 120 ml 0 ml 0 ml 0 ml Output Total 150 ml Balance 120 ml 0 ml -150 ml 0 ml Intake Oral 120 ml 0 ml 0 ml IV Total 0 ml Output Urine Total 150 ml # Voids 0 0 # Bowel Movements 3 0 (South Caraballo MD R3) Result Diagram: 03/02/17 0845 03/02/17 0845 Objective Remarks GEN: normally nourished, in NAD. Receiving inpatient dialysis. EYES: conjunctiva normal, EOMI. ENT: MMM. Airway patent. LUNGS: clear A-P, respiratory effort is normal. CARDIOVASCULAR: RR without murmur or gallop. No significant edema. GI/ABD: soft without masses, non-tender NEURO: Alert, no gross deficits. SKIN: warm, dry, no rashes. Perm-cath in right chest without surrounding redness MUSC: back is normal in appearance. Extremities are normal in appearance. ( South Caraballo MD R3) A/P Assessment and Plan 86-year-old male w/ pmh of ESRD on home peritoneal dialysis who initially presented with concerns of worsening generalized weakness and fatigue over x1 week, found to have elevated creatinine of 10.12. Discharge Planning Pending clearance by nephrology and surgery for AV-fistula, likely discharge late this week with plan for outpatient dialysis in [place]. Case management following. (South Caraballo MD R3) Attending Attestation Patient seen and examined. Case reviewed and discussed Agree with plan of care as discussed with me and documented in the resident note (Gemini Kellogg MD) Problem List: (1) Renal failure (ARF), acute on chronic Status: Acute Plan: On admission: Cr: 10.1, K: 5.6, Ph: 5.6. Had been doing peritoneal dialysis at home but treatment has been failing. S/p Vas-cath 02/27 and now Perm -cath 03/02. Plan: Nephrology following, pt known to Dr. Billings. - Currently receiving dialysis - Plan to remove old PD port during surgery today Vascular surgery consulted, Dr. Casey following - Venous mapping for AV fistula, potential candidate for LUE fistula - Anticipate surgery for AV fistula today Continue home calcitriol 0.25 mcg daily Continue home Renvela 1600 mg by mouth 3 times a day before meals (2) Weakness generalized Status: Acute Plan: Likely secondary to acute on chronic renal failure as above, as well as orthostatic hypotension. WBC stable. Afebrile. CXR shows no acute findings Chronic anemia at 11-12, unchanged from previous. BNP mildly elevated on admission at 326. Ammonia 26. EKG: Sinus rhythm, left axis deviation, no significant changes from previous. Troponin is mildly elevated at 0.09. Trended x3 w/ no change. Plan: Pt does make urine, UA pending Electrolytes corrected, will continue to monitor See above under acute renal failure (3) Hypertension Status: Chronic Plan: BPs are labile Hx of orthostatic hypotension on admission, due to this will avoid increasing amlodipine at this time. Plan: Continue home Amlodipine 5 mg daily Continue home losartan 50 mg by mouth daily at bedtime Clonidine and hydralazine when necessary Continue home carvedilol 25 mg by mouth twice a day (4) ESRD on peritoneal dialysis Status: Chronic Plan: Plan is to transition to hemodialysis, see above under acute renal failure (5) DM (diabetes mellitus) Status: Chronic Plan: Last A1C 7.5% on 12/12/16. Glucose currently adequately controlled Plan: * Levemir 5 units twice a day * Low dose sliding scale coverage. (6) Hyperlipemia Status: Chronic Plan: Continue home pravastatin 40 mg at bedtime (7) Nutrition, metabolism, and development symptoms Status: Chronic Plan: Fluids: HLIV Electrolytes: Continue to monitor Nutrition: Renal diet, sodium restriction to 2 g for heart healthy, and 2000- calorie ADA for diabetic diet Continued home Remeron 15 mg by mouth daily at bedtime (8) Deep vein thrombosis (DVT) prophylaxis prescribed at discharge Status: Chronic Plan: SCDs Holding Eliquis 2.5 mg daily (Was not this due to hx of afib per daughter) --> Consider stopping Eliquis permanently, Hasbled score: 3, patient has 5.8% risk for bleeding likely outweighs risk of clot (South Caraballo MD R3) Problem Qualifiers (1) Renal failure (ARF), acute on chronic: Qualified Code: N17.9 - Acute renal failure superimposed on chronic kidney disease, on chronic dialysis, unspecified acute renal failure type (2) Hypertension: Qualified Code: I10 - Essential hypertension (3) DM (diabetes mellitus): Qualified Code: 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
[2017-03-03] MEDS: HEPARIN SODIUM - IV 10,000 UNITS/10 ML VIAL PRN (09:28)
[2017-03-03] MEDS: GENTAMICIN SULFATE (DIALYSIS USE ONLY) 20 MG/2 ML VIAL IV PRN (09:28)
--- NOTE | 2017-03-03 09:28 | HHI.NPPN ---
Subjective Renal Failure: Chronic, End Stage Renal Disease Interval History Seen during dialysis. He had permcath placed yesterday but poor flow due to tunneling edema. NPO for surgery today. (Tara Cheng) Review of Systems General Constitutional: Fatigue (Tara Cheng) Objective Data Data 03/02/17 03/03/17 19:00 07:00 Intake Total 0 ml 0 ml Output Total 150 ml Balance 0 ml -150 ml Intake Oral 0 ml IV Total 0 ml Output Urine Total 150 ml # Voids 0 # Bowel Movements 3 Vital Signs Date Time Temp Pulse Resp B/P Pulse Ox O2 Delivery O2 Flow Rate FiO2 03/03/17 07:49 98.0 72 20 170/80 96 03/03/17 04:00 97.7 76 20 171/77 96 03/03/17 00:00 97.7 69 18 163/72 96 03/02/17 20:00 74 03/02/17 20:00 97.2 72 20 173/79 98 03/02/17 16:00 97.3 66 12 147/70 95 03/02/17 12:00 97.0 61 12 181/94 94 (Tara Cheng) -: 03/02/17 0845 03/02/17 0845 Imaging Last 72 hours Impressions Catheter Placement X-Ray 03/02/17 0600 Signed Impressions: Service Date/Time: Thursday, March 02, 2017 10:33 - CONCLUSION: Successful exchange of right IJ Vas-Cath catheter for a PermCath catheter as detailed above. Nikko Aviles MD Tubes & Lines: Perma-Cath (Tara Cheng) Physical Exam General Appearance: Well Developed, Well Nourished, Comfortable Appearance Remarks sleepy (Tara Cheng) Eyes Eye Exam: Pupils Equal (Tara Cheng) Throat Throat Exam: Oral Mucosa [place] & Moist (Tara Cheng) Neck Neck Exam: Neck Supple (Tara Cheng) Pulmonary Resp Exam: Clear Bilaterally, No Distress, Decreased Bases (Tara Cheng) Cardiology CV Exam: Regular, Good Perfusion (Tara Cheng) Chest/Breast Chest/Breast Remarks Permcath on right with tunneling edema (Tara Cheng) Gastrointestinal/Abdomen GI Exam: Soft, Non-Tender, Bowel Sounds Present, Distended GI Remarks PD catheter in place (Tara Cheng) Musculoskeletal MS Exam: Joints Intact, Normal Tone (Tara Cheng) Integumentary Skin Exam: Clear, Warm, Dry, Intact (Tara Cheng) Extremeties Extremities Exam: Pedal Pulses Palpable, Trace Edema (Tara Cheng) Neurologic Neuro Exam: Alert, Awake, Oriented, Speech Clear, Moving All Extremities ( Tara Cheng) Psychiatric Psych Exam: Appropriate Responses (Tara Cheng) Assessment/Plan Discussed Condition With: Patient, Relative Assessment Summary: Anemia of CKD, Hypertension, Diabetes Mellitus, End Stage Renal Disease Problem List: (1) ESRD (end stage renal disease) Plan: previous PD but it was not working well for him, in process of converting to HD Permcath placed 03/02, tunnelling edema noted seen during dialysis on a 2K, 200 BFR, goal 2L to go to OR today for AVF placement and PD catheter removal, discussed with Dr. Casey Apixaban on hold likely continue with TTS HD, plan to go to [place] when discharged monitor electrolytes avoid IVF, gadolinium renal diet with no protein restriction (2) DM (diabetes mellitus) Plan: continue insulin therapy, monitor glucose (3) Hypertension Plan: continue home medications (4) Anemia Plan: Hb is excellent epogen not required (5) Metabolic bone disease Plan: continue Renvela, intermittent phos level (Tara Cheng) Plan patient was seen and examined. Dialysis today. AVF surgery and PD catheter removal tomorrow. 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
[2017-03-03] MEDS ORDERED: HEPARIN SODIUM - SQ 10,000 UNITS/ML VIAL ONE (10:26)
[2017-03-03] MEDS ORDERED: BUPIVACAINE HCL PF 0.5% 30 ML VIAL ONE (10:26)
[2017-03-03] MEDS ORDERED: PHENYLEPH/NS 1000 MCG/10 ML SYR IV ONE (12:00)
[2017-03-03] MEDS ORDERED: PROPOFOL 200 MG/20 ML AMP IV ONE (12:00)
[2017-03-03] MEDS ORDERED: ePHEDrine/NS 25 MG/5 ML SYR IV ONE (12:00)
[2017-03-03] MEDS ORDERED: KETAMINE HCL 500 MG/5 ML VIAL ONE (12:44)
[2017-03-03] MEDS ORDERED: hydrALAZINE HCL 20 MG/ML VIAL ONE (15:14)
[2017-03-03] MEDS ORDERED: hydrALAZINE HCL 20 MG/ML VIAL IV PRN (16:15)
[2017-03-03] MEDS: ACETAMINOPHEN 325 MG TAB PO PRN (17:07)
[2017-03-03 20:24] LABS: HEMATOCRIT 36.4 % (39.0-51.0); MEAN CELL VOLUME 101.8 FL (80.0-100.0); MEAN CORPUSCULAR HEMOGLOBIN 33.2 PG (27.0-34.0); MEAN CORPUSCULAR HGB CONC 32.6 % (32.0-36.0); PLATELET COUNT 166 TH/MM3 (150-450); RED BLOOD COUNT 3.58 MIL/MM3 (4.50-5.90); RED CELL DISTRIBUTION WIDTH 18.5 % (11.6-17.2); REVIEW FLAG FINAL; WHITE BLOOD COUNT 15.3 TH/MM3 (4.0-11.0)
--- NOTE | 2017-03-03 20:53 | MP ---
cc: ELODIA GRACE MD DATE OF SURGERY 03/03/17 PREOPERATIVE DIAGNOSIS 1. Chronic renal failure and nonfunctioning peritoneal dialysis catheter 2. Hypertension, 3. Diabetes mellitus. POSTOPERATIVE DIAGNOSIS 1. Chronic renal failure and nonfunctioning peritoneal dialysis catheter 2. Hypertension, 3. Diabetes mellitus. PROCEDURE 1. Left arm AV fistula basilic vein to distal brachial artery 2. Removal of peritoneal dialysis catheter. SURGEON Neli Grace MD ANESTHESIA General. ESTIMATED BLOOD LOSS 30 mL. PROCEDURE IN DETAIL The patient prepped and draped usual fashion. First, the peritoneal dialysis catheter is attended. Incision is made over the cuff of the catheter in lateral abdominal wall where it is felt under the skin. This is freed up with a 15 blade, removing old adhesions, so catheter is now free from the cuff. Second cuff is peritoneal and a small incision is made supraumbilical where the scar is and this is deepened down and abdomen entered. The second cuff is now freed up and then catheter is cut in half and pulled out. Area irrigated with saline. Peritoneal opening closed with 0 Vicryl and then skin with 4-0 Monocryl. The lateral incision site also closed with 4-0 Monocryl. Area irrigated with saline. Dressing applied. The patient tolerated this procedure well. Now the left arm is attended. The patient has fairly tiny veins in the lower arm, so decision made to go to the upper arm right away after the mapping is reviewed. Incision is now made in the antecubital crease just below the antecubital crease and here the distal vessels are observed. The cephalic vein is okay, but basilic vein looks way better. It is nice and about 6 mm in diameter. This one is dissected down to gain on the length and then transected distal and ligated. A small bulldog is placed on it temporarily. The brachial artery is now freed up with blunt and sharp dissection and very distally isolated where the vessel loops are placed around it. Just before the brachial artery divides, the site is chosen for anastomosis. Yasargil clips are applied proximally and distally and then the patient is given 5000 units of heparin. Incision is made in the brachial artery measuring about 6 mm in length and then the vein is dilated, spatulated and then sewn in with running 6-0 Prolene. Blood flow was then reestablished and there is excellent watermill murmur in the brachial artery and excellent flow distally to the radial and ulnar arteries. Incision is irrigated with saline, closed with running 3-0 Prolene. The patient tolerated the procedure well. At the end of the procedure, hand is well-perfused and there is an excellent beginning thrill in the vessel. Elodia PROCTOR/ /4:55 PM /8:45 PM
[2017-03-03 20:58] LABS: BICARBONATE 27.7 MEQ/L (21.0-32.0); POTASSIUM 5.7 MEQ/L (3.5-5.1)
[2017-03-03] MEDS: MIRTAZAPINE 15 MG TAB PO SCH (21:56)
[2017-03-03] MEDS: VITAMIN B CMPLX/VITC/FOLIC AC CAP PO SCH (21:56)
[2017-03-03] MEDS: LOSARTAN 50 MG TAB PO SCH (21:56)
[2017-03-03] MEDS: APIXABAN 2.5 MG TABLET PO SCH (21:56)
[2017-03-03] MEDS: PRAVASTATIN SOD 40 MG TAB PO SCH (21:56)
[2017-03-04] VITALS (10 sets, daily range): BP systolic 107–162; BP diastolic 59–78; PULSE 68–83; RESP 18–20; TEMP 97.3–98.4; O2SAT 96–100
[2017-03-04] MEDS: INSULIN ASPART SUPPLEMENTAL SCALE SQ SCH ×4 (06:01→21:00)
[2017-03-04 08:22] LABS: BICARBONATE 27.3 MEQ/L (21.0-32.0); POTASSIUM 6.1 MEQ/L (3.5-5.1)
--- NOTE | 2017-03-04 08:23 | HHI.FPPN ---
Subjective Remarks No acute events overnight. Vital signs have remained stable. Patient is more awake and alert this AM. A visual hourly sign language interpreter was used for this patient encounter. Patient's questions were answered to the best of my ability. He denies any chest pain, shortness of breath, or discomfort of any kind. He underwent procedure formation of a left AV fistula and old peritoneal catheter was removed yesterday. (South Caraballo MD R3) Objective Vitals Vital Signs Date Time Temp Pulse Resp B/P Pulse Ox O2 Delivery O2 Flow Rate FiO2 03/04/17 04:00 97.5 75 18 107/59 98 03/04/17 00:00 98.0 71 18 131/63 100 03/03/17 20:00 97.6 74 18 101/51 99 03/03/17 19:57 71 03/03/17 18:01 98 Nasal Cannula 2.00 03/03/17 16:10 97.5 64 19 179/77 98 03/03/17 15:45 98.0 67 15 180/79 97 Nasal Cannula 2 03/03/17 15:30 68 16 165/78 97 Nasal Cannula 2 03/03/17 15:15 71 14 188/68 97 Nasal Cannula 3 03/03/17 14:58 98.0 74 14 198/88 97 Nasal Cannula 3 I/O 03/03/17 03/03/17 03/03/17 03/04/17 03/04/17 03/04/17 07:00 15:00 23:00 07:00 15:00 23:00 Intake Total 0 ml 300 ml 120 ml 120 ml Output Total 2000 ml 0 ml Balance 0 ml -1700 ml 120 ml 120 ml Intake Oral 0 ml 120 ml 120 ml Other 300 ml Output Urine Total 0 ml Hemodialysis 2000 ml # Voids 0 0 # Bowel Movements 0 0 0 (South Caraballo MD R3) Result Diagram: 03/03/17 1950 03/03/171949 Objective Remarks GEN: normally nourished, in NAD. Resting in hospital room bed. EYES: conjunctiva normal, EOMI. ENT: MMM. Airway patent. LUNGS: clear A-P, respiratory effort is normal. CARDIOVASCULAR: RR without murmur or gallop. No significant edema. GI/ABD: soft without masses, non-tender NEURO: Alert, no gross deficits. SKIN: warm, dry, no rashes. Perm-cath in right chest without surrounding redness. New AV fistula in left antecubital fossa w/ palpable thrill. CDI. MUSC: back is normal in appearance. Extremities are normal in appearance. ( South Caraballo MD R3) A/P Assessment and Plan 86-year-old male w/ pmh of ESRD on home peritoneal dialysis who initially presented with concerns of worsening generalized weakness and fatigue over x1 week, found to have elevated creatinine of 10.12. Discharge Planning Pending clearance by nephrology, likely discharge late this week with plan for outpatient dialysis in [place]. Case management following. (South Caraballo MD R3) Attending Attestation Patient seen and examined. Case reviewed and discussed Agree with plan of care as discussed with me and documented in the resident note. Appreciate renal, hyperkalemia at 6.1 -- HD today, s/p insulin recheck K post-HD Obtain cbc today and consider infectious work-up if warranted pending results ( Gemini Kellogg MD) Problem List: (1) Renal failure (ARF), acute on chronic Status: Acute Plan: On admission: Cr: 10.1, K: 5.6, Ph: 5.6. Had been doing peritoneal dialysis at home but treatment has been failing. S/p Vas-cath 02/27 and now Perm -cath 03/02 w/ AV fistula placed 03/03. Plan: Nephrology following, pt known to Dr. Billings. - Dialysis // - Plan to continue outpatient dialysis via perm-cath until maturation of A/V fistula - Dialysis at [place] following discharge Vascular surgery consulted, Dr. Casey following - s/p A/V fistula 03/03 Continue home calcitriol 0.25 mcg daily Continue home Renvela 1600 mg by mouth 3 times a day before meals (2) Weakness generalized Status: Acute Plan: Likely secondary to acute on chronic renal failure as above, as well as orthostatic hypotension. WBC stable. Afebrile. CXR shows no acute findings Chronic anemia at 11-12, unchanged from previous. BNP mildly elevated on admission at 326. Ammonia 26. EKG: Sinus rhythm, left axis deviation, no significant changes from previous. Troponin is mildly elevated at 0.09. Trended x3 w/ no change. Plan: Pt does make urine, UA pending Electrolytes corrected, will continue to monitor See above under acute renal failure (3) Hypertension Status: Chronic Plan: BPs are labile Hx of orthostatic hypotension on admission, due to this will avoid increasing amlodipine at this time. Plan: Continue home Amlodipine 5 mg daily Continue home losartan 50 mg by mouth daily at bedtime Clonidine and hydralazine when necessary Continue home carvedilol 25 mg by mouth twice a day (4) ESRD on peritoneal dialysis Status: Chronic Plan: Plan is to transition to hemodialysis, see above under acute renal failure (5) DM (diabetes mellitus) Status: Chronic Plan: Last A1C 7.5% on 12/12/16. Glucose currently adequately controlled Plan: * Levemir 5 units twice a day * Low dose sliding scale coverage. (6) Hyperlipemia Status: Chronic Plan: Continue home pravastatin 40 mg at bedtime (7) Nutrition, metabolism, and development symptoms Status: Chronic Plan: Fluids: HLIV Electrolytes: Continue to monitor Nutrition: Renal diet, sodium restriction to 2 g for heart healthy, and 2000- calorie ADA for diabetic diet Continued home Remeron 15 mg by mouth daily at bedtime (8) Deep vein thrombosis (DVT) prophylaxis prescribed at discharge Status: Chronic Plan: SCDs Will begin Heparin for DVT ppx tomorrow Pt is on Eliquis 2.5 mg daily. Pt reports this was due to a clot in his leg several years ago, appears to have been provoked. No recurrence. Recommend stopping Eliquis permanently. Hasbled score: 3, and risk for bleeding likely outweighs risk of clot. 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
[2017-03-04] MEDS: APIXABAN 2.5 MG TABLET PO SCH (08:57)
[2017-03-04] MEDS: CALCITRIOL 0.25 MCG CAP PO SCH (08:57)
[2017-03-04] MEDS: amLODIPine BESYLATE 5 MG TAB PO SCH (08:57)
[2017-03-04] MEDS: CARVEDILOL 12.5 MG TAB PO SCH ×2 (08:57→21:47)
[2017-03-04] MEDS: SERTRALINE HCL 50 MG TAB PO SCH (08:57)
[2017-03-04] MEDS: SEVELAMER CARBONATE 800 MG TAB PO SCH ×4 (08:57→16:47)
[2017-03-04] MEDS: SODIUM CHLORIDE 0.9% FLUSH 10 ML FLUSH IV FLUSH SCH ×2 (08:58→21:47)
[2017-03-04] MEDS: INSULIN DETEMIR 100 UNITS/ML VIAL SQ SCH ×2 (09:00→21:51)
[2017-03-04] MEDS ORDERED: MEGE40S PO (09:30)
[2017-03-04] MEDS ORDERED: MIRA33504 PO (09:30)
[2017-03-04] MEDS ORDERED: DEXTROSE 50% IN WATER 50 ML SYRINGE IV ONE (09:45)
[2017-03-04] MEDS ORDERED: INSULIN HUMAN REGULAR 1,000 UNITS/10 ML VIAL IV PUSH ONE (09:45)
--- NOTE | 2017-03-04 10:28 | PD.CAR.PN ---
CVT Progress Note Subjective/Hospital Course: Referral received Will evaluate the patient and mapping ultrasound of both arms and then decide on the location of the AV fistula site Full consult to follow Stephanie Casey Evaluated the vascular ultrasound and mapping Patient has poor veins however possibly the left basilic and cephalic vein might be adequate to construct an AV fistula. Patient's cardiac output of this age may not be great and his ability to develop a functioning AV fistula might be limited Unfortunately family doesn't speak any Danish and java developer analyst that was reached over the phone was unable to relay the issues considering that he is not in medical profession I'll have one of our Eritrean-speaking doctors discussed this with the patient in my presence 02/28/17 Patient to the with previous peritoneal dialysis now on hemodialysis through Vas -Cath. Will need permanent access for dialysis in the form of fistula. I reviewed the mapping and probably it would be okay to do fistula off left upper arm using basilic or cephalic vein Have discussed this with the patient and the it was all translated by [facility]eca Eritrean-speaking physician At this point patient appears to be short of breath very weak and barely able to talk Physically he's not fifth 2 undergo any surgery at this time and perhaps after few dialysis treatments he'll get a little better I'll plan AV fistula for next week 03/01/17 Patient doing okay at this time. I read through the medical notes referring to family dynamics Patient was on factor X a inhibitor and 2 more is undergoing a Vas-Cath placement Once this wears of and patient gets few dialysis treatments I'll taken to the operating room for elective AV fistula of the left arm somewhere middle of this week 03/02/17 Will take for AV fistula placement left arm tomorrow after the patient has been dialyzed through his permacath Patient is a high risk candidate for any type of surgery explained that to him and his family through the sales solutions representative 03/04/17 Patient underwent yesterday creation of an AV fistula of the left upper arm using basilic vein and removal of nonfunctioning peritoneal dialysis catheter Incisions are clean and dry Patient has excellent Doppler signal in his the basilic vein and has warm well- perfused hand with good radial and ulnar pulse It'll take about 6-8 weeks to develop this AV fistula and then we will have to do transposition of the basilic vein to subcutaneous level so it can be used for dialysis May get incisions wet tomorrow and wash with soap and water Objective: Vital Signs Date Time Temp Pulse Resp B/P Pulse Ox O2 Delivery O2 Flow Rate FiO2 03/04/17 08:10 68 03/04/17 08:00 97.3 70 20 159/78 99 03/04/17 04:00 97.5 75 18 107/59 98 03/04/17 00:00 98.0 71 18 131/63 100 03/03/17 20:00 97.6 74 18 101/51 99 03/03/17 19:57 71 03/03/17 18:01 98 Nasal Cannula 2.00 03/03/17 16:10 97.5 64 19 179/77 98 03/03/17 15:45 98.0 67 15 180/79 97 Nasal Cannula 2 03/03/17 15:30 68 16 165/78 97 Nasal Cannula 2 03/03/17 15:15 71 14 188/68 97 Nasal Cannula 3 03/03/17 14:58 98.0 74 14 198/88 97 Nasal Cannula 3 Labs: Laboratory Tests Test 03/04/17 06:12 Sodium Level 139 MEQ/L (136-145) Potassium Level 6.1 MEQ/L (3.5-5.1) Chloride Level 100 MEQ/L (98-107) Carbon Dioxide Level 27.3 MEQ/L (21.0-32.0) Anion Gap 12 MEQ/L (5-15) Blood Urea Nitrogen 108 MG/DL (7-18) Creatinine 8.63 MG/DL (0.60-1.30) Estimat Glomerular Filtration 7 ML/MIN (>89) Rate Random Glucose 109 MG/DL (74-106) Calcium Level 8.4 MG/DL (8.5-10.1) Phosphorus Level 6.6 MG/DL (2.5-4.9) Albumin 2.5 GM/DL (3.4-5.0) Result Diagram: 03/03/17 1950 03/04/17 0612 Jamila Chapa MD March 04, 2017 10:28
--- NOTE | 2017-03-04 10:57 | HHI.NPPN ---
Subjective Renal Failure: Chronic, End Stage Renal Disease Interval History Had AVF placed with PD catheter removal yesterday. Hyperkalemic today. ( Tara Cheng) Review of Systems General Constitutional: Fatigue (Tara Cheng) Objective Data Data 03/03/17 03/04/17 19:00 07:00 Intake Total 300 ml 240 ml Output Total 2000 ml 0 ml Balance -1700 ml 240 ml Intake Oral 240 ml Other 300 ml Output Urine Total 0 ml Hemodialysis 2000 ml # Voids 0 # Bowel Movements 0 Vital Signs Date Time Temp Pulse Resp B/P Pulse Ox O2 Delivery O2 Flow Rate FiO2 03/04/17 08:10 68 03/04/17 08:00 97.3 70 20 159/78 99 03/04/17 04:00 97.5 75 18 107/59 98 03/04/17 00:00 98.0 71 18 131/63 100 03/03/17 20:00 97.6 74 18 101/51 99 03/03/17 19:57 71 03/03/17 18:01 98 Nasal Cannula 2.00 03/03/17 16:10 97.5 64 19 179/77 98 03/03/17 15:45 98.0 67 15 180/79 97 Nasal Cannula 2 03/03/17 15:30 68 16 165/78 97 Nasal Cannula 2 03/03/17 15:15 71 14 188/68 97 Nasal Cannula 3 03/03/17 14:58 98.0 74 14 198/88 97 Nasal Cannula 3 (Tara Cheng) -: 03/03/17 1950 03/04/17 0612 Imaging Last 72 hours Impressions Catheter Placement X-Ray 03/02/17 0600 Signed Impressions: Service Date/Time: Thursday, March 02, 2017 10:33 - CONCLUSION: Successful exchange of right IJ Vas-Cath catheter for a PermCath catheter as detailed above. Nikko Aviles MD Tubes & Lines: Perma-Cath (Tara Cheng) Physical Exam General Appearance: Well Developed, Well Nourished, No Acute Distress, Comfortable ( Tara Cheng) Eyes Eye Exam: Pupils Equal (Tara Cheng) Throat Throat Exam: Oral Mucosa [place] & Moist (Tara Cheng) Neck Neck Exam: Neck Supple (Tara Cheng) Pulmonary Resp Exam: Clear Bilaterally, No Distress, Decreased Bases (Tara Cheng) Cardiology CV Exam: Regular, Normal Sinus Rhythm, Good Perfusion (Tara Cheng) Chest/Breast Chest/Breast Remarks Permcath on right with tunneling edema (Tara Cheng) Gastrointestinal/Abdomen GI Exam: Soft, Non-Tender, Bowel Sounds Present, Distended GI Remarks incisions s/p PD catheter removal yesterday, some erythema slight abdominal distention, non tender (Tara Cheng) Musculoskeletal MS Exam: Joints Intact, Normal Tone (Tara Cheng) Integumentary Skin Exam: Clear, Warm, Dry, Intact (Tara Cheng) Extremeties Extremities Exam: Pedal Pulses Palpable, Trace Edema (Tara Cheng) Neurologic Neuro Exam: Alert, Awake, Oriented, Speech Clear, Moving All Extremities ( Tara Cheng) Psychiatric Psych Exam: Appropriate Responses (Tara Cheng) Assessment/Plan Discussed Condition With: Patient, Relative Assessment Summary: Anemia of CKD, Hypertension, Diabetes Mellitus, End Stage Renal Disease Problem List: (1) ESRD (end stage renal disease) Plan: s/p AVF creation 03/03, [place] catheter removal Permcath placed 03/02, tunnelling edema noted dialyzed yesterday, 2L UF yesterday hyperkalemic, medicate with insulin, dextrose, calcium dialyze today 3 hrs on 1K bath HD again tomorrow and resume TTS schedule plan to go to [place] when discharged, likely can be discharged after dialysis Thursday monitor electrolytes avoid IVF, gadolinium renal diet with no protein restriction (2) DM (diabetes mellitus) Plan: continue insulin therapy, monitor glucose (3) Hypertension Plan: continue home medications (4) Anemia Plan: Hb is excellent epogen not required (5) Metabolic bone disease Plan: continue Renvela, intermittent phos level (Tara Cheng) Plan patient was seen and examined. Agree with above assessment and plan. 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
[2017-03-04] MEDS ORDERED: CALCIUM CHLORIDE INJ 1 GM in DEXTROSE 5% IN WATER 100ML INJ 100 ML IV ONE ×2 (11:00)
[2017-03-04] MEDS: GENTAMICIN SULFATE (DIALYSIS USE ONLY) 20 MG/2 ML VIAL IV PRN (14:51)
[2017-03-04] MEDS: HEPARIN SODIUM - IV 10,000 UNITS/10 ML VIAL PRN (14:51)
[2017-03-04 20:12] LABS: AUTOMATED NEUTROPHIL # 8.8 TH/MM3 (1.8-7.7); BASOPHIL % 0.3 % (0.0-2.0); EOSINOPHIL # 0.1 TH/MM3 (0-0.4); EOSINOPHIL % 1.2 % (0.0-4.0); HEMATOCRIT 32.6 % (39.0-51.0); HEMO FLAGS DIFF FINAL; LYMPH % 17.4 % (9.0-44.0); LYMPHOCYTE # 2.1 TH/MM3 (1.0-4.8); MEAN CELL VOLUME 100.9 FL (80.0-100.0); MEAN CORPUSCULAR HEMOGLOBIN 34.7 PG (27.0-34.0); MEAN CORPUSCULAR HGB CONC 34.4 % (32.0-36.0); MONO % 6.7 % (0.0-8.0); NEUT % 74.4 % (16.0-70.0); PLATELET COUNT 151 TH/MM3 (150-450); RED BLOOD COUNT 3.23 MIL/MM3 (4.50-5.90); RED CELL DISTRIBUTION WIDTH 18.3 % (11.6-17.2); WHITE BLOOD COUNT 11.9 TH/MM3 (4.0-11.0)
[2017-03-04 20:32] LABS: POTASSIUM 4.5 MEQ/L (3.5-5.1)
[2017-03-04] MEDS: MIRTAZAPINE 15 MG TAB PO SCH (21:47)
[2017-03-04] MEDS: VITAMIN B CMPLX/VITC/FOLIC AC CAP PO SCH (21:47)
[2017-03-04] MEDS: PRAVASTATIN SOD 40 MG TAB PO SCH (21:47)
[2017-03-04] MEDS: LOSARTAN 50 MG TAB PO SCH (21:47)
[2017-03-05] VITALS (8 sets, daily range): BP systolic 110–147; BP diastolic 51–85; PULSE 54–85; RESP 16–20; TEMP 97.4–98.2; O2SAT 95–98
[2017-03-05] MEDS: INSULIN ASPART SUPPLEMENTAL SCALE SQ SCH ×4 (06:29→21:00)
--- NOTE | 2017-03-05 07:25 | HHI.FPPN ---
Subjective Remarks No acute events overnight. VSS. Patient underwent dialysis yesterday due to hyperkalemia. Plan is to resume dialysis schedule with repeat dialysis today. Per nephrology, anticipate discharge following dialysis Thursday. Patient is alert this am. He denies any pain of any kind. No new questions today. (South Caraballo MD R3) Objective Vitals Vital Signs Date Time Temp Pulse Resp B/P Pulse Ox O2 Delivery O2 Flow Rate FiO2 03/05/17 04:30 97.8 72 18 147/85 98 03/04/17 23:42 98.4 83 18 129/68 96 03/04/17 20:30 Room Air 03/04/17 20:00 76 03/04/17 19:55 98.4 72 18 162/76 96 Automatic Cuff 03/04/17 17:57 21 03/04/17 16:00 Room Air 03/04/17 16:00 97.3 79 20 162/70 97 03/04/17 13:43 98 Nasal Cannula 2.00 03/04/17 12:00 97.4 81 20 137/63 96 03/04/17 12:00 Room Air 03/04/17 08:10 68 03/04/17 08:00 97.3 70 20 159/78 99 I/O 03/04/17 03/04/17 03/04/17 03/05/17 03/05/17 03/05/17 07:00 15:00 23:00 07:00 15:00 23:00 Intake Total 120 ml 342 ml 0 ml 0 ml Output Total 0 ml 750 ml Balance 120 ml 342 ml 0 ml -750 ml Intake Oral 120 ml 240 ml 0 ml 0 ml IV Total 102 ml Output Urine Total 0 ml 750 ml # Voids 0 2 # Bowel Movements 0 2 0 0 (South Caraballo MD R3) Result Diagram: 03/04/17193103/04/171931 Objective Remarks GEN: normally nourished, in NAD. Sitting up at side of bed. EYES: conjunctiva normal, EOMI. ENT: MMM. Airway patent. LUNGS: clear A-P, respiratory effort is normal. CARDIOVASCULAR: RR without murmur or gallop. No significant edema. GI/ABD: soft without masses, non-tender NEURO: Alert, no gross deficits. SKIN: warm, dry, no rashes. Perm-cath in right chest without surrounding redness. New AV fistula in left antecubital fossa, CDI. MUSC: back is normal in appearance. Extremities are normal in appearance. ( South Caraballo MD R3) A/P Assessment and Plan 86-year-old male w/ pmh of ESRD on home peritoneal dialysis who initially presented with concerns of worsening generalized weakness and fatigue over x1 week, found to have elevated creatinine of 10.12. Discharge Planning Pending clearance by nephrology, likely discharge Thursday following dialysis with plan for outpatient dialysis in [place]. Case management following. ( South Caraballo MD R3) Attending Attestation Patient seen and examined during HD Case reviewed and discussed Agree with plan of care as discussed with me and documented in the resident note. (Gemini Kellogg MD) Problem List: (1) Renal failure (ARF), acute on chronic Status: Acute Plan: On admission: Cr: 10.1, K: 5.6, Ph: 5.6. Had been doing peritoneal dialysis at home but treatment has been failing. S/p Vas-cath 02/27 and now Perm -cath 03/02 w/ AV fistula placed 03/03. K+ 6.1 on 03/04 s/p dialysis. Potassium again elevated this AM at 5.5. Is scheduled to undergo dialysis again today. Plan: Nephrology following, pt known to Dr. Billings. - Dialysis // - Plan to continue outpatient dialysis via perm-cath until maturation of A/V fistula - Dialysis at [place] following discharge Vascular surgery consulted, Dr. Casey following - s/p A/V fistula 03/03 Continue home calcitriol 0.25 mcg daily Continue home Renvela 1600 mg by mouth 3 times a day before meals (2) Weakness generalized Status: Acute Plan: Likely secondary to acute on chronic renal failure as above. White count has remained stable and patient afebrile. CXR shows no acute findings Chronic anemia at 11-12, unchanged from previous. BNP mildly elevated on admission at 326. Ammonia 26. EKG: Sinus rhythm, left axis deviation, no significant changes from previous. Troponin is mildly elevated at 0.09. Trended x3 w/ no change. Plan: Pt does make urine, UA pending Electrolytes corrected, will continue to monitor See above under acute renal failure (3) Hypertension Status: Chronic Plan: BPs are labile Hx of orthostatic hypotension on admission, due to this will avoid increasing amlodipine at this time. Plan: Continue home Amlodipine 5 mg daily Continue home losartan 50 mg by mouth daily at bedtime Clonidine and hydralazine when necessary Continue home carvedilol 25 mg by mouth twice a day (4) DM (diabetes mellitus) Status: Chronic Plan: Last A1C 7.5% on 12/12/16. Glucose currently adequately controlled Plan: * Levemir 5 units twice a day * Low dose sliding scale coverage. (5) Hyperlipemia Status: Chronic Plan: Continue home pravastatin 40 mg at bedtime (6) Nutrition, metabolism, and development symptoms Status: Chronic Plan: Fluids: HLIV Electrolytes: Continue to monitor Nutrition: Renal diet, sodium restriction to 2 g for heart healthy, and 2000- calorie ADA for diabetic diet Continued home Remeron 15 mg by mouth daily at bedtime (7) Deep vein thrombosis (DVT) prophylaxis prescribed at discharge Status: Chronic Plan: SCDs Begin Heparin for DVT ppx Pt is on Eliquis 2.5 mg daily. Pt reports this was due to a clot in his leg several years ago, appears to have been provoked. No recurrence. Recommend stopping Eliquis permanently. Hasbled score: 3, and risk for bleeding likely outweighs risk of clot. 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
[2017-03-05 07:45] LABS: AUTOMATED NEUTROPHIL # 9.1 TH/MM3 (1.8-7.7); BASOPHIL % 0.3 % (0.0-2.0); EOSINOPHIL # 0.2 TH/MM3 (0-0.4); EOSINOPHIL % 1.3 % (0.0-4.0); HEMO FLAGS DIFF FINAL; LYMPHOCYTE # 1.9 TH/MM3 (1.0-4.8); MEAN CELL VOLUME 101.5 FL (80.0-100.0); MEAN CORPUSCULAR HEMOGLOBIN 34.5 PG (27.0-34.0); MEAN CORPUSCULAR HGB CONC 33.9 % (32.0-36.0); MONO % 7.3 % (0.0-8.0); NEUT % 75.1 % (16.0-70.0); PLATELET COUNT 148 TH/MM3 (150-450); RED BLOOD COUNT 3.15 MIL/MM3 (4.50-5.90); RED CELL DISTRIBUTION WIDTH 18.1 % (11.6-17.2); WHITE BLOOD COUNT 12.1 TH/MM3 (4.0-11.0)
[2017-03-05] MEDS: SEVELAMER CARBONATE 800 MG TAB PO SCH ×3 (08:00→16:24)
[2017-03-05 08:22] LABS: BICARBONATE 28.7 MEQ/L (21.0-32.0); POTASSIUM 5.5 MEQ/L (3.5-5.1)
[2017-03-05] MEDS: INSULIN DETEMIR 100 UNITS/ML VIAL SQ SCH ×2 (08:30→21:00)
--- NOTE | 2017-03-05 08:52 | HHI.NPPN ---
Subjective Renal Failure: Chronic, End Stage Renal Disease Interval History Seen during dialysis today. He has no major complaints. (Tara Cheng) Review of Systems General Constitutional: Fatigue (Tara Cheng) Objective Data Data 03/04/17 03/05/17 19:00 07:00 Intake Total 342 ml 0 ml Output Total 750 ml Balance 342 ml -750 ml Intake Oral 240 ml 0 ml IV Total 102 ml Output Urine Total 750 ml # Voids 2 # Bowel Movements 2 0 Vital Signs Date Time Temp Pulse Resp B/P Pulse Ox O2 Delivery O2 Flow Rate FiO2 03/05/17 08:20 Room Air 03/05/17 04:30 97.8 72 18 147/85 98 03/04/17 23:42 98.4 83 18 129/68 96 03/04/17 20:30 Room Air 03/04/17 20:00 76 03/04/17 19:55 98.4 72 18 162/76 96 Automatic Cuff 03/04/17 17:57 21 03/04/17 16:00 Room Air 03/04/17 16:00 97.3 79 20 162/70 97 03/04/17 13:43 98 Nasal Cannula 2.00 03/04/17 12:00 97.4 81 20 137/63 96 03/04/17 12:00 Room Air (Tara Cheng) -: 03/05/17 0718 03/05/17 0718 Tubes & Lines: Perma-Cath (Tara Cheng) Physical Exam General Appearance: Well Developed, Well Nourished, No Acute Distress, Comfortable ( Tara Cheng) Eyes Eye Exam: Pupils Equal (Tara Cheng) Throat Throat Exam: Oral Mucosa [place] & Moist (Tara Cheng) Neck Neck Exam: Neck Supple (Tara Cheng) Pulmonary Resp Exam: Clear Bilaterally, No Distress, Decreased Bases (Tara Cheng) Cardiology CV Exam: Regular, Normal Sinus Rhythm, Good Perfusion (Tara Cheng) Chest/Breast Chest/Breast Remarks Permcath on right with tunneling edema (Tara Cheng) Gastrointestinal/Abdomen GI Exam: Soft, Non-Tender, Bowel Sounds Present, Distended GI Remarks incisions s/p PD catheter removal yesterday, some erythema slight abdominal distention, non tender (Tara Cheng) Musculoskeletal MS Exam: Joints Intact, Normal Tone (Tara Cheng) Integumentary Skin Exam: Clear, Warm, Dry, Intact (Tara Cheng) Extremeties Extremities Exam: Pedal Pulses Palpable, Trace Edema (Tara Cheng) Neurologic Neuro Exam: Alert, Awake, Oriented, Speech Clear, Moving All Extremities ( Tara Cheng) Psychiatric Psych Exam: Appropriate Responses (Tara Cheng) Assessment/Plan Discussed Condition With: Patient, Relative Assessment Summary: Anemia of CKD, Hypertension, Diabetes Mellitus, End Stage Renal Disease Problem List: (1) ESRD (end stage renal disease) Plan: in process of converting to hemodialysis from PD s/p AVF creation 03/03 with Tenckhoff catheter removal Permcath placed 03/02, tunnelling edema improved TTS hemodialysis, we dialyzed Thursday due to hyperkalemia, ineffective dialysis previously due to tunneling edema of new Permcath dialysis today on a 1K, 350 BFR, goal 2L plan to go to [place] when discharged, likely can be discharged after dialysis Thursday monitor electrolytes avoid IVF, gadolinium renal diet with no protein restriction (2) DM (diabetes mellitus) Plan: continue insulin therapy, monitor glucose (3) Hypertension Plan: continue home medications (4) Anemia Plan: Hb is excellent epogen not required (5) Metabolic bone disease Plan: continue Renvela, intermittent phos level (Tara Cheng) Plan patient was seen and examined. Agree with above assessment and plan. 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
[2017-03-05] MEDS: SERTRALINE HCL 50 MG TAB PO SCH (12:00)
[2017-03-05] MEDS: CARVEDILOL 12.5 MG TAB PO SCH ×2 (12:00→21:46)
[2017-03-05] MEDS: amLODIPine BESYLATE 5 MG TAB PO SCH (12:00)
[2017-03-05] MEDS: CALCITRIOL 0.25 MCG CAP PO SCH (12:00)
[2017-03-05] MEDS: SODIUM CHLORIDE 0.9% FLUSH 10 ML FLUSH IV FLUSH SCH ×2 (12:01→21:47)
--- NOTE | 2017-03-05 13:37 | PD.CAR.PN ---
CVT Progress Note Subjective/Hospital Course: Referral received Will evaluate the patient and mapping ultrasound of both arms and then decide on the location of the AV fistula site Full consult to follow Stephanie Casey Evaluated the vascular ultrasound and mapping Patient has poor veins however possibly the left basilic and cephalic vein might be adequate to construct an AV fistula. Patient's cardiac output of this age may not be great and his ability to develop a functioning AV fistula might be limited Unfortunately family doesn't speak any Amharic and integrity assessor that was reached over the phone was unable to relay the issues considering that he is not in medical profession I'll have one of our Ukrainian-speaking doctors discussed this with the patient in my presence 02/28/17 Patient to the with previous peritoneal dialysis now on hemodialysis through Vas -Cath. Will need permanent access for dialysis in the form of fistula. I reviewed the mapping and probably it would be okay to do fistula off left upper arm using basilic or cephalic vein Have discussed this with the patient and the it was all translated by [place]-speaking physician At this point patient appears to be short of breath very weak and barely able to talk Physically he's not fifth 2 undergo any surgery at this time and perhaps after few dialysis treatments he'll get a little better I'll plan AV fistula for next week 03/01/17 Patient doing okay at this time. I read through the medical notes referring to family dynamics Patient was on factor X a inhibitor and 2 more is undergoing a Vas-Cath placement Once this wears of and patient gets few dialysis treatments I'll taken to the operating room for elective AV fistula of the left arm somewhere middle of this week 03/02/17 Will take for AV fistula placement left arm tomorrow after the patient has been dialyzed through his permacath Patient is a high risk candidate for any type of surgery explained that to him and his family through the clothes drier assembler 03/04/17 Patient underwent yesterday creation of an AV fistula of the left upper arm using basilic vein and removal of nonfunctioning peritoneal dialysis catheter Incisions are clean and dry Patient has excellent Doppler signal in his the basilic vein and has warm well- perfused hand with good radial and ulnar pulse It'll take about 6-8 weeks to develop this AV fistula and then we will have to do transposition of the basilic vein to subcutaneous level so it can be used for dialysis May get incisions wet tomorrow and wash with soap and water 03/05/17 AV fistula patent with good dopplerable signal all the way up the arm following the basilic vein course Incision clean and dry Stitches will stain for about 2 weeks and I'll remove them in the office Nothing to add to care Follow-up with my office in 2 weeks Objective: Vital Signs Date Time Temp Pulse Resp B/P Pulse Ox O2 Delivery O2 Flow Rate FiO2 03/05/17 12:34 95 Nasal Cannula 2.00 03/05/17 12:00 97.7 83 16 132/76 96 03/05/17 08:20 Room Air 03/05/17 08:08 74 03/05/17 08:00 98.2 75 16 141/64 95 03/05/17 04:30 97.8 72 18 147/85 98 03/04/17 23:42 98.4 83 18 129/68 96 03/04/17 20:30 Room Air 03/04/17 20:00 76 03/04/17 19:55 98.4 72 18 162/76 96 Automatic Cuff 03/04/17 17:57 21 03/04/17 16:00 Room Air 03/04/17 16:00 97.3 79 20 162/70 97 03/04/17 13:43 98 Nasal Cannula 2.00 Labs: Laboratory Tests Test 03/05/17 07:18 White Blood Count 12.1 TH/MM3 (4.0-11.0) Red Blood Count 3.15 MIL/MM3 (4.50-5.90) Hemoglobin 10.9 GM/DL (13.0-17.0) Hematocrit 32.0 % (39.0-51.0) Mean Corpuscular Volume 101.5 FL (80.0-100.0) Mean Corpuscular Hemoglobin 34.5 PG (27.0-34.0) Mean Corpuscular Hemoglobin 33.9 % Concent (32.0-36.0) Red Cell Distribution Width 18.1 % (11.6-17.2) Platelet Count 148 TH/MM3 (150-450) Mean Platelet Volume 9.3 FL (7.0-11.0) Neutrophils (%) (Auto) 75.1 % (16.0-70.0) Lymphocytes (%) (Auto) 16.0 % (9.0-44.0) Monocytes (%) (Auto) 7.3 % (0.0-8.0) Eosinophils (%) (Auto) 1.3 % (0.0-4.0) Basophils (%) (Auto) 0.3 % (0.0-2.0) Neutrophils # (Auto) 9.1 TH/MM3 (1.8-7.7) Lymphocytes # (Auto) 1.9 TH/MM3 (1.0-4.8) Monocytes # (Auto) 0.9 TH/MM3 (0-0.9) Eosinophils # (Auto) 0.2 TH/MM3 (0-0.4) Basophils # (Auto) 0.0 TH/MM3 (0-0.2) CBC Comment DIFF FINAL Differential Comment Sodium Level 138 MEQ/L (136-145) Potassium Level 5.5 MEQ/L (3.5-5.1) Chloride Level 100 MEQ/L (98-107) Carbon Dioxide Level 28.7 MEQ/L (21.0-32.0) Anion Gap 9 MEQ/L (5-15) Blood Urea Nitrogen 78 MG/DL (7-18) Creatinine 6.87 MG/DL (0.60-1.30) Estimat Glomerular Filtration 9 ML/MIN (>89) Rate Random Glucose 120 MG/DL (74-106) Calcium Level 8.3 MG/DL (8.5-10.1) Result Diagram: 03/05/17 0718 03/05/17 0718 Jamila Chapa MD March 05, 2017 13:37
[2017-03-05] MEDS: PRAVASTATIN SOD 40 MG TAB PO SCH (21:46)
[2017-03-05] MEDS: HEPARIN SODIUM - SQ 10,000 UNITS/ML VIAL SQ SCH (21:46)
[2017-03-05] MEDS: MIRTAZAPINE 15 MG TAB PO SCH (21:46)
[2017-03-05] MEDS: VITAMIN B CMPLX/VITC/FOLIC AC CAP PO SCH (21:46)
[2017-03-05] MEDS: LOSARTAN 50 MG TAB PO SCH (21:46)
[2017-03-06] VITALS (8 sets, daily range): BP systolic 109–142; BP diastolic 52–68; PULSE 74–93; RESP 16–20; TEMP 97.3–98.1; O2SAT 92–98
[2017-03-06] MEDS: INSULIN ASPART SUPPLEMENTAL SCALE SQ SCH ×4 (06:59→21:53)
[2017-03-06] MEDS: CARVEDILOL 12.5 MG TAB PO SCH ×2 (09:01→21:43)
[2017-03-06] MEDS: amLODIPine BESYLATE 5 MG TAB PO SCH (09:01)
[2017-03-06] MEDS: SODIUM CHLORIDE 0.9% FLUSH 10 ML FLUSH IV FLUSH SCH ×2 (09:01→21:00)
[2017-03-06] MEDS: CALCITRIOL 0.25 MCG CAP PO SCH (09:02)
[2017-03-06] MEDS: SEVELAMER CARBONATE 800 MG TAB PO SCH ×3 (09:02→17:58)
[2017-03-06] MEDS: HEPARIN SODIUM - SQ 10,000 UNITS/ML VIAL SQ SCH ×2 (09:02→21:46)
[2017-03-06] MEDS: SERTRALINE HCL 50 MG TAB PO SCH (09:02)
[2017-03-06] MEDS: INSULIN DETEMIR 100 UNITS/ML VIAL SQ SCH ×2 (09:03→21:54)
--- NOTE | 2017-03-06 10:24 | HHI.FPPN ---
Subjective Remarks No acute events overnight. Vital signs have remained stable. Patient underwent dialysis yesterday and is due for dialysis again tomorrow. History today was again obtained via the use of a video after school program teacher. Patient denied any pain of any kind and had no new questions today. (South Caraballo MD R3) Objective Vitals Vital Signs Date Time Temp Pulse Resp B/P Pulse Ox O2 Delivery O2 Flow Rate FiO2 03/06/17 08:01 98.0 74 20 140/68 96 03/06/17 04:00 98.1 76 20 119/58 98 03/06/17 00:00 97.8 74 16 110/57 96 03/05/17 21:56 Room Air 03/05/17 20:17 85 03/05/17 20:05 97.4 54 20 110/59 98 03/05/17 16:00 98.0 77 18 115/51 96 03/05/17 16:00 Room Air 03/05/17 12:34 95 Nasal Cannula 2.00 03/05/17 12:00 97.7 83 16 132/76 96 03/05/17 12:00 Room Air I/O 03/05/17 03/05/17 03/05/17 03/06/17 03/06/17 03/06/17 07:00 15:00 23:00 07:00 15:00 23:00 Intake Total 0 ml 362 ml 240 ml 240 ml Output Total 750 ml 2000 ml 0 ml Balance -750 ml -1638 ml 240 ml 240 ml Intake Oral 0 ml 360 ml 240 ml 240 ml IV Total 2 ml Output Urine Total 750 ml 0 ml Hemodialysis 2000 ml # Voids 0 1 # Bowel Movements 0 0 0 0 (South Caraballo MD R3) Result Diagram: 03/05/1771703/05/17717 Objective Remarks GEN: normally nourished, in NAD. Laying in bed EYES: conjunctiva normal, EOMI. ENT: MMM. Airway patent. LUNGS: clear A-P, respiratory effort is normal. CARDIOVASCULAR: RR without murmur or gallop. No significant edema. GI/ABD: soft without masses, non-tender NEURO: Alert, no gross deficits. SKIN: warm, dry, no rashes. Perm-cath in right chest without surrounding redness. AV fistula in left antecubital fossa, CDI. MUSC: back is normal in appearance. No calf tenderness (South Caraballo MD R3) A/P Assessment and Plan 86-year-old male w/ pmh of ESRD on home peritoneal dialysis who initially presented with concerns of worsening generalized weakness and fatigue over x1 week, found to have elevated creatinine of 10.12. Discharge Planning Pending clearance by nephrology, likely discharge to home with home health Thursday following dialysis with plan for outpatient dialysis via [facility]. Case management following. (South Caraballo MD R3) Attending Attestation Patient seen and examined in his hospital room this am Case reviewed and discussed with resident physician, RN Agree with plan of care as discussed with me and documented in the resident note. Schedule candido-colace for BM. Anticipate discharge once dialysis arranged. Cleared by CV surgery Appreciate renal (Gemini Kellogg MD) Problem List: (1) Renal failure (ARF), acute on chronic Status: Acute Plan: On admission: Cr: 10.1, K: 5.6, Ph: 5.6. Had been doing peritoneal dialysis at home but treatment has been failing. S/p Vas-cath 02/27 and now Perm -cath 03/02 w/ AV fistula placed 03/03. K+ 6.1 on 03/04 s/p dialysis. Potassium 5.5 yesterday, repeat BMP this a.m. is pending. Plan: Nephrology following, pt known to Dr. Billings. - Dialysis // - Plan to continue outpatient dialysis via perm-cath until maturation of A/V fistula - Dialysis at [facility] M,W,F at 3:30 pm upon discharge Vascular surgery consulted, Dr. Casey following - s/p A/V fistula 03/03 Continue home calcitriol 0.25 mcg daily Continue home Renvela 1600 mg by mouth 3 times a day before meals (2) Weakness generalized Status: Acute Plan: Likely secondary to acute on chronic renal failure as above. White count has remained stable and patient afebrile. CXR shows no acute findings Chronic anemia at 11-12, unchanged from previous. BNP mildly elevated on admission at 326. Ammonia 26. EKG: Sinus rhythm, left axis deviation, no significant changes from previous. Troponin is mildly elevated at 0.09. Trended x3 w/ no change. Plan: Pt does make urine, UA pending Electrolytes corrected, will continue to monitor See above under acute renal failure (3) Hypertension Status: Chronic Plan: BPs stable Plan: Continue home Amlodipine 5 mg daily Continue home losartan 50 mg by mouth daily at bedtime Clonidine and hydralazine when necessary Continue home carvedilol 25 mg by mouth twice a day (4) DM (diabetes mellitus) Status: Chronic Plan: Last A1C 7.5% on 12/12/16. Glucose currently adequately controlled Plan: * Levemir 5 units twice a day * Low dose sliding scale coverage. (5) Hyperlipemia Status: Chronic Plan: Continue home pravastatin 40 mg at bedtime (6) Nutrition, metabolism, and development symptoms Status: Chronic Plan: Fluids: HLIV Electrolytes: Continue to monitor Nutrition: Renal diet, sodium restriction to 2 g for heart healthy, and 2000- calorie ADA for diabetic diet Continued home Remeron 15 mg by mouth daily at bedtime (7) Deep vein thrombosis (DVT) prophylaxis prescribed at discharge Status: Chronic Plan: SCDs Heparin for DVT ppx Pt is on Eliquis 2.5 mg daily. Pt reports this was due to a clot in his leg several years ago, appears to have been provoked. No recurrence. Recommend stopping Eliquis permanently. Hasbled score: 3, and risk for bleeding likely outweighs risk of clot. 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
--- NOTE | 2017-03-06 11:49 | HHI.FF ---
Face to Face Verification Diagnosis: (1) Weakness generalized (2) ESRD (end stage renal disease) (3) DM (diabetes mellitus) Physical Therapy Order: Evaluate and Treat Home Health Nursing Order: Medical education Signs/symptoms of disease process I have seen patient Rohan Longo on 03/06/17. My clinical findings support the need for the requested home health care services because: Ltd mobility - disease progression Deconditioned w/ increased weakness Limited ability to care for self High risk of falls I certify that my clinical findings support that this patient is homebound because: Unsteady gait/balance Unsafe to leave home unassisted South Caraballo MD R3 March 06, 2017 11:49
[2017-03-06 13:18] LABS: AUTOMATED NEUTROPHIL # 8.9 TH/MM3 (1.8-7.7); BASOPHIL # 0.1 TH/MM3 (0-0.2); BASOPHIL % 0.6 % (0.0-2.0); EOSINOPHIL # 0.2 TH/MM3 (0-0.4); EOSINOPHIL % 2.1 % (0.0-4.0); HEMATOCRIT 29.6 % (39.0-51.0); HEMO FLAGS DIFF FINAL; LYMPH % 16.8 % (9.0-44.0); MEAN CELL VOLUME 103.4 FL (80.0-100.0); MEAN CORPUSCULAR HGB CONC 32.9 % (32.0-36.0); MONO % 6.6 % (0.0-8.0); NEUT % 73.9 % (16.0-70.0); PLATELET COUNT 145 TH/MM3 (150-450); RED BLOOD COUNT 2.87 MIL/MM3 (4.50-5.90); RED CELL DISTRIBUTION WIDTH 18.3 % (11.6-17.2)
[2017-03-06 13:37] LABS: BICARBONATE 30.2 MEQ/L (21.0-32.0); POTASSIUM 5.4 MEQ/L (3.5-5.1)
--- NOTE | 2017-03-06 14:08 | HHI.NPPN ---
Subjective Renal Failure: Chronic, End Stage Renal Disease Interval History Sleeping, he is not having any issues. Dialyzed yesterday. (Tara Cheng) Review of Systems General Constitutional: Fatigue (Tara Cheng) Objective Data Data 03/05/17 03/06/17 19:00 07:00 Intake Total 362 ml 480 ml Output Total 2000 ml 0 ml Balance -1638 ml 480 ml Intake Oral 360 ml 480 ml IV Total 2 ml Output Urine Total 0 ml Hemodialysis 2000 ml # Voids 0 1 # Bowel Movements 0 0 Vital Signs Date Time Temp Pulse Resp B/P Pulse Ox O2 Delivery O2 Flow Rate FiO2 03/06/17 12:01 98.0 76 19 142/66 97 03/06/17 08:01 98.0 74 20 140/68 96 03/06/17 08:00 76 03/06/17 04:00 98.1 76 20 119/58 98 03/06/17 00:00 97.8 74 16 110/57 96 03/05/17 21:56 Room Air 03/05/17 20:17 85 03/05/17 20:05 97.4 54 20 110/59 98 03/05/17 16:00 98.0 77 18 115/51 96 03/05/17 16:00 Room Air (Tara Cheng) -: 03/06/17 1301 03/06/17 1301 Tubes & Lines: Perma-Cath (Tara Cheng) Physical Exam General Appearance: Well Developed, Well Nourished, No Acute Distress, Comfortable ( Tara Cheng) Eyes Eye Exam: Pupils Equal (Tara Cheng) Throat Throat Exam: Oral Mucosa [place] & Moist (Tara Cheng) Neck Neck Exam: Neck Supple (Tara Cheng) Pulmonary Resp Exam: Clear Bilaterally, No Distress, Decreased Bases (Tara Cheng) Cardiology CV Exam: Regular, Normal Sinus Rhythm, Good Perfusion (Tara Cheng) Chest/Breast Chest/Breast Remarks Permcath on right with tunneling edema (Tara Cheng) Gastrointestinal/Abdomen GI Exam: Soft, Non-Tender, Bowel Sounds Present, Distended GI Remarks incisions s/p PD catheter removal yesterday, some erythema slight abdominal distention, non tender (Tara Cheng) Musculoskeletal MS Exam: Joints Intact, Normal Tone (Tara Cheng) Integumentary Skin Exam: Clear, Warm, Dry, Intact (Tara Cheng) Extremeties Extremities Exam: Pedal Pulses Palpable, Trace Edema (Tara Cheng) Neurologic Neuro Exam: Alert, Awake, Oriented, Speech Clear, Moving All Extremities ( Tara Cheng) Psychiatric Psych Exam: Appropriate Responses (Tara Cheng) Assessment/Plan Discussed Condition With: Patient, Relative Assessment Summary: Anemia of CKD, Hypertension, Diabetes Mellitus, End Stage Renal Disease Problem List: (1) ESRD (end stage renal disease) Plan: new to HD was on TTS, due tomorrow however after discharge (tomorrow), he will be on MWF outpatient dialysis at [facility], chair time 3:30 pm s/p AVF creation 03/03 , to see Dr. Casey in 2 weeks for follo wup Permcath placed 03/02, tunnelling edema improved monitor electrolytes until discharge encourage oral intake avoid IVF, gadolinium renal diet with no protein restriction (2) DM (diabetes mellitus) Plan: continue insulin therapy, monitor glucose (3) Hypertension Plan: continue home medications (4) Anemia Plan: Hb is excellent epogen not required (5) Metabolic bone disease Plan: continue Renvela, intermittent phos level (Tara Cheng) Problem List: (1) ESRD (end stage renal disease) Plan: new to HD was on TTS, due tomorrow however after discharge (tomorrow), he will be on MWF outpatient dialysis at [facility], chair time 3:30 pm s/p AVF creation 03/03 , to see Dr. Casey in 2 weeks for follo wup Permcath placed 03/02, tunnelling edema improved monitor electrolytes until discharge encourage oral intake avoid IVF, gadolinium renal diet with no protein restriction (2) DM (diabetes mellitus) Plan: continue insulin therapy, monitor glucose (3) Hypertension Plan: continue home medications (4) Anemia Plan: Hb is excellent epogen not required (5) Metabolic bone disease Plan: continue Renvela, intermittent phos level Plan patient was seen and examined. He can be discharged tomorrow after dialysis if all the arrangements for outpatient dialysis are complete. Outpatient dialysis is at [facility]. 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
--- NOTE | 2017-03-06 14:42 | HHI.DS ---
Discharge Summary Admission Date February 26, 2017 at 15:26 Discharge Date: March 07, 2017 Admitting Diagnosis Weakness/Elevated Creatinine/Renal Failure Procedures Vas-Cath: 02/27 Perm catheter 03/02 A/P fistula 03/03 Brief History Patient is an 86-year-old male with a past medical history significant for end- stage renal disease on home dialysis who initially presented with concerns of worsening generalized weakness and fatigue over 1-2 weeks. He was found to have an elevated creatinine of 10.12 and potassium of 5.6. Per patient and his daughter, Jenniffer peritoneal dialysis had not been working very well at home. Plan was made to admit with goal to transition to hemodialysis. CBC/BMP: 03/06/17 1301 03/06/17 1301 Significant Findings Laboratory Tests Test 03/03/17 03/04/17 03/04/17 03/05/17 19:50 06:12 19:32 07:18 White Blood Count 15.3 TH/MM3 11.9 TH/MM3 12.1 TH/MM3 (4.0-11.0) (4.0-11.0) (4.0-11.0) Red Blood Count 3.58 MIL/MM3 3.23 MIL/MM3 3.15 MIL/MM3 (4.50-5.90) (4.50-5.90) (4.50-5.90) Hemoglobin 11.9 GM/DL 11.2 GM/DL 10.9 GM/DL (13.0-17.0) (13.0-17.0) (13.0-17.0) Hematocrit 36.4 % 32.6 % 32.0 % (39.0-51.0) (39.0-51.0) (39.0-51.0) Mean Corpuscular Volume 101.8 FL 100.9 FL 101.5 FL (80.0-100.0) (80.0-100.0) (80.0-100.0) Red Cell Distribution Width 18.5 % 18.3 % 18.1 % (11.6-17.2) (11.6-17.2) (11.6-17.2) Potassium Level 5.7 MEQ/L 6.1 MEQ/L 5.5 MEQ/L (3.5-5.1) (3.5-5.1) (3.5-5.1) Blood Urea Nitrogen 98 MG/DL (7-18) 108 MG/DL 69 MG/DL (7-18) 78 MG/DL (7-18) (7-18) Creatinine 8.20 MG/DL 8.63 MG/DL 6.19 MG/DL 6.87 MG/DL (0.60-1.30) (0.60-1.30) (0.60-1.30) (0.60-1.30) Estimat Glomerular Filtration 8 ML/MIN (>89) 7 ML/MIN (>89) 11 ML/MIN (>89) 9 ML /MIN (>89) Rate Random Glucose 207 MG/DL 109 MG/DL 120 MG/DL (74-106) (74-106) (74-106) Calcium Level 7.8 MG/DL 8.4 MG/DL 8.3 MG/DL (8.5-10.1) (8.5-10.1) (8.5-10.1) Phosphorus Level 6.6 MG/DL (2.5-4.9) Albumin 2.5 GM/DL (3.4-5.0) Mean Corpuscular Hemoglobin 34.7 PG 34.5 PG (27.0-34.0) (27.0-34.0) Neutrophils (%) (Auto) 74.4 % 75.1 % (16.0-70.0) (16.0-70.0) Neutrophils # (Auto) 8.8 TH/MM3 9.1 TH/MM3 (1.8-7.7) (1.8-7.7) Platelet Count 148 TH/MM3 (150-450) Test 03/06/17 13:01 White Blood Count 12.0 TH/MM3 (4.0-11.0) Red Blood Count 2.87 MIL/MM3 (4.50-5.90) Hemoglobin 9.7 GM/DL (13.0-17.0) Hematocrit 29.6 % (39.0-51.0) Mean Corpuscular Volume 103.4 FL (80.0-100.0) Red Cell Distribution Width 18.3 % (11.6-17.2) Platelet Count 145 TH/MM3 (150-450) Neutrophils (%) (Auto) 73.9 % (16.0-70.0) Neutrophils # (Auto) 8.9 TH/MM3 (1.8-7.7) Potassium Level 5.4 MEQ/L (3.5-5.1) Blood Urea Nitrogen 75 MG/DL (7-18) Creatinine 7.14 MG/DL (0.60-1.30) Estimat Glomerular Filtration 9 ML/MIN (>89) Rate Random Glucose 207 MG/DL (74-106) Calcium Level 7.7 MG/DL (8.5-10.1) Imaging Last Impressions Catheter Placement X-Ray 03/02/17 0600 Signed Impressions: Service Date/Time: Thursday, March 02, 2017 10:33 - CONCLUSION: Successful exchange of right IJ Vas-Cath catheter for a PermCath catheter as detailed above. Nikko Aviles MD Upper Extremity Ultrasound 02/27/17 0950 Signed Impressions: Service Date/Time: Monday, February 27, 2017 14:47 - CONCLUSION: Venous mapping as described above. Dudley Caceres MD FACR Chest X-Ray 02/26/17 1306 Signed Impressions: Service Date/Time: February 13:13 - CONCLUSION: 1. No acute cardiopulmonary disease. Augusto Madison MD PE at Discharge GEN: normally nourished, in NAD. Laying in bed EYES: conjunctiva normal, EOMI. ENT: MMM. Airway patent. LUNGS: clear A-P, respiratory effort is normal. CARDIOVASCULAR: RR without murmur or gallop. No significant edema. GI/ABD: soft without masses, non-tender NEURO: Alert, no gross deficits. SKIN: warm, dry, no rashes. Perm-cath in right chest without surrounding redness. AV fistula in left antecubital fossa, CDI. MUSC: back is normal in appearance. No calf tenderness Hospital Course Patient was admitted to the hospital and nephrology and vascular surgery were consulted. Patient received emergent dialysis with placement of a Vas-Cath. He was initially on elk was for anticoagulation and once this was held for 3 days, a PermCath was placed. Once patient was strong enough to tolerate surgery , he underwent placement of a AV fistula and his peritoneal dialysis port was removed. Patient continued to make clinical improvements while receiving dialysis every other day. Generalized weakness improved. Decision was made to discontinue anticoagulation as bleeding risk outweigh benefits of patient's history of single provoked blood clot many years ago. Safe discharge lines were made and patient was subsequently deemed to reach maximum benefit of his inpatient stay. He was discharged to home 03/06 following dialysis with [facility] and follow-up with nephrology and the patient's PCP, Dr. Ruiz. Pt Condition on Discharge: Stable Discharge Disposition: Disch w/ Home Health Serv Discharge Instructions DIET: Follow Instructions for: Renal Failure Diet Speech Therapy-Diet Recommenda: Regular Activities you can perform: Regular-No Restrictions Follow up Referrals: Nephrology - 2-3 Days PCP Follow-up - 1 Week with Lexa Ruiz MD R1 Continued Medications: Amlodipine (Amlodipine) 5 Mg Tab 5 MG PO DAILY IN THE PM PRN HIGH BLOOD PRESSURE #30 Ref 0 TAB Apixaban (Eliquis) 2.5 Mg Tab 2.5 MG PO BID Blood Clot Prevention #180 Ref 1 TAB B-Complex W/ C & Folic Acid (Dialyvite 800) 1 Tab 1 TAB PO HS Calcitriol (Calcitriol) 0.25 Mcg Cap 0.25 MCG PO DAILY Take 1 tablet (0.25mcg) on Thursday,Thursday and Thursday Calcium Supplement #30 Ref 0 CAP Carvedilol (Carvedilol) 25 Mg Tab 25 MG PO BID #180 Ref 3 TAB Insulin Aspart Protam-Asp 70-30 Inj (Novolog Mix 70-30 FlexPen Inj) 300 Unit/3 Ml Pen 5-10 UNITS SQ BID Blood Sugar Management #1 Ref 0 PEN Losartan (Losartan) 50 Mg Tab 50 MG PO HS Blood Pressure Management #30 Ref 0 TAB Megestrol Liq (Megace Liq) 40 Mg/Ml Susp 200 MG PO DAILY Improve Appetite Ref 0 ML Polyethylene Glycol 3350 Powder (Miralax Powder) 17 Gm Powd 17 GM PO BID Mix and dissolve one measuring cap-ful (17 grams) in water or juice. Constipation #1 Ref 0 BOTTLE Polyethylene Glycol 3350 Powder (Miralax Powder) 17 Gm Powd 17 GM PO BID Mix and dissolve one measuring cap-ful (17 grams) in water or juice. Constipation #1 Ref 0 BOTTLE Sertraline (Sertraline) 25 Mg Tab 25 MG PO DAILY #30 Ref 0 TAB Sevelamer Carbonate (Renvela) 800 Mg Tab 1600 MG PO TIDAC #90 Ref 0 TAB Simvastatin (Simvastatin) 20 Mg Tab 20 MG PO HS Cholesterol Management #30 Ref 0 TAB [place] Caraballo MD R3 March 06, 2017 14:42
[2017-03-06] MEDS: PRAVASTATIN SOD 40 MG TAB PO SCH (21:43)
[2017-03-06] MEDS: VITAMIN B CMPLX/VITC/FOLIC AC CAP PO SCH (21:43)
[2017-03-06] MEDS: LOSARTAN 50 MG TAB PO SCH (21:43)
[2017-03-06] MEDS: MIRTAZAPINE 15 MG TAB PO SCH (21:43)
[2017-03-07] VITALS (8 sets, daily range): BP systolic 96–180; BP diastolic 46–76; PULSE 62–85; RESP 16–18; TEMP 97–98.7; O2SAT 94–100
[2017-03-07] MEDS: INSULIN ASPART SUPPLEMENTAL SCALE SQ SCH ×4 (06:06→21:00)
--- NOTE | 2017-03-07 07:38 | HHI.FPPN ---
Subjective Remarks No acute events overnight. Vital signs have remained stable. Patient denies any pain or concerns of any kind at this time. He has not had a bowel movement in approximately 36-48 hours. He is scheduled to have dialysis this morning. ( South Caraballo MD R3) Objective Vitals Vital Signs Date Time Temp Pulse Resp B/P Pulse Ox O2 Delivery O2 Flow Rate FiO2 03/07/17 04:15 74 03/07/17 04:13 98.7 76 18 158/72 95 03/06/17 23:25 98.1 75 18 134/61 92 03/06/17 19:47 97.3 78 18 124/58 97 03/06/17 16:02 97.7 93 20 109/52 94 03/06/17 12:01 98.0 76 19 142/66 97 03/06/17 08:01 98.0 74 20 140/68 96 03/06/17 08:00 76 I/O 03/06/17 03/06/17 03/06/17 03/07/17 03/07/17 03/07/17 06:59 14:59 22:59 06:59 14:59 22:59 Intake Total 240 ml 280 ml 0 ml 0 ml Output Total 0 ml 0 ml 175 ml Balance 240 ml 280 ml 0 ml -175 ml Intake Oral 240 ml 280 ml 0 ml 0 ml Output Urine Total 0 ml 0 ml 175 ml # Voids 2 # Bowel Movements 0 0 0 0 (South Caraballo MD R3) Result Diagram: 03/06/17 1301 03/06/17 1301 Objective Remarks GEN: normally nourished, in NAD. Laying in bed EYES: conjunctiva normal, EOMI. ENT: MMM. Airway patent. LUNGS: clear A-P, respiratory effort is normal. CARDIOVASCULAR: RR without murmur or gallop. No significant edema. GI/ABD: soft without masses, non-tender, normoactive bowl sounds NEURO: Alert, no gross deficits. SKIN: warm, dry, no rashes. Perm-cath in right chest without surrounding redness. AV fistula in left antecubital fossa, CDI. MUSC: back is normal in appearance. No calf tenderness (South Caraballo MD R3) A/P Assessment and Plan 86-year-old male w/ pmh of ESRD on home peritoneal dialysis who initially presented with concerns of worsening generalized weakness and fatigue over x1 week, found to have elevated creatinine of 10.12. Discharge Planning Pending clearance by nephrology, likely discharge to home with home health today following dialysis with plan for outpatient dialysis via [facility]. Case management following. (South Caraballo MD R3) Problem List: (1) Renal failure (ARF), acute on chronic Status: Acute Plan: On admission: Cr: 10.1, K: 5.6, Ph: 5.6. Had been doing peritoneal dialysis at home but treatment has been failing. S/p Vas-cath 02/27 and now Perm -cath 03/02 w/ AV fistula placed 03/03. K+ 6.1 on 03/04 s/p dialysis. Potassium 5.4 yesterday, repeat BMP this a.m. is pending. Plan: Nephrology following, pt known to Dr. Billings. - Dialysis // - Plan to continue outpatient dialysis via perm-cath until maturation of A/V fistula - Dialysis at [facility] M[facility]F at 3:30 pm upon discharge Vascular surgery consulted, Dr. Casey following - s/p A/V fistula 03/03 Continue home calcitriol 0.25 mcg daily Continue home Renvela 1600 mg by mouth 3 times a day before meals (2) Weakness generalized Status: Acute Plan: Likely secondary to acute on chronic renal failure as above. White count has remained stable and patient afebrile. CXR shows no acute findings Chronic anemia at 11-12, unchanged from previous. BNP mildly elevated on admission at 326. Ammonia 26. EKG: Sinus rhythm, left axis deviation, no significant changes from previous. Troponin is mildly elevated at 0.09. Trended x3 w/ no change. Plan: Pt does make urine, UA pending Electrolytes corrected, will continue to monitor See above under acute renal failure (3) Hypertension Status: Chronic Plan: BPs stable Plan: Continue home Amlodipine 5 mg daily Continue home losartan 50 mg by mouth daily at bedtime Clonidine and hydralazine when necessary Continue home carvedilol 25 mg by mouth twice a day (4) DM (diabetes mellitus) Status: Chronic Plan: Last A1C 7.5% on 12/12/16. Glucose currently adequately controlled Plan: * Levemir 5 units twice a day * Low dose sliding scale coverage. (5) Hyperlipemia Status: Chronic Plan: Continue home pravastatin 40 mg at bedtime (6) Constipation Status: Acute Plan: No BM in ~36-48 hrs. Currently on Pericolace 2 tabs scheduled every AM. Will order once time dose of Miralax at this time. (7) Nutrition, metabolism, and development symptoms Status: Chronic Plan: Fluids: HLIV Electrolytes: Continue to monitor Nutrition: Renal diet, sodium restriction to 2 g for heart healthy, and 2000- calorie ADA for diabetic diet Continued home Remeron 15 mg by mouth daily at bedtime (8) Deep vein thrombosis (DVT) prophylaxis prescribed at discharge Status: Chronic Plan: SCDs Heparin for DVT ppx Pt is on Eliquis 2.5 mg daily. Pt reports this was due to a clot in his leg several years ago, appears to have been provoked. No recurrence. Recommend stopping Eliquis permanently. Hasbled score: 3, and risk for bleeding likely outweighs risk of clot. 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
[2017-03-07] MEDS ORDERED: POLYETHYLENE GLYCOL 17 GM PKG PO ONE (07:45)
[2017-03-07] MEDS: SEVELAMER CARBONATE 800 MG TAB PO SCH ×3 (08:00→16:51)
[2017-03-07 08:30] LABS: AUTOMATED NEUTROPHIL # 9.8 TH/MM3 (1.8-7.7); BASOPHIL # 0.1 TH/MM3 (0-0.2); BASOPHIL % 0.4 % (0.0-2.0); EOSINOPHIL # 0.3 TH/MM3 (0-0.4); EOSINOPHIL % 2.2 % (0.0-4.0); HEMATOCRIT 30.6 % (39.0-51.0); HEMO FLAGS DIFF FINAL; LYMPH % 17.5 % (9.0-44.0); LYMPHOCYTE # 2.3 TH/MM3 (1.0-4.8); MEAN CELL VOLUME 102.3 FL (80.0-100.0); MEAN CORPUSCULAR HEMOGLOBIN 34.9 PG (27.0-34.0); MEAN CORPUSCULAR HGB CONC 34.1 % (32.0-36.0); NEUT % 73.9 % (16.0-70.0); PLATELET COUNT 151 TH/MM3 (150-450); RED CELL DISTRIBUTION WIDTH 18.4 % (11.6-17.2); WHITE BLOOD COUNT 13.3 TH/MM3 (4.0-11.0)
[2017-03-07] MEDS: CARVEDILOL 12.5 MG TAB PO SCH ×2 (09:00→22:24)
[2017-03-07] MEDS: SODIUM CHLORIDE 0.9% FLUSH 10 ML FLUSH IV FLUSH SCH ×2 (09:00→22:24)
[2017-03-07] MEDS: amLODIPine BESYLATE 5 MG TAB PO SCH (09:00)
[2017-03-07] MEDS: SERTRALINE HCL 50 MG TAB PO SCH (09:00)
[2017-03-07] MEDS: HEPARIN SODIUM - SQ 10,000 UNITS/ML VIAL SQ SCH ×2 (09:00→22:24)
[2017-03-07] MEDS: DOCUSATE SODIUM 50 MG/SENNA 8.6 MG TAB PO SCH (09:00)
[2017-03-07] MEDS: CALCITRIOL 0.25 MCG CAP PO SCH (09:00)
[2017-03-07] MEDS: INSULIN DETEMIR 100 UNITS/ML VIAL SQ SCH ×2 (09:00→22:28)
[2017-03-07 09:24] LABS: BICARBONATE 28.6 MEQ/L (21.0-32.0); POTASSIUM 5.7 MEQ/L (3.5-5.1)
--- NOTE | 2017-03-07 10:50 | HHI.NPPN ---
Subjective Renal Failure: Chronic, End Stage Renal Disease Review of Systems General Constitutional: Fatigue Objective Data Data 03/06/17 03/07/17 19:00 07:00 Intake Total 280 ml 0 ml Output Total 175 ml Balance 280 ml -175 ml Intake Oral 280 ml 0 ml Output Urine Total 175 ml # Voids 2 # Bowel Movements 0 0 Vital Signs Date Time Temp Pulse Resp B/P Pulse Ox O2 Delivery O2 Flow Rate FiO2 03/07/17 07:51 97.4 71 18 180/76 96 03/07/17 04:15 74 03/07/17 04:13 98.7 76 18 158/72 95 03/06/17 23:25 98.1 75 18 134/61 92 03/06/17 19:47 97.3 78 18 124/58 97 03/06/17 16:02 97.7 93 20 109/52 94 03/06/17 12:01 98.0 76 19 142/66 97 -: 03/07/17 0732 03/07/17 0732 Tubes & Lines: Perma-Cath Physical Exam General Appearance: Well Developed, Well Nourished, No Acute Distress, Comfortable Eyes Eye Exam: Pupils Equal Throat Throat Exam: Oral Mucosa [place] & Moist Neck Neck Exam: Neck Supple Pulmonary Resp Exam: Clear Bilaterally, No Distress, Decreased Bases Cardiology CV Exam: Regular, Normal Sinus Rhythm, Good Perfusion Gastrointestinal/Abdomen GI Exam: Soft, Non-Tender, Bowel Sounds Present, Distended Musculoskeletal MS Exam: Joints Intact, Normal Tone Integumentary Skin Exam: Clear, Warm, Dry, Intact Extremeties Extremities Exam: Pedal Pulses Palpable, Trace Edema Neurologic Neuro Exam: Alert, Awake, Oriented, Speech Clear, Moving All Extremities Psychiatric Psych Exam: Appropriate Responses Assessment/Plan Discussed Condition With: Patient, Relative Assessment Summary: Anemia of CKD, Hypertension, Diabetes Mellitus, End Stage Renal Disease Problem List: (1) ESRD (end stage renal disease) Plan: new to HD was on TTS, seen at dialysis [facility] 3L 2K however after discharge (tomorrow), he will be on MWF outpatient dialysis at [facility], chair time 3:30 pm s/p AVF creation 03/03 , to see Dr. 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
[2017-03-07] MEDS: GENTAMICIN SULFATE (DIALYSIS USE ONLY) 20 MG/2 ML VIAL IV PRN (12:46)
[2017-03-07] MEDS: HEPARIN SODIUM - IV 10,000 UNITS/10 ML VIAL PRN (12:46)
[2017-03-07] MEDS: ACETAMINOPHEN 325 MG TAB PO PRN (16:51)
[2017-03-07] MEDS: MIRTAZAPINE 15 MG TAB PO SCH (22:25)
[2017-03-07] MEDS: PRAVASTATIN SOD 40 MG TAB PO SCH (22:25)
[2017-03-07] MEDS: VITAMIN B CMPLX/VITC/FOLIC AC CAP PO SCH (22:25)
[2017-03-07] MEDS: LOSARTAN 50 MG TAB PO SCH (22:25)
[2017-03-08] VITALS (8 sets, daily range): BP systolic 94–144; BP diastolic 51–67; PULSE 53–80; RESP 18; TEMP 97.3–98.7; O2SAT 95–99
[2017-03-08] MEDS: INSULIN ASPART SUPPLEMENTAL SCALE SQ SCH ×3 (05:43→21:08)
[2017-03-08] MEDS: DOCUSATE SODIUM 50 MG/SENNA 8.6 MG TAB PO SCH (09:00)
[2017-03-08] MEDS: amLODIPine BESYLATE 5 MG TAB PO SCH (09:00)
[2017-03-08] MEDS: INSULIN DETEMIR 100 UNITS/ML VIAL SQ SCH ×2 (09:00→21:08)
[2017-03-08] MEDS: SODIUM CHLORIDE 0.9% FLUSH 10 ML FLUSH IV FLUSH SCH ×2 (09:00→21:10)
[2017-03-08] MEDS: SEVELAMER CARBONATE 800 MG TAB PO SCH ×3 (09:09→17:00)
[2017-03-08] MEDS: SERTRALINE HCL 50 MG TAB PO SCH (09:10)
[2017-03-08] MEDS: CALCITRIOL 0.25 MCG CAP PO SCH (09:10)
[2017-03-08] MEDS: CARVEDILOL 12.5 MG TAB PO SCH ×2 (09:10→21:09)
[2017-03-08] MEDS: HEPARIN SODIUM - SQ 10,000 UNITS/ML VIAL SQ SCH ×2 (09:11→21:10)
--- NOTE | 2017-03-08 09:13 | HHI.FPPN ---
Subjective Remarks Patient is sitting up eating. He reports no pain. Has good appetite. No bowel movement. Has significant weakness over the past 2 weeks. Next dialysis is due on Thursday. He has been accepted at a SNF but cannot go until Thursday. (Donald Holden MD R2) Objective Vitals Vital Signs Date Time Temp Pulse Resp B/P Pulse Ox O2 Delivery O2 Flow Rate FiO2 03/08/17 04:00 97.9 76 18 135/64 96 03/08/17 00:00 97.4 53 18 139/63 95 03/07/17 20:00 75 03/07/17 20:00 97.8 75 18 120/60 100 03/07/17 16:00 97.5 62 16 96/46 96 03/07/17 13:17 97.0 85 18 109/57 96 I/O 03/07/17 03/07/17 03/07/17 03/08/17 03/08/17 03/08/17 07:00 15:00 23:00 07:00 15:00 23:00 Intake Total 0 ml 480 ml 240 ml 100 ml Output Total 175 ml 3000 ml 0 ml Balance -175 ml -2520 ml 240 ml 100 ml Intake Oral 0 ml 480 ml 240 ml 100 ml Output Urine Total 175 ml 0 ml Hemodialysis 3000 ml # Voids 1 0 # Bowel Movements 0 0 0 0 (Donald Holden MD R2) Result Diagram: 03/07/17 0732 03/07/17 0732 Objective Remarks GEN: Sitting up in bed eating, no distress. Neck: Permcath in place, clear dry and intact. EYES: conjunctiva normal, EOMI. ENT: MMM. Airway patent. LUNGS: clear A-P, respiratory effort is normal. CARDIOVASCULAR: RR without murmur or gallop. No significant edema. GI/ABD: soft without masses, nontender, normal bowel movements NEURO: Alert, no gross deficits. SKIN: warm, dry, no rashes. Perm-cath in right chest without surrounding redness. AV fistula in left antecubital fossa, CDI, positive bruit. MUSC: No calf tenderness (Donald Holden MD R2) A/P Assessment and Plan 86-year-old male w/ pmh of ESRD on home peritoneal dialysis who initially presented with concerns of worsening generalized weakness and fatigue over 1 week, found to have elevated creatinine of 10.12. Discharge Planning Plan for discharge to SNF tomorrow[facility]. Case management following. ( Donald Holden MD R2) Attending Attestation Patient seen and examined. Case reviewed and discussed Agree with plan of care as discussed with me and documented in the resident note. (Gemini Kellogg MD) Problem List: (1) Renal failure (ARF), acute on chronic Status: Acute Plan: History of chronic kidney disease on peritoneal dialysis, with acute worsening of kidney function. He is S/p Vas-cath 02/27 and now Perm-cath on 03/02 w/ AV fistula placed 03/03. BMP this morning is pending. Plan: Nephrology following, pt known to Dr. Billings. - Dialysis / - Plan to continue outpatient dialysis via perm-cath until maturation of A/V fistula - Dialysis at [facility] M,W,F at 3:30 pm upon discharge Vascular surgery consulted, Dr. Casey following - s/p A/V fistula 03/03 Continue home calcitriol 0.25 mcg daily Continue home Renvela 1600 mg by mouth 3 times a day before meals (2) Hypertension Status: Chronic Plan: BPs stable Plan: Continue home Amlodipine 5 mg daily Continue home losartan 50 mg by mouth daily at bedtime Clonidine and hydralazine when necessary Continue home carvedilol 25 mg by mouth twice a day (3) DM (diabetes mellitus) Status: Chronic Plan: Last A1C 7.5% on 12/12/16. Glucose currently adequately controlled Plan: * Levemir 5 units twice a day * Low dose sliding scale coverage. (4) Hyperlipemia Status: Chronic Plan: Continue home pravastatin 40 mg at bedtime (5) Nutrition, metabolism, and development symptoms Status: Chronic Plan: Fluids: HLIV Electrolytes: Continue to monitor Nutrition: Renal diet, sodium restriction to 2 g for heart healthy, and 2000- calorie ADA for diabetic diet Continued home Remeron 15 mg by mouth daily at bedtime (6) Deep vein thrombosis (DVT) prophylaxis prescribed at discharge Status: Chronic Plan: SCDs Heparin for DVT ppx Pt is on Eliquis 2.5 mg daily. Pt reports this was due to a clot in his leg several years ago, appears to have been provoked. No recurrence. Recommend stopping Eliquis permanently. Hasbled score: 3, and risk for bleeding likely outweighs risk of clot. 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
[2017-03-08] MEDS: predniSONE 20 MG TAB PO SCH (11:00)
[2017-03-08 12:14] LABS: BICARBONATE 30.8 MEQ/L (21.0-32.0); POTASSIUM 5.7 MEQ/L (3.5-5.1)
--- NOTE | 2017-03-08 14:57 | HHI.NPPN ---
Subjective Renal Failure: Chronic, End Stage Renal Disease Review of Systems General Constitutional: Fatigue Objective Data Data 03/07/17 03/08/17 19:00 07:00 Intake Total 480 ml 340 ml Output Total 3000 ml 0 ml Balance -2520 ml 340 ml Intake Oral 480 ml 340 ml Output Urine Total 0 ml Hemodialysis 3000 ml # Voids 1 0 # Bowel Movements 0 0 Vital Signs Date Time Temp Pulse Resp B/P Pulse Ox O2 Delivery O2 Flow Rate FiO2 03/08/17 12:00 98.6 75 18 94/51 98 03/08/17 11:55 98 Nasal Cannula 2.00 03/08/17 08:00 98.7 74 18 121/57 99 03/08/17 04:00 97.9 76 18 135/64 96 03/08/17 00:00 97.4 53 18 139/63 95 03/07/17 20:00 75 03/07/17 20:00 97.8 75 18 120/60 100 03/07/17 16:00 97.5 62 16 96/46 96 -: 03/07/17 0732 03/08/17 1135 Tubes & Lines: Perma-Cath Physical Exam General Appearance: Well Developed, Well Nourished, No Acute Distress, Comfortable Eyes Eye Exam: Pupils Equal Throat Throat Exam: Oral Mucosa [place] & Moist Neck Neck Exam: Neck Supple Pulmonary Resp Exam: Clear Bilaterally, No Distress, Decreased Bases Cardiology CV Exam: Regular, Normal Sinus Rhythm, Good Perfusion Gastrointestinal/Abdomen GI Exam: Soft, Non-Tender, Bowel Sounds Present, Distended Musculoskeletal MS Exam: Joints Intact, Normal Tone Integumentary Skin Exam: Clear, Warm, Dry, Intact Extremeties Extremities Exam: Pedal Pulses Palpable, Trace Edema Neurologic Neuro Exam: Alert, Awake, Oriented, Speech Clear, Moving All Extremities Psychiatric Psych Exam: Appropriate Responses Assessment/Plan Discussed Condition With: Patient, Relative Assessment Summary: Anemia of CKD, Hypertension, Diabetes Mellitus, End Stage Renal Disease Problem List: (1) ESRD (end stage renal disease) Plan: new to HD was on TTS,had dialysis UF 3L yesterday K 5.7 give Kayexalate however after discharge (tomorrow), he will be on MWF outpatient dialysis at [facility], chair time 3:30 pm s/p AVF creation 03/03 , to see Dr. Casey in 2 weeks for follo wup Permcath placed 5/22, tunnelling edema improved monitor electrolytes until discharge encourage oral intake avoid IVF, gadolinium renal diet with no protein restriction dr. 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
[2017-03-08] MEDS ORDERED: SODIUM POLYSTYRENE SULFONATE SUSP 15 GM/60 ML CUP PO ONE (15:00)
[2017-03-08] MEDS ORDERED: ATORVASTATIN 40 MG TAB PO SCH (21:00)
[2017-03-08] MEDS: LOSARTAN 50 MG TAB PO SCH (21:09)
[2017-03-08] MEDS: VITAMIN B CMPLX/VITC/FOLIC AC CAP PO SCH (21:09)
[2017-03-08] MEDS: MIRTAZAPINE 15 MG TAB PO SCH (21:09)
[2017-03-09] VITALS: BP 143/65; PULSE 76; RESP 16; TEMP 98.3; O2SAT 96
[2017-03-09 04:00] VITALS: BP 143/65; PULSE 81; RESP 20; TEMP 98.1; O2SAT 98
[2017-03-09] MEDS: INSULIN ASPART SUPPLEMENTAL SCALE SQ SCH ×3 (06:32→16:00)
[2017-03-09 08:00] VITALS: BP 153/92; PULSE 81; RESP 18; TEMP 98.4; O2SAT 96
[2017-03-09 08:15] VITALS: O2SAT 98
[2017-03-09] MEDS: CALCITRIOL 0.25 MCG CAP PO SCH (08:44)
[2017-03-09] MEDS: DOCUSATE SODIUM 50 MG/SENNA 8.6 MG TAB PO SCH (08:44)
[2017-03-09] MEDS: SERTRALINE HCL 50 MG TAB PO SCH (08:44)
[2017-03-09] MEDS: CARVEDILOL 12.5 MG TAB PO SCH (08:44)
[2017-03-09] MEDS: SEVELAMER CARBONATE 800 MG TAB PO SCH ×3 (08:44→17:00)
[2017-03-09] MEDS: HEPARIN SODIUM - SQ 10,000 UNITS/ML VIAL SQ SCH (08:45)
[2017-03-09] MEDS: amLODIPine BESYLATE 5 MG TAB PO SCH (08:45)
[2017-03-09] MEDS: predniSONE 20 MG TAB PO SCH (08:45)
[2017-03-09] MEDS: SODIUM CHLORIDE 0.9% FLUSH 10 ML FLUSH IV FLUSH SCH (08:46)
[2017-03-09] MEDS: INSULIN DETEMIR 100 UNITS/ML VIAL SQ SCH (08:48)
[2017-03-09 08:53] LABS: BICARBONATE 27.8 MEQ/L (21.0-32.0); POTASSIUM 6.1 MEQ/L (3.5-5.1)
[2017-03-09 09:00] VITALS: PULSE 84
--- NOTE | 2017-03-09 10:02 | HHI.NPPN ---
Subjective Renal Failure: Chronic, End Stage Renal Disease Interval History patient was seen during dialysis. He is on 1k, BFR 400 ml/min. Dialysis for 3.5 hours. He is tolerating it well. Review of Systems General Constitutional: Fatigue Objective Data Data 03/08/17 03/09/17 19:00 07:00 Intake Total 720 ml 240 ml Output Total 25 ml 200 ml Balance 695 ml 40 ml Intake Oral 720 ml 240 ml Output Urine Total 25 ml 200 ml # Voids 1 # Bowel Movements 0 0 Vital Signs Date Time Temp Pulse Resp B/P Pulse Ox O2 Delivery O2 Flow Rate FiO2 03/09/17 08:00 98.4 81 18 153/92 96 03/09/17 04:00 98.1 81 20 143/65 98 03/09/17 00:00 98.3 76 16 143/65 96 03/08/17 20:23 71 03/08/17 20:00 97.3 80 18 144/67 99 Manual Cuff/Palpation 03/08/17 16:00 98.6 76 18 115/58 98 03/08/17 12:00 98.6 75 18 94/51 98 03/08/17 11:55 98 Nasal Cannula 2.00 -: 03/07/17 0732 03/09/17 0645 Tubes & Lines: Perma-Cath Physical Exam General Appearance: Well Developed, Well Nourished, No Acute Distress, Comfortable Eyes Eye Exam: Pupils Equal Throat Throat Exam: Oral Mucosa [place] & Moist Neck Neck Exam: Neck Supple Pulmonary Resp Exam: Clear Bilaterally, No Distress, Decreased Bases Cardiology CV Exam: Regular, Normal Sinus Rhythm, Good Perfusion Gastrointestinal/Abdomen GI Exam: Soft, Non-Tender, Bowel Sounds Present, Distended Musculoskeletal MS Exam: Joints Intact, Normal Tone Integumentary Skin Exam: Clear, Warm, Dry, Intact Extremeties Extremities Exam: Pedal Pulses Palpable, Trace Edema Neurologic Neuro Exam: Alert, Awake, Oriented, Speech Clear, Moving All Extremities Psychiatric Psych Exam: Appropriate Responses Assessment/Plan Discussed Condition With: Patient, Relative Assessment Summary: Anemia of CKD, Hypertension, Diabetes Mellitus, End Stage Renal Disease Problem List: (1) ESRD (end stage renal disease) Plan: Seen during dialysis today. Outpatient dialysis MWF at [facility] at 330 PM. s/p AVF creation 03/03 , to see Dr. Casey in 2 weeks for followup. PermCath placed 03/02, tunnelling edema improved monitor electrolytes until discharge encourage oral intake avoid IVF, gadolinium renal diet with no protein restriction (2) Hyperkalemia Plan: Dialysis on 1K dialysate today. Needs dietary potassium restriction. 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
--- NOTE | 2017-03-09 11:24 | HHI.FPPN ---
Subjective Remarks Pt seen and examined this morning during dialysis. No acte events overnight. Pt has been afebrile, blood pressures ranging from [id number]. Patient reports feeling well this morning. Denies nausea, vomiting, chest pain, abdominal pain. He denies issues with eating, has snacks present at bedside. He expresses the desire to go home today. He has been accepted at [facility]. Objective Vitals Vital Signs Date Time Temp Pulse Resp B/P Pulse Ox O2 Delivery O2 Flow Rate FiO2 03/09/17 08:00 98.4 81 18 153/92 96 03/09/17 04:00 98.1 81 20 143/65 98 03/09/17 00:00 98.3 76 16 143/65 96 03/08/17 20:23 71 03/08/17 20:00 97.3 80 18 144/67 99 Manual Cuff/Palpation 03/08/17 16:00 98.6 76 18 115/58 98 03/08/17 12:00 98.6 75 18 94/51 98 03/08/17 11:55 98 Nasal Cannula 2.00 I/O 03/08/17 03/08/17 03/08/17 03/09/17 03/09/17 03/09/17 07:00 15:00 23:00 07:00 15:00 23:00 Intake Total 100 ml 720 ml 240 ml 0 ml Output Total 0 ml 25 ml 200 ml Balance 100 ml 695 ml 40 ml 0 ml Intake Oral 100 ml 720 ml 240 ml 0 ml Output Urine Total 0 ml 25 ml 200 ml # Voids 1 0 # Bowel Movements 0 0 0 Result Diagram: 03/07/17 0732 03/09/17 0645 Objective Remarks GEN: Laying in bed, undergoing dialysis, no acute distress EYES: conjunctiva normal, EOMI. ENT: MMM. Airway patent. LUNGS: clear A-P, respiratory effort is normal. CARDIOVASCULAR: RR without murmur or gallop. No significant edema. GI/ABD: soft without masses, nontender, normal bowel movements NEURO: Alert, no gross deficits. SKIN: warm, dry, no rashes. Perm-cath in right chest without surrounding redness. AV fistula in left antecubital fossa MSK: No calf tenderness A/P Assessment and Plan 86-year-old male w/ pmh of ESRD on home peritoneal dialysis who initially presented with concerns of worsening generalized weakness and fatigue over 1 week, found to have elevated creatinine of 10.12. Discharge Planning Plan for discharge to SNF later today, [facility]. Case management following. Problem List: (1) Renal failure (ARF), acute on chronic Status: Acute Plan: History of chronic kidney disease on peritoneal dialysis, with acute worsening of kidney function. He is S/p Vas-cath 02/27 and now Perm-cath on 03/02 w/ AV fistula placed 03/03. BMP this morning is pending. Plan: Patient dialyzed this morning in preparation for discharge to [facility], [facility] Nephrology following, pt known to Dr. Billings. - Dialysis / - Plan to continue outpatient dialysis via perm-cath until maturation of A/V fistula - Dialysis at [facility] at 3:30 pm upon discharge Vascular surgery consulted, Dr. Casey following - s/p A/V fistula 03/03 Continue home calcitriol 0.25 mcg daily Continue home Renvela 1600 mg by mouth 3 times a day before meals (2) Hypertension Status: Chronic Plan: BPs stable Plan: Continue home Amlodipine 5 mg daily Continue home losartan 50 mg by mouth daily at bedtime Clonidine and hydralazine when necessary Continue home carvedilol 25 mg by mouth twice a day (3) DM (diabetes mellitus) Status: Chronic Plan: Last A1C 7.5% on 12/12/16. Glucose currently adequately controlled Plan: * Levemir 5 units twice a day * Low dose sliding scale coverage. (4) Hyperlipemia Status: Chronic Plan: Continue home pravastatin 40 mg at bedtime (5) Nutrition, metabolism, and development symptoms Status: Chronic Plan: Fluids: HLIV Electrolytes: Potassium elevated to 6.1 prior to dialysis. Check BMP in 1 week. Nutrition: Renal diet, sodium restriction to 2 g for heart healthy, and 2000- calorie ADA for diabetic diet Continued home Remeron 15 mg by mouth daily at bedtime (6) Deep vein thrombosis (DVT) prophylaxis prescribed at discharge Status: Chronic Plan: SCDs Heparin for DVT ppx Pt is on Eliquis 2.5 mg daily. Pt reports this was due to a clot in his leg several years ago, appears to have been provoked. No recurrence. Recommend stopping Eliquis permanently. Hasbled score: 3, and risk for bleeding likely outweighs risk of clot. 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
[2017-03-09] MEDS: GENTAMICIN SULFATE (DIALYSIS USE ONLY) 20 MG/2 ML VIAL IV PRN (12:46)
[2017-03-09] MEDS: HEPARIN SODIUM - IV 10,000 UNITS/10 ML VIAL PRN (12:46)
[2017-03-09 13:45] VITALS: BP 147/67; PULSE 88; RESP 20; TEMP 98.8; O2SAT 96
== END 2017-03-09 19:18 | DRG 674 ==
LOC: NEPC 12:43 → NEDA 15:26 → N04A 18:00 → N04B 02-27 16:07
PROVIDERS: ADMIT Family Medicine; ATTEND Family Medicine
PROC: 3E1M39Z Irrigation of Peritoneal Cavity using Dialysate, Percutaneous Approach (ICD-10-PCS; 2017-02-26)
PROC: 05HM33Z Insertion of Infusion Device into Right Internal Jugular Vein, Percutaneous Approach (ICD-10-PCS; 2017-02-27)
PROC: 5A1D60Z (ICD-10-PCS; 2017-02-27)
PROC: 05HM33Z Insertion of Infusion Device into Right Internal Jugular Vein, Percutaneous Approach (ICD-10-PCS; 2017-03-02)
PROC: 0WPG03Z Removal of Infusion Device from Peritoneal Cavity, Open Approach (ICD-10-PCS; 2017-03-03)
PROC: 03180ZD Bypass Left Brachial Artery to Upper Arm Vein, Open Approach (ICD-10-PCS; principal; 2017-03-03 12:42)
DX: N17.9 Acute kidney failure, unspecified (principal); I12.0 Hypertensive chronic kidney disease with stage 5 chronic kidney disease or end stage renal disease; E88.89 Other specified metabolic disorders; E11.22 Type 2 diabetes mellitus with diabetic chronic kidney disease; I48.91 Unspecified atrial fibrillation; E87.5 Hyperkalemia; G47.10 Hypersomnia, unspecified; E78.5 Hyperlipidemia, unspecified; T85.691A Other mechanical complication of intraperitoneal dialysis catheter, initial encounter; D63.1 Anemia in chronic kidney disease; I95.1 Orthostatic hypotension; K59.00 Constipation, unspecified; N18.6 End stage renal disease; Z99.2 Dependence on renal dialysis; Z79.4 Long term (current) use of insulin; Z86.73 Personal history of transient ischemic attack (TIA), and cerebral infarction without residual deficits; Z86.718 Personal history of other venous thrombosis and embolism; Z79.01 Long term (current) use of anticoagulants; N25.81 Secondary hyperparathyroidism of renal origin; Y73.1 Therapeutic (nonsurgical) and rehabilitative gastroenterology and urology devices associated with adverse incidents; Y92.9 Unspecified place or not applicable; Y83.8 Other surgical procedures as the cause of abnormal reaction of the patient, or of later complication, without mention of misadventure at the time of the procedure
CPT/HCPCS: 36556; 36558; 71010; 76937; 77001; 80048; 80053; 80069; 80074; 82140; 82550; 82607; 82948; 83735; 83880; 84100; 84484; 85025; 85027; 85610; 85730; 90935; 93005; 93970; 93998; 96374; C1750; C1752; C1769; J0360; J0690; J1580; J1644; J1815; J2250; J2370; J2405; J3010; J3370; J7030; J7050; J7512

== ENCOUNTER 2017-04-17 17:18 | Inpatient (IN) | payer MEDICARE, OTHER ==
[~2017-04-17] VITALS: Ht 177.8 cm; Wt 94.4 kg
[2017-04-17] VITALS (7 sets, daily range): BP systolic 183–212; BP diastolic 77–90; PULSE 72–88; RESP 18–29; TEMP 98.3; O2SAT 96–100
[~2017-04-17 17:18] MED LIST changes: +MEGE40S PO; -WALKER/ADULT/FO1 MIS
--- NOTE | 2017-04-17 18:08 | PD ---
HPI . syncope Chief Complaint: Syncope/Near-Syncope Time Seen by Provider: 17:54 Travel History International Travel<30 days: No Contact w/Intl Traveler<30days: No Traveled to known affect area: No History of Present Illness HPI 86 year old dialysis patient comes in via EMS after a syncopal episode. Per EMS report, he was receiving dialysis at [facility] and 4 minutes prior to the end he had a syncopal episode. EMS reports that family had dropped him off for dialysis and mentioned a change in his baseline - they report that while he has a history of dementia and has some disorientation he has been very lethargic which is new for him. Patient only speaks Persian. Patient is a poor historian at this time however he denies any pain. Reports some weakness. No other complaints. He is unable to tell me about today's events. Per patient, he fell Thursday of this week and admits to hitting his head. PFSH Past Medical History Cardiovascular Problems: Yes Cerebrovascular Accident: Yes Dementia: Yes Diabetes: Yes Hypertension: Yes Respiratory: Yes (pna) Past Surgical History Abdominal Surgery: Yes (PERITONEAL DIALYSIS PORT PLACEMENT AB) Eye Surgery: Yes (laser) Social History Alcohol Use: No Tobacco Use: No Substance Use: No Allergies-Medications (Allergen,Severity, Reaction): Coded Allergies: No Known Allergies (Unverified , 02/26/17) Reported Meds & Prescriptions Reported Meds & Active Scripts Active Sertraline (Sertraline HCl) 25 Mg Tab 25 Mg PO DAILY Renvela (Sevelamer Carbonate) 800 Mg Tab 1,600 Mg PO TIDAC Carvedilol 25 Mg Tab 25 Mg PO BID Reported Duoneb (Ipratropium-Albuterol Neb) 0.5-2.5 Mg/3 Ml Neb 3 Ml NEB Q6HR Miralax Powder (Polyethylene Glycol 3350 Powder) 17 Gm Powd 17 Gm PO DAILY Mix and dissolve one measuring capful (17 grams) in 4-8oz water or juice. Megace Liq (Megestrol Acetate) 40 Mg/Ml Susp 200 Mg PO DAILY Eliquis (Apixaban) 2.5 Mg Tab 2.5 Mg PO BID Simvastatin 20 Mg Tab 20 Mg PO HS Losartan (Losartan Potassium) 50 Mg Tab 50 Mg PO HS Novolog Mix 70-30 FlexPen Inj (Insulin Aspart Protam-Asp 70-30 Inj) 300 Unit/3 Ml Pen 5-10 Units SQ BID Calcitriol 0.25 Mcg Cap 0.25 Mcg PO MOWEFR Take 1 tablet (0.25mcg) on Thursday,Thursday and Thursday Review of Systems ROS Limitations: Poor Historian General / Constitutional: Positive: Other (weakness), No: Fever, Chills HENT: No: Headaches Cardiovascular: No: Chest Pain or Discomfort Gastrointestinal: No: Nausea, Abdominal Pain Musculoskeletal: Positive: Weakness, No: Pain Neurologic: Positive: Syncope, Change in Mentation, No: Headache, Slurred Speech Physical Exam Narrative GENERAL: Elderly male that appears to be dozing off but responds to questions. Maintains eyes closed. Responds to questions. SKIN: Warm and dry. HEAD: Atraumatic. Normocephalic. EYES: Pupils equal, round and reactive to light. No scleral icterus. No injection or drainage. ENT: No nasal bleeding or discharge. Mucous membranes appear dry. NECK: Trachea midline. No JVD. CARDIOVASCULAR: Regular rate and rhythm. No murmur appreciated. RESPIRATORY: No accessory muscle use. Clear to auscultation. Breath sounds equal bilaterally. GASTROINTESTINAL: Abdomen soft, non-tender, nondistended. Hepatic and splenic margins not palpable. MUSCULOSKELETAL: No obvious deformities. No clubbing. No cyanosis. No edema. NEUROLOGICAL: Somnolent. No obvious cranial nerve deficits. Motor grossly within normal limits. Normal speech but minimally verbal, gives few word answers. PSYCHIATRIC: Flat mood and affect; poor insight. Oriented to person and place. Follows commands. Data Data Last Documented VS Vital Signs Date Time Temp Pulse Resp B/P Pulse Ox O2 Delivery O2 Flow Rate FiO2 04/17/17 18:35 100 Room Air 04/17/17 17:45 70 22 04/17/17 17:45 98.3 212/90 Orders Ammonia (04/17/17 18:10) Complete Blood Count With Diff (04/17/17 18:10) Comprehensive Metabolic Panel (04/17/17 18:10) Creatine Kinase (Cpk) (04/17/17 18:10) Troponin I (04/17/17 18:10) Chest, Single Ap (04/17/17 18:10) Blood Glucose (04/17/17 18:10) Ecg Monitoring (04/17/17 18:10) Iv Access Insert/Monitor (04/17/17 18:10) Oximetry (04/17/17 18:10) Sodium Chloride 0.9% Flush (Ns Flush) (04/17/17 18:15) Arterial Blood Gas (Abg) (04/17/17 18:10) Ct Brain W/O Iv Contrast(Rout) (04/17/17 18:14) Hydralazine Inj (Apresoline Inj) (04/17/17 18:30) Labs Laboratory Tests Test 04/17/17 04/17/17 18:15 18:42 White Blood Count 19.3 TH/MM3 Red Blood Count 2.87 MIL/MM3 Hemoglobin 9.8 GM/DL Hematocrit 30.8 % Mean Corpuscular Volume 107.1 FL Mean Corpuscular Hemoglobin 34.2 PG Mean Corpuscular Hemoglobin 31.9 % Concent Red Cell Distribution Width 20.7 % Platelet Count 223 TH/MM3 Mean Platelet Volume 9.3 FL Neutrophils (%) (Auto) 77.1 % Lymphocytes (%) (Auto) 11.4 % Monocytes (%) (Auto) 10.5 % Eosinophils (%) (Auto) 0.6 % Basophils (%) (Auto) 0.4 % Neutrophils # (Auto) 14.9 TH/MM3 Lymphocytes # (Auto) 2.2 TH/MM3 Monocytes # (Auto) 2.0 TH/MM3 Eosinophils # (Auto) 0.1 TH/MM3 Basophils # (Auto) 0.1 TH/MM3 CBC Comment AUTO DIFF Differential Total Cells 100 Counted Neutrophils % (Manual) 71 % Band Neutrophils % 10 % Lymphocytes % 11 % Monocytes % 4 % Neutrophils # (Manual) 16.4 TH/MM3 Metamyelocytes 1 % Myelocytes 3 % Nucleated Red Blood Cells 2 /100 WBC Differential Comment FINAL DIFF MANUAL Platelet Estimate NORMAL Platelet Morphology Comment NORMAL Stomatocytes 1+ Sodium Level 138 MEQ/L Potassium Level 4.0 MEQ/L Chloride Level 106 MEQ/L Carbon Dioxide Level 23.5 MEQ/L Anion Gap 9 MEQ/L Blood Urea Nitrogen 39 MG/DL Creatinine 3.54 MG/DL Estimat Glomerular Filtration 20 ML/MIN Rate Random Glucose 148 MG/DL Calcium Level 8.5 MG/DL Aspartate Amino Transf 18 U/L (AST/SGOT) Alanine Aminotransferase 13 U/L (ALT/SGPT) Ammonia 24 MCMOL/L Albumin 3.0 GM/DL Blood Gas Puncture Site RT RADIAL Blood Gas Patient Temperature 98.6 Blood Gas HCO3 21 mmol/L Blood Gas Base Excess -2.0 mmol/L Blood Gas Oxygen Saturation 94 % Arterial Blood pH 7.52 Arterial Blood Partial 26 mmHg Pressure CO2 Arterial Blood Partial 76 mmHG Pressure O2 Arterial Blood Oxygen Content 13.8 Vol % Arterial Blood 1.9 % Carboxyhemoglobin Arterial Blood Methemoglobin 0.7 % Blood Gas Hemoglobin 10.4 G/DL Oxygen Delivery Device ROOM AIR Blood Gas Inspired Oxygen 21 % MDM Medical Decision Making Medical Screen Exam Complete: Yes Emergency Medical Condition: Yes Differential Diagnosis Over dialysis versus metabolic drainage been versus anemia versus sepsis Narrative Course Patient presents via EMS after a syncopal episode while receiving dialysis. He is a poor historian and does not recall any of today's events. He only gives a few words per question. Reports a fall this week and admits to hitting his head. At this time it is uncertain how accurate this is. CT scan is pending. The patient noted to have leukocytosis. Chest x-ray shows streaking at the left base. Concerned this may be pneumonia. His cardiac enzymes are also pending. The patient was signed out to Dr. Michelle Adorno, physician replacing this physician at change of shift. Disposition will be per her. The patient will definitely need to be admitted. His blood pressure was also noted to be elevated and he was given 20 mg of hydralazine. Diagnosis Primary Impression: Altered mental status Additional Impressions: ESRD (end stage renal disease) DM (diabetes mellitus) Anemia Leukocytosis Syncope Beto Fierro MD Apr 17, 2017 18:08
[2017-04-17] MEDS ORDERED: SODIUM CHLORIDE 0.9% FLUSH 5 ML FLUSH IV FLUSH PRN (18:15)
[2017-04-17] MEDS ORDERED: hydrALAZINE HCL 20 MG/ML VIAL IV PUSH ONE (18:30)
[2017-04-17 18:36] LABS: AUTOMATED NEUTROPHIL # 14.9 TH/MM3 (1.8-7.7); BASOPHIL # 0.1 TH/MM3 (0-0.2); BASOPHIL % 0.4 % (0.0-2.0); EOSINOPHIL # 0.1 TH/MM3 (0-0.4); EOSINOPHIL % 0.6 % (0.0-4.0); HEMATOCRIT 30.8 % (39.0-51.0); LYMPH % 11.4 % (9.0-44.0); LYMPHOCYTE # 2.2 TH/MM3 (1.0-4.8); MEAN CELL VOLUME 107.1 FL (80.0-100.0); MEAN CORPUSCULAR HEMOGLOBIN 34.2 PG (27.0-34.0); MEAN CORPUSCULAR HGB CONC 31.9 % (32.0-36.0); MONO % 10.5 % (0.0-8.0); NEUT % 77.1 % (16.0-70.0); PLATELET COUNT 223 TH/MM3 (150-450); RED BLOOD COUNT 2.87 MIL/MM3 (4.50-5.90); RED CELL DISTRIBUTION WIDTH 20.7 % (11.6-17.2); WHITE BLOOD COUNT 19.3 TH/MM3 (4.0-11.0)
[2017-04-17 18:40] LABS: HEMO FLAGS AUTO DIFF
[2017-04-17 18:45] LABS: BLOOD GAS CARBOXYHEMOGLOBIN 1.9 % (0-4); BLOOD GAS HCO3 21 mmol/L (22-26); BLOOD GAS METHEMOGLOBIN 0.7 % (0-2); BLOOD GAS O2 HGB SATURATION 94 % (90-100); BLOOD GAS OXYGEN CONTENT 13.8 Vol % (12.0-20.0); BLOOD GAS PCO2 26 mmHg (38-42); BLOOD GAS PO2 76 mmHG (61-120); BLOOD GAS TOTAL HGB 10.4 G/DL (12.0-16.0); TEMP CORR TO 98.6
--- NOTE | 2017-04-17 18:45 | RADRPT ---
EXAM DATE/TIME: 04/17/2017 18:11 [facility] COMPARISON: CHEST SINGLE AP, February 26, 2017, 13:13. INDICATIONS : Cough. MEDICAL HISTORY : Renal insufficiency. Cardiovascular disease. Hypertension. Diabetes mellitus type 1.. SURGICAL HISTORY : Dialysis catheter. ENCOUNTER: Initial ACUITY: 1 day PAIN SCORE: Non-responsive. LOCATION: Bilateral chest FINDINGS: Dialysis catheter is in good position. The right lung is clear. Minimal parenchymal changes are pre sent in the left base. The heart and pulmonary vascularity are normal. CONCLUSION: Minimal parenchymal changes left base. Dudley Caceres MD FACR on April 17, 2017 at 18:43 Board Certified Radiologist. This report was verified electronically.
[2017-04-17 18:46] LABS: CRITICAL VALUE YES; DRAW SITE RT RADIAL; FIO2 21 %; NUMBER OF ARTERIAL PUNCTURES 2; OXYGEN DEVICE ROOM AIR; STAT YES; ULNAR PULSE Y
[2017-04-17 18:55] LABS: ANION GAP 9 MEQ/L (5-15); AST (GOT) 18 U/L (15-37); BICARBONATE 23.5 MEQ/L (21.0-32.0); BLOOD UREA NITROGEN 39 MG/DL (7-18); CHLORIDE 106 MEQ/L (98-107); GLOMERULAR FILTRATION RATE 20 ML/MIN (>89); SODIUM (NA) 138 MEQ/L (136-145)
[2017-04-17 18:56] LABS: ALT (GPT) 13 U/L (12-78)
[2017-04-17 19:00] LABS: ALKALINE PHOSPHATASE 82 U/L (45-117); TOTAL BILIRUBIN ADULT 0.6 MG/DL (0.2-1.0)
[2017-04-17 19:02] LABS: BANDS 10 % (0-6); CORRECTED NUCLEATED RBC 2 /100 WBC (0-0); METAMYELOCYTES 1 % (0-1); MYELOCYTES 3 % (0-0); NEUTROPHIL # MANUAL DIFF 16.4 TH/MM3 (1.8-7.7); POLYS (SEG NEUTROPHILS) 71 % (16-70); WBC DIFF SAMPLE 100
[2017-04-17 19:04] LABS: PLATELET ESTIMATE SMEAR NORMAL (NORMAL); PLATELET MORPHOLOGY NORMAL (NORMAL); SCAN/DIFF FINAL DIFF MANUAL; STOMATOCYTES 1+ (NORMAL)
[2017-04-17] MEDS ORDERED: MIRA3350 PO (19:04)
[2017-04-17] MEDS ORDERED: IPRASOL NEB (19:04)
--- NOTE | 2017-04-17 19:31 | RADRPT ---
EXAM DATE/TIME: 04/17/2017 18:58 [facility] COMPARISON: CT BRAIN W/O CONTRAST, February 03, 2017, 13:05. INDICATIONS : Altered mental status, syncope episode at dialysis. RADIATION DOSE: 42.34 CTDIvol (mGy) MEDICAL HISTORY : Cerebrovascular disease. Hypertension. Diabetes mellitus type 1.dialysis SURGICAL HISTORY : None. ENCOUNTER: Initial ACUITY: 1 day PAIN SCALE: 0/10 LOCATION: cranial TECHNIQUE: Multiple contiguous axial images were obtained of the head. Using automated exposure control and adj ustment of the mA and/or kV according to patient size, radiation dose was kept as low as reasonably a chievable to obtain optimal diagnostic quality images. DICOM format image data is available electro nically for review and comparison. FINDINGS: There is marked central and cortical atrophy with dilatation of ventricular and sulcal spaces. There is no parenchymal hemorrhage, acute infarction or mass lesion identified. There are no extra-axial fluid collections appreciated. The posterior fossa is unremarkable with midline fourth ventricle. T he portion of the orbits and paranasal sinuses visualized are unremarkable. CONCLUSION: Atrophy otherwise negative. Dudley Caceres MD FACR on April 17, 2017 at 19:29 Board Certified Radiologist. This report was verified electronically.
[2017-04-17 19:40] LABS: CREATINE KINASE 32 U/L (39-308)
[2017-04-17] MEDS ORDERED: CEFEPIME INJ 1,000 MG in SODIUM CHLORIDE 0.9% INJ 100 ML IV ONE (20:00)
[2017-04-17] MEDS ORDERED: LEVOFLOXACIN 750 MG PREMIX INJ 150 ML IV ONE (20:00)
[2017-04-17] MEDS ORDERED: LOSARTAN 50 MG TAB PO ONE (20:30)
--- NOTE | 2017-04-17 20:50 | PD ---
Physical Exam Narrative Patient signed out to me by Dr. Fierro to follow-up CAT scan and disposition. Please see his doctor mentation for complete details. Briefly, patient is an 86-year-old male that had a syncopal episode at dialysis. Patient is demented and cannot relate any history. Data Data Last Documented VS Vital Signs Date Time Temp Pulse Resp B/P Pulse Ox O2 Delivery O2 Flow Rate FiO2 04/17/17 20:00 72 18 201/84 98 Room Air 04/17/17 17:45 98.3 Orders Ammonia (04/17/17 18:10) Complete Blood Count With Diff (04/17/17 18:10) Comprehensive Metabolic Panel (04/17/17 18:10) Creatine Kinase (Cpk) (04/17/17 18:10) Troponin I (04/17/17 18:10) Chest, Single Ap (04/17/17 18:10) Blood Glucose (04/17/17 18:10) Ecg Monitoring (04/17/17 18:10) Iv Access Insert/Monitor (04/17/17 18:10) Oximetry (04/17/17 18:10) Sodium Chloride 0.9% Flush (Ns Flush) (04/17/17 18:15) Arterial Blood Gas (Abg) (04/17/17 18:10) Ct Brain W/O Iv Contrast(Rout) (04/17/17 18:14) Hydralazine Inj (Apresoline Inj) (04/17/17 18:30) Cefepime Inj (Maxipime Inj) (04/17/17 20:00) Levofloxacin 750 Mg Premix Inj (Levaquin (04/17/17 20:00) Losartan (Cozaar) (04/17/17 20:30) Admit Order (Ed Use Only) (04/17/17 ) Labs Laboratory Tests Test 04/17/17 04/17/17 18:15 18:42 White Blood Count 19.3 TH/MM3 Red Blood Count 2.87 MIL/MM3 Hemoglobin 9.8 GM/DL Hematocrit 30.8 % Mean Corpuscular Volume 107.1 FL Mean Corpuscular Hemoglobin 34.2 PG Mean Corpuscular Hemoglobin 31.9 % Concent Red Cell Distribution Width 20.7 % Platelet Count 223 TH/MM3 Mean Platelet Volume 9.3 FL Neutrophils (%) (Auto) 77.1 % Lymphocytes (%) (Auto) 11.4 % Monocytes (%) (Auto) 10.5 % Eosinophils (%) (Auto) 0.6 % Basophils (%) (Auto) 0.4 % Neutrophils # (Auto) 14.9 TH/MM3 Lymphocytes # (Auto) 2.2 TH/MM3 Monocytes # (Auto) 2.0 TH/MM3 Eosinophils # (Auto) 0.1 TH/MM3 Basophils # (Auto) 0.1 TH/MM3 CBC Comment AUTO DIFF Differential Total Cells 100 Counted Neutrophils % (Manual) 71 % Band Neutrophils % 10 % Lymphocytes % 11 % Monocytes % 4 % Neutrophils # (Manual) 16.4 TH/MM3 Metamyelocytes 1 % Myelocytes 3 % Nucleated Red Blood Cells 2 /100 WBC Differential Comment FINAL DIFF MANUAL Platelet Estimate NORMAL Platelet Morphology Comment NORMAL Stomatocytes 1+ Sodium Level 138 MEQ/L Potassium Level 4.0 MEQ/L Chloride Level 106 MEQ/L Carbon Dioxide Level 23.5 MEQ/L Anion Gap 9 MEQ/L Blood Urea Nitrogen 39 MG/DL Creatinine 3.54 MG/DL Estimat Glomerular Filtration 20 ML/MIN Rate Random Glucose 148 MG/DL Calcium Level 8.5 MG/DL Total Bilirubin 0.6 MG/DL Aspartate Amino Transf 18 U/L (AST/SGOT) Alanine Aminotransferase 13 U/L (ALT/SGPT) Alkaline Phosphatase 82 U/L Ammonia 24 MCMOL/L Total Creatine Kinase 32 U/L Troponin I 0.07 NG/ML Total Protein 7.0 GM/DL Albumin 3.0 GM/DL Blood Gas Puncture Site RT RADIAL Blood Gas Patient Temperature 98.6 Blood Gas HCO3 21 mmol/L Blood Gas Base Excess -2.0 mmol/L Blood Gas Oxygen Saturation 94 % Arterial Blood pH 7.52 Arterial Blood Partial 26 mmHg Pressure CO2 Arterial Blood Partial 76 mmHG Pressure O2 Arterial Blood Oxygen Content 13.8 Vol % Arterial Blood 1.9 % Carboxyhemoglobin Arterial Blood Methemoglobin 0.7 % Blood Gas Hemoglobin 10.4 G/DL Oxygen Delivery Device ROOM AIR Blood Gas Inspired Oxygen 21 % [facility] Supervised Visit with ANA: No Narrative Course Chest x-ray is concerning for possible pneumonia. He is given a dose of antibiotics. Labs showed elevated white blood cell count. CT head shows no acute abnormalities. Patient admitted for further management of pneumonia and syncope. Diagnosis Primary Impression: Altered mental status Qualified Code: R41.0 - Disorientation Additional Impressions: DM (diabetes mellitus) Qualified Code: E11.9 - Type 2 diabetes mellitus without complication, without long-term current use of insulin Leukocytosis Qualified Code: D72.829 - Leukocytosis, unspecified type Syncope Qualified Code: R55 - Syncope, unspecified syncope type ESRD (end stage renal disease) Admitting Information Admitting Physician Requests: it Michelle Adorno MD Apr 17, 2017 20:50
[2017-04-17] MEDS ORDERED: SODIUM CHLORIDE 0.9% FLUSH 10 ML FLUSH IV FLUSH PRN ×2 (21:15→22:45)
[2017-04-17] MEDS ORDERED: LACTULOSE SYRUP 20 GM/30 ML CUP PO PRN (22:45)
[2017-04-17] MEDS ORDERED: BISACODYL 10 MG SUPP RECTAL PRN (22:45)
[2017-04-17] MEDS ORDERED: NALOXONE HCL 0.4 MG/ML AMP IV PRN (22:45)
[2017-04-17] MEDS ORDERED: MAGNESIUM HYDROXIDE SUSP 30 ML CUP PO PRN (22:45)
[2017-04-17] MEDS ORDERED: ACETAMINOPHEN 325 MG TAB PO PRN (22:45)
[2017-04-17] MEDS ORDERED: SENNOSIDES 8.6 MG TAB PO PRN (22:45)
--- NOTE | 2017-04-17 23:08 | HHI.HP ---
HPI Service [facility] Ed Service Dr. Lira, attending Primary Care Physician Lexa Ruiz MD Admission Diagnosis Syncope, pneumonia Diagnoses: International Travel<30 Days: No Contact w/Intl Traveler<30days: No Known Affected Area: No History of Present Illness Patient is a Portuguese-speaking 86 year old male with a history significant for ESRD on HD, DM on insulin, and HTN who presents to the ED from dialysis center after syncopal episode. He is a patient of Dr. Ruiz in the [facility]. Patient is a poor historian and sign language interpreter [employer] [id number] as well as [employer] [id number] were used during history and physical exam. His mold closer helper Lamar Haskins is also at bedside. History obtained from the patient is that he remembers eating breakfast and then remembers being in the hospital thereafter. According to EMS and ED reports , patient was noted to have a syncopal episode while at dialysis at [facility]. The patient notes that he fell Thursday but does not endorse that he felt today. He does state that he vomited once but does not have nausea today. He denies chest pain, shortness of breath, fever. He states he has had a cough for a month, nonproductive. I was unable to obtain other history at this time. Review of Systems ROS Limitations: Uncooperative, Language Barrier Constitutional: DENIES: Fever Eyes: DENIES: Blurred vision Respiratory: COMPLAINS OF: Cough (nonproductive), DENIES: Wheezing, Hemoptysis , Sputum production, Shortness of breath Cardiovascular: COMPLAINS OF: Syncope (at dialysis), DENIES: Chest pain, Lower Extremity Edema Gastrointestinal: DENIES: Abdominal pain, Constipation, Diarrhea, Nausea, Vomiting Genitourinary: DENIES: Urgency, Dysuria Musculoskeletal: DENIES: Neck pain Neurologic: COMPLAINS OF: Headache (since hitting his head on Thursday) Past Family Social History Past Medical History Hypertension Hyperlipidemia Diabetes type 2 ESRD on hemodialysis History of LE DVT Past Surgical History Peritoneal dialysis catheter placement Reported Medications Reported Meds & Active Scripts Active Sertraline (Sertraline HCl) 25 Mg Tab 25 Mg PO DAILY Renvela (Sevelamer Carbonate) 800 Mg Tab 1,600 Mg PO TIDAC Carvedilol 25 Mg Tab 25 Mg PO BID Reported Duoneb (Ipratropium-Albuterol Neb) 0.5-2.5 Mg/3 Ml Neb 3 Ml NEB Q6HR Miralax Powder (Polyethylene Glycol 3350 Powder) 17 Gm Powd 17 Gm PO DAILY Mix and dissolve one measuring capful (17 grams) in 4-8oz water or juice. Megace Liq (Megestrol Acetate) 40 Mg/Ml Susp 200 Mg PO DAILY Eliquis (Apixaban) 2.5 Mg Tab 2.5 Mg PO BID Simvastatin 20 Mg Tab 20 Mg PO HS Losartan (Losartan Potassium) 50 Mg Tab 50 Mg PO HS Novolog Mix 70-30 FlexPen Inj (Insulin Aspart Protam-Asp 70-30 Inj) 300 Unit/3 Ml Pen 5-10 Units SQ BID Calcitriol 0.25 Mcg Cap 0.25 Mcg PO MOWEFR Take 1 tablet (0.25mcg) on Thursday,Thursday and Thursday Allergies: Coded Allergies: No Known Allergies (Unverified , 02/26/17) Active Ordered Medications Inpatient Medications Acetaminophen (Tylenol) 650 mg Q4H PRN PO TEMP > 100.4; Start 04/17/17 at 22:45 Bisacodyl (Dulcolax Supp) 10 mg DAILY PRN RECTAL SEVERE CONSITIPATION; Start at 22:45 Carvedilol (Coreg) 25 mg BID PO ; Start 04/17/17 at 23:00 Cefepime HCl 1000 mg/Sodium Chloride 100 ml @ 200 mls/hr ONCE ONCE IV Last administered on 04/17/17 20:24; Start 04/17/17 at 20:00; Stop 04/17/17 at 20:29; Status DC Clonidine (Catapres) 0.1 mg Q6H PRN PO SBP> OR = 180, DBP> OR = 100; Start 04/17 at 21:15 Heparin Sodium (Porcine) (Heparin Inj) 5,000 units Q12H SQ ; Start 04/17/17 at 23 :00 Hydralazine HCl 20 mg 20 mg ONCE ONCE IV PUSH Last administered on 04/17/17 18 :28; Start 04/17/17 at 18:30; Stop 04/17/17 at 18:31; Status DC Insulin Aspart (NovoLOG SUPPLEMENTAL SCALE) 1 ACHS SLIDING SCALE SQ ; Start 04/18/17 at 07:00 IV Flush (NS Flush) 2 ml UNSCH PRN IV FLUSH FLUSH AFTER USING IV ACCESS; Start 04/17/17 at 18:15; Stop 04/17/17 at 21:16; Status DC Lactulose (Lactulose Liq) 30 ml DAILY PRN PO SEVERE CONSITIPATION; Start at 22:45 Levofloxacin/ Dextrose (Levaquin 750 Mg Premix Inj) 150 ml @ 100 mls/hr ONCE ONCE IV Last administered on 04/17/17 20:48; Start 04/17/17 at 20:00; Stop at 21:29; Status DC Losartan Potassium (Cozaar) 50 mg ONCE ONCE PO Last administered on 04/17/17 20:33; Start 04/17/17 at 20:30; Stop 04/17/17 at 20:31; Status DC Magnesium Hydroxide (Milk Of Magnesia Liq) 30 ml Q12H PRN PO MILD - MODERATE CONSTIPATION; Start 04/17/17 at 22:45 Naloxone HCl (Narcan Inj) 0.4 mg UNSCH PRN IV SEE LABEL COMMENTS; Start at 22:45 Senna/Docusate Sodium ([place]-Colace) 1 tab BID PO ; Start 04/18/17 at 09:00 Sennosides (Senokot) 17.2 mg Q12H PRN PO MODERATE - SEVERE CONSTIPATION; Start 04/17/17 at 22:45 Sodium Chloride (NS Flush) 2 ml BID IV FLUSH ; Start 04/18/17 at 09:00 Family History Per EMR: Father of old age, mother of cancer. Social History The patient today denies tobacco, alcohol, drug use. EMR records confirm this history. Physical Exam Vital Signs Vital Signs Date Time Temp Pulse Resp B/P Pulse Ox O2 Delivery O2 Flow Rate FiO2 04/17/17 21:12 88 18 183/77 100 Room Air 04/17/17 20:00 72 18 201/84 98 Room Air 04/17/17 18:35 100 Room Air 04/17/17 17:45 70 22 95 04/17/17 17:45 98.3 72 22 212/90 96 04/17/17 17:33 98.3 73 29 191/83 96 Physical Exam GENERAL: Patient is a well nourished elderly male lying in bed. He appears to be in no apparent distress. Marine Services Technician is at bedside. SKIN: Warm and dry. No rashes or bruises noted. HEAD: Atraumatic. Normocephalic. He has no tenderness there. EYES: PERRL. No scleral icterus. No injection or drainage. ENT: No nasal bleeding or discharge. Mucous membranes pink and moist. NECK: Trachea midline. No JVD. CARDIOVASCULAR: Regular rate and rhythm. No murmurs, gallops, or rubs. CHEST: There is a dialysis port placed in the right upper chest. There is no evidence of infection. RESPIRATORY: Auscultated were the anterior lung patel given patient refused or was unable to sit up. These were clear to auscultation without crackles. Respiratory effort seems to be unlabored. GASTROINTESTINAL: Abdomen soft, non-tender, nondistended. Hepatic and splenic margins not palpable. Bowel sounds are normal in all 4 quadrants. MUSCULOSKELETAL: Extremities without clubbing, cyanosis, or edema. No obvious deformities. No calf tenderness. NEUROLOGICAL: Awake and alert. No obvious cranial nerve deficits. Motor grossly within normal limits. Speech appears to be normal, Portuguese-speaking Laboratory Laboratory Tests Test 04/17/17 04/17/17 18:15 18:42 White Blood Count 19.3 Red Blood Count 2.87 Hemoglobin 9.8 Hematocrit 30.8 Mean Corpuscular Volume 107.1 Mean Corpuscular Hemoglobin 34.2 Mean Corpuscular Hemoglobin 31.9 Concent Red Cell Distribution Width 20.7 Platelet Count 223 Mean Platelet Volume 9.3 Neutrophils (%) (Auto) 77.1 Lymphocytes (%) (Auto) 11.4 Monocytes (%) (Auto) 10.5 Eosinophils (%) (Auto) 0.6 Basophils (%) (Auto) 0.4 Neutrophils # (Auto) 14.9 Lymphocytes # (Auto) 2.2 Monocytes # (Auto) 2.0 Eosinophils # (Auto) 0.1 Basophils # (Auto) 0.1 CBC Comment AUTO DIFF Differential Total Cells 100 Counted Neutrophils % (Manual) 71 Band Neutrophils % 10 Lymphocytes % 11 Monocytes % 4 Neutrophils # (Manual) 16.4 Metamyelocytes 1 Myelocytes 3 Nucleated Red Blood Cells 2 Differential Comment FINAL DIFF MANUAL Platelet Estimate NORMAL Platelet Morphology Comment NORMAL Stomatocytes 1+ Sodium Level 138 Potassium Level 4.0 Chloride Level 106 Carbon Dioxide Level 23.5 Anion Gap 9 Blood Urea Nitrogen 39 Creatinine 3.54 Estimat Glomerular Filtration 20 Rate Random Glucose 148 Calcium Level 8.5 Total Bilirubin 0.6 Aspartate Amino Transf 18 (AST/SGOT) Alanine Aminotransferase 13 (ALT/SGPT) Alkaline Phosphatase 82 Ammonia 24 Total Creatine Kinase 32 Troponin I 0.07 Total Protein 7.0 Albumin 3.0 Blood Gas Puncture Site RT RADIAL Blood Gas Patient Temperature 98.6 Blood Gas HCO3 21 Blood Gas Base Excess -2.0 Blood Gas Oxygen Saturation 94 Arterial Blood pH 7.52 Arterial Blood Partial 26 Pressure CO2 Arterial Blood Partial 76 Pressure O2 Arterial Blood Oxygen Content 13.8 Arterial Blood 1.9 Carboxyhemoglobin Arterial Blood Methemoglobin 0.7 Blood Gas Hemoglobin 10.4 Oxygen Delivery Device ROOM AIR Blood Gas Inspired Oxygen 21 Result Diagram: 04/17/17181404/17/171814 Imaging Last Impressions Head CT 04/17/171813 Signed Impressions: Service Date/Time: Monday, April 17, 2017 18:58 - CONCLUSION: Atrophy otherwise negative. Dudley Caceres MD FACR Chest X-Ray 04/17/171809 Signed Impressions: Service Date/Time: Monday, April 17, 2017 18:11 - CONCLUSION: Minimal parenchymal changes left base. Dudley Caceres MD FACR Course ED course is significant for ABG showing mild respiratory alkalosis. Vital signs were notable for hypertension, and patient is status post 20 mg hydralazine and home dose of losartan at 50 mg. Initial workup including basic labs, CXR, and antibiotics for possible pneumonia were ordered. Assessment and Plan Assessment and Plan 86-year-old male, patient of Dr. Ruiz, who presents from dialysis center after syncopal episode. Initial head CT negative. CXR on admission showing mild parenchymal changes on the left base suggestive of possible early pneumonia. Code Status Patient is full code at this time as he refuses to the question Discussed Condition With Dr. Donald Holt, PGY-1 Problem List: (1) Syncope Status: Acute Plan: Patient presents after syncopal episode from dialysis. It does not appear he has had previous episodes of syncope based on EMR. Differential diagnosis includes cardiogenic causes such as arrhythmia, stenotic valve, ischemic event. Differential diagnosis also includes orthostatic hypertension and vasovagal syncope. Plan: * Trend cardiac enzymes - initial enzyme 0.07, elevated but previous enzyme was 0.09 at last hospital stay. This can be explained by chronic renal disease. We'll monitor. * Trend EKG - initial EKG without evidence of ischemic event. Normal sinus rhythm with rate 70, left axis deviation is noted. No Q waves, T-wave inversions , ST depressions or elevations. QT is within normal limits at 399. * Obtain ultrasound carotids * Obtain transthoracic echo * Obtain orthostatic vital signs * Monitor on telemetry * Patient is to be out of bed with assistance only. Fall precautions are ordered. PT is ordered as well. * Order TSH * Consider EEG, MRI tomorrow if other studies are unremarkable Hospital course: On review of EMR, patient was in the hospital from February 26 to March 07, 2017 for weakness and fatigue. At that time he was receiving peritoneal dialysis and has switched since hemodialysis Thursday. During this hospital stay the decision was made to discontinue anticoagulation due to bleeding risk outweighing benefit of provoked blood clot he had many years ago. At that time he was discharged in stable condition to begin outpatient dialysis, which she has been doing without difficulty up to this point. (2) Pneumonia Status: Acute Plan: Patient with CXR findings suggestive of LLL pneumonia. On admission, he is on room air and does not appear to be in respiratory distress. ABG showing mild respiratory alkalosis. Cough per report, non-productive. Given ESRD, treating for HCAP Plan: Cefepime and Levaquin x 1 in ED Will continue this regimen for now Monitor respiratory status Give oxygen by NC if needed for goal sat >92% Incentive spirometry (3) ESRD (end stage renal disease) Status: Acute Plan: ESRD on HD MWF Plan: Consult nephrology for routine inpatient HD if patient stays until Thursday Will monitor BMP (4) Weakness generalized Status: Acute Plan: Patient appears to have chronic weakness as evidenced by last hospitalization notes. No focal weakness noted on admission. Per outpatient records, PT was ordered by Dr. Ruiz but it is unclear if this was been set up. Plan: PT consulted while inpatient to evaluate Case mgmt consulted if rehab is indicated Fall precautions (5) History of DVT (deep vein thrombosis) Status: Acute Plan: Per records, patient has hx of provoked DVT but at last hospitalization in February 2017, decision was made to stop anticoagulation due to risk of bleeding outweighing benefit of anticoagulation. Medication list still lists Eliquis. Patient is poor historian. Plan: -Will hold Eliquis at this time -Heparin ppx with 5000U q12hr -Discuss medications with daughter tomorrow (she is coming from [place]) (6) Hypertension Status: Chronic Plan: Chronic HTN wiht HTN urgency Had HTN urgency during last hospitalization Appears to be on Losartan 50mg hs and and carvedilol 25mg PO BID at home Per last clinic visit note in 12/2016, amlodipine 5mg daily was discontinued Of note, medications not fully reviewed on clinic visit in December Plan: Will continue Losartan 50mg hs and carvedilol 25mg PO BID Clonidine PRN BP >180/110 Monitor VS (7) DM (diabetes mellitus) Status: Chronic Plan: Apparent DM per EMR. Plan: Will give low dose supplemental scale Novolog with Accucheks Monitor for hypoglycemia Adjust diet PRN (8) Fluid, Electrolytes, Nutrition, Prophylaxis Status: Acute Plan: Fluids: tolerating PO Electrolytes: monitor and replete as needed Nutrition: renal diet DVT Prophylaxis: Early ambulation. Heparin 5000U subQ q12hr GI Prophylaxis: not indicated Physician Certification 2 Midnight Certification Type: Admission for Inpatient Services Order for Inpatient Services The services are ordered in accordance with Medicare regulations or non- Medicare payer requirements, as applicable. In the case of services not specified as inpatient-only, they are appropriately provided as inpatient services in accordance with the 2-midnight benchmark. Estimated LOS (days): 3 days is the estimated time the patient will need to remain in the hospital, assuming treatment plan goals are met and no additional complications. Post-Hospital Plan: Home Problem Qualifiers (1) Pneumonia: Ying Navarro MD R1 Apr 17, 2017 23:08
[2017-04-17] MEDS: CARVEDILOL 12.5 MG TAB PO SCH (23:57)
[2017-04-17] MEDS: HEPARIN SODIUM - SQ 10,000 UNITS/ML VIAL SQ SCH (23:57)
[2017-04-18] VITALS (11 sets, daily range): BP systolic 140–196; BP diastolic 63–96; PULSE 43–85; RESP 18–20; TEMP 97.8–99.2; O2SAT 94–98
[2017-04-18 02:03] LABS: MAGNESIUM 1.7 MG/DL (1.5-2.5)
[2017-04-18] MEDS: INSULIN ASPART SUPPLEMENTAL SCALE SQ SCH ×4 (06:53→21:15)
[2017-04-18 07:01] LABS: BASOPHIL # 0.1 TH/MM3 (0-0.2); BASOPHIL % 0.7 % (0.0-2.0); EOSINOPHIL # 0.1 TH/MM3 (0-0.4); EOSINOPHIL % 0.4 % (0.0-4.0); HEMATOCRIT 29.3 % (39.0-51.0); LYMPH % 14.3 % (9.0-44.0); LYMPHOCYTE # 2.3 TH/MM3 (1.0-4.8); MEAN CELL VOLUME 105.6 FL (80.0-100.0); MEAN CORPUSCULAR HEMOGLOBIN 34.4 PG (27.0-34.0); MEAN CORPUSCULAR HGB CONC 32.5 % (32.0-36.0); NEUT % 75.6 % (16.0-70.0); PLATELET COUNT 214 TH/MM3 (150-450); RED BLOOD COUNT 2.77 MIL/MM3 (4.50-5.90); RED CELL DISTRIBUTION WIDTH 20.1 % (11.6-17.2); WHITE BLOOD COUNT 15.9 TH/MM3 (4.0-11.0)
[2017-04-18 07:06] LABS: HEMO FLAGS AUTO DIFF
[2017-04-18 07:42] LABS: ALKALINE PHOSPHATASE 77 U/L (45-117); ALT (GPT) 14 U/L (12-78); ANION GAP 10 MEQ/L (5-15); AST (GOT) 13 U/L (15-37); BICARBONATE 22.6 MEQ/L (21.0-32.0); BLOOD UREA NITROGEN 61 MG/DL (7-18); CHLORIDE 107 MEQ/L (98-107); GLOMERULAR FILTRATION RATE 15 ML/MIN (>89); POTASSIUM 4.5 MEQ/L (3.5-5.1); SODIUM (NA) 140 MEQ/L (136-145); TOTAL BILIRUBIN ADULT 0.5 MG/DL (0.2-1.0)
[2017-04-18 08:18] LABS: BANDS 4 % (0-6); CORRECTED NUCLEATED RBC 3 /100 WBC (0-0); MYELOCYTES 1 % (0-0); NEUTROPHIL # MANUAL DIFF 12.9 TH/MM3 (1.8-7.7); PLATELET ESTIMATE SMEAR NORMAL (NORMAL); PLATELET MORPHOLOGY NORMAL (NORMAL); POLYS (SEG NEUTROPHILS) 76 % (16-70); SCAN/DIFF FINAL DIFF MANUAL; WBC DIFF SAMPLE 100
[2017-04-18] MEDS ORDERED: SODIUM CHLORIDE 0.9% FLUSH 10 ML FLUSH IV FLUSH SCH (09:00)
--- NOTE | 2017-04-18 09:44 | RADRPT ---
EXAM DATE/TIME: 04/18/2017 08:51 [place] COMPARISON: No previous studies available for comparison. INDICATIONS : Syncope. MEDICAL HISTORY : CVA. Hypertension. Diabetes. End stage renal disease. SURGICAL HISTORY : Eye surgery. Peritoneal dialysis port placement AB. Kidney surgery. ENCOUNTER: Initial ACUITY: 1 day PAIN SCORE: 0/10 LOCATION: Bilateral neck PEAK SYSTOLIC VELOCITIES (cm/sec): ICA/CCA RATIO: Right: 0.9 Left: 0.5 ICA: Right: 92 Left: 89 CCA: Right: 102 Left: 331 ECA: Right: 151 Left: 57 VERTEBRAL: Right: 48 antegrade Left: 70 antegrade Elevated flow velocities and ICA/CCA ratios have been found to correlate with increased degrees of vessel stenosis, calculated as percentage of diameter relative to a normal segment of distal ICA/CCA FINDINGS: RIGHT CAROTID: Moderate plaque identified throughout the common carotid artery. No significant stenosis is visualize d. The waveforms are within normal limits. LEFT CAROTID: Moderate plaque identified in the common carotid artery . No significant stenosis is visualized. Th e waveforms are within normal limits. There is a slightly elevated velocity in the distal common [place] tid artery but no two-dimensional stenosis is noted. VERTEBRAL ARTERIES: Antegrade flow is seen in both vertebral arteries. MISCELLANEOUS: None. CONCLUSION: Moderate atherosclerotic disease bilaterally. No definite elevated ratios are identified Ethan Flores MD on April 18, 2017 at 9:41 Board Certified Radiologist. This report was verified electronically.
--- NOTE | 2017-04-18 09:51 | PD.CONS ---
HPI Service Nephrology Consult Requested By Reason for Consult ESRD Primary Care Physician Lexa Ruiz MD History of Present Illness Mr. Longo is an 86 year old male with history of ESRD for which he is on HD MWF. Until recently he was on PD. Patient became less responsive while on dialysis yesterday at [facility], and was sent to the ER. He is noted to have leukocytosis. His mental status appears to have improved. He has low grade fever. He is Syriac speaking gentleman, poor historian. Review of Systems Constitutional: COMPLAINS OF: Fatigue, Fever Respiratory: DENIES: Cough Cardiovascular: DENIES: Chest pain, Palpitations Gastrointestinal: DENIES: Abdominal pain, Bloody stools Musculoskeletal: DENIES: Joint pain Past Family Social History Allergies: Coded Allergies: No Known Allergies (Unverified , 02/26/17) Past Medical History Hypertension Hyperlipidemia Diabetes type 2 ESRD on hemodialysis History of LE DVT Past Surgical History Past Surgical History Peritoneal dialysis catheter placement HD Access placement. Reported Medications Reported Medications Reported Meds & Active Scripts Active Sertraline (Sertraline HCl) 25 Mg Tab 25 Mg PO DAILY Renvela (Sevelamer Carbonate) 800 Mg Tab 1,600 Mg PO TIDAC Carvedilol 25 Mg Tab 25 Mg PO BID Reported Duoneb (Ipratropium-Albuterol Neb) 0.5-2.5 Mg/3 Ml Neb 3 Ml NEB Q6HR Miralax Powder (Polyethylene Glycol 3350 Powder) 17 Gm Powd 17 Gm PO DAILY Active Ordered Medications Current Medications Medications (Trade) Dose Ordered Sig/Mahi Route Start Time Stop Time Status Last Admin (Catapres) 0.1 mg Q6H PRN PO 04/17/17 21:15 (NS Flush) 2 ml UNSCH PRN IV FLUSH 04/17/17 22:45 (NS Flush) 2 ml BID IV FLUSH 04/18/17 09:00 (Tylenol) 650 mg Q4H PRN PO 04/17/17 22:45 (Narcan Inj) 0.4 mg UNSCH PRN IV 04/17/17 22:45 (Saskia-Colace) 1 tab BID PO 04/18/17 09:00 (Milk Of Magnesia Liq) 30 ml Q12H PRN PO 04/17/17 22:45 (Senokot) 17.2 mg Q12H PRN PO 04/17/17 22:45 (Dulcolax Supp) 10 mg DAILY PRN RECTAL 04/17/17 22:45 (Lactulose Liq) 30 ml DAILY PRN PO 04/17/17 22:45 (Heparin Inj) 5,000 units Q12H SQ 04/17/17 23:00 04/17/17 23:57 Carvedilol 25 mg 25 mg BID PO 04/17/17 23:00 04/17/17 23:57 Cefepime HCl 1000 mg/Sodium Chloride 100 ml @ 200 mls/hr DAILY@20 IV 04/18/17 20:00 (Levaquin 500 Mg Premix Inj) 100 ml @ 100 mls/hr Q48H IV 04/19/17 21:00 Family History reviewed, non contributory Social History no tobacco, no ETOH Physical Exam Vital Signs Vital Signs Date Time Temp Pulse Resp B/P Pulse Ox O2 Delivery O2 Flow Rate FiO2 04/18/17 08:10 99.2 74 20 162/71 94 04/18/17 04:26 98.3 77 18 149/67 96 04/18/17 02:23 78 18 167/73 96 04/18/17 01:02 75 18 154/70 95 Room Air 04/17/17 23:59 80 18 186/85 98 Room Air 04/17/17 23:12 99 21 04/17/17 21:12 88 18 183/77 100 Room Air 04/17/17 20:00 72 18 201/84 98 Room Air 04/17/17 18:35 100 Room Air 04/17/17 17:45 70 22 95 04/17/17 17:45 98.3 72 22 212/90 96 04/17/17 17:33 98.3 73 29 191/83 96 Physical Exam GENERAL: awake, not in distress. SKIN: Warm and dry. HEAD: Normocephalic. EYES: No scleral icterus. No injection or drainage. NECK: Supple, trachea midline. No JVD or lymphadenopathy. CARDIOVASCULAR: Regular rate and rhythm without murmurs, gallops, or rubs. RESPIRATORY: Breath sounds equal bilaterally. No accessory muscle use. GASTROINTESTINAL: Abdomen soft, non-tender, nondistended. MUSCULOSKELETAL: No cyanosis, or edema. BACK: Nontender without obvious deformity. No CVA tenderness. Laboratory Laboratory Tests Test 04/17/17 04/17/17 04/17/17 04/18/17 18:15 18:42 23:50 06:20 White Blood Count 19.3 15.9 Red Blood Count 2.87 2.77 Hemoglobin 9.8 9.5 Hematocrit 30.8 29.3 Mean Corpuscular Volume 107.1 105.6 Mean Corpuscular Hemoglobin 34.2 34.4 Mean Corpuscular Hemoglobin 31.9 32.5 Concent Red Cell Distribution Width 20.7 20.1 Platelet Count 223 214 Mean Platelet Volume 9.3 8.9 Neutrophils (%) (Auto) 77.1 75.6 Lymphocytes (%) (Auto) 11.4 14.3 Monocytes (%) (Auto) 10.5 9.0 Eosinophils (%) (Auto) 0.6 0.4 Basophils (%) (Auto) 0.4 0.7 Neutrophils # (Auto) 14.9 12.0 Lymphocytes # (Auto) 2.2 2.3 Monocytes # (Auto) 2.0 1.4 Eosinophils # (Auto) 0.1 0.1 Basophils # (Auto) 0.1 0.1 CBC Comment AUTO DIFF AUTO DIFF Differential Total Cells 100 100 Counted Neutrophils % (Manual) 71 76 Band Neutrophils % 10 4 Lymphocytes % 11 13 Monocytes % 4 6 Neutrophils # (Manual) 16.4 12.9 Metamyelocytes 1 Myelocytes 3 1 Nucleated Red Blood Cells 2 3 Differential Comment FINAL DIFF FINAL DIFF MANUAL MANUAL Platelet Estimate NORMAL NORMAL Platelet Morphology Comment NORMAL NORMAL Stomatocytes 1+ Sodium Level 138 140 Potassium Level 4.0 4.5 Chloride Level 106 107 Carbon Dioxide Level 23.5 22.6 Anion Gap 9 10 Blood Urea Nitrogen 39 61 Creatinine 3.54 4.65 Estimat Glomerular Filtration 20 15 Rate Random Glucose 148 163 Calcium Level 8.5 8.6 Total Bilirubin 0.6 0.5 Aspartate Amino Transf 18 13 (AST/SGOT) Alanine Aminotransferase 13 14 (ALT/SGPT) Alkaline Phosphatase 82 77 Ammonia 24 Total Creatine Kinase 32 Troponin I 0.07 0.08 0.08 Total Protein 7.0 6.3 Albumin 3.0 2.7 Blood Gas Puncture Site RT RADIAL Blood Gas Patient Temperature 98.6 Blood Gas HCO3 21 Blood Gas Base Excess -2.0 Blood Gas Oxygen Saturation 94 Arterial Blood pH 7.52 Arterial Blood Partial 26 Pressure CO2 Arterial Blood Partial 76 Pressure O2 Arterial Blood Oxygen Content 13.8 Arterial Blood 1.9 Carboxyhemoglobin Arterial Blood Methemoglobin 0.7 Blood Gas Hemoglobin 10.4 Oxygen Delivery Device ROOM AIR Blood Gas Inspired Oxygen 21 Phosphorus Level 2.2 Magnesium Level 1.7 Thyroid Stimulating Hormone 8.950 3rd Gen Result Diagram: 04/18/1761904/18/17 06 Assessment and Plan Problem List: (1) ESRD (end stage renal disease) Plan: Patient was seen and examined in the ER. Electrolytes and volume status acceptable. No indication for dialysis today. Monitor. Avoid Gadolinium. No need for IVF, if he is NPO, place him on D10 at 20 ml/hour. (2) Anemia Plan: Epogen with dialysis. (3) Leukocytosis Plan: Rule out sepsis. He has been given a dose of Levaquin and a dose of Cefepime. For MRSA coverage, I will add Vancomycin. Await cultures. (4) Altered mental status Plan: Appears to have improved. Workup is in progress. (5) DM (diabetes mellitus) Plan: continue insulin coverage as needed. (6) Metabolic bone disease Plan: Phosphorus is low normal. No need for phosphorus binder. (7) Essential (primary) hypertension Plan: continue his home medications. Assessment and Plan Thanks for the consult. I will follow. Problem Qualifiers (1) Leukocytosis: Qualified Code: D72.829 - Leukocytosis, unspecified type (2) Altered mental status: Qualified Code: R41.0 - Disorientation (3) DM (diabetes mellitus): Qualified Code: E11.9 - Type 2 diabetes mellitus without complication, without long-term current use of insulin Edson Billings MD Apr 18, 2017 09:51
[2017-04-18] MEDS ORDERED: VANCOMYCIN INJ 1,000 MG in SODIUM CHLOR 0.9% 250 ML INJ 250 ML IV ONE (10:00)
--- NOTE | 2017-04-18 10:31 | HHI.FPPN ---
Subjective Remarks Patient is a 86 y/o primarily Somali speaking male, who presented to [facility] ED after suffering a syncopal episode while at dialysis. He was noted to have a BP of 210 systolic, some worsening confusion, and sign on chest x-ray concerning for LLL pnuemonia. Today 04/18/17: Patient is not complaining of any pain. He reports that he is somewhat short of breath. He denies chest pain, palpitations, fevers, chills, or abdominal pain. He appears more alert and oriented today per the Daughter Jenniffer who is at the bedside. They report that the patient was recently in [facility] for 1 month and left 2 days prior to this hospital admission. ( Honorio Hernández MD R2) Objective Vitals Vital Signs Date Time Temp Pulse Resp B/P Pulse Ox O2 Delivery O2 Flow Rate FiO2 04/18/17 08:10 99.2 74 20 162/71 94 04/18/17 04:26 98.3 77 18 149/67 96 04/18/17 02:23 78 18 167/73 96 04/18/17 01:02 75 18 154/70 95 Room Air 04/17/17 23:59 80 18 186/85 98 Room Air 04/17/17 23:12 99 21 04/17/17 21:12 88 18 183/77 100 Room Air 04/17/17 20:00 72 18 201/84 98 Room Air 04/17/17 18:35 100 Room Air 04/17/17 17:45 70 22 95 04/17/17 17:45 98.3 72 22 212/90 96 04/17/17 17:33 98.3 73 29 191/83 96 (Honorio Hernández MD R2) Result Diagram: 04/18/17 0620 04/18/17 0620 Imaging Last 72 hours Impressions Carotid Artery Ultrasound 04/18/17 0000 Signed Impressions: Service Date/Time: Tuesday, April 18, 2017 08:51 - CONCLUSION: Moderate atherosclerotic disease bilaterally. No definite elevated ratios are identified Ethan Flores MD Head CT 04/17/171813 Signed Impressions: Service Date/Time: Monday, April 17, 2017 18:58 - CONCLUSION: Atrophy otherwise negative. Dudley Caceres MD FACR Chest X-Ray 04/17/171809 Signed Impressions: Service Date/Time: Monday, April 17, 2017 18:11 - CONCLUSION: Minimal parenchymal changes left base. Dudley Caceres MD FACR Objective Remarks GEN: Solmnolent, AA to name , but not city state or year. HEENT: Symmetric faces, full sensation to face, CN intact RESP: Diffuse wheezing throughout, poor aeration diffusely, crackles in left lower lobe CV: RRR, no pitting edema in pegs, No calf tenderness GI: Soft, ND NT (Honorio Hernández MD R2) A/P Assessment and Plan 86-year-old male, patient of Dr. Ruiz, who presents from dialysis center after syncopal episode. Initial head CT negative. CXR on admission showing mild parenchymal changes on the left base suggestive of possible early pneumonia. ( Honorio Hernández MD R2) Attending Attestation Patient seen and examined. Case reviewed and discussed with the resident team. Agree with plan of care as discussed with me and documented in the resident note. he is doing better now than on admission. He is not the best historian even at baseline. he was not able to explain to a citizen of [place] speaker where he was born and is somewhat muddled in his history as to what exactly happened to bring him in the hospital. He reported through a tin flopper that he is happy at his daughters house, though overall he is more and more deconditioned generally. He states he had some cough at home prior to dialysis but was not dizzy or excessively weak prior to dialysis. He denied fevers. He denied chest pain at any time but reported that he did not fall down but was very nauseated and vomited some food after dialysis. He started to feel very weak and dizzy during dialysis and then developed SOB after dialysis. On presentation to the ED he had a high respiratory rate and high BP. He feels comfortable with his breathing now and is relaxed without oxygen. I still would like to get more history from the people at dialysis as their observations would probably explain a bit better as to what exactly happened as Mr Longo may have some underlying memory problems. It will be open on Thursday. Also will ask palliative care to help define goals better and see if both his daughters can be in better agreement as far as his care goes. There have been issues in the past where the daughter in [place] believed that she could take better care of him vs her sister in [place] where he lives now. He has had a large decline in his health overall with his ESRD and evident memory problems and was doing well at his SNF but it is expensive and he had to leave there. ( Tara Lira MD) Problem List: (1) Syncope Status: Acute Plan: Patient presents after syncopal episode from dialysis. It does not appear he has had previous episodes of syncope based on EMR. Differential diagnosis includes cardiogenic causes such as arrhythmia, stenotic valve, ischemic event. Plan: * Chest pain workup within normal limits: Trop 0.07 --> 0.07 --> 0.08 (baseline) , EKG unchanged * Moderate atherosclerotic disease bilaterally on carotid ultrasound. No definite elevated ratios. * Obtain transthoracic echo; last ECHO was in 01/2017 showed EF 60-65%, PA peak pressure was within normal limits * Obtain orthostatic vital signs * Monitor on telemetry * Patient is to be out of bed with assistance only. Fall precautions are ordered. PT is ordered as well. Hospital course: On review of EMR, patient was in the hospital from February 26, 2017 to March 07, 2017 for weakness and fatigue. At that time he was receiving peritoneal dialysis and has switched since hemodialysis Thursday. During this hospital stay the decision was made to discontinue anticoagulation due to bleeding risk outweighing benefit of provoked blood clot he had many years ago. At that time he was discharged in stable condition to begin outpatient dialysis, which he has been doing without difficulty up to this point. (2) Pneumonia Status: Acute Plan: Patient with CXR findings suggestive of LLL pneumonia. On admission, he is on room air and does not appear to be in respiratory distress. ABG showing mild respiratory alkalosis. Cough per report, non-productive. Given ESRD, treating for HCAP Plan: Cefepime and Levaquin x 1 in ED (04/17 -- Vancomycin started 04/18 -- covering for MRSA. Lactic acid within normal limits. Blood cultures pending. UA pending. Start IV steroids. DuoNeb scheduled every 4 hours. Give oxygen by NC if needed for goal sat >92% Incentive spirometry Given respiratory distress, and not being anticoagulated with history of DVT, would have low suspicion for PE in the future. (3) ESRD (end stage renal disease) Status: Acute Plan: ESRD on HD MWF Plan: Consult nephrology for routine inpatient HD if patient stays until Thursday Will monitor BMP (4) Weakness generalized Status: Acute Plan: Patient appears to have chronic weakness as evidenced by last hospitalization notes. No focal weakness noted on admission. Per outpatient records, PT was ordered by Dr. Ruiz but it is unclear if this was been set up. Plan: PT consulted while inpatient to evaluate Case mgmt consulted if rehab is indicated Fall precautions (5) History of DVT (deep vein thrombosis) Status: Acute Plan: Per records, patient has hx of provoked DVT but at last hospitalization in February 2017, decision was made to stop anticoagulation due to risk of bleeding outweighing benefit of anticoagulation. Medication list still lists Eliquis. Patient is poor historian. Plan: -Will hold Eliquis at this time -Heparin ppx with 5000U q12hr (6) Hypertension Status: Chronic Plan: Chronic HTN with HTN urgency Had HTN urgency during last hospitalization Appears to be on Losartan 50mg hs and and carvedilol 25mg PO BID at home Per last clinic visit note in 12/2016, amlodipine 5mg daily was discontinued Of note, medications not fully reviewed on clinic visit in December Plan: Will continue Losartan 50mg hs and carvedilol 25mg PO BID Clonidine PRN BP >180/110 May benefit from scheduled hydralazine 10 mg by mouth 3 times a day. Monitor VS (7) DM (diabetes mellitus) Status: Chronic Plan: Apparent DM per EMR. Plan: Will give low dose supplemental scale Novolog with Accucheks Monitor for hypoglycemia Adjust diet PRN (8) Fluid, Electrolytes, Nutrition, Prophylaxis Status: Acute Plan: Fluids: tolerating PO Electrolytes: monitor and replete as needed Nutrition: renal diet DVT Prophylaxis: Early ambulation. Heparin 5000U subQ q12hr GI Prophylaxis: not indicated (Honorio Hernández MD R2) Problem Qualifiers (1) Syncope: Qualified Code: R55 - Syncope, unspecified syncope type (2) Pneumonia: (3) DM (diabetes mellitus): Qualified Code: E11.9 - Type 2 diabetes mellitus without complication, without long-term current use of insulin Honorio Hernández MD R2 Apr 18, 2017 10:31 Tara Lira MD Apr 18, 2017 13:38
[2017-04-18] MEDS: RESP: IPRATROPIUM 0.5 MG/2.5 ML NEB NEB SCH ×2 (11:07→15:54)
[2017-04-18] MEDS: methylPREDNISolone SOD SUCC 125 MG/2 ML VIAL IVP SCH ×3 (11:42→22:15)
[2017-04-18] MEDS: CARVEDILOL 12.5 MG TAB PO SCH ×2 (11:43→21:15)
[2017-04-18] MEDS: DOCUSATE SODIUM 50 MG/SENNA 8.6 MG TAB PO SCH ×2 (11:43→21:15)
[2017-04-18] MEDS: HEPARIN SODIUM - SQ 10,000 UNITS/ML VIAL SQ SCH ×2 (11:45→22:15)
[2017-04-18] MEDS: SODIUM CHLORIDE 0.9% FLUSH 10 ML FLUSH IV FLUSH SCH ×2 (11:46→21:16)
--- NOTE | 2017-04-18 16:03 | EKG ---
Date Performed: 04/17/2017 Time Performed: 23:54:35 PTAGE: 86 years EKG: Sinus rhythm WITH SINUS ARRHYTHMIA LEFT ANTERIOR FASCICULAR BLOCK NONSPECIFIC T-WAVE ABNORMALITY ABNORMAL ECG PREVIOUS TRACING : 04/17/2017 17.37 Compared to prior tracing no significant change DOCTOR: Shaun Hamilton Interpretating Date/Time 04/18/2017 16:02:01
--- NOTE | 2017-04-18 16:30 | EKG ---
Date Performed: 04/17/2017 Time Performed: 17:37:15 PTAGE: 86 years EKG: Sinus rhythm WITH OCCASIONAL SUPRAVENTRICULAR PREMATURE COMPLEXES MARKED LEFT AXIS DEVIATION NONSPECIFIC ST & T-W AVE ABNORMALITY ABNORMAL ECG Compared to the PREVIOUS TRACING from 02/27/17, no significant change DOCTOR: Shaun Hamilton Interpretating Date/Time 04/18/2017 16:29:42
[2017-04-18] MEDS: cloNIDine HCL 0.1 MG TAB PO PRN (18:01)
[2017-04-18] MEDS: CEFEPIME INJ 1,000 MG in SODIUM CHLORIDE 0.9% INJ 100 ML IV SCH (21:13)
[2017-04-19] VITALS (11 sets, daily range): BP systolic 160–191; BP diastolic 62–103; PULSE 79–84; RESP 18–20; TEMP 97.4–98.3; O2SAT 95–98
[2017-04-19] MEDS: RESP: IPRATROPIUM 0.5 MG/2.5 ML NEB NEB SCH ×7 (00:04→23:56)
[2017-04-19] MEDS: cloNIDine HCL 0.1 MG TAB PO PRN ×2 (00:35→16:23)
[2017-04-19] MEDS: methylPREDNISolone SOD SUCC 125 MG/2 ML VIAL IVP SCH (05:13)
[2017-04-19] MEDS: INSULIN ASPART SUPPLEMENTAL SCALE SQ SCH ×4 (06:14→21:12)
[2017-04-19 07:38] LABS: AUTOMATED NEUTROPHIL # 15.3 TH/MM3 (1.8-7.7); BASOPHIL # 0.1 TH/MM3 (0-0.2); BASOPHIL % 0.3 % (0.0-2.0); HEMATOCRIT 29.6 % (39.0-51.0); LYMPH % 11.1 % (9.0-44.0); MEAN CELL VOLUME 104.9 FL (80.0-100.0); MEAN CORPUSCULAR HEMOGLOBIN 34.5 PG (27.0-34.0); MEAN CORPUSCULAR HGB CONC 32.9 % (32.0-36.0); MONO % 1.7 % (0.0-8.0); NEUT % 86.9 % (16.0-70.0); PLATELET COUNT 230 TH/MM3 (150-450); RED BLOOD COUNT 2.82 MIL/MM3 (4.50-5.90); RED CELL DISTRIBUTION WIDTH 20.3 % (11.6-17.2); WHITE BLOOD COUNT 17.7 TH/MM3 (4.0-11.0)
[2017-04-19 07:43] LABS: HEMO FLAGS AUTO DIFF
[2017-04-19 08:08] LABS: BICARBONATE 20.1 MEQ/L (21.0-32.0); POTASSIUM 5.3 MEQ/L (3.5-5.1)
[2017-04-19] MEDS: CARVEDILOL 12.5 MG TAB PO SCH ×2 (08:45→20:54)
[2017-04-19] MEDS: DOCUSATE SODIUM 50 MG/SENNA 8.6 MG TAB PO SCH ×2 (08:45→20:54)
[2017-04-19] MEDS: SODIUM CHLORIDE 0.9% FLUSH 10 ML FLUSH IV FLUSH SCH ×2 (08:46→21:00)
--- NOTE | 2017-04-19 08:53 | RADRPT ---
EXAM DATE/TIME: 04/19/2017 08:31 [facility] COMPARISON: CHEST SINGLE AP, April 17, 2017, 18:11. INDICATIONS : Evaluate for pneumonia. MEDICAL HISTORY : CVA. Hypertension. Diabetes. End stage renal disease. SURGICAL HISTORY : Peritoneal dialysis port placement AB. Kidney surgery. ENCOUNTER: Initial ACUITY: 1 day PAIN SCORE: Non-responsive. LOCATION: Bilateral chest FINDINGS: A single view of the chest demonstrates the lungs to be symmetrically aerated without evidence of mas s, or effusion. Faint density right midlung zone atelectasis versus infiltrate . There is a right-si ded IJ dual-lumen catheter in good position The cardiomediastinal contours are unremarkable. Osseous structures are intact. CONCLUSION: Stable examination. Dual-lumen catheter in good position. Faint density right midlung zone atelectasi s versus infiltrate. Ethan Flores MD on April 19, 2017 at 8:50 Board Certified Radiologist. This report was verified electronically.
[2017-04-19 09:08] LABS: BANDS 7 % (0-6); MYELOCYTES 5 % (0-0); NEUTROPHIL # MANUAL DIFF 16.5 TH/MM3 (1.8-7.7); POLYS (SEG NEUTROPHILS) 81 % (16-70); WBC DIFF SAMPLE 100
[2017-04-19 09:10] LABS: SCAN/DIFF FINAL DIFF MANUAL
[2017-04-19] MEDS ORDERED: SODIUM CHLOR 0.9% 1000 ML INJ 1,000 ML IV PRN ×3 (09:21)
--- NOTE | 2017-04-19 09:28 | HHI.NPPN ---
Subjective Interval History BP is high. Afebrile. Persistent weakness. Review of Systems General Constitutional: Fatigue Objective Data Data 04/18/17 04/19/17 19:00 07:00 Intake Total 140 ml Output Total 0 ml Balance 140 ml Intake Oral 140 ml Output Urine Total 0 ml Vital Signs Date Time Temp Pulse Resp B/P Pulse Ox O2 Delivery O2 Flow Rate FiO2 04/19/17 08:06 98 21 04/19/17 08:00 98.0 79 20 175/77 95 04/19/17 04:00 97.8 81 18 184/78 96 170/74 160/62 04/19/17 00:06 98 04/19/17 00:00 176/77 191/90 04/19/17 00:00 97.6 81 18 180/78 98 04/18/17 20:15 84 04/18/17 20:00 188/79 04/18/17 20:00 98.3 84 18 194/80 97 04/18/17 18:25 97.8 85 20 181/77 97 04/18/17 15:40 98.5 84 18 196/89 98 04/18/17 12:15 98.6 76 20 174/73 98 04/18/17 11:09 96 04/18/17 10:36 78 167/96 140/65 140/63 -: 04/19/17 0630 04/19/17 0630 Microbiology 04/18/17 Aerobic Blood Culture, Received Pending 04/18/17 Anaerobic Blood Culture, Received Pending 04/18/17 Aerobic Blood Culture, Received Pending 04/18/17 Anaerobic Blood Culture, Received Pending Physical Exam General Appearance: Well Developed, No Acute Distress Eyes Eye Exam: Pupils Equal, Pupils Reactive, Extraocular Movement Intact Throat Throat Exam: Oral Mucosa [place] & Moist Neck Neck Exam: Neck Supple Pulmonary Resp Exam: Clear Bilaterally, No Distress Cardiology CV Exam: Regular, Normal Sinus Rhythm Gastrointestinal/Abdomen GI Exam: Soft, Non-Tender, Bowel Sounds Present Musculoskeletal MS Exam: Joints Intact Integumentary Skin Exam: Intact Extremeties Extremities Exam: No Edema Neurologic Neuro Exam: Moving All Extremities Assessment/Plan Problem List: (1) ESRD (end stage renal disease) Plan: Usually dialyzes MWF. Mild hyperkalemia is noted, will plan on dialyzing tomorrow. Monitor. Avoid Gadolinium. No need for IVF, if he is NPO, place him on D10 at 20 ml/hour. (2) Anemia Plan: Epogen with dialysis. (3) Leukocytosis Plan: Rule out sepsis. Possible pneumonia. Does have CVC. Given Vancomycin. Also is on Levaquin and Cefepime. Has been placed on Solumedrol which can increase WBC count. Consider tapering it off. (4) Altered mental status Plan: Appears to have improved. Workup is in progress. (5) DM (diabetes mellitus) Plan: continue insulin coverage as needed. (6) Metabolic bone disease Plan: Phosphorus is low normal. No need for phosphorus binder. (7) Essential (primary) hypertension Plan: BP is high, I have increased Amlodipine. Also started Losartan(will not affect serum potassium level in dialysis patients). Problem Qualifiers (1) Leukocytosis: Qualified Code: D72.829 - Leukocytosis, unspecified type (2) Altered mental status: Qualified Code: R41.0 - Disorientation (3) DM (diabetes mellitus): Qualified Code: E11.9 - Type 2 diabetes mellitus without complication, without long-term current use of insulin Edson Billings MD Apr 19, 2017 09:28
[2017-04-19] MEDS ORDERED: cloNIDine HCL 0.1 MG TAB PO PRN (09:30)
[2017-04-19] MEDS ORDERED: HEPARIN SODIUM - IV 10,000 UNITS/10 ML VIAL IVF PRN (09:30)
[2017-04-19] MEDS ORDERED: ALBUMIN HUMAN 25% 25 GM/100 ML BAGP IV PRN (09:30)
[2017-04-19] MEDS ORDERED: ONDANSETRON HCL 4 MG/2 ML VIAL IV PRN (09:30)
[2017-04-19] MEDS ORDERED: MANNITOL 12.5 GM/50 ML VIAL IV PRN (09:30)
[2017-04-19] MEDS ORDERED: SODIUM CHLORIDE 0.9% FLUSH 10 ML FLUSH IV FLUSH PRN (09:30)
[2017-04-19] MEDS ORDERED: GELATIN 12 MM/7 MM FOAM TOP PRN (09:30)
[2017-04-19] MEDS ORDERED: ACETAMINOPHEN 325 MG TAB PO PRN (09:30)
[2017-04-19] MEDS ORDERED: diphenhydrAMINE HCL 25 MG CAP PO PRN (09:30)
[2017-04-19] MEDS ORDERED: NITROGLYCERIN 0.4 MG SL 25 TABS/BTL SL PRN (09:30)
--- NOTE | 2017-04-19 09:45 | HHI.FPPN ---
Subjective Remarks AFVSS overnight. Doing better. Still reporting SOB with any exertion. No new cough, fever, chills , abdominal pain, palpitations, or chest pain. Breathing improved with duonebs. Still being treated for HCAP with cefepime, levaquin and vancomycin. (Honorio Hernández MD R2) Objective Vitals Vital Signs Date Time Temp Pulse Resp B/P Pulse Ox O2 Delivery O2 Flow Rate FiO2 04/19/17 08:06 98 21 04/19/17 08:00 98.0 79 20 175/77 95 04/19/17 04:00 97.8 81 18 184/78 96 170/74 160/62 04/19/17 00:06 98 04/19/17 00:00 176/77 191/90 04/19/17 00:00 97.6 81 18 180/78 98 04/18/17 20:15 84 04/18/17 20:00 188/79 04/18/17 20:00 98.3 84 18 194/80 97 04/18/17 18:25 97.8 85 20 181/77 97 04/18/17 15:40 98.5 84 18 196/89 98 04/18/17 12:15 98.6 76 20 174/73 98 04/18/17 11:09 96 04/18/17 10:36 78 167/96 140/65 140/63 I/O 04/18/17 04/18/17 04/18/17 04/19/17 04/19/17 04/19/17 07:00 15:00 23:00 07:00 15:00 23:00 Intake Total 140 ml 0 ml Output Total 0 ml 0 ml Balance 140 ml 0 ml Intake Oral 140 ml 0 ml Output Urine Total 0 ml 0 ml (Honorio Hernández MD R2) Result Diagram: 04/19/17 0630 04/19/17 0630 Objective Remarks GEN: Solmn[place], [place] to name , but not city state or year. HEENT: Symmetric faces, full sensation to face, CN intact RESP: Diffuse wheezing throughout, poor aeration diffusely, crackles in left lower lobe CV: RRR, no pitting edema in pegs, No calf tenderness GI: Soft, ND NT (Honorio Hernández MD R2) A/P Assessment and Plan 86-year-old male, patient of Dr. Ruiz, who presents from dialysis center after syncopal episode. Initial head CT negative. CXR on admission showing mild parenchymal changes on the left base suggestive of possible early pneumonia. ( Honorio Hernández MD R2) Attending Attestation Patient seen and examined. Case reviewed and discussed with the resident team. Agree with plan of care as discussed with me and documented in the resident note. discussed with Nephrology stopping his steroids. he could have an infection and the steroids can confuse the picture with his WBC. He is much better with his breathing compared to admission and is able to lie comfortably flat (Tara Lira MD) Problem List: (1) Syncope Status: Acute Plan: Patient presents after syncopal episode from dialysis. It does not appear he has had previous episodes of syncope based on EMR. Differential diagnosis includes cardiogenic causes such as arrhythmia, stenotic valve, ischemic event. Plan: * Chest pain workup within normal limits: Trop 0.07 --> 0.07 --> 0.08 (baseline) , EKG unchanged * Moderate atherosclerotic disease bilaterally on carotid ultrasound. No definite elevated ratios. * Obtain transthoracic echo; last ECHO was in 01/2017 showed EF 60-65%, PA peak pressure was within normal limits * Orthostatic vital signs significant for drop in systolic BP from 180 --> 160 mm Hg. * Monitor on telemetry * Patient is to be out of bed with assistance only. Fall precautions are ordered. PT is ordered as well. Hospital course: On review of EMR, patient was in the hospital from February 26, 2017 to March 07, 2017 for weakness and fatigue. At that time he was receiving peritoneal dialysis and has switched since hemodialysis Thursday. (2) Pneumonia Status: Acute Plan: Patient with CXR findings suggestive of LLL pneumonia. On admission, he is on room air and does not appear to be in respiratory distress. ABG showing mild respiratory alkalosis. Cough per report, non-productive. Given ESRD, treating for HCAP Plan: Cefepime and Levaquin x 1 in ED (04/17 -- Vancomycin started 04/18 -- covering for MRSA. Lactic acid within normal limits. Blood cultures pending. UA pending. Start IV steroids. DuoNeb scheduled every 4 hours. Give oxygen by NC if needed for goal sat >92% Incentive spirometry Given respiratory distress, and not being anticoagulated with history of DVT, would have low suspicion for PE in the future. (3) ESRD (end stage renal disease) Status: Acute Plan: ESRD on HD MWF Plan: Consult nephrology for routine inpatient HD if patient stays until Thursday Will monitor BMP (4) Weakness generalized Status: Acute Plan: Patient appears to have chronic weakness as evidenced by last hospitalization notes. No focal weakness noted on admission. Per outpatient records, PT was ordered by Dr. Ruiz but it is unclear if this was been set up. Plan: PT consulted while inpatient to evaluate Case mgmt consulted if rehab is indicated Fall precautions (5) History of DVT (deep vein thrombosis) Status: Acute Plan: Per records, patient has hx of provoked DVT - restart Elqiuis for DVT prophylaxis. Plan: Restart home Elqiuis. (6) Hypertension Status: Chronic Plan: Chronic HTN with HTN urgency Had HTN urgency during last hospitalization Appears to be on Losartan 50mg hs and and carvedilol 25mg PO BID at home Per last clinic visit note in 12/2016, amlodipine 5mg daily was discontinued Of note, medications not fully reviewed on clinic visit in December Plan: Will continue Losartan 50mg hs, amlodipine 5 mg daily and carvedilol 25mg PO BID Clonidine PRN BP >180/110 May benefit from scheduled hydralazine 10 mg by mouth 3 times a day or increasing amlodipine to 10 mg daily. Monitor VS (7) DM (diabetes mellitus) Status: Chronic Plan: Apparent DM per EMR. Plan: Will give low dose supplemental scale Novolog with Accucheks Monitor for hypoglycemia Adjust diet PRN (8) Fluid, Electrolytes, Nutrition, Prophylaxis Status: Acute Plan: Fluids: tolerating PO Electrolytes: monitor and replete as needed Nutrition: renal diet DVT Prophylaxis: Eliquis GI Prophylaxis: not indicated (Honorio Hernández MD R2) Problem Qualifiers (1) Syncope: Qualified Code: R55 - Syncope, unspecified syncope type (2) Pneumonia: (3) DM (diabetes mellitus): Qualified Code: E11.9 - Type 2 diabetes mellitus without complication, without long-term current use of insulin Honorio Hernández MD R2 Apr 19, 2017 09:45 Tara Lira MD Apr 19, 2017 13:22
[2017-04-19] MEDS ORDERED: amLODIPine BESYLATE 5 MG TAB PO SCH (10:00)
[2017-04-19] MEDS: LOSARTAN 50 MG TAB PO SCH (11:45)
[2017-04-19] MEDS: APIXABAN 2.5 MG TABLET PO SCH ×2 (11:45→20:54)
[2017-04-19] MEDS: amLODIPine BESYLATE 5 MG TAB PO SCH (11:46)
--- NOTE | 2017-04-19 15:53 | ECHRPT ---
Indication: Syncope and collapse CONCLUSIONS The left ventricular systolic function is normal with an estimated ejection fraction in the range of 60-65%. Wall thickness is measured at the upper limits of normal. Normal left ventricular size. Mild mitral valve regurgitation. Moderate mitral annular calcification. There is mild tricuspid regurgitation. The estimated pulmonary arterial pressure is 51 mmHg; there is estimated mild to moderate pulmonary hypertension present BP: 175 / 74 HR: 83 Rhythm: Sinus MEASUREMENTS (Male / Female) Normal Values Technical Quality:Good 2D ECHO LV Diastolic Diameter PLAX 4.6 cm 4.2 - 5.9 / 3.9 - 5.3 cm LV Systolic Diameter PLAX 3.3 cm IVS Diastolic Thickness 1.1 cm 0.6 - 1.0 / 0.6 - 0.9 cm LVPW Diastolic Thickness 1.1 cm 0.6 - 1.0 / 0.6 - 0.9 cm LV Relative Wall Thickness 0.5 LVOT Diameter 1.9 cm M-MODE Aortic Root Diameter MM 2.9 cm LA Systolic Diameter MM 4.5 cm LA Ao Ratio MM 1.6 AV Cusp Separation MM 2.0 cm DOPPLER AV Peak Velocity 169.0 cm/s AV Peak Gradient 11.4 mmHg LVOT Peak Velocity 96.9 cm/s LVOT Peak Gradient 3.8 mmHg AV Area Cont Eq pk 1.6 cm MV Peak Velocity 136.0 cm/s MV Peak Gradient 7.4 mmHg MV Mean Velocity 92.9 cm/s MV Mean Gradient 4.0 mmHg MV Area PHT 2.9 cm MR Peak Velocity 462.3 cm/s MR Peak Gradient 85.5 mmHg Mitral E Point Velocity 139.0 cm/s Mitral A Point Velocity 71.0 cm/s Mitral E to A Ratio 2.0 TR Peak Velocity 319.0 cm/s TR Peak Gradient 40.7 mmHg PV Peak Velocity 126.0 cm/s PV Peak Gradient 6.4 mmHg FINDINGS LEFT VENTRICLE The left ventricular systolic function is normal with an estimated ejection fraction in the range of 60-65%. Wall thickness is measured at the upper limits of normal. Normal left ventricular size. RIGHT VENTRICLE Normal right ventricular size and systolic function. LEFT ATRIUM The left atrial size is normal. RIGHT ATRIUM The right atrial size is normal. ATRIAL SEPTUM Normal atrial septal thickness without atrial level shunting by limited color doppler interrogation. AORTA The aortic root and proximal ascending aorta are normal in size on limited imaging. MITRAL VALVE Mild mitral valve regurgitation. Moderate mitral annular calcification. TRICUSPID VALVE There is mild tricuspid regurgitation. The estimated pulmonary arterial pressure is 51 mmHg. there is estimated mild to moderate pulmonary hypertension present PULMONARY VALVE The pulmonary valve is not well visualized. VESSELS The inferior vena cava is normal in size. PERICARDIUM No pericardial effusion. Andrew Castro MD (Electronically Signed) Final Date:19 April 2017 15:53
[2017-04-19] MEDS: CEFEPIME INJ 1,000 MG in SODIUM CHLORIDE 0.9% INJ 100 ML IV SCH (20:53)
[2017-04-19] MEDS: LEVOFLOXACIN 500 MG PREMIX INJ 100 ML IV SCH (20:54)
[2017-04-20] VITALS (10 sets, daily range): BP systolic 115–164; BP diastolic 56–73; PULSE 81–113; RESP 18–21; TEMP 97.1–98.8; O2SAT 92–99
[2017-04-20] MEDS: RESP: IPRATROPIUM 0.5 MG/2.5 ML NEB NEB SCH ×5 (03:41→20:28)
[2017-04-20] MEDS: INSULIN ASPART SUPPLEMENTAL SCALE SQ SCH ×4 (06:45→20:32)
[2017-04-20 09:33] LABS: AUTOMATED NEUTROPHIL # 17.1 TH/MM3 (1.8-7.7); BASOPHIL % 0.1 % (0.0-2.0); HEMATOCRIT 29.2 % (39.0-51.0); HEMO FLAGS DIFF FINAL; LYMPH % 6.3 % (9.0-44.0); LYMPHOCYTE # 1.2 TH/MM3 (1.0-4.8); MEAN CELL VOLUME 106.1 FL (80.0-100.0); MONO % 6.2 % (0.0-8.0); NEUT % 87.4 % (16.0-70.0); PLATELET COUNT 206 TH/MM3 (150-450); RED BLOOD COUNT 2.76 MIL/MM3 (4.50-5.90); RED CELL DISTRIBUTION WIDTH 20.4 % (11.6-17.2); WHITE BLOOD COUNT 19.5 TH/MM3 (4.0-11.0)
--- NOTE | 2017-04-20 09:55 | HHI.NPPN ---
Subjective Renal Failure: Chronic, End Stage Renal Disease Interval History Seen during dialysis. He denies pain, is afebrile. (Tara Cheng) Review of Systems General Constitutional: Fatigue (Tara Cheng) Objective Data Data 04/19/17 04/20/17 19:00 07:00 # Voids 1 # Bowel Movements 1 Vital Signs Date Time Temp Pulse Resp B/P Pulse Ox O2 Delivery O2 Flow Rate FiO2 04/20/17 08:00 98.8 82 20 157/69 95 04/20/17 07:46 93 21 04/20/17 05:36 97.1 83 21 115/56 96 121/59 04/20/17 03:43 98 21 04/20/17 00:00 97.5 83 20 146/65 92 04/20/17 00:00 81 18 146/71 98 04/19/17 21:39 95 21 04/19/17 21:02 98.0 84 20 165/70 96 04/19/17 20:00 81 04/19/17 16:00 98.3 81 20 169/103 96 04/19/17 12:00 97.4 83 20 175/74 97 (Tara Cheng) -: 04/20/17 0814 04/19/17 0630 Imaging Last 72 hours Impressions Chest X-Ray 04/19/17 0000 Signed Impressions: Service Date/Time: Wednesday, April 19, 2017 08:31 - CONCLUSION: Stable examination. Dual-lumen catheter in good position. Faint density right midlung zone atelectasis versus infiltrate. Ethan Flores MD Carotid Artery Ultrasound 04/18/17 0000 Signed Impressions: Service Date/Time: Tuesday, April 18, 2017 08:51 - CONCLUSION: Moderate atherosclerotic disease bilaterally. No definite elevated ratios are identified Ethan Flores MD Head CT 04/17/171813 Signed Impressions: Service Date/Time: Monday, April 17, 2017 18:58 - CONCLUSION: Atrophy otherwise negative. Dudley Caceres MD FACR Chest X-Ray 04/17/170 Signed Impressions: Service Date/Time: Monday, April 17, 2017 18:11 - CONCLUSION: Minimal parenchymal changes left base. Dudley Caceres MD FACR Tubes & Lines: Perma-Cath (Tara Cheng B. [employer]) Physical Exam General Appearance: Well Developed, Well Nourished, No Acute Distress, Comfortable, Sleeping (Tara Cheng B. [employer]) Eyes Eye Exam: Pupils Equal, Pupils Reactive, Extraocular Movement Intact (Balbir Chengon B. [employer]) Throat Throat Exam: Oral Mucosa [place] & Moist (Balbir Chengon B. [employer]) Neck Neck Exam: Neck Supple (Tara Cheng B. [employer]) Pulmonary Resp Exam: Clear Bilaterally, No Distress (Tara Cheng B. [employer]) Cardiology CV Exam: Regular, Normal Sinus Rhythm (Tara Cheng B. [employer]) Gastrointestinal/Abdomen GI Exam: Soft, Non-Tender, Bowel Sounds Present (Balbir Chengon B. [employer]) Musculoskeletal MS Exam: Joints Intact (Balbir Chengon B. [employer]) Integumentary Skin Exam: Warm, Dry, Intact (Balbir Chengon B. [employer]) Extremeties Extremities Exam: No Edema, Pedal Pulses Palpable (SkylarTara B. [employer]) Neurologic Neuro Exam: Alert, Moving All Extremities (Balbir Chengon B. [employer]) Assessment/Plan Discussed Condition With: Patient Assessment Summary: Anemia of CKD, Hypertension, Diabetes Mellitus, End Stage Renal Disease Problem List: (1) ESRD (end stage renal disease) Plan: Seen during dialysis on a 2K, 350 BFR, goal 3L Hyperkalemic today, I have asked the nurses to switch the dialysate to a low potassium bath (1K) half way through treatment Repeat renal panel tomorrow Continue HD support MWF Avoid IVF, unless NPO then begin D10 @ 20 ml/hr Avoid Gadolinium. (2) Anemia Plan: Epogen with dialysis. (3) Leukocytosis Plan: Increasing WBC, steroids have been stopped Rule out sepsis. Although he is afebrile with normal lactic acid. Being treated for HCAP He is on Vancomycin with dialysis. Also is on Levaquin and Cefepime. Of note he does have CVC. (4) Altered mental status Plan: Improving, encephalopathy workup is in progress. (5) DM (diabetes mellitus) Plan: continue insulin coverage as needed. (6) Metabolic bone disease Plan: Phosphorus is low normal. He is not on phosphorus binder. (7) Essential (primary) hypertension Plan: BP improved with medication changes he is on losartan, Amlodipine, and coreg monitor blood pressure and titrate to effect (8) History of DVT (deep vein thrombosis) Plan: Eliquis has been resumed (Tara Cheng) Plan patient was seen and examined during dialysis. Agree with above assessment and plan. (Edson Billings MD) Problem Qualifiers (1) Leukocytosis: Qualified Code: D72.829 - Leukocytosis, unspecified type (2) Altered mental status: Qualified Code: R41.0 - Disorientation (3) DM (diabetes mellitus): Qualified Code: E11.9 - Type 2 diabetes mellitus without complication, without long-term current use of insulin Tara Cheng Apr 20, 2017 09:55 Edson Billings MD Apr 20, 2017 20:19
[2017-04-20] MEDS ORDERED: VANCOMYCIN INJ 1,000 MG in SODIUM CHLOR 0.9% 250 ML INJ 250 ML IV SCH (10:00)
[2017-04-20 10:05] LABS: POTASSIUM 5.8 MEQ/L (3.5-5.1)
[2017-04-20] MEDS: EPOETIN ALFA 10,000 UNITS/ML VIAL IV PRN (11:43)
[2017-04-20] MEDS: HEPARIN SODIUM - IV 10,000 UNITS/10 ML VIAL PRN (11:43)
[2017-04-20] MEDS: GENTAMICIN SULFATE (DIALYSIS USE ONLY) 20 MG/2 ML VIAL IV PRN (11:44)
--- NOTE | 2017-04-20 12:20 | HHI.FPPN ---
Subjective Remarks Patient interviewed in dialysis. Denies new cough, fever, chills, abdominal pain. Minor shortness of breath improved with DuoNeb treatments. (Caleb Wolfe MD R2) Objective Vitals Vital Signs Date Time Temp Pulse Resp B/P Pulse Ox O2 Delivery O2 Flow Rate FiO2 04/20/17 08:00 Room Air 04/20/17 08:00 98.8 82 20 157/69 95 04/20/17 08:00 91 04/20/17 07:46 93 21 04/20/17 05:36 97.1 83 21 115/56 96 121/59 04/20/17 03:43 98 21 04/20/17 00:00 97.5 83 20 146/65 92 04/20/17 00:00 81 18 146/71 98 04/19/17 21:39 95 21 04/19/17 21:02 98.0 84 20 165/70 96 04/19/17 20:00 81 04/19/17 16:00 98.3 81 20 169/103 96 I/O 04/19/17 04/19/17 04/19/17 04/20/17 04/20/17 04/20/17 07:00 15:00 23:00 07:00 15:00 23:00 Intake Total 0 ml 182 ml Output Total 0 ml Balance 0 ml 182 ml Intake Oral 0 ml IV Total 182 ml Output Urine Total 0 ml # Voids 1 # Bowel Movements 1 (Caleb Wolfe MD R2) Result Diagram: 04/20/17 0814 04/20/17 0814 Imaging Last Impressions Chest X-Ray 04/19/17 0000 Signed Impressions: Service Date/Time: Wednesday, April 19, 2017 08:31 - CONCLUSION: Stable examination. Dual-lumen catheter in good position. Faint density right midlung zone atelectasis versus infiltrate. Ethan Flores MD Carotid Artery Ultrasound 04/18/17 0000 Signed Impressions: Service Date/Time: Tuesday, April 18, 2017 08:51 - CONCLUSION: Moderate atherosclerotic disease bilaterally. No definite elevated ratios are identified Ethan Flores MD Head CT 04/17/17 1814 Signed Impressions: Service Date/Time: Monday, April 17, 2017 18:58 - CONCLUSION: Atrophy otherwise negative. Dudley Caceres MD FACR Objective Remarks GEN: [place], AA to name , but not city state or year. HEENT: Symmetric faces, full sensation to face, CN intact RESP: Diffuse wheezing throughout, poor aeration diffusely, crackles in left lower lobe CV: RRR, no pitting edema in pegs, No calf tenderness GI: Soft, ND NT (Caleb Wolfe MD R2) A/P Assessment and Plan 86-year-old male, patient of Dr. Ruiz, with end-stage renal disease and pneumonia. Being treated for hcap. Infectious disease consult. Treatment as below. Discharge Planning Pending clinical improvement. (Caleb Wolfe MD R2) Attending Attestation Patient seen and examined. Case reviewed and discussed with the resident team. Agree with plan of care as discussed with me and documented in the resident note. (Caty Wolfe MD) Problem List: (1) Pneumonia Status: Acute Plan: Infectious disease consult Continue treatment for HCAP Current antibiotics: Cefepime 1000 mg IV daily (started 04/17 Levaquin 500 mg IV every 48 hours Vancomycin with hemodialysis Lab: Blood culture 04/18: No growth to date Other treatment: DuoNeb scheduled every 4 hours. Give oxygen by NC if needed for goal sat >92% Incentive spirometry (2) ESRD (end stage renal disease) Status: Acute Plan: Consult nephrology Typically dialysis Thursday (3) Weakness generalized Status: Acute Plan: PT consulted while inpatient to evaluate Case mgmt consulted if rehab is indicated Fall precautions (4) History of DVT (deep vein thrombosis) Status: Acute Plan: Per records, patient has hx of provoked DVT - restart Elqiuis for DVT prophylaxis. Plan: Restart home Elqiuis. (5) Hypertension Status: Chronic Plan: continue Losartan 50mg hs, amlodipine 5 mg daily and carvedilol 25mg PO BID Clonidine PRN BP >180/110 (6) DM (diabetes mellitus) Status: Chronic Plan: Will give low dose supplemental scale Novolog with Accucheks (7) Fluid, Electrolytes, Nutrition, Prophylaxis Status: Acute Plan: Fluids: tolerating PO Electrolytes: monitor and replete as needed Nutrition: renal diet DVT Prophylaxis: Eliquis GI Prophylaxis: not indicated (Caleb Wolfe MD R2) Problem Qualifiers (1) Pneumonia: (2) DM (diabetes mellitus): Qualified Code: E11.9 - Type 2 diabetes mellitus without complication, without long-term current use of insulin Caleb Wolfe MD R2 Apr 20, 2017 12:20 Caty Wolfe MD Apr 20, 2017 15:47
[2017-04-20] MEDS: SODIUM CHLORIDE 0.9% FLUSH 10 ML FLUSH IV FLUSH SCH ×2 (13:20→20:36)
[2017-04-20] MEDS: APIXABAN 2.5 MG TABLET PO SCH ×2 (13:20→20:34)
[2017-04-20] MEDS: DOCUSATE SODIUM 50 MG/SENNA 8.6 MG TAB PO SCH ×2 (13:20→20:34)
[2017-04-20] MEDS: CARVEDILOL 12.5 MG TAB PO SCH ×2 (13:20→20:33)
[2017-04-20] MEDS: LOSARTAN 50 MG TAB PO SCH (13:20)
[2017-04-20] MEDS: amLODIPine BESYLATE 5 MG TAB PO SCH (13:21)
--- NOTE | 2017-04-20 13:26 | EKG ---
Date Performed: 04/19/2017 Time Performed: 01:08:20 PTAGE: 86 years EKG: Sinus rhythm Left axis deviation Lateral T wave changes are nonspecific Compared to prior tracing no significant change Borderline ECG PREVIOUS TRACING : 04/17/2017 23.54 DOCTOR: Alok Rodriguez Interpretating Date/Time 04/20/2017 13:23:39
--- NOTE | 2017-04-20 15:19 | PD.CONS ---
Consult Service Palliative Care Consult Requested By Dr Hernández . Primary Care Physician Lexa Ruiz MD Reason for Consultation a. To assist with evaluation and management of symptoms including: confusion b. To assist medical decision maker(s) with: better understanding of current medical conditions; weighing benefits/burdens of medical treatment options; making medical treatment decisions. HPI History of Present Illness This 86-year-old patient presented to the ED on 04/17/17 following a syncopal episode. Per EMS, he was undergoing dialysis at the [facility] and 4 minutes before the end he had syncopal episode. EMS reported family dropped him off her dialysis and mentioned a change in baseline status, they reported that he did have a history of dementia and some disorientation he had been very lethargic which was new for him. Pt reported to only speak Malawian. Patient poor historian at time of ED presentation. Denied pain. No other complaints was unable to describe that days events. He did report a fall Thursday of the same week striking his head. * WBC elevated at 19, started on IV antibiotics. Cefepime, Levaquin. CT brain with no acute abnormalities identified. CXR with minimal parenchymal changes left base. Nephrology consulted. Admitted for further evaluation and management. Cultures obtained, pending. * Nephrology following: Patient noted to previously utilize peritoneal dialysis however this was no longer effective and had recently been changed to hemodialysis (February 2017). Nephrology added vancomycin pending cultures. Continue dialysis as per his usual schedule. * 04/18 Mental status noted to improve slightly, Closer to his baseline, this per a daughter Jenniffer who is present. Patient reported to recently have a stay at [facility] for one month, was discharged 2 days prior to this hospital presentation. Medical attending notes concern regarding patient's overall medical condition, and underlying mental status seems to have underlying memory issues. Discussion with patient's 2 daughters apparently they are not in complete agreement regarding treatment goals. He had apparently done fairly well in the nursing facility setting however appears family does not have the financial means to keep him there. He had been recommended for outpatient PT not clear that this had ever been established. Palliative care was consulted to assist with clarification of goals of treatment. * 2-D echo 04/19--EF 60-65%, mild mitral valve regurg, moderate mitral annular calcification mild tricuspid regurg pulmonary arterial pressure 51 estimated mild to moderate pulmonary hypertension * 04/20WBC remains elevated 19.5. (Had been on steroids, DC'd yesterday attending) Chemistry findings expected abnormal renal functions due for dialysis today. CXR from yesterday 04/19 was stable, faint density right midlung atelectasis versus infiltrate. Remains on Vanco, Levaquin, cefepime. Afebrile. Blood cultures 04/18 no growth to date. met w daughter ,grandson at bedside. Pt w limited participation, he is lethargic , appears fatigued. Upon introduction I did offer translation via computer service to pt, which family verbalized to him, de deferred, and said " you handle, you speak " to his dtr, grandson. He is partially oriented, though not clear on date/year, is aware that he cannot remember. He is pleasant, cooperative, denies pain or any other symptoms other than feeling tired. Says feels better today than yesterday (through family) Of note, based on available records per [facility] system that were accessible in outpatient EMR patient had a few hospitalizations/ED visits in for shortness of breath, dizziness, hyperglycemia,weakness. Patient moved to [place] in November of this year with his daughter. He primarily speaks Malawian. Function/Cognitive Trajectory Patient prev. lived at home with either of his daughters though spent March in rehab following a hospitalization. Prior to January 2017 admissions he had been fairly independent with ADLs, living in home setting. Since January, a trajectory of weakness and decline, increase care requirements are noted in available records. most recently has been ambulatory prior to admission, but is too weak on dialysis days. Family indicates pt cognitively sharp, no deficits or dementia -- just in past month or so dev. confusion/mental status changes. . . Review of Systems ROS Limitations: Altered Mental Status, Poor Historian (confusion, family assists w limited ROS, pt denies most quesitons asked) Constitutional: COMPLAINS OF: Generalized weakness (weaker since on HD), DENIES: Change in appetite, Pain Eyes: DENIES: Vision loss Cardiovascular: COMPLAINS OF: Lower Extremity Edema (inermittnent since on HD) , DENIES: Chest pain, Palpitations, Dyspnea on Exertion Gastrointestinal: DENIES: Abdominal pain, Constipation, Diarrhea, Nausea, Vomiting, Difficulty Swallowing Genitourinary: DENIES: Urinary frequency, Urinary incontinence, Hematuria Musculoskeletal: DENIES: Joint pain, Back pain Integumentary: DENIES: Rash Neurologic: DENIES: Headache Psychiatric: COMPLAINS OF: Confusion (intermittant, family indicates onset in past month) Past Family Social History Coded Allergies: No Known Allergies (Unverified , 02/26/17) Past Medical History CVA Dementia Diabetes Hypertension History of pneumonia End-stage renal diseasedialysis dependent Provoked DVT . Past Surgical History Peritoneal dialysis catheter placement Colonoscopy with polypectomy and biopsy . Reported Medications Sertraline (Sertraline HCl) 25 Mg Tab 25 Mg PO DAILY Renvela (Sevelamer Carbonate) 800 Mg Tab 1,600 Mg PO TIDAC Carvedilol 25 Mg Tab 25 Mg PO BID Duoneb (Ipratropium-Albuterol Neb) 0.5-2.5 Mg/3 Ml Neb 3 Ml NEB Q6HR Miralax Powder (Polyethylene Glycol 3350 Powder) 17 Gm Powd 17 Gm PO DAILY Mix and dissolve one measuring capful (17 grams) in 4-8oz water or juice. Megace Liq (Megestrol Acetate) 40 Mg/Ml Susp 200 Mg PO DAILY Eliquis (Apixaban) 2.5 Mg Tab 2.5 Mg PO BID Simvastatin 20 Mg Tab 20 Mg PO HS Losartan (Losartan Potassium) 50 Mg Tab 50 Mg PO HS Novolog Mix 70-30 FlexPen Inj (Insulin Aspart Protam-Asp 70-30 Inj) 300 Unit/3 Ml Pen 5-10 Units SQ BID Calcitriol 0.25 Mcg Cap 0.25 Mcg PO MOWEFR Take 1 tablet (0.25mcg) on Thursday,Thursday and Thursday . Current Medications Medications (Trade) Dose Ordered Sig/Mahi Route Start Time Stop Time Status Last Admin (Catapres) 0.1 mg Q6H PRN PO 04/17/17 21:15 04/19/17 16:23 (NS Flush) 2 ml UNSCH PRN IV FLUSH 04/17/17 22:45 (NS Flush) 2 ml BID IV FLUSH 04/18/17 09:00 04/20/17 13:20 (Tylenol) 650 mg Q4H PRN PO 04/17/17 22:45 (Narcan Inj) 0.4 mg UNSCH PRN IV 04/17/17 22:45 ([place]-Colace) 1 tab BID PO 04/18/17 09:00 04/20/17 13:20 (Milk Of Magnesia Liq) 30 ml Q12H PRN PO 04/17/17 22:45 (Senokot) 17.2 mg Q12H PRN PO 04/17/17 22:45 (Dulcolax Supp) 10 mg DAILY PRN RECTAL 04/17/17 22:45 (Lactulose Liq) 30 ml DAILY PRN PO 04/17/17 22:45 Carvedilol 25 mg 25 mg BID PO 04/17/17 23:00 04/20/17 13:20 Cefepime HCl 1000 mg/Sodium Chloride 100 ml @ 200 mls/hr DAILY@20 IV 04/18/17 20:00 04/19/17 20:53 (Levaquin 500 Mg Premix Inj) 100 ml @ 100 mls/hr Q48H IV 04/19/17 21:00 04/19/17 20:54 (SoluMEDROL INJ) 60 mg Q6H IVP 04/18/17 11:00 Hold 04/19/17 05:13 (Eliquis) 2.5 mg BID PO 04/19/17 10:00 04/20/17 13:20 (Norvasc) 10 mg DAILY PO 04/19/17 10:00 04/20/17 13:21 Losartan Potassium 50 mg 50 mg DAILY PO 04/19/17 09:30 04/20/17 13:20 (NS 1000 ml Inj) 1,000 ml @ 0 mls/hr Q0M PRN IV 04/19/17 09:21 Heparin Sodium (Porcine) 8000 units 8,000 units UNSCH PRN IVF 04/19/17 09:30 Sodium Chloride 1,000 ml @ 200 mls/hr Q5H PRN IV 04/19/17 09:21 (NS 1000 ml Inj) 1,000 ml @ 0 mls/hr Q0M PRN IV 04/19/17 09:21 (Mannitol Inj) 12.5 gm UNSCH PRN IV 04/19/17 09:30 (Albumin 25% Inj) 25 gm UNSCH PRN IV 04/19/17 09:30 (NS Flush) 5 ml UNSCH PRN IV FLUSH 04/19/17 09:30 (Heparin Inj) UNSCH PRN .XX 04/19/17 09:30 04/20/17 11:43 (Gentamicin (Dialysis) Inj) 20 mg UNSCH PRN IV 04/19/17 09:30 04/20/17 11:44 (Zofran Inj) 4 mg UNSCH PRN IV 04/19/17 09:30 (Tylenol) 650 mg UNSCH PRN PO 04/19/17 09:30 (Benadryl) 25 mg UNSCH PRN PO 04/19/17 09:30 (Nitrostat Sl) 0.4 mg UNSCH PRN SL 04/19/17 09:30 (Catapres) 0.1 mg UNSCH PRN PO 04/19/17 09:30 (Epogen Inj) 10,000 units UNSCH PRN IV 04/19/17 09:30 04/20/17 11:43 (Gelfoam 12 Mm/7 Mm Top) 1 foam UNSCH PRN TOP 04/19/17 09:30 Family History Per EMR father of old age, mother of cancer. No family history of hypertension or diabetes. Substance Use Tobacco: Per EMR nonsmoker Alcohol: No alcohol per EMR Prescription med abuse: None reported per EMR Illicits: None reported per EMR . Psychosocial History Patient lives locally with 1 daughter, has another daughter who lives in [place]. He has lived with either daughter in the past years. Also supported by several grandchildren. [place]. Very active in playing/activity his grandchildren prior to the past few mos. Moved to [place] with dtr here in Nov 2016. Daughter in [place] indicates he will be moving back up with her following this hospitalization. . Spiritual/Cultural Factors Worship karen, would want service station helper support if is bolivian speaking. Health Care Surrogate: Completed, but not made available Durable Power of [employer]: Completed, but not made available Ethical and Legal Issues Pt, due to confusion/condition, is not able to make decisions. Supported by 2 adult daughter, multiple grandchildren. Grandson indicates he, his mother are POA which includes healthcare, we have requested copies of this document. Otherwise, decision making would fall to both adult children per [place] statutes. Physical Exam Vital Signs Date Time Temp Pulse Resp B/P Pulse Ox O2 Delivery O2 Flow Rate FiO2 04/20/17 13:17 98.4 113 20 144/64 95 04/20/17 08:00 Room Air 04/20/17 08:00 98.8 82 20 157/69 95 04/20/17 08:00 157/73 04/20/17 08:00 164/73 04/20/17 08:00 91 04/20/17 07:46 93 21 04/20/17 05:36 97.1 83 21 115/56 96 121/59 04/20/17 03:43 98 21 04/20/17 00:00 97.5 83 20 146/65 92 04/20/17 00:00 81 18 146/71 98 04/19/17 21:39 95 21 04/19/17 21:02 98.0 84 20 165/70 96 04/19/17 20:00 81 04/19/17 16:00 98.3 81 20 169/103 96 04/19/17 04/20/17 19:00 07:00 # Voids 1 # Bowel Movements 1 Exam CONSTITUTIONAL/GENERAL: This is an adequately nourished patient, cooperative, pleasant, no distress TUBES/LINES/DRAINS:dialysis catheter rt subclavian SKIN: No jaundice, rashes, or lesions. No wounds seen anteriorly. Skin temperature appropriate. Not diaphoretic. HEAD: Atraumatic. Normocephalic. EYES: Pupils equal and round and reactive. Extraocular motions intact. No scleral icterus. No injection or drainage. Fundi not examined. ENT: Hearing grossly normal. Nose without bleeding or purulent drainage. Throat without visible erythema, exudates, masses, or lesions. NECK: Trachea midline. Supple, nontender. No palpable thyroid enlargement or nodularity. CARDIOVASCULAR: irregular rate and rhythm, no murmur. Peripheral pulses symmetric. RESPIRATORY/CHEST: Symmetric, unlabored respirations. On room air. Clear to auscultation. Breath sounds equal bilaterally. GASTROINTESTINAL: Abdomen round, soft, non-tender, nondistended. No hepato- splenomegaly, or palpable masses. No guarding. Bowel sounds normoactive GENITOURINARY: Without palpable bladder distension. MUSCULOSKELETAL: Extremities without clubbing, cyanosis, or edema. No joint tenderness or effusion noted. No mottling or clubbing. LYMPHATICS: No palpable cervical or supraclavicular adenopathy. NEUROLOGICAL: Awake and alert.partially oriented x 2-3. answers most questions appropr, forgetful though at times aware that he cannot remember, ie year. moves all 4 extremities, follows commands. PSYCHIATRIC: No obvious anxiety/depression. no apparent hallucinations or other psychotic thought process. Diagnostic Tests Laboratory Laboratory Tests Test 04/17/17 04/17/17 04/17/17 04/18/17 18:15 18:42 23:50 06:20 White Blood Count 19.3 TH/MM3 15.9 TH/MM3 (4.0-11.0) (4.0-11.0) Red Blood Count 2.87 MIL/MM3 2.77 MIL/MM3 (4.50-5.90) (4.50-5.90) Hemoglobin 9.8 GM/DL 9.5 GM/DL (13.0-17.0) (13.0-17.0) Hematocrit 30.8 % 29.3 % (39.0-51.0) (39.0-51.0) Mean Corpuscular Volume 107.1 FL 105.6 FL (80.0-100.0) (80.0-100.0) Mean Corpuscular Hemoglobin 34.2 PG 34.4 PG (27.0-34.0) (27.0-34.0) Mean Corpuscular Hemoglobin 31.9 % 32.5 % Concent (32.0-36.0) (32.0-36.0) Red Cell Distribution Width 20.7 % 20.1 % (11.6-17.2) (11.6-17.2) Platelet Count 223 TH/MM3 214 TH/MM3 (150-450) (150-450) Mean Platelet Volume 9.3 FL 8.9 FL (7.0-11.0) (7.0-11.0) Neutrophils (%) (Auto) 77.1 % 75.6 % (16.0-70.0) (16.0-70.0) Lymphocytes (%) (Auto) 11.4 % 14.3 % (9.0-44.0) (9.0-44.0) Monocytes (%) (Auto) 10.5 % 9.0 % (0.0-8.0) (0.0-8.0) Eosinophils (%) (Auto) 0.6 % (0.0-4.0) 0.4 % (0.0-4.0) Basophils (%) (Auto) 0.4 % (0.0-2.0) 0.7 % (0.0-2.0) Neutrophils # (Auto) 14.9 TH/MM3 12.0 TH/MM3 (1.8-7.7) (1.8-7.7) Lymphocytes # (Auto) 2.2 TH/MM3 2.3 TH/MM3 (1.0-4.8) (1.0-4.8) Monocytes # (Auto) 2.0 TH/MM3 1.4 TH/MM3 (0-0.9) (0-0.9) Eosinophils # (Auto) 0.1 TH/MM3 0.1 TH/MM3 (0-0.4) (0-0.4) Basophils # (Auto) 0.1 TH/MM3 0.1 TH/MM3 (0-0.2) (0-0.2) CBC Comment AUTO DIFF AUTO DIFF Differential Total Cells 100 100 Counted Neutrophils % (Manual) 71 % (16-70) 76 % (16-70) Band Neutrophils % 10 % (0-6) 4 % (0-6) Lymphocytes % 11 % (9-44) 13 % (9-44) Monocytes % 4 % (0-8) 6 % (0-8) Neutrophils # (Manual) 16.4 TH/MM3 12.9 TH/MM3 (1.8-7.7) (1.8-7.7) Metamyelocytes 1 % (0-1) Myelocytes 3 % (0-0) 1 % (0-0) Nucleated Red Blood Cells 2 /100 WBC 3 /100 WBC (0-0) (0-0) Differential Comment FINAL DIFF FINAL DIFF MANUAL MANUAL Platelet Estimate NORMAL NORMAL (NORMAL) (NORMAL) Platelet Morphology Comment NORMAL NORMAL (NORMAL) (NORMAL) Stomatocytes 1+ (NORMAL) Sodium Level 138 MEQ/L 140 MEQ/L (136-145) (136-145) Potassium Level 4.0 MEQ/L 4.5 MEQ/L (3.5-5.1) (3.5-5.1) Chloride Level 106 MEQ/L 107 MEQ/L (98-107) (98-107) Carbon Dioxide Level 23.5 MEQ/L 22.6 MEQ/L (21.0-32.0) (21.0-32.0) Anion Gap 9 MEQ/L (5-15) 10 MEQ/L (5-15) Blood Urea Nitrogen 39 MG/DL (7-18) 61 MG/DL (7-18) Creatinine 3.54 MG/DL 4.65 MG/DL (0.60-1.30) (0.60-1.30) Estimat Glomerular Filtration 20 ML/MIN (>89) 15 ML/MIN (>89) Rate Random Glucose 148 MG/DL 163 MG/DL (74-106) (74-106) Calcium Level 8.5 MG/DL 8.6 MG/DL (8.5-10.1) (8.5-10.1) Total Bilirubin 0.6 MG/DL 0.5 MG/DL (0.2-1.0) (0.2-1.0) Aspartate Amino Transf 18 U/L (15-37) 13 U/L (15-37) (AST/SGOT) Alanine Aminotransferase 13 U/L (12-78) 14 U/L (12-78) (ALT/SGPT) Alkaline Phosphatase 82 U/L (45-117) 77 U/L (45-117) Ammonia 24 MCMOL/L (11-32) Total Creatine Kinase 32 U/L (39-308) Troponin I 0.07 NG/ML 0.08 NG/ML 0.08 NG/ML (0.02-0.05) (0.02-0.05) (0.02-0.05) Total Protein 7.0 GM/DL 6.3 GM/DL (6.4-8.2) (6.4-8.2) Albumin 3.0 GM/DL 2.7 GM/DL (3.4-5.0) (3.4-5.0) Blood Gas Puncture Site RT RADIAL Blood Gas Patient Temperature 98.6 Blood Gas HCO3 21 mmol/L (22-26) Blood Gas Base Excess -2.0 mmol/L (-2-2) Blood Gas Oxygen Saturation 94 % (90-100) Arterial Blood pH 7.52 (7.380-7.420) Arterial Blood Partial 26 mmHg (38-42) Pressure CO2 Arterial Blood Partial 76 mmHG Pressure O2 (61-120) Arterial Blood Oxygen Content 13.8 Vol % (12.0-20.0) Arterial Blood 1.9 % (0-4) Carboxyhemoglobin Arterial Blood Methemoglobin 0.7 % (0-2) Blood Gas Hemoglobin 10.4 G/DL (12.0-16.0) Oxygen Delivery Device ROOM AIR Blood Gas Inspired Oxygen 21 % Phosphorus Level 2.2 MG/DL (2.5-4.9) Magnesium Level 1.7 MG/DL (1.5-2.5) Thyroid Stimulating Hormone 8.950 uIU/ML 3rd Gen (0.358-3.740) B-Type Natriuretic Peptide 1543 PG/ML (0-100) Test 04/18/17 04/19/17 04/19/17 04/20/17 10:32 02:15 06:30 08:14 Lactic Acid Level 1.8 mmol/L (0.4-2.0) Troponin I 0.07 NG/ML (0.02-0.05) White Blood Count 17.7 TH/MM3 19.5 TH/MM3 (4.0-11.0) (4.0-11.0) Red Blood Count 2.82 MIL/MM3 2.76 MIL/MM3 (4.50-5.90) (4.50-5.90) Hemoglobin 9.7 GM/DL 9.4 GM/DL (13.0-17.0) (13.0-17.0) Hematocrit 29.6 % 29.2 % (39.0-51.0) (39.0-51.0) Mean Corpuscular Volume 104.9 FL 106.1 FL (80.0-100.0) (80.0-100.0) Mean Corpuscular Hemoglobin 34.5 PG 34.0 PG (27.0-34.0) (27.0-34.0) Mean Corpuscular Hemoglobin 32.9 % 32.0 % Concent (32.0-36.0) (32.0-36.0) Red Cell Distribution Width 20.3 % 20.4 % (11.6-17.2) (11.6-17.2) Platelet Count 230 TH/MM3 206 TH/MM3 (150-450) (150-450) Mean Platelet Volume 9.1 FL 9.3 FL (7.0-11.0) (7.0-11.0) Neutrophils (%) (Auto) 86.9 % 87.4 % (16.0-70.0) (16.0-70.0) Lymphocytes (%) (Auto) 11.1 % 6.3 % (9.0-44.0) (9.0-44.0) Monocytes (%) (Auto) 1.7 % (0.0-8.0) 6.2 % (0.0-8.0) Eosinophils (%) (Auto) 0.0 % (0.0-4.0) 0.0 % (0.0-4.0) Basophils (%) (Auto) 0.3 % (0.0-2.0) 0.1 % (0.0-2.0) Neutrophils # (Auto) 15.3 TH/MM3 17.1 TH/MM3 (1.8-7.7) (1.8-7.7) Lymphocytes # (Auto) 2.0 TH/MM3 1.2 TH/MM3 (1.0-4.8) (1.0-4.8) Monocytes # (Auto) 0.3 TH/MM3 1.2 TH/MM3 (0-0.9) (0-0.9) Eosinophils # (Auto) 0.0 TH/MM3 0.0 TH/MM3 (0-0.4) (0-0.4) Basophils # (Auto) 0.1 TH/MM3 0.0 TH/MM3 (0-0.2) (0-0.2) CBC Comment AUTO DIFF DIFF FINAL Differential Total Cells 100 Counted Neutrophils % (Manual) 81 % (16-70) Band Neutrophils % 7 % (0-6) Lymphocytes % 7 % (9-44) Neutrophils # (Manual) 16.5 TH/MM3 (1.8-7.7) Myelocytes 5 % (0-0) Differential Comment FINAL DIFF MANUAL Polychromasia 2.0 % (0.0-1.9) Sodium Level 139 MEQ/L 137 MEQ/L (136-145) (136-145) Potassium Level 5.3 MEQ/L 5.8 MEQ/L (3.5-5.1) (3.5-5.1) Chloride Level 107 MEQ/L 104 MEQ/L (98-107) (98-107) Carbon Dioxide Level 20.1 MEQ/L 16.0 MEQ/L (21.0-32.0) (21.0-32.0) Anion Gap 12 MEQ/L (5-15) 17 MEQ/L (5-15) Blood Urea Nitrogen 99 MG/DL (7-18) 147 MG/DL (7-18) Creatinine 6.59 MG/DL 8.46 MG/DL (0.60-1.30) (0.60-1.30) Estimat Glomerular Filtration 10 ML/MIN (>89) 7 ML/MIN (>89) Rate Random Glucose 184 MG/DL 198 MG/DL (74-106) (74-106) Calcium Level 9.3 MG/DL 9.5 MG/DL (8.5-10.1) (8.5-10.1) Result Diagram: 04/20/17 0814 04/20/17 0814 Microbiology Microbiology Date/Time Procedure Status Source Growth 04/18/17 10:26 Aerobic Blood Culture - Preliminary Resulted Blood Peripheral NO GROWTH IN 2 DAYS 04/18/17 10:26 Anaerobic Blood Culture - Preliminary Resulted Blood Peripheral NO GROWTH IN 2 DAYS 04/18/17 10:32 Aerobic Blood Culture - Preliminary Resulted Blood Peripheral NO GROWTH IN 2 DAYS 04/18/17 10:32 Anaerobic Blood Culture - Preliminary Resulted Blood Peripheral NO GROWTH IN 2 DAYS Imaging Last Impressions Chest X-Ray 04/19/17 0000 Signed Impressions: Service Date/Time: Wednesday, April 19, 2017 08:31 - CONCLUSION: Stable examination. Dual-lumen catheter in good position. Faint density right midlung zone atelectasis versus infiltrate. Ethan Flores MD Carotid Artery Ultrasound 04/18/17 0000 Signed Impressions: Service Date/Time: Tuesday, April 18, 2017 08:51 - CONCLUSION: Moderate atherosclerotic disease bilaterally. No definite elevated ratios are identified Ethan Flores MD Head CT 04/17/17 1814 Signed Impressions: Service Date/Time: Monday, April 17, 2017 18:58 - CONCLUSION: Atrophy otherwise negative. Dudley Caceres MD FACR Patient/Family Conference Family Conference Location: Bedside Issues Discussed: met w daughter ,grandson at bedside. Pt w limited participation, he is lethargic , appears fatigued. Upon introduction I did offer translation via computer service to pt, which family verbalized to him, de deferred, and said " you handle, you speak " to his dtr, grandson. discussion included; * Palliative care role, purpose, approach * Additional medical, psychosocial, and spiritual history * Patients general health, functional status, and cognitive changes in the months leading up to the current hospitalization * Patient/family understanding of the current medical problems * Patient/family understanding of prognosis * Patients goals of care as best understood from advance directives and/or conversations and/or values * Current medical treatment options and benefits/burdens of those options * legal dec makers-- they will provide copies of POA * code status-- encouraged them to talk as a family , dtr is very emphatic he would remain FULL CODE, though any major decisions would require both children input or POA documents. * Likely scenarios comparing ongoing aggressive care with a transition to comfort measures only * Questions answered to the best of my ability * Palliative care contact information provided Assessment and Plan Disease Oriented Problem List: (1) ESRD (end stage renal disease) (2) Pneumonia (3) History of DVT (deep vein thrombosis) (4) Hypertension (5) Syncope (6) DM (diabetes mellitus) (7) Anemia (8) Leukocytosis Symptom Scale: (1) Altered mental status (2) Weakness generalized Pertinent Non-Medical Issues Psychosocial:Patient lives locally with 1 daughter, has another daughter who lives in [place]. He has lived with either daughter in the past years. Also supported by several grandchildren. [place]. Very active in playing/activity his grandchildren prior to the past few mos. Moved to [place] with dtr here in Nov 2016. Daughter in [place] indicates he will be moving back up with her following this hospitalization. Spiritual:Worship karen, would want service station helper support if is bolivian speaking. Legal:Pt, due to confusion/condition, is not able to make decisions. Supported by 2 adult daughter, multiple grandchildren. Grandson indicates he, his mother are POA which includes healthcare, we have requested copies of this document. Otherwise, decision making would fall to both adult children per [place] statutes. Ethical issues impacting care: Important Contacts Debbie Bailey- daughter- [phone] Adeline Bailey dtr - [phone] . Prognosis This pt was admitted for syncopal episode during dialysis. + findings of HCAP, now on antibiotics. Has had fluctuating mental status though etiology not completely clear-- ?able underlying dementia process (which family insists does not have) though he also has multiple medical conditions which may be contributing to AMS. Appears reasonable he can get through current acute issues , though likely would need some rehab following, for reconditioning. Does remain high risk for complications/setbacks due to advanced age and multiple medical conditions. . Code Status: Full Code Plan * Legal decision maker:Pt, due to confusion/condition, is not able to make decisions. Supported by 2 adult daughter, multiple grandchildren. Grandson indicates he, his mother are POA which includes healthcare, we have requested copies of this document. Otherwise, decision making would fall to both adult children per [place] statutes. * Goals: Dtr expresses very aggressive goals. She detail decline has been very recent -- she attributes much of it to the change from peritoneal dialysis to HD. She plans to bring pt back to [place] with her, her son after this hospitalization. They want to continue to treat all conditions with whatever options available, to get him back to his health earlier this year, and prior functional status . Palliative will continue to have ongoing discussions should be with BOTH daughters, continue to review conditions/options as course evolves. * CODE STATUS:- encouraged them to talk as a family , dtr is very emphatic he would remain FULL CODE, though any major decisions would require both children input or POA documents. I did review with them very poor outcomes of survival/ recovery in acute hospitalized pt on HD who undergo CPR. * SYMPTOMS: --confusion- has waxed/waned per family. CT brain neg acute process, + atrophy. ? mild dementia. Family indicates cognitively sharp just a few mos ago with NO memory or cognitive deficits. Review of available records From [place] visits seem to correlate with this based on documented neuro assessments. ? 2/2 ESRD, mild dementia, infection? --weakness- generalized weakness since on HD, was in rehab during March family reports with little improvement. Likely multifactorial- deconditioning, HD Palliative care will continue to follow during hospital course as condition evolves, to assist patient/decision-maker with understanding of medical conditions, weighing benefits/burdens of treatment options, for clarification of goals of treatment. Additionally will assist with any symptoms of palliative concern Thank you for the opportunity to participate in the care of Mr. Longo. Attestation To help prompt me to consider important information that might be impacting today's encounter and assessment, information from prior notes written by myself or my colleagues may have been "brought forward" into today's note. My signature on this note, however, is an attestation that I personally performed the exam, history, and/or decision-making noted today, and, unless otherwise indicated, the interactions with patient, family, and staff as well as the review of records all occurred today. I also attest that the listed assessment and stated plan reflect my best clinical judgment today based on the combination of historical information, prior notes, and today's exam/ interactions. When time spent is documented, it refers only to time spent today by the signer, or if indicated, combined time spent today by collaborating physician/nurse practitioner. Praveena Snowden Apr 20, 2017 15:19
[2017-04-20] MEDS: CEFEPIME INJ 1,000 MG in SODIUM CHLORIDE 0.9% INJ 100 ML IV SCH (20:34)
--- NOTE | 2017-04-20 21:31 | PD.ID.CON ---
History of Present Illness Service ID Consult Requested By Dr Wolfe Reason for Consult PNA Primary Care Physician Lexa Ruiz MD Diagnoses: History of Present Illness 86 yo male with ESRD/on HD presented with syncope after HD He pretty much denies any complaints He apparently was found to have an infiltrate on R lung field. Lactic acid was normal , no fever Pt not coughing or expectorating Review of Systems Except as stated in HPI: all other systems reviewed are Neg Past Family Social History Allergies: Coded Allergies: No Known Allergies (Unverified , 02/26/17) Past Medical History Hypertension Hyperlipidemia Diabetes type 2 ESRD on hemodialysis History of LE DVT Past Surgical History Peritoneal dialysis catheter placement HD Access placement. Active Ordered Medications Medications where reviewed in EMR Antibiotics Include: levaquin cefepime vancmycin Family History Non-Contributory. Social History No Tobacco. No ETOH. No Illicit Drugs. Physical Exam Vital Signs Vital Signs Date Time Temp Pulse Resp B/P Pulse Ox O2 Delivery O2 Flow Rate FiO2 04/20/17 20:30 96 21 04/20/17 16:05 99 04/20/17 16:00 Room Air 04/20/17 16:00 98.3 98 20 147/69 99 136/63 04/20/17 13:17 98.4 113 20 144/64 95 04/20/17 12:00 Room Air 04/20/17 08:00 Room Air 04/20/17 08:00 98.8 82 20 157/69 95 04/20/17 08:00 157/73 04/20/17 08:00 164/73 04/20/17 08:00 91 04/20/17 07:46 93 21 04/20/17 05:36 97.1 83 21 115/56 96 121/59 04/20/17 03:43 98 21 04/20/17 00:00 97.5 83 20 146/65 92 04/20/17 00:00 81 18 146/71 98 04/19/17 21:39 95 21 Physical Exam CONSTITUTIONAL/GENERAL: This is an adequately nourished patient, in no apparent distress. TUBES/LINES/DRAINS: Permacath in place R IJ, no skin changes SKIN: No jaundice, rashes, or lesions. Skin temperature appropriate. Not diaphoretic. HEAD: Atraumatic. Normocephalic. EYES: Pupils equal and round and reactive. Extraocular motions intact. No scleral icterus. No injection or drainage. Fundi not examined. ENT: Hearing grossly normal. Nose without bleeding or purulent drainage. Throat without visible erythema, exudates, masses, or lesions. NECK: Trachea midline. Supple, nontender. CARDIOVASCULAR: Regular rate and rhythm without murmurs, gallops, or rubs. No JVD. Peripheral pulses symmetric. RESPIRATORY/CHEST: Symmetric, unlabored respirations. Clear to auscultation. Breath sounds equal bilaterally. No wheezes, rales, or rhonchi. GASTROINTESTINAL: Abdomen soft, non-tender, nondistended. No hepato-splenomegaly , or palpable masses. No guarding. Bowel sounds present. GENITOURINARY: Without palpable bladder distension. . MUSCULOSKELETAL: Extremities without clubbing, cyanosis, or edema. . No mottling or clubbing. LYMPHATICS: No palpable cervical or supraclavicular adenopathy. NEUROLOGICAL: Awake and alert. Motor and sensory grossly within normal limits. Follows commands. Clear speech. Moves all extremities. PSYCHIATRIC: No obvious anxiety/depression. no apparent hallucinations or other psychotic thought process. Laboratory Laboratory Tests Test 04/20/17 08:14 White Blood Count 19.5 Red Blood Count 2.76 Hemoglobin 9.4 Hematocrit 29.2 Mean Corpuscular Volume 106.1 Mean Corpuscular Hemoglobin 34.0 Mean Corpuscular Hemoglobin 32.0 Concent Red Cell Distribution Width 20.4 Platelet Count 206 Mean Platelet Volume 9.3 Neutrophils (%) (Auto) 87.4 Lymphocytes (%) (Auto) 6.3 Monocytes (%) (Auto) 6.2 Eosinophils (%) (Auto) 0.0 Basophils (%) (Auto) 0.1 Neutrophils # (Auto) 17.1 Lymphocytes # (Auto) 1.2 Monocytes # (Auto) 1.2 Eosinophils # (Auto) 0.0 Basophils # (Auto) 0.0 CBC Comment DIFF FINAL Differential Comment Sodium Level 137 Potassium Level 5.8 Chloride Level 104 Carbon Dioxide Level 16.0 Anion Gap 17 Blood Urea Nitrogen 147 Creatinine 8.46 Estimat Glomerular Filtration 7 Rate Random Glucose 198 Calcium Level 9.5 Date/Time Procedure Status Source Growth 04/18/17 10:32 Aerobic Blood Culture - Preliminary Resulted Blood Peripheral NO GROWTH IN 2 DAYS 04/18/17 10:32 Anaerobic Blood Culture - Preliminary Resulted Blood Peripheral NO GROWTH IN 2 DAYS Result Diagram: 04/20/17 0814 04/20/17 0814 Imaging Last Impressions Chest X-Ray 04/19/17 0000 Signed Impressions: Service Date/Time: Wednesday, April 19, 2017 08:31 - CONCLUSION: Stable examination. Dual-lumen catheter in good position. Faint density right midlung zone atelectasis versus infiltrate. Ethan Flores MD Carotid Artery Ultrasound 04/18/17 0000 Signed Impressions: Service Date/Time: Tuesday, April 18, 2017 08:51 - CONCLUSION: Moderate atherosclerotic disease bilaterally. No definite elevated ratios are identified Ethan Flores MD Head CT 04/17/17 1814 Signed Impressions: Service Date/Time: Monday, April 17, 2017 18:58 - CONCLUSION: Atrophy otherwise negative. Dudley Caceres MD FACR Assessment and Plan Assessment and Plan ESRD, HD LLL infiltrate vs atelectasis , though no other sings PNA (cough, hypoxia , expectroration) Pt is afebrile, but has prominent leukocytosis of 19 K REC's: cont cefepime, levaquine cont vancomycin fu clx blood and sputum Discussed Condition With dorie at b/s Carole Suero MD Apr 20, 2017 21:31
[2017-04-20 22:59] LABS: BLOOD, URINE SMALL (NEG); GLUCOSE,URINE 70 mg/dL (NEG); KETONE, URINE NEG (NEG); MUCUS URINE FEW /lpf (OCC); NITRITE,URINE NEG (NEG); SQUAMOUS EPITHELIAL CELL URINE <1 /hpf (0-5); URINE COLOR YELLOW (YELLW/STRAW)
[2017-04-20 23:01] LABS: COMMENT (UR) CULT NOT INDICATED; CULTURE IF INDICATED CULT NOT INDICATED
[2017-04-21] VITALS (10 sets, daily range): BP systolic 141–161; BP diastolic 64–84; PULSE 77–94; RESP 18–20; TEMP 98–98.6; O2SAT 94–98
[2017-04-21] MEDS: RESP: IPRATROPIUM 0.5 MG/2.5 ML NEB NEB SCH ×6 (00:57→19:32)
[2017-04-21] MEDS: INSULIN ASPART SUPPLEMENTAL SCALE SQ SCH ×4 (06:06→22:09)
[2017-04-21 07:10] LABS: BASOPHIL % 0.2 % (0.0-2.0); HEMATOCRIT 29.3 % (39.0-51.0); LYMPH % 12.3 % (9.0-44.0); MEAN CELL VOLUME 103.1 FL (80.0-100.0); MEAN CORPUSCULAR HEMOGLOBIN 34.8 PG (27.0-34.0); MEAN CORPUSCULAR HGB CONC 33.7 % (32.0-36.0); MONO % 9.1 % (0.0-8.0); NEUT % 78.4 % (16.0-70.0); PLATELET COUNT 224 TH/MM3 (150-450); RED BLOOD COUNT 2.84 MIL/MM3 (4.50-5.90); RED CELL DISTRIBUTION WIDTH 19.6 % (11.6-17.2); WHITE BLOOD COUNT 16.6 TH/MM3 (4.0-11.0)
[2017-04-21 07:12] LABS: HEMO FLAGS AUTO DIFF
[2017-04-21 07:50] LABS: BANDS 1 % (0-6); MYELOCYTES 1 % (0-0); NEUTROPHIL # MANUAL DIFF 12.9 TH/MM3 (1.8-7.7); OVALOCYTES 1+ (NORMAL); PLATELET ESTIMATE SMEAR NORMAL (NORMAL); PLATELET MORPHOLOGY NORMAL (NORMAL); POLYS (SEG NEUTROPHILS) 76 % (16-70); SCAN/DIFF FINAL DIFF MANUAL; WBC DIFF SAMPLE 100
[2017-04-21 08:13] LABS: ALKALINE PHOSPHATASE 64 U/L (45-117); ALT (GPT) 12 U/L (12-78); ANION GAP 13 MEQ/L (5-15); AST (GOT) 12 U/L (15-37); BICARBONATE 24.9 MEQ/L (21.0-32.0); BLOOD UREA NITROGEN 102 MG/DL (7-18); CHLORIDE 100 MEQ/L (98-107); GLOMERULAR FILTRATION RATE 10 ML/MIN (>89); POTASSIUM 4.5 MEQ/L (3.5-5.1); SODIUM (NA) 138 MEQ/L (136-145); TOTAL BILIRUBIN ADULT 0.7 MG/DL (0.2-1.0)
[2017-04-21] MEDS: amLODIPine BESYLATE 5 MG TAB PO SCH (08:27)
[2017-04-21] MEDS: SODIUM CHLORIDE 0.9% FLUSH 10 ML FLUSH IV FLUSH SCH ×2 (08:27→20:36)
[2017-04-21] MEDS: DOCUSATE SODIUM 50 MG/SENNA 8.6 MG TAB PO SCH ×2 (08:27→20:36)
[2017-04-21] MEDS: LOSARTAN 50 MG TAB PO SCH (08:27)
[2017-04-21] MEDS: CARVEDILOL 12.5 MG TAB PO SCH ×2 (08:27→20:36)
[2017-04-21] MEDS: APIXABAN 2.5 MG TABLET PO SCH ×2 (08:27→20:36)
--- NOTE | 2017-04-21 09:24 | HHI.FPPN ---
Subjective Remarks Patient interviewed with grandson, who is power of claim attorney, in the room. Patient states he feels much better this morning. He feels that his strength is improving. Denies fever, chills, nausea, vomiting. No palpitations or chest pain. (Caleb Wolfe MD R2) Objective Vitals Vital Signs Date Time Temp Pulse Resp B/P Pulse Ox O2 Delivery O2 Flow Rate FiO2 04/21/17 08:07 98 21 04/21/17 08:00 98.2 88 20 158/76 98 04/21/17 04:00 Room Air 04/21/17 04:00 98.5 94 19 161/84 94 04/21/17 01:00 95 21 04/21/17 00:00 98.6 94 18 149/69 96 04/21/17 00:00 Room Air 04/20/17 20:30 96 21 04/20/17 20:00 94 04/20/17 20:00 Room Air 04/20/17 20:00 98.0 99 18 142/67 95 04/20/17 16:05 99 04/20/17 16:00 Room Air 04/20/17 16:00 98.3 98 20 147/69 99 136/63 04/20/17 13:17 98.4 113 20 144/64 95 04/20/17 12:00 Room Air I/O 04/20/17 04/20/17 04/20/17 04/21/17 04/21/17 04/21/17 06:59 14:59 22:59 06:59 14:59 22:59 Intake Total 182 ml 0 ml Output Total 3000 ml 0 ml Balance -2818 ml 0 ml Intake Oral 0 ml IV Total 182 ml Output Urine Total 0 ml Hemodialysis 3000 ml (Caleb Wolef MD R2) Result Diagram: 04/21/17 0633 04/21/17 0633 Objective Remarks GEN: AA to name , but not city state or year. HEENT: Symmetric faces, full sensation to face, CN intact RESP: Diffuse wheezing throughout, poor aeration diffusely, crackles in left lower lobe CV: RRR, no pitting edema in pegs, No calf tenderness GI: Soft, ND NT (Caleb Wolfe MD R2) A/P Assessment and Plan 86-year-old male, patient of Dr. Ruiz, with end-stage renal disease and pneumonia. Being treated for HCAP; infectious disease consult. Treatment as below. Discharge Planning Pending clinical improvement. (Caleb Wolfe MD R2) Attending Attestation Patient seen and examined. Case reviewed and discussed with the resident team. Agree with plan of care as discussed with me and documented in the resident note. (Caty Wolfe MD) Problem List: (1) Syncope Status: Acute Plan: Cardiology consult Etiology is likely combination of atrial flutter and pneumonia. Appears to be in new onset atrial flutter; this is rate controlled and he is anticoagulated on eliquis as below. Continue telemetry Out of bed with assistance. Fall precautions. Physical therapy Previous history: Troponins within normal limits Echo 01/2017- EF 60-65% Orthostatic vitals: Systolic blood pressure drop 180-160 (2) Pneumonia Status: Acute Plan: Infectious disease consult Continue treatment for HCAP Current antibiotics: Cefepime 1000 mg IV daily (started 04/17 Levaquin 500 mg IV every 48 hours Vancomycin with hemodialysis Lab: Blood culture 04/18: No growth to date Other treatment: DuoNeb scheduled every 4 hours. Give oxygen by NC if needed for goal sat >92% Incentive spirometry (3) Atrial flutter Status: Acute Plan: see syncope workup Cardiology consult Rate controlled. Continue current anticoagulation Follow-up with cardiology as an outpatient (4) ESRD (end stage renal disease) Status: Acute Plan: Consult nephrology Typically dialysis Thursday (5) Weakness generalized Status: Acute Plan: PT consulted while inpatient to evaluate Case mgmt consulted if rehab is indicated Fall precautions (6) History of DVT (deep vein thrombosis) Status: Acute Plan: Per records, patient has hx of provoked DVT - restart Elqiuis for DVT prophylaxis. Plan: Restart home Elqiuis. (7) Hypertension Status: Chronic Plan: continue Losartan 50mg hs, amlodipine 5 mg daily and carvedilol 25mg PO BID Clonidine PRN BP >180/110 (8) DM (diabetes mellitus) Status: Chronic Plan: Will give low dose supplemental scale Novolog with Accucheks (9) Fluid, Electrolytes, Nutrition, Prophylaxis Status: Acute Plan: Fluids: tolerating PO Electrolytes: monitor and replete as needed Nutrition: renal diet DVT Prophylaxis: Eliquis GI Prophylaxis: not indicated (Caleb Wolfe MD R2) Problem Qualifiers (1) Syncope: Qualified Code: R55 - Syncope, unspecified syncope type (2) Pneumonia: (3) DM (diabetes mellitus): Qualified Code: E11.9 - Type 2 diabetes mellitus without complication, without long-term current use of insulin Caleb Wolfe MD R2 Apr 21, 2017 09:24 Caty Wolfe MD Apr 21, 2017 17:50
--- NOTE | 2017-04-21 09:42 | PD.CONS ---
HPI Consult Requested By Primary Care Physician Lexa Ruiz MD History of Present Illness 86-year-old patient admitted 04/17/17 following a syncopal episode, pmhx significant for dementia, CVA, Dementia, Diabetes, Hypertension and End-stage renal disease on dialysis. He has been treated for an infection WBC remains elevated 19.5. with CXR showing a density right midlung atelectasis versus infiltrate. He was started on Vanco, Levaquin, cefepime. Blood cultures 04/18 no growth to date. Cardiology consulted for atrial flutter with adequate ventricular response. 2-D echo shows EF 60-65%, elevated with moderate pulmonary hypertension. He has no CV complaints Review of Systems Consitutional: DENIES: Fatigue, Fever, Chills, Weight gain, Weight loss Eyes: DENIES: Amaurosis Fugax, Change in vision HEENT: DENIES: Lightheadedness, Change in hearing Respiratory: DENIES: See HPI, Cough, Snoring, Shortness of breath, Wheezing, Sputum production Cardiovascular: DENIES: See HPI, Chest pain, Palpitations, Syncope, Tachycardia Gastrointestinal: DENIES: Nausea, Vomiting, Change in bowel habits, Reflux, Bloody stools, Melena Genitourinary: DENIES: Urinary incontinence, Difficulty voiding Integumentary: DENIES: Rash Neurologic: DENIES: Tingling or numbness, Memory problems, Poor Balance, Stroke symptoms Musculoskeletal: DENIES: Joint pain, Muscle pain, Limited range of motion, Back pain Psychiatric: DENIES: Anxiety, Depression, Sleep disturbances Hematologic: DENIES: Bruising tendencies, Bleeding tendencies Endocrine: DENIES: Weight gain, Weight loss, Thyroid disease Past Family Social History Allergies: Coded Allergies: No Known Allergies (Unverified , 02/26/17) Past Medical History CVA Dementia Diabetes Hypertension History of pneumonia End-stage renal diseasedialysis dependent Provoked DVT Past Surgical History Peritoneal dialysis catheter placement Colonoscopy with polypectomy and biopsy Reported Medications Reported Meds & Active Scripts Active Sertraline (Sertraline HCl) 25 Mg Tab 25 Mg PO DAILY Renvela (Sevelamer Carbonate) 800 Mg Tab 1,600 Mg PO TIDAC Carvedilol 25 Mg Tab 25 Mg PO BID Reported Duoneb (Ipratropium-Albuterol Neb) 0.5-2.5 Mg/3 Ml Neb 3 Ml NEB Q6HR Miralax Powder (Polyethylene Glycol 3350 Powder) 17 Gm Powd 17 Gm PO DAILY Mix and dissolve one measuring capful (17 grams) in 4-8oz water or juice. Megace Liq (Megestrol Acetate) 40 Mg/Ml Susp 200 Mg PO DAILY Eliquis (Apixaban) 2.5 Mg Tab 2.5 Mg PO BID Simvastatin 20 Mg Tab 20 Mg PO HS Losartan (Losartan Potassium) 50 Mg Tab 50 Mg PO HS Novolog Mix 70-30 FlexPen Inj (Insulin Aspart Protam-Asp 70-30 Inj) 300 Unit/3 Ml Pen 5-10 Units SQ BID Calcitriol 0.25 Mcg Cap 0.25 Mcg PO MOWEFR Take 1 tablet (0.25mcg) on Thursday,Thursday and Thursday Active Ordered Medications Current Medications Medications (Trade) Dose Ordered Sig/Mahi Route Start Time Stop Time Status Last Admin (Catapres) 0.1 mg Q6H PRN PO 04/17/17 21:15 04/19/17 16:23 (NS Flush) 2 ml UNSCH PRN IV FLUSH 04/17/17 22:45 (NS Flush) 2 ml BID IV FLUSH 04/18/17 09:00 04/21/17 08:27 (Tylenol) 650 mg Q4H PRN PO 04/17/17 22:45 (Narcan Inj) 0.4 mg UNSCH PRN IV 04/17/17 22:45 ([place]-Colace) 1 tab BID PO 04/18/17 09:00 04/21/17 08:27 (Milk Of Magnesia Liq) 30 ml Q12H PRN PO 04/17/17 22:45 (Senokot) 17.2 mg Q12H PRN PO 04/17/17 22:45 (Dulcolax Supp) 10 mg DAILY PRN RECTAL 04/17/17 22:45 (Lactulose Liq) 30 ml DAILY PRN PO 04/17/17 22:45 Carvedilol 25 mg 25 mg BID PO 04/17/17 23:00 04/21/17 08:27 Cefepime HCl 1000 mg/Sodium Chloride 100 ml @ 200 mls/hr DAILY@20 IV 04/18/17 20:00 04/20/17 20:34 (Levaquin 500 Mg Premix Inj) 100 ml @ 100 mls/hr Q48H IV 04/19/17 21:00 04/19/17 20:54 (SoluMEDROL INJ) 60 mg Q6H IVP 04/18/17 11:00 Hold 04/19/17 05:13 (Eliquis) 2.5 mg BID PO 04/19/17 10:00 04/21/17 08:27 (Norvasc) 10 mg DAILY PO 04/19/17 10:00 04/21/17 08:27 Losartan Potassium 50 mg 50 mg DAILY PO 04/19/17 09:30 04/21/17 08:27 (NS 1000 ml Inj) 1,000 ml @ 0 mls/hr Q0M PRN IV 04/19/17 09:21 Heparin Sodium (Porcine) 8000 units 8,000 units UNSCH PRN IVF 04/19/17 09:30 Sodium Chloride 1,000 ml @ 200 mls/hr Q5H PRN IV 04/19/17 09:21 (NS 1000 ml Inj) 1,000 ml @ 0 mls/hr Q0M PRN IV 04/19/17 09:21 (Mannitol Inj) 12.5 gm UNSCH PRN IV 04/19/17 09:30 (Albumin 25% Inj) 25 gm UNSCH PRN IV 04/19/17 09:30 (NS Flush) 5 ml UNSCH PRN IV FLUSH 04/19/17 09:30 (Heparin Inj) UNSCH PRN .XX 04/19/17 09:30 04/20/17 11:43 (Gentamicin (Dialysis) Inj) 20 mg UNSCH PRN IV 04/19/17 09:30 04/20/17 11:44 (Zofran Inj) 4 mg UNSCH PRN IV 04/19/17 09:30 (Tylenol) 650 mg UNSCH PRN PO 04/19/17 09:30 (Benadryl) 25 mg UNSCH PRN PO 04/19/17 09:30 (Nitrostat Sl) 0.4 mg UNSCH PRN SL 04/19/17 09:30 (Catapres) 0.1 mg UNSCH PRN PO 04/19/17 09:30 (Epogen Inj) 10,000 units UNSCH PRN IV 04/19/17 09:30 04/20/17 11:43 (Gelfoam 12 Mm/7 Mm Top) 1 foam UNSCH PRN TOP 04/19/17 09:30 Physical Exam Vital Signs Vital Signs Date Time Temp Pulse Resp B/P Pulse Ox O2 Delivery O2 Flow Rate FiO2 04/21/17 08:07 98 21 04/21/17 08:00 98.2 88 20 158/76 98 04/21/17 04:00 Room Air 04/21/17 04:00 98.5 94 19 161/84 94 04/21/17 01:00 95 21 04/21/17 00:00 98.6 94 18 149/69 96 04/21/17 00:00 Room Air 04/20/17 20:30 96 21 04/20/17 20:00 94 04/20/17 20:00 Room Air 04/20/17 20:00 98.0 99 18 142/67 95 04/20/17 16:05 99 04/20/17 16:00 Room Air 04/20/17 16:00 98.3 98 20 147/69 99 136/63 04/20/17 13:17 98.4 113 20 144/64 95 04/20/17 12:00 Room Air Physical Exam GENERAL: Well-nourished, well-developed patient. SKIN: Warm and dry. HEAD: Normocephalic. EYES: No scleral icterus. No injection or drainage. NECK: Supple, trachea midline. No JVD or lymphadenopathy. CARDIOVASCULAR: Irr Irr without murmurs, gallops, or rubs. RESPIRATORY: Breath sounds equal bilaterally. No accessory muscle use. GASTROINTESTINAL: Abdomen soft, non-tender, nondistended. EXTREMITIES: No cyanosis, or edema. NEUROLOGICAL: Awake, alert, and oriented x 3. Non-focal. Laboratory Laboratory Tests Test 04/20/17 04/21/17 22:00 06:33 Urine Color YELLOW Urine Turbidity CLEAR Urine pH 6.0 Urine Specific Belt 1.014 Urine Protein 300 Urine Glucose (UA) 70 Urine Ketones NEG Urine Occult Blood SMALL Urine Nitrite NEG Urine Bilirubin NEG Urine Urobilinogen LESS THAN 2.0 Urine Leukocyte Esterase NEG Urine RBC 3 Urine WBC 2 Urine Squamous Epithelial <1 Cells Urine Mucus FEW Urine Sperm RARE Microscopic Urinalysis Comment CULT NOT INDICATED White Blood Count 16.6 Red Blood Count 2.84 Hemoglobin 9.9 Hematocrit 29.3 Mean Corpuscular Volume 103.1 Mean Corpuscular Hemoglobin 34.8 Mean Corpuscular Hemoglobin 33.7 Concent Red Cell Distribution Width 19.6 Platelet Count 224 Mean Platelet Volume 8.9 Neutrophils (%) (Auto) 78.4 Lymphocytes (%) (Auto) 12.3 Monocytes (%) (Auto) 9.1 Eosinophils (%) (Auto) 0.0 Basophils (%) (Auto) 0.2 Neutrophils # (Auto) 13.0 Lymphocytes # (Auto) 2.0 Monocytes # (Auto) 1.5 Eosinophils # (Auto) 0.0 Basophils # (Auto) 0.0 CBC Comment AUTO DIFF Differential Total Cells 100 Counted Neutrophils % (Manual) 76 Band Neutrophils % 1 Lymphocytes % 14 Monocytes % 8 Neutrophils # (Manual) 12.9 Myelocytes 1 Differential Comment FINAL DIFF MANUAL Platelet Estimate NORMAL Platelet Morphology Comment NORMAL Ovalocytes 1+ Sodium Level 138 Potassium Level 4.5 Chloride Level 100 Carbon Dioxide Level 24.9 Anion Gap 13 Blood Urea Nitrogen 102 Creatinine 6.27 Estimat Glomerular Filtration 10 Rate Random Glucose 144 Calcium Level 8.7 Total Bilirubin 0.7 Aspartate Amino Transf 12 (AST/SGOT) Alanine Aminotransferase 12 (ALT/SGPT) Alkaline Phosphatase 64 Total Protein 6.3 Albumin 2.8 Date/Time Procedure Status Source Growth 04/20/17 22:00 Legionella Antigen Received Urine Clean Catch Pending 04/20/17 22:00 Streptococcus pneumoniae Antigen (M Received Urine Clean Catch Pending 04/18/17 10:32 Aerobic Blood Culture - Preliminary Resulted Blood Peripheral NO GROWTH IN 2 DAYS 04/18/17 10:32 Anaerobic Blood Culture - Preliminary Resulted Blood Peripheral NO GROWTH IN 2 DAYS Result Diagram: 04/21/17 0633 04/21/17 0633 Imaging Last Impressions Chest X-Ray 04/19/17 0000 Signed Impressions: Service Date/Time: Wednesday, April 19, 2017 08:31 - CONCLUSION: Stable examination. Dual-lumen catheter in good position. Faint density right midlung zone atelectasis versus infiltrate. Ethan Flores MD Carotid Artery Ultrasound 04/18/17 0000 Signed Impressions: Service Date/Time: Tuesday, April 18, 2017 08:51 - CONCLUSION: Moderate atherosclerotic disease bilaterally. No definite elevated ratios are identified Ethan Flores MD Head CT 04/17/17 1814 Signed Impressions: Service Date/Time: Monday, April 17, 2017 18:58 - CONCLUSION: Atrophy otherwise negative. Dudley Caceres MD FACR Assessment and Plan Problem List: (1) Atrial flutter Assessment and Plan: 86 y/o M with above history and findings admitted after syncopal episode in the setting of infection. He has been found to be in Atrial Flutter with adequate ventricular response. No cardiovascular complaints. ECHO with good LV systolic function and no wall motion abnormalities. AF rate controlled and he is already on OAC. Recommendations: 1. Cont Coreg and Eliquis F/U with cardiology upon discharge Thank you for the opportunity to take part in the care of this patient (2) End stage renal disease (3) Hypertension (4) Syncope (5) Essential (primary) hypertension Problem Qualifiers (1) Syncope: Qualified Code: R55 - Syncope, unspecified syncope type Enrique Sue MD Apr 21, 2017 09:42
--- NOTE | 2017-04-21 10:02 | EKG ---
Date Performed: 04/20/2017 Time Performed: 16:05:28 PTAGE: 86 years EKG: Atrial flutter with variability conductions Ventricular premature complex Left axis deviati on Atrial flutter is new from the prior tracing. Abnormal ECG PREVIOUS TRACING : 04/19/2017 01.08 DOCTOR: Marko Christianson Interpretating Date/Time 04/21/2017 10:00:46
--- NOTE | 2017-04-21 11:16 | HHI.NPPN ---
Subjective Renal Failure: Chronic, End Stage Renal Disease Interval History Family at bedside. Pt is sleeping. Went into A fib overnight. Afebrile. ( Tara Cheng) Review of Systems General Constitutional: Fatigue (Tara Cheng) Objective Data Data 04/20/17 04/21/17 19:00 07:00 Intake Total 182 ml 0 ml Output Total 3000 ml 0 ml Balance -2818 ml 0 ml Intake Oral 0 ml IV Total 182 ml Output Urine Total 0 ml Hemodialysis 3000 ml Vital Signs Date Time Temp Pulse Resp B/P Pulse Ox O2 Delivery O2 Flow Rate FiO2 04/21/17 08:07 98 21 04/21/17 08:00 98.2 88 20 158/76 98 04/21/17 07:07 Room Air 04/21/17 07:07 93 04/21/17 04:00 Room Air 04/21/17 04:00 98.5 94 19 161/84 94 04/21/17 01:00 95 21 04/21/17 00:00 98.6 94 18 149/69 96 04/21/17 00:00 Room Air 04/20/17 20:30 96 21 04/20/17 20:00 94 04/20/17 20:00 Room Air 04/20/17 20:00 98.0 99 18 142/67 95 04/20/17 16:05 99 04/20/17 16:00 Room Air 04/20/17 16:00 98.3 98 20 147/69 99 136/63 04/20/17 13:17 98.4 113 20 144/64 95 04/20/17 12:00 Room Air (Tara Cheng) -: 04/21/17 0633 04/21/17 0633 Microbiology 04/20/17 Legionella Antigen - Final, Complete PRESUMPTIVE NEGATIVE FOR LEGIONELLA P... 04/20/17 Streptococcus pneumoniae Antigen (M - Final, Complete PRESUMPTIVE NEGATIVE FOR STREPTOCOCCU... Imaging Last 72 hours Impressions Chest X-Ray 04/19/17 0000 Signed Impressions: Service Date/Time: Wednesday, April 19, 2017 08:31 - CONCLUSION: Stable examination. Dual-lumen catheter in good position. Faint density right midlung zone atelectasis versus infiltrate. Ethan Flores MD Tubes & Lines: Perma-Cath (Tara Cheng. OUTDOOR FITNESS TRAINER) Physical Exam General Appearance: Well Developed, Well Nourished, No Acute Distress, Comfortable, Sleeping (Tara Cheng. OUTDOOR FITNESS TRAINER) Eyes Eye Exam: Pupils Equal, Pupils Reactive, Extraocular Movement Intact (Tara Cheng B. OUTDOOR FITNESS TRAINER) Throat Throat Exam: Oral Mucosa [place] & Moist (Tara Cheng B. OUTDOOR FITNESS TRAINER) Neck Neck Exam: Neck Supple (Tara Cheng. OUTDOOR FITNESS TRAINER) Pulmonary Resp Exam: Clear Bilaterally, No Distress (Tara Cheng B. OUTDOOR FITNESS TRAINER) Cardiology CV Exam: Good Perfusion, Irregular, Arrhythmia (Tara Cheng B. OUTDOOR FITNESS TRAINER) Gastrointestinal/Abdomen GI Exam: Soft, Non-Tender, Bowel Sounds Present (Tara Cheng B. OUTDOOR FITNESS TRAINER) Musculoskeletal MS Exam: Joints Intact (Tara Cheng B. OUTDOOR FITNESS TRAINER) Integumentary Skin Exam: Warm, Dry, Intact (Tara Cheng B. OUTDOOR FITNESS TRAINER) Extremeties Extremities Exam: No Edema, Pedal Pulses Palpable Extremeties Remarks AVF left arm + thrill/bruit (Tara Cheng. OUTDOOR FITNESS TRAINER) Neurologic Neuro Exam: Alert, Moving All Extremities (Tara Cheng. OUTDOOR FITNESS TRAINER) Assessment/Plan Discussed Condition With: Patient Assessment Summary: Anemia of CKD, Hypertension, Diabetes Mellitus, End Stage Renal Disease Problem List: (1) ESRD (end stage renal disease) Plan: 3L UF yesterday with dialysis, potassium has improved (hyperkalemic yesterday) Continue HD support MWF Avoid IVF, unless NPO then begin D10 @ 20 ml/hr Avoid Gadolinium. intermittent renal panel Permcath for use during HD (2) Anemia Plan: Epogen with dialysis. (3) Leukocytosis Plan: WBC improving after steroids were stopped Rule out sepsis. Although he is afebrile with normal lactic acid. Being treated for HCAP urine strep and legionella negative, blood cx negative He is on Vancomycin with dialysis. Also is on Levaquin and Cefepime. Of note he does have CVC. ID has evaluated and recommend to continue current plan (4) Altered mental status Plan: Improving, encephalopathy workup is in progress. (5) DM (diabetes mellitus) Plan: continue insulin coverage as needed. (6) Metabolic bone disease Plan: recheck phosphorus level He is not on phosphorus binder. (7) Essential (primary) hypertension Plan: BP stable he is on losartan, Amlodipine, and coreg monitor blood pressure and titrate to effect (8) History of DVT (deep vein thrombosis) Plan: continue Eliquis he also developed new onset A fib for which Eliquis is effective for anticoagulation (Tara Cheng) Plan patient was seen and examined. Agree with above assessment and plan. (Edson Billings MD) Problem Qualifiers (1) Leukocytosis: Qualified Code: D72.829 - Leukocytosis, unspecified type (2) Altered mental status: Qualified Code: R41.0 - Disorientation (3) DM (diabetes mellitus): Qualified Code: E11.9 - Type 2 diabetes mellitus without complication, without long-term current use of insulin Tara Cheng Apr 21, 2017 11:16 Edson Billings MD Apr 22, 2017 09:40
--- NOTE | 2017-04-21 13:56 | HHI.HCPN ---
Reason for visit a. To assist with evaluation and management of symptoms including: confusion b. To assist medical decision maker(s) with: better understanding of current medical conditions; weighing benefits/burdens of medical treatment options; making medical treatment decisions. Subjective/Interval History Should seen today to follow-up on comfort, goals of care with patient and family. Also introduced another palliative care UNDERWRITING SALES REPRESENTATIVEMartir Lopez, who speaks patient [place] language, who will additionally assist and follow with patient from Palliative. Overnight w episode atrial flutter w RVR , cardiology consulted-- notes rate controlled- no further tx required--> cont pt Coreg and Eliquis. WBC trending down, 16.6. Afebrile, vs otherwise stable. BC cont to be neg to date. No new imaging. PT initially seen in room w 2 younger grandchildren present, alert, partially oriented. [ spoken to in Albanian by Orlin GONZALEZ)] ROS negative no complaints. Grandchildren advise other grandson and dtr went to lunch, we will return to update them in a bit. Returned to room, other grandson Megan (whom was present during our meeting yesterday) now present though dtr still not back . Provided update on recent diagnostics, current clinical assessments, tx in place. Again assess pt, who does not remember us from earlier today-- he says so many drs have been coming in all day.ROS negative. He has eaten lunch, good appetite. Family indicates he appears brighter, more engaged, more energy today. Their goals are aggressive to cont to help pt improve to discharge and possible move back up to [place] to be cared for by dtr there. Venus will update family, they have my contact # if any additional questions. Did review again dec makers per statutes, they are trying to locate POA/HCS documents. . Advance Directives Health Care Surrogate: Completed, but not made available Durable Power of Public Speaker: Completed, but not made available Objective Vital Signs Date Time Temp Pulse Resp B/P Pulse Ox O2 Delivery O2 Flow Rate FiO2 04/21/17 12:00 98.0 81 20 141/64 96 04/21/17 08:07 98 21 04/21/17 08:00 98.2 88 20 158/76 98 04/21/17 07:07 Room Air 04/21/17 07:07 93 04/21/17 04:00 Room Air 04/21/17 04:00 98.5 94 19 161/84 94 04/21/17 01:00 95 21 04/21/17 00:00 98.6 94 18 149/69 96 04/21/17 00:00 Room Air 04/20/17 20:30 96 21 04/20/17 20:00 94 04/20/17 20:00 Room Air 04/20/17 20:00 98.0 99 18 142/67 95 04/20/17 16:05 99 04/20/17 16:00 Room Air 04/20/17 16:00 98.3 98 20 147/69 99 136/63 Intake & Output 04/21/17 04/21/17 07:00 19:00 Intake Total 0 ml Output Total 0 ml Balance 0 ml Intake Oral 0 ml Output Urine Total 0 ml Physical Exam CONSTITUTIONAL/GENERAL: This is an adequately nourished patient, alert partially oriented, pleasant TUBES/LINES/DRAINS: dialysis catheter rt SC SKIN: No jaundice, rashes, or lesions. No wounds seen anteriorly. Skin temperature appropriate. Not diaphoretic. CARDIOVASCULAR: irregularly irregular. No murmur. No JVD. Peripheral pulses symmetric. RESPIRATORY/CHEST: Symmetric, unlabored respirations. on room air. Clear to auscultation. Breath sounds equal bilaterally. GASTROINTESTINAL: Abdomen soft, non-tender, nondistended. No hepato-splenomegaly , or palpable masses. No guarding. Bowel sounds normoactive. NEUROLOGICAL: Awake and alert. partially oriented x2, cooperative. moves all 4 extremities, follows commands. PSYCHIATRIC: No obvious anxiety/depression. no apparent hallucinations or other psychotic thought process. Diagnostic Tests Laboratory Laboratory Tests Test 04/19/17 04/19/17 04/20/17 04/20/17 02:15 06:30 08:14 22:00 Troponin I 0.07 NG/ML (0.02-0.05) White Blood Count 17.7 TH/MM3 19.5 TH/MM3 (4.0-11.0) (4.0-11.0) Red Blood Count 2.82 MIL/MM3 2.76 MIL/MM3 (4.50-5.90) (4.50-5.90) Hemoglobin 9.7 GM/DL 9.4 GM/DL (13.0-17.0) (13.0-17.0) Hematocrit 29.6 % 29.2 % (39.0-51.0) (39.0-51.0) Mean Corpuscular Volume 104.9 FL 106.1 FL (80.0-100.0) (80.0-100.0) Mean Corpuscular Hemoglobin 34.5 PG 34.0 PG (27.0-34.0) (27.0-34.0) Mean Corpuscular Hemoglobin 32.9 % 32.0 % Concent (32.0-36.0) (32.0-36.0) Red Cell Distribution Width 20.3 % 20.4 % (11.6-17.2) (11.6-17.2) Platelet Count 230 TH/MM3 206 TH/MM3 (150-450) (150-450) Mean Platelet Volume 9.1 FL 9.3 FL (7.0-11.0) (7.0-11.0) Neutrophils (%) (Auto) 86.9 % 87.4 % (16.0-70.0) (16.0-70.0) Lymphocytes (%) (Auto) 11.1 % 6.3 % (9.0-44.0) (9.0-44.0) Monocytes (%) (Auto) 1.7 % (0.0-8.0) 6.2 % (0.0-8.0) Eosinophils (%) (Auto) 0.0 % (0.0-4.0) 0.0 % (0.0-4.0) Basophils (%) (Auto) 0.3 % (0.0-2.0) 0.1 % (0.0-2.0) Neutrophils # (Auto) 15.3 TH/MM3 17.1 TH/MM3 (1.8-7.7) (1.8-7.7) Lymphocytes # (Auto) 2.0 TH/MM3 1.2 TH/MM3 (1.0-4.8) (1.0-4.8) Monocytes # (Auto) 0.3 TH/MM3 1.2 TH/MM3 (0-0.9) (0-0.9) Eosinophils # (Auto) 0.0 TH/MM3 0.0 TH/MM3 (0-0.4) (0-0.4) Basophils # (Auto) 0.1 TH/MM3 0.0 TH/MM3 (0-0.2) (0-0.2) CBC Comment AUTO DIFF DIFF FINAL Differential Total Cells 100 Counted Neutrophils % (Manual) 81 % (16-70) Band Neutrophils % 7 % (0-6) Lymphocytes % 7 % (9-44) Neutrophils # (Manual) 16.5 TH/MM3 (1.8-7.7) Myelocytes 5 % (0-0) Differential Comment FINAL DIFF MANUAL Polychromasia 2.0 % (0.0-1.9) Sodium Level 139 MEQ/L 137 MEQ/L (136-145) (136-145) Potassium Level 5.3 MEQ/L 5.8 MEQ/L (3.5-5.1) (3.5-5.1) Chloride Level 107 MEQ/L 104 MEQ/L (98-107) (98-107) Carbon Dioxide Level 20.1 MEQ/L 16.0 MEQ/L (21.0-32.0) (21.0-32.0) Anion Gap 12 MEQ/L (5-15) 17 MEQ/L (5-15) Blood Urea Nitrogen 99 MG/DL (7-18) 147 MG/DL (7-18) Creatinine 6.59 MG/DL 8.46 MG/DL (0.60-1.30) (0.60-1.30) Estimat Glomerular Filtration 10 ML/MIN (>89) 7 ML/MIN (>89) Rate Random Glucose 184 MG/DL 198 MG/DL (74-106) (74-106) Calcium Level 9.3 MG/DL 9.5 MG/DL (8.5-10.1) (8.5-10.1) Urine Color YELLOW (YELLW/STRAW) Urine Turbidity CLEAR (CLEAR) Urine pH 6.0 (5.0-8.5) Urine Specific Telephone 1.014 (1.002-1.035) Urine Protein 300 mg/dL (NEG-TRACE) Urine Glucose (UA) 70 mg/dL (NEG) Urine Ketones NEG mg/dL (NEG) Urine Occult Blood SMALL (NEG) Urine Nitrite NEG (NEG) Urine Bilirubin NEG (NEG) Urine Urobilinogen LESS THAN 2.0 MG/DL (LESS THAN 2.0) Urine Leukocyte Esterase NEG (NEG) Urine RBC 3 /hpf (0-3) Urine WBC 2 /hpf (0-5) Urine Squamous Epithelial <1 /hpf (0-5) Cells Urine Mucus FEW /lpf (OCC) Urine Sperm RARE (NONE) Microscopic Urinalysis Comment CULT NOT INDICATED Test 04/21/17 06:33 White Blood Count 16.6 TH/MM3 (4.0-11.0) Red Blood Count 2.84 MIL/MM3 (4.50-5.90) Hemoglobin 9.9 GM/DL (13.0-17.0) Hematocrit 29.3 % (39.0-51.0) Mean Corpuscular Volume 103.1 FL (80.0-100.0) Mean Corpuscular Hemoglobin 34.8 PG (27.0-34.0) Mean Corpuscular Hemoglobin 33.7 % Concent (32.0-36.0) Red Cell Distribution Width 19.6 % (11.6-17.2) Platelet Count 224 TH/MM3 (150-450) Mean Platelet Volume 8.9 FL (7.0-11.0) Neutrophils (%) (Auto) 78.4 % (16.0-70.0) Lymphocytes (%) (Auto) 12.3 % (9.0-44.0) Monocytes (%) (Auto) 9.1 % (0.0-8.0) Eosinophils (%) (Auto) 0.0 % (0.0-4.0) Basophils (%) (Auto) 0.2 % (0.0-2.0) Neutrophils # (Auto) 13.0 TH/MM3 (1.8-7.7) Lymphocytes # (Auto) 2.0 TH/MM3 (1.0-4.8) Monocytes # (Auto) 1.5 TH/MM3 (0-0.9) Eosinophils # (Auto) 0.0 TH/MM3 (0-0.4) Basophils # (Auto) 0.0 TH/MM3 (0-0.2) CBC Comment AUTO DIFF Differential Total Cells 100 Counted Neutrophils % (Manual) 76 % (16-70) Band Neutrophils % 1 % (0-6) Lymphocytes % 14 % (9-44) Monocytes % 8 % (0-8) Neutrophils # (Manual) 12.9 TH/MM3 (1.8-7.7) Myelocytes 1 % (0-0) Differential Comment FINAL DIFF MANUAL Platelet Estimate NORMAL (NORMAL) Platelet Morphology Comment NORMAL (NORMAL) Ovalocytes 1+ (NORMAL) Sodium Level 138 MEQ/L (136-145) Potassium Level 4.5 MEQ/L (3.5-5.1) Chloride Level 100 MEQ/L (98-107) Carbon Dioxide Level 24.9 MEQ/L (21.0-32.0) Anion Gap 13 MEQ/L (5-15) Blood Urea Nitrogen 102 MG/DL (7-18) Creatinine 6.27 MG/DL (0.60-1.30) Estimat Glomerular Filtration 10 ML/MIN (>89) Rate Random Glucose 144 MG/DL (74-106) Calcium Level 8.7 MG/DL (8.5-10.1) Phosphorus Level 4.3 MG/DL (2.5-4.9) Total Bilirubin 0.7 MG/DL (0.2-1.0) Aspartate Amino Transf 12 U/L (15-37) (AST/SGOT) Alanine Aminotransferase 12 U/L (12-78) (ALT/SGPT) Alkaline Phosphatase 64 U/L (45-117) Total Protein 6.3 GM/DL (6.4-8.2) Albumin 2.8 GM/DL (3.4-5.0) Result Diagram: 04/21/17 0633 04/21/17 0633 Microbiology Microbiology Date/Time Procedure Status Source Growth 04/20/17 22:00 Legionella Antigen - Final Complete Urine Clean Catch PRESUMPTIVE NEGATIVE FOR LEGIONELLA P... 04/20/17 22:00 Streptococcus pneumoniae Antigen (M - Final Complete Urine Clean Catch PRESUMPTIVE NEGATIVE FOR STREPTOCOCCU... Imaging Last Impressions Chest X-Ray 04/19/17 0000 Signed Impressions: Service Date/Time: Wednesday, April 19, 2017 08:31 - CONCLUSION: Stable examination. Dual-lumen catheter in good position. Faint density right midlung zone atelectasis versus infiltrate. Ethan Flores MD Carotid Artery Ultrasound 04/18/17 0000 Signed Impressions: Service Date/Time: Tuesday, April 18, 2017 08:51 - CONCLUSION: Moderate atherosclerotic disease bilaterally. No definite elevated ratios are identified Ethan Flores MD Head CT 7/7/17 1814 Signed Impressions: Service Date/Time: Monday, April 17, 2017 18:58 - CONCLUSION: Atrophy otherwise negative. Dudley Caceres MD FACR Assessment and Plan Disease Oriented Problem List: (1) ESRD (end stage renal disease) (2) Pneumonia (3) History of DVT (deep vein thrombosis) (4) Hypertension (5) Syncope (6) DM (diabetes mellitus) (7) Anemia (8) Leukocytosis Symptom Scale: (1) Altered mental status (2) Weakness generalized Pertinent Non-Medical Issues Psychosocial:Patient lives locally with 1 daughter, has another daughter who lives in [place]. He has lived with either daughter in the past years. Also supported by several grandchildren. Originally from [facility], lived in for many years. Very active in playing/activity his grandchildren prior to the past few mos. Moved to [place] with dtr here in Nov 2016. Daughter in [place] indicates he will be moving back up with her following this hospitalization. Spiritual:Adventist karen, would want hog slaughterer support if is estonian speaking. Legal:Pt, due to confusion/condition, is not able to make decisions. Supported by 2 adult daughter, multiple grandchildren. Grandson indicates he, his mother are POA which includes healthcare, we have requested copies of this document. Otherwise, decision making would fall to both adult children per [place] statutes. Ethical issues impacting care: Important Contacts Debbie Bailey- daughter- [phone] Adeline Bailey dtr - [phone] Megan grandson/ reported POA . Prognosis This pt was admitted for syncopal episode during dialysis. + findings of HCAP, now on antibiotics. Has had fluctuating mental status though etiology not completely clear-- ?able underlying dementia process (which family insists does not have) though he also has multiple medical conditions which may be contributing to AMS. Appears reasonable he can get through current acute issues , though likely would need some rehab following, for reconditioning. Does remain high risk for complications/setbacks due to advanced age and multiple medical conditions. . Code Status: Full Code Plan * Legal decision maker:Pt, due to confusion/condition, is not able to make decisions. Supported by 2 adult daughter, multiple grandchildren. Grandson indicates he, his mother are POA which includes healthcare, we have requested copies of this document. Otherwise, decision making would fall to both adult children per [place] statutes. * Goals: Family indicates he appears brighter, more engaged, more energy today. Their goals are aggressive to cont to help pt improve to discharge and possible move back up to [place] to be cared for by dtr there. Venus will update family, they have my contact # if any additional questions. Did review again dec makers per statutes, they are trying to locate POA/HCS documents. * CODE STATUS:- full code * SYMPTOMS: --confusion- has waxed/waned per family. CT brain neg acute process, + atrophy. ? mild dementia. Family indicates cognitively sharp just a few mos ago with NO memory or cognitive deficits. Review of available records From [place] visits seem to correlate with this based on documented neuro assessments. ? 2/2 ESRD, mild dementia, infection? --weakness- generalized weakness since on HD, was in rehab during March family reports with little improvement. Likely multifactorial- deconditioning, HD Palliative care will continue to follow during hospital course as condition evolves, to assist patient/decision-maker with understanding of medical conditions, weighing benefits/burdens of treatment options, for clarification of goals of treatment. Additionally will assist with any symptoms of palliative concern Attestation To help prompt me to consider important information that might be impacting today's encounter and assessment, information from prior notes written by myself or my colleagues may have been "brought forward" into today's note. My signature on this note, however, is an attestation that I personally performed the exam, history, and/or decision-making noted today, and, unless otherwise indicated, the interactions with patient, family, and staff as well as the review of records all occurred today. I also attest that the listed assessment and stated plan reflect my best clinical judgment today based on the combination of historical information, prior notes, and today's exam/ interactions. When time spent is documented, it refers only to time spent today by the signer, or if indicated, combined time spent today by collaborating physician/nurse practitioner. Praveena Snowden Apr 21, 2017 13:56
[2017-04-21] MEDS: CEFEPIME INJ 1,000 MG in SODIUM CHLORIDE 0.9% INJ 100 ML IV SCH (20:00)
[2017-04-21] MEDS: LEVOFLOXACIN 500 MG PREMIX INJ 100 ML IV SCH (22:03)
[2017-04-22] VITALS (9 sets, daily range): BP systolic 145–174; BP diastolic 65–74; PULSE 70–85; RESP 18–20; TEMP 97.8–99; O2SAT 95–98
[2017-04-22] MEDS: RESP: IPRATROPIUM 0.5 MG/2.5 ML NEB NEB SCH ×7 (00:59→23:42)
[2017-04-22] MEDS: INSULIN ASPART SUPPLEMENTAL SCALE SQ SCH ×4 (06:41→20:31)
[2017-04-22] MEDS: HEPARIN SODIUM - IV 10,000 UNITS/10 ML VIAL PRN (08:37)
[2017-04-22] MEDS: EPOETIN ALFA 10,000 UNITS/ML VIAL IV PRN (08:37)
[2017-04-22] MEDS: GENTAMICIN SULFATE (DIALYSIS USE ONLY) 20 MG/2 ML VIAL IV PRN (08:38)
[2017-04-22 08:53] LABS: AUTOMATED NEUTROPHIL # 12.9 TH/MM3 (1.8-7.7); BASOPHIL % 0.1 % (0.0-2.0); EOSINOPHIL # 0.2 TH/MM3 (0-0.4); EOSINOPHIL % 1.4 % (0.0-4.0); HEMATOCRIT 31.1 % (39.0-51.0); LYMPH % 12.3 % (9.0-44.0); LYMPHOCYTE # 2.1 TH/MM3 (1.0-4.8); MEAN CELL VOLUME 102.8 FL (80.0-100.0); MONO % 10.3 % (0.0-8.0); NEUT % 75.9 % (16.0-70.0); PLATELET COUNT 240 TH/MM3 (150-450); RED BLOOD COUNT 3.03 MIL/MM3 (4.50-5.90); RED CELL DISTRIBUTION WIDTH 19.2 % (11.6-17.2)
[2017-04-22 08:59] LABS: HEMO FLAGS AUTO DIFF
[2017-04-22] MEDS: SODIUM CHLORIDE 0.9% FLUSH 10 ML FLUSH IV FLUSH SCH ×2 (09:00→20:29)
[2017-04-22 09:18] LABS: BICARBONATE 22.4 MEQ/L (21.0-32.0); POTASSIUM 4.7 MEQ/L (3.5-5.1)
--- NOTE | 2017-04-22 09:25 | HHI.NPPN ---
Subjective Renal Failure: Chronic, End Stage Renal Disease Interval History Seen during dialysis. No acute concerns. (Tara Cheng) Review of Systems General Constitutional: Fatigue (Tara Cheng) Objective Data Data 04/21/17 04/22/17 19:00 07:00 Intake Total 480 ml 537 ml Output Total 0 ml 0 ml Balance 480 ml 537 ml Intake Oral 480 ml 440 ml IV Total 97 ml Output Urine Total 0 ml 0 ml # Bowel Movements 0 1 Vital Signs Date Time Temp Pulse Resp B/P Pulse Ox O2 Delivery O2 Flow Rate FiO2 04/22/17 04:22 97.8 85 20 173/72 96 04/22/17 00:00 Room Air 04/22/17 00:00 98.9 70 20 174/74 95 04/21/17 20:00 Room Air 04/21/17 20:00 98.4 80 18 148/68 96 04/21/17 20:00 77 04/21/17 16:00 98.3 77 20 143/64 95 04/21/17 16:00 Room Air 04/21/17 15:59 96 21 04/21/17 12:00 98.0 81 20 141/64 96 04/21/17 12:00 Room Air (Tara Cheng) -: 04/22/17 0800 04/22/17 0800 Tubes & Lines: Perma-Cath (Tara Cheng) Physical Exam General Appearance: Well Developed, Well Nourished, No Acute Distress, Comfortable, Sleeping (Tara Cheng) Eyes Eye Exam: Pupils Equal, Pupils Reactive, Extraocular Movement Intact (Tara Cheng) Throat Throat Exam: Oral Mucosa [place] & Moist (Tara Cheng) Neck Neck Exam: Neck Supple (Tara Cheng) Pulmonary Resp Exam: Clear Bilaterally, No Distress (Tara Cheng) Cardiology CV Exam: Good Perfusion, Irregular, Arrhythmia (Tara Cheng) Gastrointestinal/Abdomen GI Exam: Soft, Non-Tender, Bowel Sounds Present (Tara Cheng) Musculoskeletal MS Exam: Joints Intact (Tara Cheng) Integumentary Skin Exam: Warm, Dry, Intact (Tara Cheng) Extremeties Extremities Exam: No Edema, Pedal Pulses Palpable Extremeties Remarks AVF left arm + thrill/bruit (Tara Cheng) Neurologic Neuro Exam: Alert, Moving All Extremities (Tara Cheng) Assessment/Plan Discussed Condition With: Patient Assessment Summary: Anemia of CKD, Hypertension, Diabetes Mellitus, End Stage Renal Disease Problem List: (1) ESRD (end stage renal disease) Plan: Seen today during dialysis on a 2K, 350 BFR, goal 3500 Continue HD support MWF Avoid IVF, unless NPO then begin D10 @ 20 ml/hr Avoid Gadolinium. obtain intermittent renal panel Permcath for use during HD immature AVF left arm, it is patent (2) Anemia Plan: Epogen with dialysis. (3) Leukocytosis Plan: WBC are higher today Rule out sepsis. Although he is afebrile with normal lactic acid. Being treated for HCAP urine strep and legionella negative, blood cx negative He is on Vancomycin with dialysis. Also is on Levaquin and Cefepime. Of note he does have CVC. ID has evaluated and recommend to continue current plan (4) Altered mental status Plan: Improving, encephalopathy workup is in progress. (5) DM (diabetes mellitus) Plan: continue insulin coverage as needed. (6) Metabolic bone disease Plan: phosphorus level is acceptable He is not on phosphorus binder. (7) Essential (primary) hypertension Plan: BP stable he is on losartan, Amlodipine, and coreg monitor blood pressure and titrate to effect (8) History of DVT (deep vein thrombosis) Plan: continue Eliquis he also developed new onset A fib for which Eliquis is effective for anticoagulation (Tara Cheng) Plan patient was seen and examined. Seen during dialysis. Agree with above assessment and plan. (Edson Billings MD) Problem Qualifiers (1) Leukocytosis: Qualified Code: D72.829 - Leukocytosis, unspecified type (2) Altered mental status: Qualified Code: R41.0 - Disorientation (3) DM (diabetes mellitus): Qualified Code: E11.9 - Type 2 diabetes mellitus without complication, without long-term current use of insulin Tara Cheng Apr 22, 2017 09:25 Edson Billings MD Apr 22, 2017 16:50
[2017-04-22 10:16] LABS: BANDS 2 % (0-6); METAMYELOCYTES 1 % (0-1); MYELOCYTES 2 % (0-0); NEUTROPHIL # MANUAL DIFF 14.3 TH/MM3 (1.8-7.7); POLYS (SEG NEUTROPHILS) 79 % (16-70); WBC DIFF SAMPLE 100
[2017-04-22 10:17] LABS: OVALOCYTES 1+ (NORMAL); PLATELET ESTIMATE SMEAR NORMAL (NORMAL); PLATELET MORPHOLOGY NORMAL (NORMAL); SCAN/DIFF FINAL DIFF MANUAL
[2017-04-22] MEDS: amLODIPine BESYLATE 5 MG TAB PO SCH (12:29)
[2017-04-22] MEDS: CARVEDILOL 12.5 MG TAB PO SCH ×2 (12:29→20:29)
[2017-04-22] MEDS: LOSARTAN 50 MG TAB PO SCH (12:29)
[2017-04-22] MEDS: DOCUSATE SODIUM 50 MG/SENNA 8.6 MG TAB PO SCH ×2 (12:29→20:29)
[2017-04-22] MEDS: APIXABAN 2.5 MG TABLET PO SCH ×2 (12:29→20:35)
--- NOTE | 2017-04-22 12:52 | HHI.FPPN ---
Subjective Remarks Patient has no complaints today. Interviewed with grandson at bedside. Denies fever, chills, nausea, vomiting. He does feel little drained after dialysis, but is otherwise well. (Caleb Wolfe MD R2) Objective Vitals Vital Signs Date Time Temp Pulse Resp B/P Pulse Ox O2 Delivery O2 Flow Rate FiO2 04/22/17 12:01 98 21 04/22/17 09:27 98.0 82 20 173/74 97 04/22/17 04:22 97.8 85 20 173/72 96 04/22/17 00:00 Room Air 04/22/17 00:00 98.9 70 20 174/74 95 04/21/17 20:00 Room Air 04/21/17 20:00 98.4 80 18 148/68 96 04/21/17 20:00 77 04/21/17 16:00 98.3 77 20 143/64 95 04/21/17 16:00 Room Air 04/21/17 15:59 96 21 I/O 04/21/17 04/21/17 04/21/17 04/22/17 04/22/17 04/22/17 07:00 15:00 23:00 07:00 15:00 23:00 Intake Total 0 ml 480 ml 217 ml 320 ml Output Total 0 ml 0 ml 0 ml 0 ml 6000 ml Balance 0 ml 480 ml 217 ml 320 ml -6000 ml Intake Oral 0 ml 480 ml 120 ml 320 ml IV Total 97 ml Output Urine Total 0 ml 0 ml 0 ml 0 ml Hemodialysis 6000 ml # Bowel Movements 0 0 1 (Caleb Wolfe MD R2) Result Diagram: 04/22/17 0800 04/22/17 0800 Objective Remarks GEN: AA to name [facility], but not city state or year. HEENT: Symmetric faces, full sensation to face, CN intact RESP: Diffuse wheezing throughout, poor aeration diffusely, crackles in left lower lobe CV: RRR, no pitting edema in pegs, No calf tenderness GI: Soft, ND NT (Caleb Wolfe MD R2) A/P Assessment and Plan 86-year-old male, patient of Dr. Ruiz, with end-stage renal disease and pneumonia. Being treated for HCAP; infectious disease consult. Treatment as below. Discharge Planning Pending clinical improvement. Physical therapy recommends PT at rehabilitation. However, family would like home with home health PT. (Caleb Wolfe MD R2) Attending Attestation Patient seen and examined. Case reviewed and discussed with the resident team. Agree with plan of care as discussed with me and documented in the resident note. (Caty Wolfe MD) Problem List: (1) Syncope Status: Acute Plan: Cardiology consult Etiology is likely combination of atrial flutter and pneumonia. Appears to be in new onset atrial flutter; this is rate controlled and he is anticoagulated on eliquis as below. Continue telemetry Out of bed with assistance. Fall precautions. Physical therapy Previous history: Troponins within normal limits Echo 01/2017- EF 60-65% Orthostatic vitals: Systolic blood pressure drop 180-160 (2) Pneumonia Status: Acute Plan: Infectious disease consult Continue treatment for HCAP Current antibiotics: Cefepime 1000 mg IV daily (started 04/17 Levaquin 500 mg IV every 48 hours Vancomycin with hemodialysis Lab: Blood culture 04/18: No growth to date Legionella and streptococcus urine antigen is negative Other treatment: DuoNeb scheduled every 4 hours. Give oxygen by NC if needed for goal sat >92% Incentive spirometry (3) Atrial flutter Status: Acute Plan: see syncope workup Cardiology consult Rate controlled. Continue current anticoagulation Follow-up with cardiology as an outpatient (4) ESRD (end stage renal disease) Status: Acute Plan: Consult nephrology Typically dialysis Thursday (5) Weakness generalized Status: Acute Plan: PT consulted while inpatient to evaluate Case mgmt consulted if rehab is indicated Fall precautions (6) History of DVT (deep vein thrombosis) Status: Acute Plan: Per records, patient has hx of provoked DVT - restart Elqiuis for DVT prophylaxis. Plan: Restart home Elqiuis. (7) Hypertension Status: Chronic Plan: continue Losartan 50mg hs, amlodipine 5 mg daily and carvedilol 25mg PO BID Clonidine PRN BP >180/110 (8) DM (diabetes mellitus) Status: Chronic Plan: Will give low dose supplemental scale Novolog with Accucheks (9) Fluid, Electrolytes, Nutrition, Prophylaxis Status: Acute Plan: Fluids: tolerating PO Electrolytes: monitor and replete as needed Nutrition: renal diet DVT Prophylaxis: Eliquis GI Prophylaxis: not indicated (Caleb Wolfe MD R2) Problem Qualifiers (1) Syncope: Qualified Code: R55 - Syncope, unspecified syncope type (2) Pneumonia: (3) DM (diabetes mellitus): Qualified Code: E11.9 - Type 2 diabetes mellitus without complication, without long-term current use of insulin Caleb Wolfe MD R2 Apr 22, 2017 12:52 Caty Wolfe MD Apr 22, 2017 13:21
--- NOTE | 2017-04-22 14:24 | PD.CARD.PN ---
Subjective Subjective Remarks no CV complaints Objective Medications Current Medications Medications (Trade) Dose Ordered Sig/Mahi Route Start Time Stop Time Status Last Admin (Catapres) 0.1 mg Q6H PRN PO 04/17/17 21:15 04/19/17 16:23 (NS Flush) 2 ml UNSCH PRN IV FLUSH 04/17/17 22:45 (NS Flush) 2 ml BID IV FLUSH 04/18/17 09:00 04/21/17 20:36 (Tylenol) 650 mg Q4H PRN PO 04/17/17 22:45 (Narcan Inj) 0.4 mg UNSCH PRN IV 04/17/17 22:45 ([place]-Colace) 1 tab BID PO 04/18/17 09:00 04/22/17 12:29 (Milk Of Magnesia Liq) 30 ml Q12H PRN PO 04/17/17 22:45 (Senokot) 17.2 mg Q12H PRN PO 04/17/17 22:45 (Dulcolax Supp) 10 mg DAILY PRN RECTAL 04/17/17 22:45 (Lactulose Liq) 30 ml DAILY PRN PO 04/17/17 22:45 Carvedilol 25 mg 25 mg BID PO 04/17/17 23:00 04/22/17 12:29 Cefepime HCl 1000 mg/Sodium Chloride 100 ml @ 200 mls/hr DAILY@20 IV 04/18/17 20:00 04/21/17 20:00 (Levaquin 500 Mg Premix Inj) 100 ml @ 100 mls/hr Q48H IV 04/19/17 21:00 04/21/17 22:03 (SoluMEDROL INJ) 60 mg Q6H IVP 04/18/17 11:00 Hold 04/19/17 05:13 (Eliquis) 2.5 mg BID PO 04/19/17 10:00 04/22/17 12:29 (Norvasc) 10 mg DAILY PO 04/19/17 10:00 04/22/17 12:29 Losartan Potassium 50 mg 50 mg DAILY PO 04/19/17 09:30 04/22/17 12:29 (NS 1000 ml Inj) 1,000 ml @ 0 mls/hr Q0M PRN IV 04/19/17 09:21 04/22/17 08:36 Heparin Sodium (Porcine) 8000 units 8,000 units UNSCH PRN IVF 04/19/17 09:30 Sodium Chloride 1,000 ml @ 200 mls/hr Q5H PRN IV 04/19/17 09:21 (NS 1000 ml Inj) 1,000 ml @ 0 mls/hr Q0M PRN IV 04/19/17 09:21 (Mannitol Inj) 12.5 gm UNSCH PRN IV 04/19/17 09:30 (Albumin 25% Inj) 25 gm UNSCH PRN IV 04/19/17 09:30 (NS Flush) 5 ml UNSCH PRN IV FLUSH 04/19/17 09:30 (Heparin Inj) UNSCH PRN .XX 04/19/17 09:30 04/22/17 08:37 (Gentamicin (Dialysis) Inj) 20 mg UNSCH PRN IV 04/19/17 09:30 04/22/17 08:38 (Zofran Inj) 4 mg UNSCH PRN IV 04/19/17 09:30 (Tylenol) 650 mg UNSCH PRN PO 04/19/17 09:30 (Benadryl) 25 mg UNSCH PRN PO 04/19/17 09:30 (Nitrostat Sl) 0.4 mg UNSCH PRN SL 04/19/17 09:30 (Catapres) 0.1 mg UNSCH PRN PO 04/19/17 09:30 (Epogen Inj) 10,000 units UNSCH PRN IV 04/19/17 09:30 04/22/17 08:37 (Gelfoam 12 Mm/7 Mm Top) 1 foam UNSCH PRN TOP 04/19/17 09:30 Vital Signs / I&O Vital Signs Date Time Temp Pulse Resp B/P Pulse Ox O2 Delivery O2 Flow Rate FiO2 04/22/17 12:01 98 21 04/22/17 09:27 98.0 82 20 173/74 97 04/22/17 08:00 81 04/22/17 08:00 Room Air 04/22/17 04:22 97.8 85 20 173/72 96 04/22/17 00:00 Room Air 04/22/17 00:00 98.9 70 20 174/74 95 04/21/17 20:00 Room Air 04/21/17 20:00 98.4 80 18 148/68 96 04/21/17 20:00 77 04/21/17 16:00 98.3 77 20 143/64 95 04/21/17 16:00 Room Air 04/21/17 15:59 96 21 I/O 04/21/17 04/21/17 04/21/17 04/22/17 04/22/17 04/22/17 07:00 15:00 23:00 07:00 15:00 23:00 Intake Total 0 ml 480 ml 217 ml 320 ml Output Total 0 ml 0 ml 0 ml 0 ml 6000 ml Balance 0 ml 480 ml 217 ml 320 ml -6000 ml Intake Oral 0 ml 480 ml 120 ml 320 ml IV Total 97 ml Output Urine Total 0 ml 0 ml 0 ml 0 ml Hemodialysis 6000 ml # Bowel Movements 0 0 1 Physical Exam GENERAL: Well-nourished, well-developed patient. SKIN: Warm and dry. HEAD: Normocephalic. EYES: No scleral icterus. No injection or drainage. NECK: Supple, trachea midline. No JVD or lymphadenopathy. CARDIOVASCULAR: Regular rate and rhythm without murmurs, gallops, or rubs. RESPIRATORY: Breath sounds equal bilaterally. No accessory muscle use. GASTROINTESTINAL: Abdomen soft, non-tender, nondistended. EXTREMITIES: No cyanosis, or edema. Laboratory Laboratory Tests Test 04/22/17 08:00 White Blood Count 17.0 TH/MM3 Red Blood Count 3.03 MIL/MM3 Hemoglobin 10.3 GM/DL Hematocrit 31.1 % Mean Corpuscular Volume 102.8 FL Mean Corpuscular Hemoglobin 34.0 PG Mean Corpuscular Hemoglobin 33.0 % Concent Red Cell Distribution Width 19.2 % Platelet Count 240 TH/MM3 Mean Platelet Volume 8.9 FL Neutrophils (%) (Auto) 75.9 % Lymphocytes (%) (Auto) 12.3 % Monocytes (%) (Auto) 10.3 % Eosinophils (%) (Auto) 1.4 % Basophils (%) (Auto) 0.1 % Neutrophils # (Auto) 12.9 TH/MM3 Lymphocytes # (Auto) 2.1 TH/MM3 Monocytes # (Auto) 1.8 TH/MM3 Eosinophils # (Auto) 0.2 TH/MM3 Basophils # (Auto) 0.0 TH/MM3 CBC Comment AUTO DIFF Differential Total Cells 100 Counted Neutrophils % (Manual) 79 % Band Neutrophils % 2 % Lymphocytes % 7 % Monocytes % 9 % Neutrophils # (Manual) 14.3 TH/MM3 Metamyelocytes 1 % Myelocytes 2 % Differential Comment FINAL DIFF MANUAL Platelet Estimate NORMAL Platelet Morphology Comment NORMAL Ovalocytes 1+ Sodium Level 136 MEQ/L Potassium Level 4.7 MEQ/L Chloride Level 100 MEQ/L Carbon Dioxide Level 22.4 MEQ/L Anion Gap 14 MEQ/L Blood Urea Nitrogen 128 MG/DL Creatinine 7.72 MG/DL Estimat Glomerular Filtration 8 ML/MIN Rate Random Glucose 160 MG/DL Calcium Level 8.7 MG/DL Imaging Last Impressions Chest X-Ray 04/19/17 0000 Signed Impressions: Service Date/Time: Wednesday, April 19, 2017 08:31 - CONCLUSION: Stable examination. Dual-lumen catheter in good position. Faint density right midlung zone atelectasis versus infiltrate. Ethan Flores MD Carotid Artery Ultrasound 04/18/17 0000 Signed Impressions: Service Date/Time: Tuesday, April 18, 2017 08:51 - CONCLUSION: Moderate atherosclerotic disease bilaterally. No definite elevated ratios are identified Ethan Flores MD Head CT 04/17/17 1814 Signed Impressions: Service Date/Time: Monday, April 17, 2017 18:58 - CONCLUSION: Atrophy otherwise negative. Dudley Caceres MD FACR Assessment and Plan Problem List: (1) Atrial flutter Assessment and Plan: 86 y/o M with above history and findings admitted after syncopal episode in the setting of infection. He has been found to be in Atrial Flutter with adequate ventricular response. No cardiovascular complaints. ECHO with good LV systolic function and no wall motion abnormalities. AF rate controlled and he is already on OAC. Recommendations: 1. Cont Coreg and Eliquis (2) End stage renal disease (3) Hypertension (4) Syncope (5) Essential (primary) hypertension Problem Qualifiers (1) Syncope: Qualified Code: R55 - Syncope, unspecified syncope type Enrique Sue MD Apr 22, 2017 14:24
[2017-04-22] MEDS: CEFEPIME INJ 1,000 MG in SODIUM CHLORIDE 0.9% INJ 100 ML IV SCH (20:29)
[2017-04-23] VITALS: BP 166/72; PULSE 79; RESP 16; TEMP 98; O2SAT 95
[2017-04-23] MEDS: RESP: IPRATROPIUM 0.5 MG/2.5 ML NEB NEB SCH ×3 (04:26→12:01)
[2017-04-23 05:05] VITALS: BP 175/74; PULSE 78; RESP 20; TEMP 97.9; O2SAT 100
[2017-04-23] MEDS: INSULIN ASPART SUPPLEMENTAL SCALE SQ SCH ×2 (06:05→11:00)
[2017-04-23 08:00] VITALS: BP 184/78; PULSE 83; RESP 20; TEMP 98.6; O2SAT 97
[2017-04-23 08:09] VITALS: O2SAT 96
[2017-04-23 09:00] VITALS: PULSE 82
[2017-04-23] MEDS: DOCUSATE SODIUM 50 MG/SENNA 8.6 MG TAB PO SCH (09:27)
[2017-04-23] MEDS: amLODIPine BESYLATE 5 MG TAB PO SCH (09:27)
[2017-04-23] MEDS: CARVEDILOL 12.5 MG TAB PO SCH (09:27)
[2017-04-23] MEDS: APIXABAN 2.5 MG TABLET PO SCH (09:27)
[2017-04-23] MEDS: LOSARTAN 50 MG TAB PO SCH (09:27)
[2017-04-23] MEDS: SODIUM CHLORIDE 0.9% FLUSH 10 ML FLUSH IV FLUSH SCH (09:28)
[2017-04-23] MEDS ORDERED: VANC1000P IV ×2 (09:36→14:48)
[2017-04-23] MEDS ORDERED: CEFE1INJ2 IV (09:36)
[2017-04-23] MEDS ORDERED: HEPAR10KP IVF (09:36)
[2017-04-23] MEDS ORDERED: LEVO1INJ13 IV (09:37)
--- NOTE | 2017-04-23 09:38 | HHI.DCPOC ---
Discharge Care Plan Diagnosis: (1) ESRD on peritoneal dialysis (2) Pneumonia (3) Atrial flutter (4) Syncope (5) History of DVT (deep vein thrombosis) Goals to Promote Your Health * To prevent worsening of your condition and complications * To maintain your health at the optimal level Directions to Meet Your Goals Take your medications as prescribed Follow your dietary instruction Follow activity as directed Keep your appointments as scheduled Take your immunizations and boosters as scheduled If your symptoms worsen call your PCP, if no PCP go to Urgent Care Center or Emergency Room Smoking is Dangerous to Your Health. Avoid second hand smoke Call the 24-hour hour crisis hotline for domestic abuse at Caleb Wolfe MD R2 Apr 23, 2017 09:38
--- NOTE | 2017-04-23 09:42 | HHI.FPPN ---
Subjective Remarks Patient interviewed with daughter and grandson in the room. Patient had some abdominal pain last night which was 8 out of 10 nonradiating. However, this is now resolved and he is in no pain. He had a bowel movement yesterday around 6 AM. He denies fever, chills, nausea, vomiting. No chest pain. Patient has been accepted to [facility]. (Caleb Wolfe MD R2) Objective Vitals Vital Signs Date Time Temp Pulse Resp B/P Pulse Ox O2 Delivery O2 Flow Rate FiO2 04/23/17 08:09 21 04/23/17 08:00 98.6 83 20 184/78 97 04/23/17 05:05 97.9 78 20 175/74 100 04/23/17 00:00 98.0 79 16 166/72 95 04/22/17 20:00 80 04/22/17 20:00 Room Air 04/22/17 20:00 97.9 80 18 157/67 97 04/22/17 16:00 98.0 79 18 158/67 96 04/22/17 15:57 97 21 04/22/17 12:01 98 21 04/22/17 12:00 99.0 78 20 145/65 97 04/22/17 12:00 99.0 78 20 145/65 97 04/22/17 12:00 99.0 78 20 145/65 97 I/O 04/22/17 04/22/17 04/22/17 04/23/17 04/23/17 04/23/17 07:00 15:00 23:00 07:00 15:00 23:00 Intake Total 320 ml 240 ml 200 ml 600 ml Output Total 0 ml 6000 ml 0 ml 0 ml Balance 320 ml -5760 ml 200 ml 600 ml Intake Oral 320 ml 240 ml 100 ml 600 ml IV Total 100 ml Output Urine Total 0 ml 0 ml 0 ml Hemodialysis 6000 ml # Voids 0 # Bowel Movements 1 1 0 0 (Caleb Wolfe MD R2) Result Diagram: 04/22/17 0800 04/22/17 0800 Objective Remarks GEN: Awake alert and oriented HEENT: Symmetric faces, full sensation to face, CN intact RESP: Improved aeration bilaterally. CV: RRR, no pitting edema in pegs, No calf tenderness GI: Soft, ND NT (Caleb Wolfe MD R2) A/P Assessment and Plan 86-year-old male, patient of Dr. Ruiz, with end-stage renal disease and pneumonia. Being treated for HCAP; infectious disease consult. Treatment as below. Discharge Planning Discharge today to [facility] (Caleb Wolfe MD R2) Attending Attestation Patient seen and examined. Case reviewed and discussed with the resident team. Agree with plan of care as discussed with me and documented in the resident note. (Caty Wolfe MD) Problem List: (1) Syncope Status: Acute Plan: Cardiology consult Etiology is likely combination of atrial flutter and pneumonia. Appears to be in new onset atrial flutter; this is rate controlled and he is anticoagulated on eliquis as below. Continue telemetry Out of bed with assistance. Fall precautions. Physical therapy Previous history: Troponins within normal limits Echo 01/2017- EF 60-65% Orthostatic vitals: Systolic blood pressure drop 180-160 (2) Pneumonia Status: Acute Plan: Infectious disease consult Continue treatment for HCAP Current antibiotics: Cefepime 1000 mg IV daily (started 04/17 Levaquin 500 mg IV every 48 hours Vancomycin with hemodialysis Lab: Blood culture 04/18: No growth to date Legionella and streptococcus urine antigen is negative Other treatment: DuoNeb scheduled every 4 hours. Give oxygen by NC if needed for goal sat >92% Incentive spirometry (3) Atrial flutter Status: Acute Plan: see syncope workup Cardiology consult Rate controlled. Continue current anticoagulation Follow-up with cardiology as an outpatient (4) ESRD (end stage renal disease) Status: Acute Plan: Consult nephrology Typically dialysis Thursday (5) Weakness generalized Status: Acute Plan: PT consulted while inpatient to evaluate Case mgmt consulted if rehab is indicated Fall precautions (6) History of DVT (deep vein thrombosis) Status: Acute Plan: Per records, patient has hx of provoked DVT - restart Elqiuis for DVT prophylaxis. Plan: Restart home Elqiuis. (7) Hypertension Status: Chronic Plan: continue Losartan 50mg hs, amlodipine 5 mg daily and carvedilol 25mg PO BID Clonidine PRN BP >180/110 (8) DM (diabetes mellitus) Status: Chronic Plan: Will give low dose supplemental scale Novolog with Accucheks (9) Fluid, Electrolytes, Nutrition, Prophylaxis Status: Acute Plan: Fluids: tolerating PO Electrolytes: monitor and replete as needed Nutrition: renal diet DVT Prophylaxis: Eliquis GI Prophylaxis: not indicated (Caleb Wolfe MD R2) Problem Qualifiers (1) Syncope: Qualified Code: R55 - Syncope, unspecified syncope type (2) Pneumonia: (3) DM (diabetes mellitus): Qualified Code: E11.9 - Type 2 diabetes mellitus without complication, without long-term current use of insulin Caleb Wolfe MD R2 Apr 23, 2017 09:42 Caty Wolfe MD Apr 23, 2017 11:51
[2017-04-23 10:03] LABS: AUTOMATED NEUTROPHIL # 12.5 TH/MM3 (1.8-7.7); BASOPHIL % 0.2 % (0.0-2.0); EOSINOPHIL # 0.3 TH/MM3 (0-0.4); EOSINOPHIL % 1.8 % (0.0-4.0); LYMPH % 13.1 % (9.0-44.0); LYMPHOCYTE # 2.1 TH/MM3 (1.0-4.8); MEAN CELL VOLUME 103.9 FL (80.0-100.0); MEAN CORPUSCULAR HEMOGLOBIN 33.9 PG (27.0-34.0); MEAN CORPUSCULAR HGB CONC 32.6 % (32.0-36.0); MONO % 8.5 % (0.0-8.0); NEUT % 76.4 % (16.0-70.0); PLATELET COUNT 255 TH/MM3 (150-450); RED BLOOD COUNT 3.17 MIL/MM3 (4.50-5.90); RED CELL DISTRIBUTION WIDTH 19.2 % (11.6-17.2); WHITE BLOOD COUNT 16.3 TH/MM3 (4.0-11.0)
[2017-04-23 10:08] LABS: HEMO FLAGS AUTO DIFF
[2017-04-23 10:37] LABS: BICARBONATE 28.2 MEQ/L (21.0-32.0); POTASSIUM 4.2 MEQ/L (3.5-5.1)
[2017-04-23 10:49] LABS: BANDS 4 % (0-6); CORRECTED NUCLEATED RBC 1 /100 WBC (0-0); MYELOCYTES 1 % (0-0); NEUTROPHIL # MANUAL DIFF 13.7 TH/MM3 (1.8-7.7); POLYS (SEG NEUTROPHILS) 79 % (16-70); WBC DIFF SAMPLE 100
[2017-04-23 10:50] LABS: PLATELET ESTIMATE SMEAR NORMAL (NORMAL); PLATELET MORPHOLOGY NORMAL (NORMAL); SCAN/DIFF FINAL DIFF MANUAL
[2017-04-23 10:51] LABS: TEARDROP RBCS 1+ (NORMAL)
--- NOTE | 2017-04-23 11:13 | HHI.NPPN ---
Subjective Renal Failure: Chronic, End Stage Renal Disease Interval History He is afebrile. Had dialysis yesterday. Family at bedside. (Tara Cheng) Review of Systems General Constitutional: Fatigue (Tara Cheng) Objective Data Data 04/22/17 04/23/17 19:00 07:00 Intake Total 240 ml 800 ml Output Total 6000 ml 0 ml Balance -5760 ml 800 ml Intake Oral 240 ml 700 ml IV Total 100 ml Output Urine Total 0 ml Hemodialysis 6000 ml # Voids 0 # Bowel Movements 1 0 Vital Signs Date Time Temp Pulse Resp B/P Pulse Ox O2 Delivery O2 Flow Rate FiO2 04/23/17 08:09 21 04/23/17 08:00 98.6 83 20 184/78 97 04/23/17 05:05 97.9 78 20 175/74 100 04/23/17 00:00 98.0 79 16 166/72 95 04/22/17 20:00 80 04/22/17 20:00 Room Air 04/22/17 20:00 97.9 80 18 157/67 97 04/22/17 16:00 98.0 79 18 158/67 96 04/22/17 15:57 97 21 04/22/17 12:01 98 21 04/22/17 12:00 99.0 78 20 145/65 97 04/22/17 12:00 99.0 78 20 145/65 97 04/22/17 12:00 99.0 78 20 145/65 97 (Tara Cheng) -: 04/23/17 0856 04/23/17 0856 Imaging Last Impressions Chest X-Ray 04/19/17 0000 Signed Impressions: Service Date/Time: Wednesday, April 19, 2017 08:31 - CONCLUSION: Stable examination. Dual-lumen catheter in good position. Faint density right midlung zone atelectasis versus infiltrate. Ethan Flores MD Carotid Artery Ultrasound 04/18/17 0000 Signed Impressions: Service Date/Time: Tuesday, April 18, 2017 08:51 - CONCLUSION: Moderate atherosclerotic disease bilaterally. No definite elevated ratios are identified Ethan Flores MD Head CT 04/17/17 1814 Signed Impressions: Service Date/Time: Monday, April 17, 2017 18:58 - CONCLUSION: Atrophy otherwise negative. Dudley Caceres MD FACR Tubes & Lines: Perma-Cath (Skylar,Tara B. EVP STRATEGY) Physical Exam General Appearance: Well Developed, Well Nourished, No Acute Distress, Comfortable, Sleeping (Skylar,Tara B. EVP STRATEGY) Eyes Eye Exam: Pupils Equal, Pupils Reactive, Extraocular Movement Intact (Skylar, Tara B. EVP STRATEGY) Throat Throat Exam: Oral Mucosa [place] & Moist (Skylar,Tara B. EVP STRATEGY) Neck Neck Exam: Neck Supple (Skylar,Tara B. EVP STRATEGY) Pulmonary Resp Exam: Clear Bilaterally, No Distress (Skylar,Tara B. EVP STRATEGY) Cardiology CV Exam: Good Perfusion, Irregular, Arrhythmia (Skylar,Tara B. EVP STRATEGY) Gastrointestinal/Abdomen GI Exam: Soft, Non-Tender, Bowel Sounds Present (Skylar,Tara B. EVP STRATEGY) Musculoskeletal MS Exam: Joints Intact (Skylar,Tara B. EVP STRATEGY) Integumentary Skin Exam: Warm, Dry, Intact (Skylar,Tara B. EVP STRATEGY) Extremeties Extremities Exam: No Edema, Pedal Pulses Palpable Extremeties Remarks AVF left arm + thrill/bruit (SkylarTara B. EVP STRATEGY) Neurologic Neuro Exam: Alert, Moving All Extremities (SkylarTara B. EVP STRATEGY) Assessment/Plan Discussed Condition With: Patient Assessment Summary: Anemia of CKD, Hypertension, Diabetes Mellitus, End Stage Renal Disease Problem List: (1) ESRD (end stage renal disease) Plan: 3L UF yesterday, Continue HD support MWF Avoid IVF, unless NPO then begin D10 @ 20 ml/hr Avoid Gadolinium. obtain intermittent renal panel Permcath for use during HD immature AVF left arm, it is patent (2) Anemia Plan: Epogen with dialysis. (3) Leukocytosis Plan: WBC are better Rule out sepsis. Although he is afebrile with normal lactic acid. Being treated for HCAP urine strep and legionella negative, blood cx negative He is on Vancomycin with dialysis. Also is on Levaquin and Cefepime. Of note he does have CVC. ID has evaluated and recommend to continue current plan (4) Altered mental status Plan: Improving, encephalopathy workup is in progress. (5) DM (diabetes mellitus) Plan: continue insulin coverage as needed. (6) Metabolic bone disease Plan: phosphorus level is acceptable He is not on phosphorus binder. (7) Essential (primary) hypertension Plan: BP is acceptable medications include: losartan, Amlodipine, and coreg monitor blood pressure and titrate to effect (8) History of DVT (deep vein thrombosis) Plan: continue Eliquis he also developed new onset A fib for which Eliquis is effective for anticoagulation (Tara Cheng) Plan patient was seen and examined. Agree with above assessment and plan. (Edson Billings MD) Problem Qualifiers (1) Leukocytosis: Qualified Code: D72.829 - Leukocytosis, unspecified type (2) Altered mental status: Qualified Code: R41.0 - Disorientation (3) DM (diabetes mellitus): Qualified Code: E11.9 - Type 2 diabetes mellitus without complication, without long-term current use of insulin Tara Cheng Apr 23, 2017 11:13 Edson Billings MD Apr 24, 2017 14:11
[2017-04-23 12:00] VITALS: BP 149/69; PULSE 98; RESP 18; TEMP 97.6; O2SAT 96
--- NOTE | 2017-04-23 13:20 | HHI.IDPN ---
Subjective Subjective Remarks pt is doing well not expectorating, no cough no fever WBC slowly going down no diarrha bl clx are negative Antibiotics cefepime vanco levaquine Allergies: Coded Allergies: No Known Allergies (Unverified , 02/26/17) Objective . Vital Signs Date Time Temp Pulse Resp B/P Pulse Ox O2 Delivery O2 Flow Rate FiO2 04/23/17 12:00 97.6 98 18 149/69 96 04/23/17 08:09 96 21 04/23/17 08:00 96 Nasal Cannula 2.00 04/23/17 08:00 98.6 83 20 184/78 97 04/23/17 05:05 97.9 78 20 175/74 100 04/23/17 00:00 98.0 79 16 166/72 95 04/22/17 20:00 80 04/22/17 20:00 Room Air 04/22/17 20:00 97.9 80 18 157/67 97 04/22/17 16:00 98.0 79 18 158/67 96 04/22/17 15:57 97 21 04/22/17 04/22/17 04/23/17 15:00 23:00 07:00 Intake Total 240 ml 200 ml 600 ml Output Total 6000 ml 0 ml 0 ml Balance -5760 ml 200 ml 600 ml Intake Oral 240 ml 100 ml 600 ml IV Total 100 ml Output Urine Total 0 ml 0 ml Hemodialysis 6000 ml # Voids 0 # Bowel Movements 1 0 0 . Laboratory Tests Test 04/22/17 04/23/17 08:00 08:56 White Blood Count 17.0 TH/MM3 16.3 TH/MM3 Red Blood Count 3.03 MIL/MM3 3.17 MIL/MM3 Hemoglobin 10.3 GM/DL 10.8 GM/DL Hematocrit 31.1 % 33.0 % Mean Corpuscular Volume 102.8 FL 103.9 FL Mean Corpuscular Hemoglobin 34.0 PG 33.9 PG Mean Corpuscular Hemoglobin 33.0 % 32.6 % Concent Red Cell Distribution Width 19.2 % 19.2 % Platelet Count 240 TH/MM3 255 TH/MM3 Mean Platelet Volume 8.9 FL 8.7 FL Neutrophils (%) (Auto) 75.9 % 76.4 % Lymphocytes (%) (Auto) 12.3 % 13.1 % Monocytes (%) (Auto) 10.3 % 8.5 % Eosinophils (%) (Auto) 1.4 % 1.8 % Basophils (%) (Auto) 0.1 % 0.2 % Neutrophils # (Auto) 12.9 TH/MM3 12.5 TH/MM3 Lymphocytes # (Auto) 2.1 TH/MM3 2.1 TH/MM3 Monocytes # (Auto) 1.8 TH/MM3 1.4 TH/MM3 Eosinophils # (Auto) 0.2 TH/MM3 0.3 TH/MM3 Basophils # (Auto) 0.0 TH/MM3 0.0 TH/MM3 CBC Comment AUTO DIFF AUTO DIFF Differential Total Cells 100 100 Counted Neutrophils % (Manual) 79 % 79 % Band Neutrophils % 2 % 4 % Lymphocytes % 7 % 10 % Monocytes % 9 % 6 % Neutrophils # (Manual) 14.3 TH/MM3 13.7 TH/MM3 Metamyelocytes 1 % Myelocytes 2 % 1 % Differential Comment FINAL DIFF FINAL DIFF MANUAL MANUAL Platelet Estimate NORMAL NORMAL Platelet Morphology Comment NORMAL NORMAL Ovalocytes 1+ Nucleated Red Blood Cells 1 /100 WBC Tear Drop Cells 1+ Laboratory Tests Test 04/22/17 04/23/17 08:00 08:56 Sodium Level 136 MEQ/L 140 MEQ/L Potassium Level 4.7 MEQ/L 4.2 MEQ/L Chloride Level 100 MEQ/L 101 MEQ/L Carbon Dioxide Level 22.4 MEQ/L 28.2 MEQ/L Anion Gap 14 MEQ/L 11 MEQ/L Blood Urea Nitrogen 128 MG/DL 95 MG/DL Creatinine 7.72 MG/DL 6.45 MG/DL Estimat Glomerular Filtration 8 ML/MIN 10 ML/MIN Rate Random Glucose 160 MG/DL 132 MG/DL Calcium Level 8.7 MG/DL 8.9 MG/DL Microbiology Date/Time Procedure Status Source Growth 04/20/17 22:00 Legionella Antigen - Final Complete Urine Clean Catch PRESUMPTIVE NEGATIVE FOR LEGIONELLA P... 04/20/17 22:00 Streptococcus pneumoniae Antigen (M - Final Complete Urine Clean Catch PRESUMPTIVE NEGATIVE FOR STREPTOCOCCU... Imaging Last Impressions Chest X-Ray 04/19/17 0000 Signed Impressions: Service Date/Time: Wednesday, April 19, 2017 08:31 - CONCLUSION: Stable examination. Dual-lumen catheter in good position. Faint density right midlung zone atelectasis versus infiltrate. Ethan Flores MD Carotid Artery Ultrasound 04/18/17 0000 Signed Impressions: Service Date/Time: Tuesday, April 18, 2017 08:51 - CONCLUSION: Moderate atherosclerotic disease bilaterally. No definite elevated ratios are identified Ethan Flores MD Head CT 04/17/17 1814 Signed Impressions: Service Date/Time: Monday, April 17, 2017 18:58 - CONCLUSION: Atrophy otherwise negative. Dudley Caceres MD FACR Physical Exam CONSTITUTIONAL/GENERAL: This is an adequately nourished patient, in no apparent distress. TUBES/LINES/DRAINS: Permacath in place R IJ, no skin changes SKIN: No jaundice, rashes, or lesions. Skin temperature appropriate. Not diaphoretic. CARDIOVASCULAR: Regular rate and rhythm without murmurs, gallops, or rubs. No JVD. Peripheral pulses symmetric. RESPIRATORY/CHEST: Symmetric, unlabored respirations. Clear to auscultation. Breath sounds equal bilaterally. No wheezes, rales, or rhonchi. GASTROINTESTINAL: Abdomen soft, non-tender, nondistended. No hepato-splenomegaly , or palpable masses. No guarding. Bowel sounds present. GENITOURINARY: Without palpable bladder distension. . MUSCULOSKELETAL: Extremities without clubbing, cyanosis, or edema. NEUROLOGICAL: Awake and alert. Motor and sensory grossly within normal limits. Follows commands. Clear speech. Moves all extremities. PSYCHIATRIC: No obvious anxiety/depression. no apparent hallucinations or other psychotic thought process. Assessment & Plan Remarks ESRD, HD LLL infiltrate vs atelectasis , though no other sings PNA (cough, hypoxia , expectroration) -- unable to expectorate Pt is afebrile, but has prominent leukocytosis of 19 K - improvingh down to 16 K Macrotytosis REC's: cont levaquine x 2 more days to complete 7 days of anbx dc cefepime, vancomycin OK to d/c to rehab d/w Carole Richey MD Apr 23, 2017 13:19
[2017-04-23] MEDS ORDERED: CEFE1INJ5 IM (14:46)
[2017-04-23] MEDS ORDERED: LEVOFLOXACIN 500 MG TAB PO SCH (21:00)
--- NOTE | 2017-04-24 10:58 | HHI.DS ---
Discharge Summary Admission Date Apr 18, 2017 at 10:33 Discharge Date: Apr 23, 2017 Admitting Diagnosis Syncope, pneumonia (1) Syncope Diagnosis: Principal Plan: Cardiology consult Etiology is likely combination of atrial flutter and pneumonia. Appears to be in new onset atrial flutter; this is rate controlled and he is anticoagulated on eliquis as below. Continue telemetry Out of bed with assistance. Fall precautions. Physical therapy Previous history: Troponins within normal limits Echo 01/2017- EF 60-65% Orthostatic vitals: Systolic blood pressure drop 180-160 (2) Pneumonia Diagnosis: Principal Plan: Infectious disease consult Continue treatment for HCAP Current antibiotics: Cefepime 1000 mg IV daily (started 04/17 Levaquin 500 mg IV every 48 hours Vancomycin with hemodialysis Lab: Blood culture 04/18: No growth to date Legionella and streptococcus urine antigen is negative Other treatment: DuoNeb scheduled every 4 hours. Give oxygen by NC if needed for goal sat >92% Incentive spirometry (3) Atrial flutter Diagnosis: Secondary Plan: see syncope workup Cardiology consult Rate controlled. Continue current anticoagulation Follow-up with cardiology as an outpatient (4) ESRD (end stage renal disease) Diagnosis: Secondary Plan: Consult nephrology Typically dialysis Thursday (5) Weakness generalized Diagnosis: Secondary Plan: PT consulted while inpatient to evaluate Case mgmt consulted if rehab is indicated Fall precautions (6) History of DVT (deep vein thrombosis) Diagnosis: Secondary Plan: Per records, patient has hx of provoked DVT - restart Elqiuis for DVT prophylaxis. Plan: Restart home Elqiuis. (7) Hypertension Diagnosis: Secondary Plan: continue Losartan 50mg hs, amlodipine 5 mg daily and carvedilol 25mg PO BID Clonidine PRN BP >180/110 (8) DM (diabetes mellitus) Diagnosis: Secondary Plan: Will give low dose supplemental scale Novolog with Accucheks (9) Fluid, Electrolytes, Nutrition, Prophylaxis Diagnosis: Secondary Plan: Fluids: tolerating PO Electrolytes: monitor and replete as needed Nutrition: renal diet DVT Prophylaxis: Eliquis GI Prophylaxis: not indicated Consultants Infectious disease Cardiology Nephrology Palliative care Procedures Dialysis Brief History Patient is a Slovak-speaking 86 year old male with a history significant for ESRD on HD, DM on insulin, and HTN who presents to the ED from dialysis center after syncopal episode. He is a patient of Dr. Ruiz in the [facility]. 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 His chip mucker Lamar Haskins is also at bedside. History obtained from the patient is that he remembers eating breakfast and then remembers being in the hospital thereafter. According to EMS and ED reports , patient was noted to have a syncopal episode while at dialysis at [facility]. The patient notes that he fell Thursday but does not endorse that he felt today. He does state that he vomited once but does not have nausea today. He denies chest pain, shortness of breath, fever. He states he has had a cough for a month, nonproductive. I was unable to obtain other history at this time. CBC/BMP: 04/23/17 0856 04/23/17 0856 Significant Findings Laboratory Tests Test 04/22/17 04/23/17 08:00 08:56 White Blood Count 17.0 TH/MM3 16.3 TH/MM3 (4.0-11.0) (4.0-11.0) Red Blood Count 3.03 MIL/MM3 3.17 MIL/MM3 (4.50-5.90) (4.50-5.90) Hemoglobin 10.3 GM/DL 10.8 GM/DL (13.0-17.0) (13.0-17.0) Hematocrit 31.1 % 33.0 % (39.0-51.0) (39.0-51.0) Mean Corpuscular Volume 102.8 FL 103.9 FL (80.0-100.0) (80.0-100.0) Red Cell Distribution Width 19.2 % 19.2 % (11.6-17.2) (11.6-17.2) Neutrophils (%) (Auto) 75.9 % 76.4 % (16.0-70.0) (16.0-70.0) Monocytes (%) (Auto) 10.3 % 8.5 % (0.0-8.0) (0.0-8.0) Neutrophils # (Auto) 12.9 TH/MM3 12.5 TH/MM3 (1.8-7.7) (1.8-7.7) Monocytes # (Auto) 1.8 TH/MM3 1.4 TH/MM3 (0-0.9) (0-0.9) Neutrophils % (Manual) 79 % (16-70) 79 % (16-70) Lymphocytes % 7 % (9-44) Monocytes % 9 % (0-8) Neutrophils # (Manual) 14.3 TH/MM3 13.7 TH/MM3 (1.8-7.7) (1.8-7.7) Myelocytes 2 % (0-0) 1 % (0-0) Ovalocytes 1+ (NORMAL) Blood Urea Nitrogen 128 MG/DL 95 MG/DL (7-18) (7-18) Creatinine 7.72 MG/DL 6.45 MG/DL (0.60-1.30) (0.60-1.30) Estimat Glomerular Filtration 8 ML/MIN (>89) 10 ML/MIN (>89) Rate Random Glucose 160 MG/DL 132 MG/DL (74-106) (74-106) Nucleated Red Blood Cells 1 /100 WBC (0-0) Tear Drop Cells 1+ (NORMAL) PE at Discharge GEN: Awake alert and oriented HEENT: Symmetric faces, full sensation to face, CN intact RESP: Improved aeration bilaterally. CV: RRR, no pitting edema in pegs, No calf tenderness GI: Soft, ND NT Hospital Course Nephrology was consulted for dialysis management. Infectious disease was consulted to help with antibiotics. The patient was on broad-spectrum antibiotics including cefepime, vancomycin, Levaquin. He responded well to these medications and was discharged to [facility] with instructions to take Levaquin medications for 2 more doses and then he would be finished with his antibiotic course. Palliative care help provide goals of treatment for the family. Cardiology was consulted for atrial flutter. The patient responded well to his treatment course and was discharged to [facility] for further rehabilitative efforts. Pt Condition on Discharge: Fair Discharge Disposition: Rehab Inpatient Discharge Instructions DIET: Follow Instructions for: Renal Failure Diet Activities you can perform: See Additionl Instruction Follow up Referrals: PCP Follow-up - 1 Week New Orders: CBC WITH DIFF - 2 Days New Medications: Levofloxacin Inj (Levofloxacin Inj) 500 Mg/100 Ml Bagp 500 MG IV q48H Infection #20 Ref 0 BAG Continued Medications: Apixaban (Eliquis) 2.5 Mg Tab 2.5 MG PO BID Blood Clot Prevention #180 Ref 1 TAB Calcitriol (Calcitriol) 0.25 Mcg Cap 0.25 MCG PO MOWEFR Take 1 tablet (0.25mcg) on Thursday,Thursday and Thursday Calcium Supplement #30 Ref 0 CAP Carvedilol (Carvedilol) 25 Mg Tab 25 MG PO BID #180 Ref 3 TAB Insulin Aspart Protam-Asp 70-30 Inj (Novolog Mix 70-30 FlexPen Inj) 300 Unit/3 Ml Pen 5-10 UNITS SQ BID Blood Sugar Management #1 Ref 0 PEN Ipratropium-Albuterol Neb (Duoneb) 0.5-2.5 Mg/3 Ml Neb 3 ML NEB Q6HR Breathing Treatment #30 Ref 0 NEBULE Losartan (Losartan) 50 Mg Tab 50 MG PO HS Blood Pressure Management #30 Ref 0 TAB Polyethylene Glycol 3350 Powder (Miralax Powder) 17 Gm Powd 17 GM PO DAILY Mix and dissolve one measuring capful (17 grams) in 4-8oz water or juice. Constipation #1 Ref 0 CAN Sertraline (Sertraline) 25 Mg Tab 25 MG PO DAILY #30 Ref 0 TAB Sevelamer Carbonate (Renvela) 800 Mg Tab 1600 MG PO TIDAC #90 Ref 0 TAB Simvastatin (Simvastatin) 20 Mg Tab 20 MG PO HS Cholesterol Management #30 Ref 0 TAB Caleb Wolfe MD R2 Apr 24, 2017 10:58
== END 2017-04-23 13:29 | DRG 193 ==
LOC: NEPE 17:18 → NEDA 20:49 → INTOOBSV 20:49 → NEDH 04-18 00:47 → NEPFCDU 04-18 02:42 → OBSVTOIN 04-18 10:33 → N04B 04-18 18:18
PROVIDERS: ADMIT Family Medicine; ATTEND Family Medicine
PROC: 5A1D60Z (ICD-10-PCS; principal; 2017-04-20)
DX: J18.9 Pneumonia, unspecified organism (principal); N18.6 End stage renal disease; E87.3 Alkalosis; I48.92 Unspecified atrial flutter; E88.89 Other specified metabolic disorders; I12.0 Hypertensive chronic kidney disease with stage 5 chronic kidney disease or end stage renal disease; I27.2 Other secondary pulmonary hypertension; F03.90 Unspecified dementia, unspecified severity, without behavioral disturbance, psychotic disturbance, mood disturbance, and anxiety; D63.1 Anemia in chronic kidney disease; E11.22 Type 2 diabetes mellitus with diabetic chronic kidney disease; I08.1 Rheumatic disorders of both mitral and tricuspid valves; R11.10 Vomiting, unspecified; E78.5 Hyperlipidemia, unspecified; Z51.5 Encounter for palliative care; Z87.01 Personal history of pneumonia (recurrent); Z86.010 Personal history of colon polyps; Z99.2 Dependence on renal dialysis; Z86.73 Personal history of transient ischemic attack (TIA), and cerebral infarction without residual deficits; Z86.718 Personal history of other venous thrombosis and embolism; Z79.4 Long term (current) use of insulin; I65.23 Occlusion and stenosis of bilateral carotid arteries; E87.5 Hyperkalemia; I48.91 Unspecified atrial fibrillation; Y95 Nosocomial condition
CPT/HCPCS: 36600; 70450; 71010; 80048; 80053; 81001; 82140; 82550; 82805; 82948; 83605; 83735; 83880; 84100; 84443; 84484; 85007; 85025; 85027; 87040; 87449; 90935; 93005; 93306; 93880; 94640; 94664; 96365; 96374; 96375; G0378; J0360; J0692; J1580; J1644; J1815; J1956; J2930; J3370; J7030; J7050; J7644; Q4081